=== PATIENT | male | born 1945 | race African-American/Black ===

== ENCOUNTER 2016-11-25 14:05 | Emergency (ER) | payer MEDICARE, MEDICAID ==
[~2016-11-25] VITALS: Ht 170.2 cm; Wt 56.0 kg
[~2016-11-25 14:05] MED LIST: AMLO10TA2 PO; CHEMO MEDICATION; GABA300C5 PO; METO25TA3 PO; SPIRCAP INH
[2016-11-25 14:07] VITALS: BP 137/63; PULSE 80; RESP 15; TEMP 97.8; O2SAT 98
--- NOTE | 2016-11-25 14:41 | PD ---
Physical Exam Time Seen by Provider: 14:40 Narrative 71 y/o male W R groin pain for six months, worse which prompted evaluation. Vital signs reviewed. Seen at triage desk. Awaiting bed placement. Data Data Last Documented VS Vital Signs Date Time Temp Pulse Resp B/P Pulse Ox O2 Delivery O2 Flow Rate FiO2 11/25/16 14:07 97.8 80 15 137/63 98 MDM Medical Record Reviewed: Yes Supervised Visit with NAHOMI: Jake Barraza Nov 25, 2016 14:41
[2016-12-25] MEDS ORDERED: VENTAER INH (08:54)
[2016-12-25] MEDS ORDERED: ADVA250A INH (08:54)
[2016-12-25] MEDS ORDERED: METO25TA3 PO (08:54)
[2016-12-25] MEDS ORDERED: AMLO10TA2 PO (08:54)
[2016-12-25] MEDS ORDERED: TIOT1AER2 INH (08:54)
== END 2016-11-25 15:05 | disposition left against medical advice (07) ==
LOC: NED 14:05
DX: R10.31 Right lower quadrant pain (principal)
CPT/HCPCS: 99281

== ENCOUNTER 2017-01-29 12:28 | Observation (INO) | payer MEDICARE, MEDICAID ==
[~2017-01-29] VITALS: Ht 167.6 cm; Wt 55.0 kg
[2017-01-29] VITALS (8 sets, daily range): BP systolic 162–183; BP diastolic 72–89; PULSE 45–78; RESP 17–24; TEMP 97.6–98.7; O2SAT 96–100
[~2017-01-29 12:28] MED LIST changes: +ADVA250A INH; +TIOT1AER2 INH; +VENTAER INH
--- NOTE | 2017-01-29 12:35 | PD ---
Physical Exam Date Seen by Provider: Jan 29, 2017 Time Seen by Provider: 12:31 Narrative 71 yo male here for RLQ pain. History of hernia repair in November. Pain is " outside of the pain scale". Been here multiple times for this per patient. Pain meds not helping. History of prostate cancer. Vitals are stable in triage. Awaiting bed placement. Data Data Last Documented VS Vital Signs Date Time Temp Pulse Resp B/P Pulse Ox O2 Delivery O2 Flow Rate FiO2 01/29/17 12:29 98.7 64 24 183/85 100 Room Air [facility] Medical Record Reviewed: Yes Supervised Visit with NAHOMI: No Elbert Harrell Jan 29, 2017 12:35
[2017-01-29] MEDS ORDERED: SODIUM CHLORID 0.9% 500 ML INJ 500 ML IV ONE (14:00)
[2017-01-29] MEDS ORDERED: SODIUM CHLORIDE 0.9% FLUSH 10 ML FLUSH IV FLUSH PRN ×2 (14:00→18:15)
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
[2017-01-29 14:29] LABS: AUTOMATED NEUTROPHIL # 3.5 TH/MM3 (1.8-7.7); BASOPHIL # 0.1 TH/MM3 (0-0.2); BASOPHIL % 0.9 % (0.0-2.0); EOSINOPHIL # 0.2 TH/MM3 (0-0.4); HEMATOCRIT 42.6 % (39.0-51.0); HEMO FLAGS DIFF FINAL; LYMPH % 33.4 % (9.0-44.0); LYMPHOCYTE # 2.2 TH/MM3 (1.0-4.8); MEAN CELL VOLUME 82.6 FL (80.0-100.0); MEAN CORPUSCULAR HEMOGLOBIN 28.5 PG (27.0-34.0); MEAN CORPUSCULAR HGB CONC 34.5 % (32.0-36.0); MONO % 9.7 % (0.0-8.0); PLATELET COUNT 193 TH/MM3 (150-450); RED BLOOD COUNT 5.16 MIL/MM3 (4.50-5.90); RED CELL DISTRIBUTION WIDTH 17.7 % (11.6-17.2); WHITE BLOOD COUNT 6.6 TH/MM3 (4.0-11.0)
[2017-01-29 14:38] LABS: APTT (PATIENT) 30.1 SEC (24.3-30.1)
[2017-01-29 14:41] LABS: ANION GAP 6 MEQ/L (5-15); AST (GOT) 17 U/L (15-37); BLOOD UREA NITROGEN 10 MG/DL (7-18); CHLORIDE 106 MEQ/L (98-107); GLOMERULAR FILTRATION RATE 110 ML/MIN (>89); POTASSIUM 3.4 MEQ/L (3.5-5.1); SODIUM (NA) 140 MEQ/L (136-145)
[2017-01-29 14:42] LABS: ALT (GPT) 18 U/L (12-78)
[2017-01-29 14:45] LABS: ALKALINE PHOSPHATASE 155 U/L (45-117); TOTAL BILIRUBIN ADULT 0.4 MG/DL (0.2-1.0)
[2017-01-29] MEDS ORDERED: IOHEXOL 350 MG/ML 10 ML VIAL (for RAD DIAG) IV ONE (16:34)
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
[2017-01-29] MEDS ORDERED: HYDROmorphone HCL PF 1 MG/ML VIAL IV PUSH ONE (17:30)
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
[2017-01-29 17:40] LABS: BACTERIA, URINE RARE /hpf; BLOOD, URINE NEG (NEG); COMMENT (UR) CULT NOT INDICATED; CULTURE IF INDICATED CULT NOT INDICATED; GLUCOSE,URINE NEG (NEG); KETONE, URINE NEG (NEG); NITRITE,URINE NEG (NEG); PH, URINE 7.5 (5.0-8.5); URINE COLOR LIGHT-YELLOW (YELLW/STRAW)
[2017-01-29] MEDS ORDERED: LACTULOSE SYRUP 20 GM/30 ML CUP PO PRN (18:15)
[2017-01-29] MEDS ORDERED: HYDROmorphone HCL 2 MG TAB PO PRN (18:15)
[2017-01-29] MEDS ORDERED: BISACODYL 10 MG SUPP RECTAL PRN (18:15)
[2017-01-29] MEDS ORDERED: NALOXONE HCL 0.4 MG/ML AMP IV PRN ×2 (18:15)
[2017-01-29] MEDS ORDERED: MAGNESIUM HYDROXIDE SUSP 30 ML CUP PO PRN (18:15)
[2017-01-29] MEDS ORDERED: ONDANSETRON HCL 4 MG/2 ML VIAL IVP PRN (18:15)
[2017-01-29] MEDS ORDERED: MORPHINE SULFATE 4 MG/ML INJ IV PRN (18:15)
[2017-01-29] MEDS ORDERED: ACETAMINOPHEN 325 MG TAB PO PRN ×2 (18:15)
[2017-01-29] MEDS ORDERED: SENNOSIDES 8.6 MG TAB PO PRN (18:15)
[2017-01-29] MEDS ORDERED: ENZA40CA PO (18:28)
[2017-01-29] MEDS ORDERED: hydrALAZINE HCL 20 MG/ML VIAL IV PRN (18:45)
[2017-01-29] MEDS ORDERED: ALBUTEROL SULFATE 90 MCG/ACT HFA 8 GM INHALER INH PRN (18:45)
[2017-01-29] MEDS ORDERED: PILL SPLITTER OTHER PRN (20:00)
[2017-01-29] MEDS: SODIUM CHLORIDE 0.9% FLUSH 10 ML FLUSH IV FLUSH SCH (21:00)
[2017-01-29] MEDS: SODIUM CHLOR 0.9% 1000 ML INJ 1,000 ML IV SCH (21:11)
[2017-01-29] MEDS: BUDESONIDE-FORMOTEROL 160/4.5 MCG INHALER INH SCH (21:11)
[2017-01-29] MEDS: GABAPENTIN 300 MG CAP PO SCH (21:12)
[2017-01-29] MEDS: DOCUSATE SODIUM 50 MG/SENNA 8.6 MG TAB PO SCH (21:12)
[2017-01-29] MEDS: METOPROLOL TARTRATE 25 MG TAB PO SCH (21:12)
[2017-01-29] MEDS: HYDROmorphone HCL 2 MG TAB PO PRN (22:52)
[2017-01-30] MEDS: HYDROmorphone HCL 2 MG TAB PO PRN ×3 (03:08→20:42)
[2017-01-30 04:18] VITALS: BP 148/78; PULSE 58; RESP 18; TEMP 97.8; O2SAT 99
[2017-01-30] MEDS: SODIUM CHLOR 0.9% 1000 ML INJ 1,000 ML IV SCH ×2 (06:00→08:54)
[2017-01-30 07:31] LABS: AUTOMATED NEUTROPHIL # 3.1 TH/MM3 (1.8-7.7); BASOPHIL # 0.1 TH/MM3 (0-0.2); BASOPHIL % 0.8 % (0.0-2.0); EOSINOPHIL # 0.3 TH/MM3 (0-0.4); EOSINOPHIL % 4.2 % (0.0-4.0); HEMATOCRIT 39.3 % (39.0-51.0); HEMO FLAGS DIFF FINAL; LYMPH % 36.9 % (9.0-44.0); LYMPHOCYTE # 2.3 TH/MM3 (1.0-4.8); MEAN CELL VOLUME 82.3 FL (80.0-100.0); MEAN CORPUSCULAR HEMOGLOBIN 29.3 PG (27.0-34.0); MEAN CORPUSCULAR HGB CONC 35.6 % (32.0-36.0); MONO % 8.8 % (0.0-8.0); NEUT % 49.3 % (16.0-70.0); PLATELET COUNT 161 TH/MM3 (150-450); RED BLOOD COUNT 4.77 MIL/MM3 (4.50-5.90); RED CELL DISTRIBUTION WIDTH 17.9 % (11.6-17.2); WHITE BLOOD COUNT 6.3 TH/MM3 (4.0-11.0)
[2017-01-30 07:34] VITALS: BP 174/74; PULSE 58; RESP 16; TEMP 98.8; O2SAT 100
[2017-01-30 07:37] LABS: ALKALINE PHOSPHATASE 135 U/L (45-117); ALT (GPT) 16 U/L (12-78); ANION GAP 7 MEQ/L (5-15); AST (GOT) 17 U/L (15-37); BLOOD UREA NITROGEN 8 MG/DL (7-18); CHLORIDE 105 MEQ/L (98-107); GLOMERULAR FILTRATION RATE 141 ML/MIN (>89); POTASSIUM 3.3 MEQ/L (3.5-5.1); SODIUM (NA) 139 MEQ/L (136-145); TOTAL BILIRUBIN ADULT 0.3 MG/DL (0.2-1.0)
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
[2017-01-30 08:11] VITALS: O2SAT 97
[2017-01-30] MEDS: METOPROLOL TARTRATE 25 MG TAB PO SCH ×2 (08:52→20:33)
[2017-01-30] MEDS: DOCUSATE SODIUM 50 MG/SENNA 8.6 MG TAB PO SCH ×2 (08:53→20:33)
[2017-01-30] MEDS: GABAPENTIN 300 MG CAP PO SCH ×2 (08:53→20:32)
[2017-01-30] MEDS: BUDESONIDE-FORMOTEROL 160/4.5 MCG INHALER INH SCH ×2 (08:54→20:32)
[2017-01-30] MEDS: SODIUM CHLORIDE 0.9% FLUSH 10 ML FLUSH IV FLUSH SCH ×2 (08:55→20:35)
[2017-01-30] MEDS ORDERED: ENZALUTAMIDE PO SCH (09:00)
[2017-01-30] MEDS ORDERED: [UNRECOGNIZED DRUG - OTHER] PO SCH (09:00)
--- NOTE | 2017-01-30 10:09 | HHI.FPPN ---
Subjective Remarks Pt seen and examined this morning. Pt endorses some nausea and vomiting prior to admission. Currently denies chest pain, shortness of breath. He has been having pain in right lower quadrant which he attributes to prior hernia repair, currently pain is controlled with pain medications. Denies any other abdominal pain. He anticipates having an ERCP later this afternoon. (Carol Ann Morillo MD R3) Objective Vitals Vital Signs Date Time Temp Pulse Resp B/P Pulse Ox O2 Delivery O2 Flow Rate FiO2 01/30/17 07:34 98.8 58 16 174/74 100 01/30/17 04:18 97.8 58 18 148/78 99 01/29/17 23:48 97.7 56 19 163/79 99 01/29/17 22:35 98 01/29/17 21:45 97.6 45 17 176/82 98 01/29/17 21:25 78 18 162/89 96 Room Air 01/29/17 18:23 69 18 174/82 97 Room Air 01/29/17 15:30 70 18 168/72 98 Room Air 01/29/17 14:20 65 18 171/81 98 Room Air 01/29/17 14:20 20 01/29/17 12:29 98.7 64 24 183/85 100 Room Air (Carol Ann Morillo MD R3) Result Diagram: 01/30/17 0640 01/30/17 0640 Objective Remarks GENERAL: This is a well-nourished, well-developed patient, in no apparent distress. SKIN: No rashes, ecchymoses or lesions. Multiple healed scars on abdomen from prior surgeries. HEAD: Atraumatic. Normocephalic. Pupils equal round and reactive. Extraocular motions intact. + Arcus senilis. Missing several teeth. Uvula midline. Airway patent. NECK: Trachea midline. CARDIOVASCULAR: Regular rate and rhythm RESPIRATORY: Clear to auscultation. Breath sounds equal bilaterally. No wheezes , rales, or rhonchi. GASTROINTESTINAL: Abdomen soft. BS+ in all quadrants. Tender to palpation in RLQ. Negative Kim's sign. No rebound tenderness. No RUQ tenderness. MUSCULOSKELETAL: Extremities without clubbing, cyanosis, or edema. No calf tenderness. NEUROLOGICAL: Awake and alert. Motor and sensory grossly within normal limits. Normal speech. (Carol Ann Morillo MD R3) A/P Assessment and Plan 71 y/o male with history of prostate cancer, HTN, inguinal hernia presents with RLQ pain. CT abdomen/pelvis shows choledocholithiasis. Will admit for GI consult and management, and pain control. Discharge Planning Anticipate discharge once abdominal pain is well-controlled and patient has been cleared by GI. (Carol Ann Morillo MD R3) Attending Attestation Patient seen and examined. Case reviewed and discussed with the resident team. Agree with plan of care as discussed with me and documented in the resident note. (Erickson Lo MD) Problem List: (1) Choledocholithiasis Status: Acute Plan: Patient presents with worsening abdominal pain, CT performed in ED showed prominent tubular structure containing filling defects characteristic of common bile distention with choledocholithiasis. Elevated alkaline phosphatase of 155. No elevated transaminases. Normal PT/PTT. No leukocytosis. No history of gallbladder or pancreatic disease. -GI consulted, appreciate recommendations and intervention -Anticipate ERCP with possible cingulotomy and stent placement later this afternoon -AFP, CA-19-9, CEA ordered -Lipase within normal limits at 90 Pain control: Morphine 4 mg IV prn breakthrough Dilaudid 1 mg Q4hrs prn Pain 3-5 Dilaudid 2 mg Q4hrs prn pain 6-10 (2) Prostate cancer Status: Chronic Plan: Hx of prostate cancer and prostatectomy. Hx of chemotherapy, currently on Xtandi at home. -Pt states he takes 160mg Xtandi daily. -Rx is not on formulary, so pt will need to bring from home, or discuss with oncologist about taking it. (3) HTN (hypertension) Status: Chronic Plan: -Continue home amlodipine and metoprolol -Hydralazine PRN (4) COPD (chronic obstructive pulmonary disease) Status: Chronic Plan: Hx of chronic COPD -Continue home Spiriva, albuterol inhaler (5) Diarrhea Status: Acute Plan: Pt with history of diarrhea prior to admission -C. Diff, stool studies ordered to evaluate for possible infectious cause (6) FEN/PPX Status: Acute Plan: Fluids: NS @ 100mls/hr Electrolytes: wnl, continue to monitor Nutrition: NPO DVT PPX: will hold chemo ppx until after GI procedure; SCDs placed (Carol Ann Morillo MD R3) Problem Qualifiers (1) HTN (hypertension): Qualified Code: I10 - Essential hypertension (2) COPD (chronic obstructive pulmonary disease): Qualified Code: J44.9 - Chronic obstructive pulmonary disease, unspecified COPD type Carol Ann Morillo MD R3 Jan 30, 2017 10:09 Erickson Lo MD Jan 30, 2017 11:32
[2017-01-30] MEDS: TIOTROPIUM BROMIDE 18 MCG INH INH SCH (10:29)
[2017-01-30 11:30] VITALS: BP 166/74; PULSE 52; RESP 16; TEMP 98.4; O2SAT 97
[2017-01-30] MEDS ORDERED: NEOSTIGMINE 3 MG/3 ML SYR IV ONE (12:00)
[2017-01-30] MEDS ORDERED: IOHEXOL 350 MG/ML 50 ML BTL (for RAD DIAG) ONE (16:51)
[2017-01-30] MEDS ORDERED: INDOMETHACIN 50 MG SUPP RECTAL ONE (16:56)
[2017-01-30] MEDS ORDERED: PROPOFOL 200 MG/20 ML AMP IV PUSH ONE (17:27)
[2017-01-30] MEDS ORDERED: SUGAMMADEX SODIUM 200 MG/2 ML VIAL IV PUSH ONE ×2 (17:35)
--- NOTE | 2017-01-30 17:40 | RADRPT ---
EXAM DATE/TIME: 01/30/2017 17:04 [facility] COMPARISON: CT ABDOMEN & PELVIS W CONTRAST, January 29, 2017, 16:37. INDICATIONS : Obstruction. Stent placment. FLUORO TIME: 4.0 minutes IMAGE COUNT: 2 CONTRAST: Instilled by Ordering Physician MEDICAL HISTORY : Unobtainable SURGICAL HISTORY : Unobtainable. ENCOUNTER: Initial ACUITY: 2 days PAIN SCORE: Non-responsive. LOCATION: Abdomen. FINDINGS: An ERCP was performed by the ordering physician. The images demonstrate dilated intra-and extrahepatic biliary tree with multiple filling defects in t he common duct consistent with stones. A second film reveals good drainage of the biliary tree with a stent in good position. CONCLUSION: ERCP as above. Dino Mendoza MD on January 30, 2017 at 17:37 Board Certified Radiologist. This report was verified electronically.
--- NOTE | 2017-01-30 17:45 | PD.PROCEDR ---
GI Procedure REFERRING PHYSICIAN Dr. Lo PROCEDURE PERFORMED ERCP with sphincterotomy balloon extraction and stent placement INDICATION FOR PROCEDURE Choledocholithiasis PROCEDURE: The procedure, risks and benefits were discussed with Mr. Yoder and informed consent was obtained. Anesthesia intubated the patient and sedated him with Diprivan. He was placed in the left lateral decubitus position. ERCP: Patient was placed in a prone position. The Pentax videoscope was introduced through the oropharynx and advanced to the second portion of the duodenum where the ampula was identified. FINDINGS: The ampulla appeared to be unremarkable and within normal limits were able to obtain easy cannulation of the common bile duct which appeared to be significantly dilated with multiple large filling defects using the 15 mm balloon we were able to extract 2 of the largest stones but there are still multiple stones in there and as such I made a decision to place a 10 Egyptian 9 cm stent and at this point the procedure was terminated The intrahepatics appeared to be unremarkable ESTIMATED BLOOD LOSS: None SPECIMENS REMOVED: None COMPLICATIONS: None IMPRESSION: Choledocholithiasis PLAN: Supportive care Advance diet Patient may be discharged from a GI standpoint to follow up with GI in 2-4 weeks CBC and a CMP prior office visit ERCP in 2-3 months Eran Bell MD Jan 30, 2017 17:45
[2017-01-30] MEDS ORDERED: fentaNYL CITRATE 250 MCG/5 ML AMP ONE (18:16)
[2017-01-30] MEDS ORDERED: hydrALAZINE HCL 20 MG/ML VIAL IV PRN (18:30)
[2017-01-30] MEDS ORDERED: DO NOT ADM ANY ANTICOAGULANT DRUGS PRN (18:30)
[2017-01-30] MEDS ORDERED: *ONDANSETRON 4 MG VIAL PERIprocedural Use ONLY ONE (18:38)
[2017-01-30 20:14] VITALS: BP 126/59; PULSE 78; RESP 18; TEMP 98.1; O2SAT 100
[2017-01-30 23:44] VITALS: BP 117/59; PULSE 79; RESP 18; TEMP 98.3; O2SAT 96
[2017-01-31] MEDS: HYDROmorphone HCL 2 MG TAB PO PRN ×2 (03:39→12:36)
[2017-01-31] MEDS: SODIUM CHLOR 0.9% 1000 ML INJ 1,000 ML IV SCH ×2 (03:42→12:35)
[2017-01-31 04:34] VITALS: BP 168/74; PULSE 62; RESP 18; TEMP 97.4; O2SAT 99
[2017-01-31] MEDS ORDERED: POTASSIUM CHLORIDE 20 MEQ CONTROLLED RELEASE TAB PO ONE (07:45)
[2017-01-31 08:11] VITALS: BP 136/65; PULSE 67; RESP 18; TEMP 96.9; O2SAT 96
[2017-01-31] MEDS ORDERED: DILA4TAB2 PO ×2 (08:17→09:40)
[2017-01-31] MEDS: GABAPENTIN 300 MG CAP PO SCH (08:18)
[2017-01-31] MEDS: METOPROLOL TARTRATE 25 MG TAB PO SCH (08:18)
[2017-01-31] MEDS: SODIUM CHLORIDE 0.9% FLUSH 10 ML FLUSH IV FLUSH SCH (08:20)
[2017-01-31] MEDS: BUDESONIDE-FORMOTEROL 160/4.5 MCG INHALER INH SCH (08:20)
[2017-01-31] MEDS: TIOTROPIUM BROMIDE 18 MCG INH INH SCH (08:20)
[2017-01-31] MEDS: DOCUSATE SODIUM 50 MG/SENNA 8.6 MG TAB PO SCH (08:24)
--- NOTE | 2017-01-31 10:05 | HHI.FPPN ---
Subjective Remarks Patient seen and examined this morning. No acute events over night. Patient states that his abdominal pain is better today, however there is some new dull pain on the right side which he attributes to his recent ERCP. He still has some pain around his hernia repair, which he describes as "still there, not too bad." No other complaints of nausea, vomiting, fever, chills, chest pain, shortness of breath, change in bowel habits, change in urinary habits. (Fidel Soto MD R1) Objective Vitals Vital Signs Date Time Temp Pulse Resp B/P Pulse Ox O2 Delivery O2 Flow Rate FiO2 01/31/17 08:11 96.9 67 18 136/65 96 01/31/17 04:34 97.4 62 18 168/74 99 01/30/17 23:44 98.3 79 18 117/59 96 01/30/17 20:14 98.1 78 18 126/59 100 01/30/17 18:45 97.6 69 15 155/74 98 Nasal Cannula 2 01/30/17 18:30 68 14 169/78 96 Nasal Cannula 2 01/30/17 18:15 96.8 66 14 180/89 100 Nasal Cannula 3 01/30/17 18:10 61 14 196/95 99 Nasal Cannula 3 01/30/17 18:02 96.1 01/30/17 18:00 96.1 63 13 189/88 100 Simple Mask 7 01/30/17 15:43 01/30/17 11:30 98.4 52 16 166/74 97 01/30/17 09:58 18 I/O 01/30/17 01/30/17 01/30/17 01/31/17 01/31/17 01/31/17 07:00 15:00 23:00 07:00 15:00 23:00 Intake Total 1350 ml Output Total 1590 ml 1100 ml Balance -240 ml -1100 ml Intake IV Total 750 ml Other 600 ml Output Urine Total 1580 ml 1100 ml Stool Total 0 ml Estimated Blood Loss 10 ml (Fidel Soto MD R1) Result Diagram: 01/30/17 0640 01/30/17 0640 Imaging Last Impressions GI Procedure 01/30/17 0000 Signed Impressions: Service Date/Time: January 17:04 - CONCLUSION: ERCP as above. Dino Mendoza MD Abdomen/Pelvis CT 01/29/17 1343 Signed Impressions: Service Date/Time: Sunday, January 29, 2017 16:37 - CONCLUSION: 1. Prominent tubular structure containing filling defects extending from the malathi hepatis to the pancreatic head characteristic of common bile duct distention with choledocholithiasis. 2. Mild intrahepatic biliary duct dilatation. 3. Calcific atherosclerotic vascular disease with significant calcified plaque in the superior mesenteric artery. 4. Mild small vessel ileus Jorge Sawyer MD Objective Remarks GENERAL: This is a well-nourished, well-developed patient, in no apparent distress. SKIN: No rashes, ecchymoses or lesions. Multiple healed scars on abdomen from prior surgeries. HEAD: Atraumatic. Normocephalic. Pupils equal round and reactive. Extraocular motions intact. + Arcus senilis. Missing several teeth. Uvula midline. Airway patent. NECK: Trachea midline. CARDIOVASCULAR: Regular rate and rhythm RESPIRATORY: Clear to auscultation. Breath sounds equal bilaterally. No wheezes , rales, or rhonchi. GASTROINTESTINAL: Abdomen soft. BS+ in all quadrants. Tender to palpation in RLQ , RUQ. Negative Kim's sign. No rebound tenderness. No RUQ tenderness. MUSCULOSKELETAL: Extremities without clubbing, cyanosis, or edema. No calf tenderness. NEUROLOGICAL: Awake and alert. Motor and sensory grossly within normal limits. Normal speech. Procedures ERCP with stenting 01/30/11 Medications and IVs Current Medications Medications (Trade) Dose Ordered Sig/Tammie Route Start Time Stop Time Status Last Admin (NS 1000 ml Inj) 1,000 ml @ 100 mls/hr Q10H IV 01/29/17 20:00 01/31/17 03:42 (NS Flush) 2 ml UNSCH PRN IV FLUSH 01/29/17 18:15 01/29/17 23:01 (NS Flush) 2 ml BID IV FLUSH 01/29/17 21:00 01/30/17 20:35 (Tylenol) 650 mg Q4H PRN PO 01/29/17 18:15 (Zofran Inj) 4 mg Q6H PRN IVP 01/29/17 18:15 01/31/17 08:24 (Narcan Inj) 0.4 mg UNSCH PRN IV 01/29/17 18:15 (Rolanda-Colace) 1 tab BID PO 01/29/17 21:00 01/31/17 08:24 (Milk Of Magnesia Liq) 30 ml Q12H PRN PO 01/29/17 18:15 (Senokot) 17.2 mg Q12H PRN PO 01/29/17 18:15 (Dulcolax Supp) 10 mg DAILY PRN RECTAL 01/29/17 18:15 (Lactulose Liq) 30 ml DAILY PRN PO 01/29/17 18:15 (Tylenol) 650 mg Q6H PRN PO 01/29/17 18:15 (Morphine Inj) 4 mg Q3H PRN IV 01/29/17 18:15 (Dilaudid) 1 mg Q4H PRN PO 01/29/17 18:15 (Dilaudid) 2 mg Q4H PRN PO 01/29/17 18:15 01/31/17 03:39 (Proair Hfa Inh) 2 puff Q4H PRN INH 01/29/17 18:45 (Norvasc) 10 mg DAILY PO 01/30/17 09:00 01/31/17 08:18 (Neurontin) 300 mg BID PO 01/29/17 21:00 01/31/17 08:18 (Lopressor) 25 mg BID PO 01/29/17 21:00 01/31/17 08:18 (Spiriva Inh) 18 mcg DAILY INH 01/30/17 09:00 01/31/17 08:20 Patient Own Medication PT OWN MED: XTANDI (ENZALUTAMI... DAILY PO 01/30/17 09:00 Hold (Symbicort 160-4.5 Inh) 2 puff BID INH 01/29/17 21:00 01/31/17 08:20 (Apresoline Inj) 10 mg Q6H PRN IV 01/29/17 18:45 (Pill Splitter) 1 ea UNSCH PRN OTHER 01/29/17 20:00 Miscellaneous Information ALL NURSING DEPARTME... UNSCH PRN .XX 01/30/17 18:30 01/31/17 18:29 (Apresoline Inj) 5 mg UNSCH PRN IV 01/30/17 18:30 (Fidel Soto MD R1) A/P Assessment and Plan 71 y/o male with history of prostate cancer, HTN, inguinal hernia presents with RLQ pain. CT abdomen/pelvis shows choledocholithiasis. Will admit for GI consult and management, and pain control. Discharge Planning Anticipate discharge once abdominal pain is well-controlled and patient has been cleared by GI. (Fidel Soto MD R1) Attending Attestation Patient seen and examined. Case reviewed and discussed with the resident team. Agree with plan of care as discussed with me and documented in the resident note. (Erickson Lo MD) Problem List: (1) Choledocholithiasis Status: Acute Plan: Patient presented with worsening abdominal pain, CT performed in ED showed prominent tubular structure containing filling defects characteristic of common bile distention with choledocholithiasis. Elevated alkaline phosphatase of 155. No elevated transaminases. Normal PT/PTT. No leukocytosis. No history of gallbladder or pancreatic disease. Pain currently resolving. -GI consulted, appreciate recommendations and intervention -ERCP with stent placement 01/30/17 -AFP, CA-19-9, CEA ordered -Lipase within normal limits at 90 Pain control: Morphine 4 mg IV prn breakthrough Dilaudid 1 mg Q4hrs prn Pain 3-5 Dilaudid 2 mg Q4hrs prn pain 6-10 (2) Prostate cancer Status: Chronic Plan: Hx of prostate cancer and prostatectomy. Hx of chemotherapy, currently on Xtandi at home. -Pt states he takes 160mg Xtandi daily. -Rx is not on formulary, so pt will need to bring from home, or discuss with oncologist about taking it. (3) HTN (hypertension) Status: Chronic Plan: -Continue home amlodipine and metoprolol -Hydralazine PRN (4) COPD (chronic obstructive pulmonary disease) Status: Chronic Plan: Hx of chronic COPD -Continue home Spiriva, albuterol inhaler (5) Diarrhea Status: Acute Plan: Pt with history of diarrhea prior to admission -C. Diff, stool studies ordered to evaluate for possible infectious cause (6) FEN/PPX Status: Acute Plan: Fluids: NS @ 100mls/hr Electrolytes: wnl, continue to monitor Nutrition: NPO DVT PPX: will hold chemo ppx until after GI procedure; SCDs placed (Fidel Soto MD R1) Problem Qualifiers (1) HTN (hypertension): Qualified Code: I10 - Essential hypertension (2) COPD (chronic obstructive pulmonary disease): Qualified Code: J44.9 - Chronic obstructive pulmonary disease, unspecified COPD type Fidel Soot MD R1 Jan 31, 2017 10:05 Erickson Lo MD Jan 31, 2017 14:06
[2017-01-31] MEDS ORDERED: HYDROmorphone HCL 2 MG TAB PO ONE (12:15)
[2017-01-31 12:22] VITALS: BP 130/60; PULSE 67; RESP 18; TEMP 96.8; O2SAT 96
--- NOTE | 2017-01-31 14:54 | HHI.GIFU ---
Subjective Remarks Feels fine. No complaints. Eating well. No abdominal pain. I advised him he needs to followup in office in 4 weeks or so to schedule a repeat ERCP with removal of the rest of the stones. Objective Vitals I&O Vital Signs Date Time Temp Pulse Resp B/P Pulse Ox O2 Delivery O2 Flow Rate FiO2 01/31/17 12:22 96.8 67 18 130/60 96 01/31/17 08:11 96.9 67 18 136/65 96 01/31/17 04:34 97.4 62 18 168/74 99 01/30/17 23:44 98.3 79 18 117/59 96 01/30/17 20:14 98.1 78 18 126/59 100 01/30/17 18:45 97.6 69 15 155/74 98 Nasal Cannula 2 01/30/17 18:30 68 14 169/78 96 Nasal Cannula 2 01/30/17 18:15 96.8 66 14 180/89 100 Nasal Cannula 3 01/30/17 18:10 61 14 196/95 99 Nasal Cannula 3 01/30/17 18:02 96.1 01/30/17 18:00 96.1 63 13 189/88 100 Simple Mask 7 01/30/17 15:43 I/O 01/30/17 01/30/17 01/30/17 01/31/17 01/31/17 01/31/17 07:00 15:00 23:00 07:00 15:00 23:00 Intake Total 1350 ml Output Total 1590 ml 1100 ml Balance -240 ml -1100 ml Intake IV Total 750 ml Other 600 ml Output Urine Total 1580 ml 1100 ml Stool Total 0 ml Estimated Blood Loss 10 ml Laboratory Laboratory Tests Test 01/29/17 01/29/17 01/30/17 14:15 17:20 06:40 Red Cell Distribution Width 17.7 % 17.9 % (11.6-17.2) (11.6-17.2) Monocytes (%) (Auto) 9.7 % (0.0-8.0) 8.8 % (0.0-8.0) Potassium Level 3.4 MEQ/L 3.3 MEQ/L (3.5-5.1) (3.5-5.1) Alkaline Phosphatase 155 U/L 135 U/L (45-117) (45-117) Urine Bacteria RARE /hpf (NONE) Eosinophils (%) (Auto) 4.2 % (0.0-4.0) Albumin 3.1 GM/DL (3.4-5.0) Physical Exam HEENT: Pupils round and reactive to light; normocephalic; atraumatic; no jaundice. Throat is clear. NECK: Neck is supple, no JVD, no lymphadenopathy. CHEST: Chest is clear to auscultation and percussion. CARDIAC: Regular rate and rhythm with no murmur gallop or rubs. ABDOMEN: Soft, nondistended, nontender; no hepatosplenomegaly; bowel sounds are present in all four quadrants. EXTREMITIES: No clubbing, cyanosis, or edema. SKIN: Normal; no rash; no jaundice. 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 Assessment and Plan Plan ASSESSMENT: - Dilated CBD at 2cm. Pt came to ER for evaluation of chronic right inguinal pain and had Abdomen/Pelvis CT (01/29/17)----> 1. Prominent tubular structure containing filling effects extending from the malathi hepatis to the pancreatic head characteristic of common bile duct distention with choledocholithiasis. 2. Mild intrahepatic biliary duct dilatation. 3. Calcific atherosclerotic vascular disease with significant calcified plaque in the superior mesenteric artery. 4. Mild small vessel ileus. LFTs unremarkable other than elevated alk phosph. Does report that he has had some N/V/D for the past week. - Chronic right inguinal pain. States he has had constant pain since his repair one year ago. - Abn. Wt. Loss. He has lost 81 lbs since being diagnosed with prostate cancer in 2007. He reports that his appetite is good and he eats the same. - COPD, HTN, PVD, Neuropathy, per attending. - Recurrent prostate cancer. Dx 2007, s/p prostatectomy. S/P Chemo q3 weeks, currently on Xtandi. PLAN: - OK for discharge to home with followup in [facility] in 4 weeks. - PPI - Ca19-9, AFP, CEA Junior Kahn MD Jan 31, 2017 14:54
--- NOTE | 2017-01-31 14:55 | HHI.DCPOC ---
Discharge Care Plan Diagnosis: (1) Choledocholithiasis with obstruction (2) HTN (hypertension) (3) Prostate cancer (4) COPD (chronic obstructive pulmonary disease) Goals to Promote Your Health * To prevent worsening of your condition and complications * To maintain your health at the optimal level Directions to Meet Your Goals Take your medications as prescribed Follow your dietary instruction Follow activity as directed Keep your appointments as scheduled Take your immunizations and boosters as scheduled If your symptoms worsen call your PCP, if no PCP go to Urgent Care Center or Emergency Room Smoking is Dangerous to Your Health. Avoid second hand smoke Call the 24-hour hour crisis hotline for domestic abuse at Fidel Soto MD R1 Jan 31, 2017 14:55
--- NOTE | 2017-01-31 15:24 | EKG ---
Date Performed: 01/30/2017 Time Performed: 16:17:53 PTAGE: 71 years EKG: Sinus rhythm WITH OCCASIONAL VENTRICULAR PREMATURE COMPLEXES WITH OCCASIONAL SUPRAVENTRICULAR PREMATURE COMPLEXES MARKED LEFT AXIS DEVIATION MODERATE VOLTAGE CRITERIA FOR LVH, CONSIDER NORMAL VARIANT POSSIBLE ANTER OSEPTAL MYOCARDIAL INFARCTION , OF INDETERMINATE AGE Compared to previous tracing, [place] is now marked ly leftward. There is poor R wave in V3 that was not present in the previous tracing and the atrial a nd ventricular ectopy are new. QRS voltage is also somewhat more prominent ABNORMAL ECG PREVIOUS TRACING : 01/11/2016 12.27 DOCTOR: Laurent Mendoza Interpretating Date/Time 01/31/2017 15:23:30
== END 2017-01-31 16:31 | disposition home or self-care (01) ==
LOC: NEPD 12:28 → NEDA 17:30 → NEPHCDU 21:38
PROVIDERS: ADMIT Family Medicine; ATTEND Family Medicine
PROC: 0F798DZ Dilation of Common Bile Duct with Intraluminal Device, Via Natural or Artificial Opening Endoscopic (ICD-10-PCS; principal; 2017-01-29)
DX: K80.51 Calculus of bile duct without cholangitis or cholecystitis with obstruction (principal); I10 Essential (primary) hypertension; J44.9 Chronic obstructive pulmonary disease, unspecified; C61 Malignant neoplasm of prostate; F17.210 Nicotine dependence, cigarettes, uncomplicated; Z92.21 Personal history of antineoplastic chemotherapy; Z79.899 Other long term (current) drug therapy; R19.7 Diarrhea, unspecified; I73.9 Peripheral vascular disease, unspecified; G62.9 Polyneuropathy, unspecified
CPT/HCPCS: 01922; 43274; 74177; 74330; 80053; 81001; 83690; 85025; 85610; 85730; 93005; 96361; 96374; 96375; 96376; 97162; 99285; C1769; C2625; G0378; G8987; G8988; J1170; J2405; J2710; J3010; J7030; J7040; Q9967

== ENCOUNTER → 2017-02-07 | Outpatient (CLI) | payer MEDICARE, MEDICAID ==
[~2017-02-07] MED LIST changes: +BACT800T5 PO; +DILA4TAB2 PO; +ENZA40CA PO; +HYDR4TAB PO
[2017-02-07 10:22] LABS: ALKALINE PHOSPHATASE 140 U/L (45-117); ALT (GPT) 17 U/L (12-78); TOTAL BILIRUBIN ADULT 0.2 MG/DL (0.2-1.0)
[2017-02-07 10:29] LABS: ANION GAP 8 MEQ/L (5-15); AST (GOT) 16 U/L (15-37); BICARBONATE 29.1 MEQ/L (21.0-32.0); BLOOD UREA NITROGEN 10 MG/DL (7-18); CHLORIDE 104 MEQ/L (98-107); GLOMERULAR FILTRATION RATE 97 ML/MIN (>89); GLUCOSE,FASTING 87 MG/DL (74-99); SODIUM (NA) 141 MEQ/L (136-145)
[2017-02-07 10:45] LABS: AUTOMATED NEUTROPHIL # 3.8 TH/MM3 (1.8-7.7); BASOPHIL # 0.1 TH/MM3 (0-0.2); BASOPHIL % 0.9 % (0.0-2.0); EOSINOPHIL # 0.2 TH/MM3 (0-0.4); EOSINOPHIL % 3.5 % (0.0-4.0); HEMATOCRIT 41.6 % (39.0-51.0); HEMO FLAGS DIFF FINAL; LYMPH % 35.8 % (9.0-44.0); LYMPHOCYTE # 2.5 TH/MM3 (1.0-4.8); MEAN CELL VOLUME 82.8 FL (80.0-100.0); MEAN CORPUSCULAR HEMOGLOBIN 29.2 PG (27.0-34.0); MEAN CORPUSCULAR HGB CONC 35.2 % (32.0-36.0); MONO % 6.3 % (0.0-8.0); NEUT % 53.5 % (16.0-70.0); PLATELET COUNT 247 TH/MM3 (150-450); RED BLOOD COUNT 5.02 MIL/MM3 (4.50-5.90)
== END ==
LOC: CLAB 09:03
DX: K80.50 Calculus of bile duct without cholangitis or cholecystitis without obstruction (principal); C61 Malignant neoplasm of prostate
CPT/HCPCS: 36415; 80053; 84153; 85025

== ENCOUNTER 2017-02-14 14:28 | Emergency (ER) | payer MEDICARE, MEDICAID ==
[~2017-02-14] VITALS: Ht 167.6 cm; Wt 65.0 kg
[~2017-02-14 14:28] MED LIST changes: -BACT800T5 PO; -HYDR4TAB PO
[2017-02-14] MEDS ORDERED: IOHEXOL 350 MG/ML 10 ML VIAL (for RAD DIAG) IVCONTRAST ONE (14:29)
[2017-02-14 14:31] VITALS: BP 161/70; PULSE 58; RESP 18; TEMP 98.4; O2SAT 98
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
[2017-02-14] MEDS ORDERED: SODIUM CHLOR 0.9% 1000 ML INJ 1,000 ML IV SCH (18:25)
[2017-02-14] MEDS ORDERED: SODIUM CHLORIDE 0.9% FLUSH 10 ML FLUSH IV FLUSH PRN (18:30)
[2017-02-14] MEDS ORDERED: ONDANSETRON HCL 4 MG/2 ML VIAL IVP ONE (18:30)
[2017-02-14] MEDS ORDERED: MORPHINE SULFATE 4 MG/ML INJ IV PUSH ONE (18:30)
[2017-02-14 18:32] VITALS: BP_SYST 150; BP_SYST 180; BP_DIAS 86; PULSE 71; PULSE 74; RESP 18; TEMP 98.2; O2SAT 100
[2017-02-14 19:10] LABS: ANION GAP 6 MEQ/L (5-15); AST (GOT) 11 U/L (15-37); BICARBONATE 29.8 MEQ/L (21.0-32.0); BLOOD UREA NITROGEN 11 MG/DL (7-18); CHLORIDE 102 MEQ/L (98-107); GLOMERULAR FILTRATION RATE 79 ML/MIN (>89); POTASSIUM 4.3 MEQ/L (3.5-5.1); SODIUM (NA) 138 MEQ/L (136-145)
[2017-02-14 19:11] LABS: ALT (GPT) 16 U/L (12-78)
[2017-02-14 19:13] LABS: ALKALINE PHOSPHATASE 165 U/L (45-117); TOTAL BILIRUBIN ADULT 0.4 MG/DL (0.2-1.0)
[2017-02-14 19:41] LABS: AUTOMATED NEUTROPHIL # 6.4 TH/MM3 (1.8-7.7); BASOPHIL # 0.1 TH/MM3 (0-0.2); BASOPHIL % 0.9 % (0.0-2.0); EOSINOPHIL # 0.2 TH/MM3 (0-0.4); EOSINOPHIL % 1.7 % (0.0-4.0); HEMATOCRIT 43.8 % (39.0-51.0); LYMPH % 25.1 % (9.0-44.0); LYMPHOCYTE # 2.4 TH/MM3 (1.0-4.8); MEAN CELL VOLUME 82.4 FL (80.0-100.0); MEAN CORPUSCULAR HEMOGLOBIN 29.9 PG (27.0-34.0); MONO % 6.6 % (0.0-8.0); NEUT % 65.7 % (16.0-70.0); PLATELET COUNT 287 TH/MM3 (150-450); RED BLOOD COUNT 5.31 MIL/MM3 (4.50-5.90); RED CELL DISTRIBUTION WIDTH 17.8 % (11.6-17.2); WHITE BLOOD COUNT 9.8 TH/MM3 (4.0-11.0)
[2017-02-14 19:46] LABS: HEMO FLAGS AUTO DIFF; MEAN CORPUSCULAR HGB CONC 36.3 % (32.0-36.0)
[2017-02-14 19:47] VITALS: BP 176/84; PULSE 79; RESP 20; O2SAT 98
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
[2017-02-14] MEDS ORDERED: HYDR4TAB PO (20:15)
[2017-02-14 20:19] LABS: BACTERIA, URINE OCC /hpf; BLOOD, URINE NEG (NEG); COMMENT (UR) CULTURE INDICATED; CULTURE IF INDICATED CULTURE INDICATED; GLUCOSE,URINE NEG (NEG); KETONE, URINE NEG (NEG); MUCUS URINE FEW /lpf (OCC); NITRITE,URINE POS (NEG); PH, URINE 6.5 (5.0-8.5); URINE COLOR LIGHT-YELLOW (YELLW/STRAW)
[2017-02-14] MEDS ORDERED: BACT800T5 PO ×3 (20:29→20:44)
[2017-02-14 20:34] LABS: BASOPHILS 1 % (0-2); EOSINOPHILS 1 % (0-4); POLYS (SEG NEUTROPHILS) 61 % (16-70); WBC DIFF SAMPLE 100
[2017-02-14 20:35] LABS: TARGET CELLS 1+ (NORMAL)
[2017-02-14 20:36] LABS: PLATELET ESTIMATE SMEAR NORMAL (NORMAL); PLATELET MORPHOLOGY NORMAL (NORMAL); SCAN/DIFF FINAL DIFF MANUAL; TOXIC VACUOLATION PRESENT (NONE SEEN)
== END 2017-02-14 20:49 | disposition home or self-care (01) ==
LOC: NEPD 14:28
DX: R10.11 Right upper quadrant pain (principal); N39.0 Urinary tract infection, site not specified; B96.1 Klebsiella pneumoniae [K. pneumoniae] as the cause of diseases classified elsewhere; R11.2 Nausea with vomiting, unspecified; C61 Malignant neoplasm of prostate; K59.00 Constipation, unspecified; I10 Essential (primary) hypertension; F17.210 Nicotine dependence, cigarettes, uncomplicated; Z79.52 Long term (current) use of systemic steroids; Z79.899 Other long term (current) drug therapy
CPT/HCPCS: 74177; 80053; 81001; 83605; 83690; 85007; 85027; 87077; 87086; 87186; 96361; 96374; 96375; 99285; J2270; J2405; J7030; Q9967

== ENCOUNTER 2017-03-07 15:54 | Emergency (ER) | payer MEDICARE, MEDICAID ==
[~2017-03-07] VITALS: Ht 170.2 cm; Wt 53.0 kg
[~2017-03-07 15:54] MED LIST changes: +BACT800T5 PO; -CHEMO MEDICATION; +HYDR4TAB PO
[2017-03-07 15:55] VITALS: BP 140/93; PULSE 72; RESP 20; TEMP 97.5; O2SAT 96
[2017-03-07] MEDS ORDERED: SODIUM CHLORIDE 0.9% FLUSH 10 ML FLUSH IV FLUSH PRN (17:30)
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
[2017-03-07 17:41] VITALS: BP 144/91; PULSE 69; PULSE 85; RESP 22; O2SAT 100
[2017-03-07 18:54] LABS: AUTOMATED NEUTROPHIL # 3.6 TH/MM3 (1.8-7.7); BASOPHIL # 0.1 TH/MM3 (0-0.2); BASOPHIL % 0.7 % (0.0-2.0); EOSINOPHIL # 0.3 TH/MM3 (0-0.4); EOSINOPHIL % 4.2 % (0.0-4.0); HEMATOCRIT 45.6 % (39.0-51.0); LYMPH % 36.4 % (9.0-44.0); LYMPHOCYTE # 2.7 TH/MM3 (1.0-4.8); MEAN CELL VOLUME 85.1 FL (80.0-100.0); MEAN CORPUSCULAR HGB CONC 34.1 % (32.0-36.0); MONO % 9.4 % (0.0-8.0); NEUT % 49.3 % (16.0-70.0); PLATELET COUNT 179 TH/MM3 (150-450); RED BLOOD COUNT 5.36 MIL/MM3 (4.50-5.90); RED CELL DISTRIBUTION WIDTH 17.7 % (11.6-17.2); WHITE BLOOD COUNT 7.4 TH/MM3 (4.0-11.0)
[2017-03-07 18:59] LABS: HEMO FLAGS AUTO DIFF
[2017-03-07 19:20] LABS: ALT (GPT) 15 U/L (12-78); ANION GAP 7 MEQ/L (5-15); AST (GOT) 16 U/L (15-37); BICARBONATE 28.5 MEQ/L (21.0-32.0); BLOOD UREA NITROGEN 8 MG/DL (7-18); CHLORIDE 104 MEQ/L (98-107); GLOMERULAR FILTRATION RATE 99 ML/MIN (>89); POTASSIUM 4.1 MEQ/L (3.5-5.1); SODIUM (NA) 139 MEQ/L (136-145)
[2017-03-07 19:23] LABS: ALKALINE PHOSPHATASE 138 U/L (45-117); TOTAL BILIRUBIN ADULT 0.5 MG/DL (0.2-1.0)
[2017-03-07 19:24] VITALS: BP 155/79; PULSE 79; RESP 18; O2SAT 97
[2017-03-07] MEDS ORDERED: IOHEXOL 350 MG/ML 10 ML VIAL (for RAD DIAG) IVCONTRAST ONE (19:46)
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
[2017-03-07 20:38] LABS: PLATELET ESTIMATE SMEAR NORMAL (NORMAL); PLATELET MORPHOLOGY NORMAL (NORMAL); SCAN/DIFF AUTO DIFF CONFIRMED; TARGET CELLS 1+ (NORMAL)
[2017-03-07] MEDS ORDERED: DILA4TAB2 PO (20:38)
--- NOTE | 2017-03-07 20:38 | PD ---
Data Data Last Documented VS Vital Signs Date Time Temp Pulse Resp B/P (MAP) Pulse Ox O2 Delivery O2 Flow Rate FiO2 03/07/17 20:50 03/07/17 19:24 79 18 97 Room Air 03/07/17 15:55 97.5 Orders Orders Complete Blood Count With Diff (03/07/17 17:25) Comprehensive Metabolic Panel (03/07/17 17:25) Lipase (03/07/17 17:25) Ct Abd/Pel W Iv Contrast(Rout) (03/07/17 17:25) Iv Access Insert/Monitor (03/07/17 17:25) Ecg Monitoring (03/07/17 17:25) Oximetry (03/07/17 17:25) Sodium Chloride 0.9% Flush (Ns Flush) (03/07/17 17:30) Iohexol 350 Inj (Omnipaque 350 Inj) (03/07/17 19:46) Labs Laboratory Tests Test 03/07/17 18:05 White Blood Count 7.4 TH/MM3 Red Blood Count 5.36 MIL/MM3 Hemoglobin 15.6 GM/DL Hematocrit 45.6 % Mean Corpuscular Volume 85.1 FL Mean Corpuscular Hemoglobin 29.0 PG Mean Corpuscular Hemoglobin Concent 34.1 % Red Cell Distribution Width 17.7 % Platelet Count 179 TH/MM3 Mean Platelet Volume 8.6 FL Neutrophils (%) (Auto) 49.3 % Lymphocytes (%) (Auto) 36.4 % Monocytes (%) (Auto) 9.4 % Eosinophils (%) (Auto) 4.2 % Basophils (%) (Auto) 0.7 % Neutrophils # (Auto) 3.6 TH/MM3 Lymphocytes # (Auto) 2.7 TH/MM3 Monocytes # (Auto) 0.7 TH/MM3 Eosinophils # (Auto) 0.3 TH/MM3 Basophils # (Auto) 0.1 TH/MM3 CBC Comment AUTO DIFF Differential Comment AUTO DIFF CONFIRMED Platelet Estimate NORMAL Platelet Morphology Comment NORMAL Target Cells 1+ Blood Urea Nitrogen 8 MG/DL Creatinine 0.91 MG/DL Random Glucose 84 MG/DL Total Protein 7.5 GM/DL Albumin 3.7 GM/DL Calcium Level 9.9 MG/DL Alkaline Phosphatase 138 U/L Aspartate Amino Transf (AST/SGOT) 16 U/L Alanine Aminotransferase (ALT/SGPT) 15 U/L Total Bilirubin 0.5 MG/DL Sodium Level 139 MEQ/L Potassium Level 4.1 MEQ/L Chloride Level 104 MEQ/L Carbon Dioxide Level 28.5 MEQ/L Anion Gap 7 MEQ/L Estimat Glomerular Filtration Rate 99 ML/MIN Lipase 99 U/L [facility] Supervised Visit with NAHOMI: No Narrative Course Patient care assumed from Dr. Valiente at 1900, this is a patient with metastatic prostate cancer presents emergency Department with abdominal pain. He did not request any pain medicine while in the emergency department is planning to drive home. Initial labs negative, CAT scan negative. He has a history of a biliary stent and is scheduled to have his gallbladder removed and I think this is his chief concern is he was wondering if the stent was clotted off. His abdomen is benign. Initial workup negative, the patient informs me he is run out of his Dilaudid at home, I am happy to oblige, at this time he is stable for discharge discussed need follow-up with primary care physician and return to ED criteria. Diagnosis Primary Impression: Abdominal pain Med/Other Pt SpecificInfo: Prescription(s) given Scripts Hydromorphone (Dilaudid) 4 Mg Tab 4 MG PO QID for Pain Management, #15 TAB 0 Refills Prov: Ramirez Tamez MD 03/07/17 Disposition: 01 DISCHARGE HOME Condition: Stable Ramirez Tamez MD Mar 07, 2017 20:38
== END 2017-03-07 20:51 | disposition home or self-care (01) ==
LOC: NEPE 15:54
DX: R10.9 Unspecified abdominal pain (principal); C61 Malignant neoplasm of prostate; I10 Essential (primary) hypertension; F17.210 Nicotine dependence, cigarettes, uncomplicated
CPT/HCPCS: 74177; 80053; 83690; 85025; 99285; Q9967

== ENCOUNTER 2017-04-15 15:28 | Inpatient (IN) | payer MEDICARE, MEDICAID ==
[~2017-04-15] VITALS: Ht 167.6 cm; Wt 52.6 kg
[~2017-04-15 15:28] MED LIST changes: -TIOT1AER2 INH
[2017-04-15 15:32] VITALS: BP 231/105; PULSE 78; RESP 14; TEMP 98.2; O2SAT 100
--- NOTE | 2017-04-15 15:43 | PD ---
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 Patient states his pain is now 10 out of 10, and is unable to eat. Patient has had some chills. Patient was previously scheduled for surgery but had car problems and couldn't make his surgery last month. He states his symptoms and been worse for the past 3 days. He denies urinary symptoms, but has had nausea and one episode vomiting yesterday. Patient did eat one packet of grits today. He is allergic to penicillin. Data Data Last Documented VS Vital Signs Date Time Temp Pulse Resp B/P (MAP) Pulse Ox O2 Delivery O2 Flow Rate FiO2 04/15/17 15:32 98.2 78 14 231/105 (147) 100 MDM Medical Record Reviewed: Yes Supervised Visit with NAHOMI: Yes Narrative Course Vital signs are stable. Patient taken directly back to the [facility] bed for further treatment. Condition: Stable Philip Hines Apr 15, 2017 15:43
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
[2017-04-15 16:11] VITALS: BP 176/95; PULSE 75; RESP 16; O2SAT 96
[2017-04-15] MEDS ORDERED: MORPHINE SULFATE 8 MG/ML INJ IV PUSH ONE (16:15)
[2017-04-15] MEDS ORDERED: ONDANSETRON HCL 4 MG/2 ML VIAL IV PUSH ONE (16:15)
[2017-04-15 16:38] LABS: AUTOMATED NEUTROPHIL # 4.8 TH/MM3 (1.8-7.7); BASOPHIL # 0.1 TH/MM3 (0-0.2); BASOPHIL % 0.8 % (0.0-2.0); EOSINOPHIL # 0.2 TH/MM3 (0-0.4); EOSINOPHIL % 2.1 % (0.0-4.0); HEMATOCRIT 41.5 % (39.0-51.0); LYMPH % 32.5 % (9.0-44.0); LYMPHOCYTE # 2.8 TH/MM3 (1.0-4.8); MEAN CELL VOLUME 86.2 FL (80.0-100.0); MEAN CORPUSCULAR HEMOGLOBIN 30.8 PG (27.0-34.0); MEAN CORPUSCULAR HGB CONC 35.7 % (32.0-36.0); MONO % 7.9 % (0.0-8.0); NEUT % 56.7 % (16.0-70.0); PLATELET COUNT 224 TH/MM3 (150-450); RED BLOOD COUNT 4.82 MIL/MM3 (4.50-5.90); RED CELL DISTRIBUTION WIDTH 19.1 % (11.6-17.2); WHITE BLOOD COUNT 8.5 TH/MM3 (4.0-11.0)
[2017-04-15 16:45] LABS: APTT (PATIENT) 30.5 SEC (24.3-30.1); HEMO FLAGS AUTO DIFF; PROTHROMBIN TIME - PATIENT 10.7 SEC (9.8-11.6)
[2017-04-15 17:04] LABS: ALKALINE PHOSPHATASE 134 U/L (45-117); TOTAL BILIRUBIN ADULT 0.4 MG/DL (0.2-1.0)
[2017-04-15] MEDS ORDERED: metroNIDAZOLE 500 MG INJ 100 ML IV ONE (17:15)
[2017-04-15] MEDS ORDERED: CIPROFLOXACIN 400 MG PREMIX 200 ML IV ONE (17:15)
[2017-04-15 17:36] LABS: ALT (GPT) 20 U/L (12-78); ANION GAP 4 MEQ/L (5-15); AST (GOT) 43 U/L (15-37); BLOOD UREA NITROGEN 8 MG/DL (7-18); CHLORIDE 106 MEQ/L (98-107); GLOMERULAR FILTRATION RATE 105 ML/MIN (>89); POTASSIUM 4.4 MEQ/L (3.5-5.1); SODIUM (NA) 139 MEQ/L (136-145)
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
[2017-04-15] MEDS ORDERED: LACTULOSE SYRUP 20 GM/30 ML CUP PO PRN (18:15)
[2017-04-15] MEDS ORDERED: SENNOSIDES 8.6 MG TAB PO PRN (18:15)
[2017-04-15] MEDS ORDERED: NALOXONE HCL 0.4 MG/ML AMP IV PUSH PRN (18:15)
[2017-04-15] MEDS ORDERED: MAGNESIUM HYDROXIDE SUSP 30 ML CUP PO PRN (18:15)
[2017-04-15] MEDS ORDERED: SODIUM CHLORIDE 0.9% FLUSH 10 ML FLUSH IV FLUSH PRN (18:15)
[2017-04-15] MEDS ORDERED: BISACODYL 10 MG SUPP RECTAL PRN (18:15)
[2017-04-15 18:37] LABS: SCAN/DIFF AUTO DIFF CONFIRMED
[2017-04-15 18:38] LABS: PLATELET ESTIMATE SMEAR NORMAL (NORMAL); PLATELET MORPHOLOGY ENLARGED (NORMAL)
[2017-04-15 18:39] LABS: KERATOCYTES OCC (NORMAL)
[2017-04-15] MEDS ORDERED: ENALAPRILAT 1.25 MG/ML VIAL IV PUSH PRN (18:45)
[2017-04-15] MEDS ORDERED: RESP: ALBUTEROL 2.5 MG/IPRATROPIUM 0.5 MG NEB (PRN) NEB (18:45)
[2017-04-15] MEDS: SODIUM CHLOR 0.9% 1000 ML INJ 1,000 ML IV SCH ×2 (18:50→22:33)
[2017-04-15] MEDS ORDERED: MORPHINE SULFATE 2 MG/ML INJ IV PUSH PRN (19:00)
[2017-04-15] MEDS ORDERED: ENALAPRILAT 1.25 MG/ML VIAL IV PUSH ONE (19:00)
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
[2017-04-15 19:56] VITALS: BP 196/92; PULSE 62; RESP 18; O2SAT 99
[2017-04-15] MEDS: MORPHINE SULFATE 4 MG/ML INJ IV PUSH PRN ×2 (19:56→22:47)
[2017-04-15] MEDS ORDERED: ZOFR8TAB PO (20:06)
[2017-04-15] MEDS ORDERED: ANTI2TAB PO (20:06)
[2017-04-15 20:10] VITALS: BP 175/90; PULSE 67
[2017-04-15] MEDS: SODIUM CHLORIDE 0.9% FLUSH 10 ML FLUSH IV FLUSH SCH (21:00)
[2017-04-15 21:10] VITALS: BP 185/114; PULSE 60; RESP 16; TEMP 96.2; O2SAT 95
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
[2017-04-15] MEDS: metroNIDAZOLE 500 MG INJ 100 ML IV SCH (22:31)
[2017-04-15] MEDS: DOCUSATE SODIUM 50 MG/SENNA 8.6 MG TAB PO SCH (22:31)
[2017-04-15 23:47] VITALS: BP 184/78; PULSE 62; RESP 17; TEMP 97; O2SAT 98
[2017-04-16] MEDS: MORPHINE SULFATE 4 MG/ML INJ IV PUSH PRN ×4 (02:29→23:38)
[2017-04-16 03:50] VITALS: BP 170/77; PULSE 60; RESP 16; TEMP 96.3; O2SAT 98
[2017-04-16] MEDS ORDERED: ENALAPRILAT 2.5 MG/2 ML VIAL IV PUSH PRN (04:00)
[2017-04-16] MEDS: metroNIDAZOLE 500 MG INJ 100 ML IV SCH ×4 (04:11→23:38)
[2017-04-16] MEDS: CIPROFLOXACIN 400 MG PREMIX 200 ML IV SCH ×2 (05:20→17:11)
[2017-04-16] MEDS: SODIUM CHLORIDE 0.9% FLUSH 10 ML FLUSH IV FLUSH SCH ×2 (07:41→20:03)
[2017-04-16] MEDS: SODIUM CHLOR 0.9% 1000 ML INJ 1,000 ML IV SCH ×2 (07:42→23:38)
[2017-04-16] MEDS: DOCUSATE SODIUM 50 MG/SENNA 8.6 MG TAB PO SCH ×2 (07:42→20:02)
[2017-04-16 07:53] LABS: BASOPHIL % 0.7 % (0.0-2.0); EOSINOPHIL # 0.3 TH/MM3 (0-0.4); EOSINOPHIL % 4.3 % (0.0-4.0); HEMATOCRIT 36.8 % (39.0-51.0); HEMO FLAGS DIFF FINAL; LYMPHOCYTE # 2.5 TH/MM3 (1.0-4.8); MEAN CELL VOLUME 86.2 FL (80.0-100.0); MEAN CORPUSCULAR HEMOGLOBIN 30.6 PG (27.0-34.0); MEAN CORPUSCULAR HGB CONC 35.5 % (32.0-36.0); MONO % 10.9 % (0.0-8.0); NEUT % 46.1 % (16.0-70.0); PLATELET COUNT 183 TH/MM3 (150-450); RED BLOOD COUNT 4.27 MIL/MM3 (4.50-5.90); RED CELL DISTRIBUTION WIDTH 18.4 % (11.6-17.2); WHITE BLOOD COUNT 6.6 TH/MM3 (4.0-11.0)
[2017-04-16 08:00] VITALS: BP 178/77; PULSE 56; RESP 17; TEMP 96.7; O2SAT 98
[2017-04-16 08:25] LABS: ANION GAP 5 MEQ/L (5-15); AST (GOT) 16 U/L (15-37); BICARBONATE 29.7 MEQ/L (21.0-32.0); BLOOD UREA NITROGEN 7 MG/DL (7-18); CHLORIDE 105 MEQ/L (98-107); GLOMERULAR FILTRATION RATE 119 ML/MIN (>89); POTASSIUM 3.7 MEQ/L (3.5-5.1); SODIUM (NA) 140 MEQ/L (136-145)
[2017-04-16 08:27] LABS: ALT (GPT) 14 U/L (12-78)
[2017-04-16 08:28] LABS: ALKALINE PHOSPHATASE 118 U/L (45-117); TOTAL BILIRUBIN ADULT 0.5 MG/DL (0.2-1.0)
[2017-04-16] MEDS ORDERED: METOPROLOL TARTRATE 25 MG TAB PO PRN (08:30)
[2017-04-16] MEDS ORDERED: POVIDONE IODINE 5% (ANTISEPSIS KIT) 4 APPLICATIONS EACH NARE PRN (08:30)
[2017-04-16] MEDS ORDERED: LACTATED RINGER'S 1000 ML IV PRN (08:30)
[2017-04-16] MEDS ORDERED: CHLORHEXIDINE GLUCONATE 2 % 1 PACK (2 CLOTHS) TOPICAL PRN (08:30)
[2017-04-16] MEDS ORDERED: INSULIN HUMAN REGULAR 1,000 UNITS/10 ML VIAL SQ PRN (08:30)
[2017-04-16] MEDS ORDERED: SODIUM CHLORID 0.9% 500 ML IV PRN (08:30)
--- NOTE | 2017-04-16 09:24 | HHI.PR ---
Subjective Subjective Notes stable overnight, ruq pain better, npo Objective Vitals/I&O Vital Signs Date Time Temp Pulse Resp B/P (MAP) Pulse Ox O2 Delivery O2 Flow Rate FiO2 04/16/17 08:00 96.7 56 17 178/77 (110) 98 04/15/17 19:56 Room Air Labs Laboratory Tests Test 04/15/17 16:19 04/16/17 00:34 04/16/17 05:59 White Blood Count 8.5 6.6 Red Blood Count 4.82 4.27 Hemoglobin 14.8 13.1 Hematocrit 41.5 36.8 Mean Corpuscular Volume 86.2 86.2 Mean Corpuscular Hemoglobin 30.8 30.6 Mean Corpuscular Hemoglobin Concent 35.7 35.5 Red Cell Distribution Width 19.1 18.4 Platelet Count 224 183 Mean Platelet Volume 8.9 9.2 Neutrophils (%) (Auto) 56.7 46.1 Lymphocytes (%) (Auto) 32.5 38.0 Monocytes (%) (Auto) 7.9 10.9 Eosinophils (%) (Auto) 2.1 4.3 Basophils (%) (Auto) 0.8 0.7 Neutrophils # (Auto) 4.8 3.0 Lymphocytes # (Auto) 2.8 2.5 Monocytes # (Auto) 0.7 0.7 Eosinophils # (Auto) 0.2 0.3 Basophils # (Auto) 0.1 0.0 CBC Comment AUTO DIFF DIFF FINAL Differential Comment AUTO DIFF CONFIRMED Platelet Estimate NORMAL Platelet Morphology Comment ENLARGED Keratocytes OCC Prothrombin Time 10.7 Prothromb Time International Ratio 1.0 Activated Partial Thromboplast Time 30.5 Blood Urea Nitrogen 8 7 Creatinine 0.87 0.78 Random Glucose 84 85 Total Protein 7.7 6.4 Albumin 3.5 3.1 Calcium Level 9.2 8.8 Alkaline Phosphatase 134 118 Aspartate Amino Transf (AST/SGOT) 43 16 Alanine Aminotransferase (ALT/SGPT) 20 14 Total Bilirubin 0.4 0.5 Sodium Level 139 140 Potassium Level 4.4 3.7 Chloride Level 106 105 Carbon Dioxide Level 29.0 29.7 Anion Gap 4 5 Estimat Glomerular Filtration Rate 105 119 Troponin I LESS THAN 0.02 Lipase 84 Lactic Acid Level 1.4 Abdomen: Other (soft +ttp ruq) A/P Assessment and Plan hx of gallstone pancreatitis now with ruq pain PLAN OR for lap mindy possible ioc discussed with patient plan npo Pierce Gilliam MD Apr 16, 2017 09:24
[2017-04-16] MEDS ORDERED: ACETAMINOPHEN 1000 MG/100 ML 100 ML IV ONE (09:39)
[2017-04-16] MEDS ORDERED: BUPIVACAINE/EPINEPHRINE 0.25% 50 ML VIAL ONE (09:50)
[2017-04-16] MEDS ORDERED: INFLUENZA VIRUS VACCINE (QUADRIVALENT) 0.5 ML SYR IM ONE (10:00)
[2017-04-16] MEDS ORDERED: FAMOTIDINE 20 MG/2 ML VIAL ONE (10:04)
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
[2017-04-16] MEDS ORDERED: IOHEXOL 350 MG/ML 50 ML BTL (for RAD DIAG) OTHER ONE (11:16)
[2017-04-16] MEDS ORDERED: SUGAMMADEX SODIUM 200 MG/2 ML VIAL IV PUSH ONE ×2 (11:35)
--- NOTE | 2017-04-16 11:50 | HHI.PR ---
Immediate Post Op Note Procedure Date: Apr 16, 2017 Pre Op Diagnosis: hx of choledocholithiasis, ruq pain symptomatic cholelithiasis Post Op Diagnosis: same Surgeon: Pierce Gilliam MD Pompom Maker(s): rebel Procedure: lap mindy, attempted IOC Findings: distended gallbadder, unable to cannulate cystitic duct Complications: none Specimen(s) removed: gallbladder Estimated blood loss: 5cc Anesthesia: General Drains: None Patient to: PACU Patient Condition: Good Pierce Gilliam MD Apr 16, 2017 11:50
[2017-04-16] MEDS ORDERED: DO NOT ADM ANY ANTICOAGULANT DRUGS PRN (12:12)
[2017-04-16] MEDS ORDERED: *RESP: ALBUTEROL 2.5 MG/3 ML NEB (PRN) PERIprocedural Use ONLY NEB ONE (12:17)
[2017-04-16] MEDS ORDERED: *LABETALOL HCL 100 MG/20 ML VIAL PERIprocedural Use ONLY ONE (12:19)
[2017-04-16] MEDS ORDERED: LACTATED RINGER'S 1000 ML INJ 1,000 ML IV ONE (13:31)
[2017-04-16] MEDS ORDERED: DEXAMETHASONE SOD PHOS 4 MG/ML VIAL IV ONE (13:31)
[2017-04-16] MEDS ORDERED: ONDANSETRON HCL 4 MG/2 ML VIAL IV PUSH ONE (13:31)
[2017-04-16] MEDS ORDERED: LIDOCAINE HCL 1% PF 5 ML AMPULE OTHER ONE (13:31)
[2017-04-16] MEDS ORDERED: PROPOFOL 200 MG/20 ML AMP IV ONE (13:31)
[2017-04-16] MEDS ORDERED: KETOROLAC TROMETHAMINE 30 MG/ML (IVP) VIAL IV PUSH ONE (13:31)
[2017-04-16] MEDS ORDERED: PHENYLEPH/NS 1000 MCG/10 ML SYR IV ONE (13:31)
[2017-04-16] MEDS ORDERED: ROCURONIUM INJ 50 MG/5 ML SYRINGE IV PUSH ONE (13:31)
[2017-04-16] MEDS ORDERED: MIDAZOLAM HCL 2 MG/2 ML VIAL IV ONE (13:31)
[2017-04-16] MEDS ORDERED: ALBUTEROL SULFATE 90 MCG/ACT HFA 8 GM INHALER INH PRN (14:45)
[2017-04-16] MEDS ORDERED: XTANDI 160 MG PO SCH (14:45)
[2017-04-16] MEDS: BUDESONIDE-FORMOTEROL 160/4.5 MCG INHALER INH SCH ×2 (15:54→20:01)
[2017-04-16] MEDS: TIOTROPIUM BROMIDE 18 MCG INH INH SCH (15:54)
[2017-04-16] MEDS: GABAPENTIN 300 MG CAP PO SCH ×2 (15:56→20:02)
[2017-04-16] MEDS: METOPROLOL TARTRATE 25 MG TAB PO SCH ×2 (15:56→20:02)
[2017-04-16 16:00] VITALS: BP 196/100; PULSE 84; RESP 18; TEMP 96.2; O2SAT 99
[2017-04-16 16:35] VITALS: BP 169/93
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
[2017-04-16 20:42] VITALS: BP 175/81; PULSE 63; RESP 20; TEMP 96; O2SAT 95
--- NOTE | 2017-04-16 21:27 | EKG ---
Date Performed: 04/15/2017 Time Performed: 22:05:21 PTAGE: 71 years EKG: Sinus rhythm WITH OCCASIONAL SUPRAVENTRICULAR PREMATURE COMPLEXES LEFT ANTERIOR FASCICULAR BLOCK PROLONGED QT INT ERVAL ABNORMAL ECG PREVIOUS TRACING : 01/30/2017 16.17 Compared to the previous tracing QTc increased DOCTOR: Sadie George Interpretating Date/Time 04/16/2017 21:25:41
--- NOTE | 2017-04-16 21:52 | MB ---
cc: JENNIFER TUCKER M.D. DATE OF CONSULTATION 04/16/2017 REASON FOR CONSULTATION Consult requested by family practice resident for followup of metastatic prostate cancer. HISTORY OF PRESENT ILLNESS Dino is a pleasant 71-year-old male. He has a history of metastatic prostate cancer. He was diagnosed with prostate cancer in September 2007 for which he underwent radical prostatectomy and Lupron for 2 months. He was doing fine up until September 2009 he was found to have extensive bone metastasis. At that time his PSA was 858. The patient was treated with hormone therapy with Lupron, flutamide, then Casodex, Zytiga. He was found to have progressive disease and was started on Taxotere chemotherapy in October of 2013. The patient had a severe allergic reaction with the second dose of the Taxotere. Subsequently the patient was placed on cabazitaxel. The patient has been on cabazitaxel since November of 2013. His last chemotherapy was May of last year. At that time the patient went to [place] to stay with his family. Over there he saw an oncologist who have given him Lupron therapy only and did not recommended chemotherapy. The patient then came back to [place] in November and I saw him at the end of November. I did a PSA and his PSA was in the 20s. Therefore I have advised him to try Xtandi. The patient started taking the Xtandi initially. However, he was unable to tolerate the full dose. I had cut back the Xtandi to 50% dose reduction. The patient lately was having financial issues with obtaining the Xtandi. He was having chronic abdominal pain. He had multiple abdominal surgeries in the past. He was found to have bowel obstruction. He had previously surgery by Dr. Levin. The patient noticed nausea, unable to eat due to the severe abdominal pain. Finally he came to the emergency room. In the emergency room the patient was found to have cholelithiasis with cholecystitis. The patient was operated today by Dr. Gilliam. I have been asked to see the patient for further evaluation. The patient just came back from the recovery room. He is complaining of some abdominal discomfort. The patient denies any nausea. He has lot a lot of weight. His appetite has been poor due to the constant nausea. The rest of the review of systems is negative. PAST MEDICAL HISTORY 1. Diabetes mellitus diet control. 2. Hypertension. 3. Metastatic prostate cancer. PAST SURGICAL HISTORY 1. Appendectomy. 2. Radical prostatectomy. 3. Colonoscopy. 4. Multiple abdominal surgeries for bowel obstruction. ALLERGIES TAXOTERE AND PENICILLIN. MEDICATIONS 1. Amlodipine. 2. Calcium. 3. Enalapril. 4. Ibuprofen. 5. Megace. 6. Metoprolol. 7. Omeprazole. FAMILY HISTORY Noncontributory. SOCIAL HISTORY The patient does not smoke cigarettes, does not drink alcohol. PHYSICAL EXAMINATION GENERAL: This is a well-developed Afro-[place]i male who appears to be cachectic since I saw him last time in January. VITAL SIGNS: Temperature 96.2, heart rate is 84, blood pressure 196/100. HEENT: PERRLA, EOMI. Bitemporal wasting noted. The oral mucosa is dry. NECK: No lymphadenopathy noted. LUNGS: Are clear. No wheezing, rhonchi or rales. CARDIOVASCULAR: Heart is regular rate and rhythm. ABDOMEN: Soft, somewhat tender from the surgery which was done today. EXTREMITIES: No pedal edema. NEUROLOGIC: Awake, alert, oriented x3. SKIN: No significant lesions noted. ASSESSMENT 1. Metastatic prostate cancer currently on Xtandi but he has been off of Xtandi for at least 4-6 weeks due to financial reasons. 2. Abdominal pain status post cholecystectomy today. 3. Hypertension. PLAN I have reviewed his available records and I have discussed with the patient regarding the prostate cancer. I have recommended to repeat the PSA. His last PSA was in January when it was 23. We will ask our oncology resource nurse about the status of the Xtandi. Once the patient is discharged to home then he will come to my office for further followup and we will resume his treatment. Thank you for asking my opinion. MD SURENDRA Newberry/ADELITA /5:42 PM /9:24 PM MARCELLO
[2017-04-17 00:36] VITALS: BP 175/72; PULSE 62; RESP 20; TEMP 97.7; O2SAT 97
[2017-04-17] MEDS: metroNIDAZOLE 500 MG INJ 100 ML IV SCH ×2 (05:00→12:27)
[2017-04-17] MEDS: MORPHINE SULFATE 4 MG/ML INJ IV PUSH PRN ×3 (05:59→13:28)
[2017-04-17] MEDS: CIPROFLOXACIN 400 MG PREMIX 200 ML IV SCH (06:00)
[2017-04-17 08:00] VITALS: BP 181/78; PULSE 88; RESP 18; TEMP 98.5; O2SAT 98
[2017-04-17 08:24] VITALS: O2SAT 98
--- NOTE | 2017-04-17 08:42 | HHI.PR ---
Subjective Subjective Notes no acute issues, htn, incisional pain, no nausea Objective Vitals/I&O Vital Signs Date Time Temp Pulse Resp B/P (MAP) Pulse Ox O2 Delivery O2 Flow Rate FiO2 04/17/17 08:00 98.5 88 18 181/78 (112) 98 04/16/17 13:38 Nasal Cannula 2 Labs Laboratory Tests Test 04/16/17 21:40 Prostate Specific Antigen 26.25 Abdomen: Other (soft incisional tenderness. incisions c/d/i) A/P Assessment and Plan hx of choledocholithiasis now with ruq pain, s/p lap mindy attempted ioc PLAN advance soft diet recheck labs bp control medicine recs d/c planning if tolerating reg diet, script on chart Pierce Gilliam MD Apr 17, 2017 08:42
[2017-04-17] MEDS: SODIUM CHLORIDE 0.9% FLUSH 10 ML FLUSH IV FLUSH SCH (09:01)
[2017-04-17] MEDS: DOCUSATE SODIUM 50 MG/SENNA 8.6 MG TAB PO SCH (09:01)
[2017-04-17] MEDS: GABAPENTIN 300 MG CAP PO SCH (09:01)
[2017-04-17] MEDS: METOPROLOL TARTRATE 25 MG TAB PO SCH (09:01)
[2017-04-17] MEDS: BUDESONIDE-FORMOTEROL 160/4.5 MCG INHALER INH SCH (09:01)
[2017-04-17] MEDS: TIOTROPIUM BROMIDE 18 MCG INH INH SCH (09:01)
[2017-04-17 09:02] LABS: HEMATOCRIT 40.6 % (39.0-51.0); MEAN CELL VOLUME 86.7 FL (80.0-100.0); MEAN CORPUSCULAR HGB CONC 34.6 % (32.0-36.0); PLATELET COUNT 197 TH/MM3 (150-450); RED BLOOD COUNT 4.69 MIL/MM3 (4.50-5.90); RED CELL DISTRIBUTION WIDTH 17.9 % (11.6-17.2); WHITE BLOOD COUNT 12.6 TH/MM3 (4.0-11.0)
[2017-04-17 09:29] LABS: ANION GAP 9 MEQ/L (5-15); BICARBONATE 28.4 MEQ/L (21.0-32.0); BLOOD UREA NITROGEN 7 MG/DL (7-18); CHLORIDE 103 MEQ/L (98-107); GLOMERULAR FILTRATION RATE 134 ML/MIN (>89); POTASSIUM 3.9 MEQ/L (3.5-5.1); SODIUM (NA) 140 MEQ/L (136-145)
--- NOTE | 2017-04-17 09:56 | MP ---
cc: HEATHER GILLIAM MD DATE OF SURGERY 04/16/2017 PREOPERATIVE DIAGNOSIS History of choledocholithiasis, symptomatic cholelithiasis. POSTOPERATIVE DIAGNOSIS History of choledocholithiasis, symptomatic cholelithiasis. PROCEDURE PERFORMED Laparoscopic cholecystectomy with attempted intraoperative cholangiogram. SURGEON Dr. Heather Gilliam GUM MACHINE OPERATOR Melonie ANESTHESIA GETA IV FLUIDS See anesthesia sheet. ESTIMATED BLOOD LOSS 10 cc DRAINS None COMPLICATIONS None WOUND CLASSIFICATION Clean contaminated. FINDINGS Distended gallbladder with stones unable to cannulate cystic duct completely SPECIMEN gallbladder INDICATION The patient is a 71-year-old male who presented initially with several medical issues and a history of gallstone pancreatitis. He was discharged with followup for a laparoscopic cholecystectomy, but was unable to do it at this time, and therefore representing to the emergency department with severe acute onset of right upper quadrant abdominal pain. The patient had further workup and was planned for cholecystectomy. Therefore decision was made for laparoscopic cholecystectomy. DETAILS OF THE PROCEDURE The patient was taken to the operating suite, placed in the supine position. He was prepped and draped in the usual sterile fashion after induction of general endotracheal anesthesia. A brief time-out was done stating correct patient, procedure and surgical site. We were all in agreement with this. Attention was first directed to the left upper quadrant as there were multiple surgical scars, midline and para midline abdomen. A stab ally incision was made. Veress needle placed intraabdominal and placement confirmed with saline drop test. Abdomen insufflated to 50 mm pneumoperitoneum. The Visiport and a 5 mm trocar was obtained and introduced in the abdomen.. On inspection, there were several adhesions, but most of the abdomen was relatively free of adhesions. Several other ports placed including an epigastric 12 mm port, followed by two 5 mm right subcostal ports and a 5 mm umbilical port. The patient placed in reverse Trendelenburg and airplaned to the left. The gallbladder fundus was identified and retracted cephalad. The cystic artery was dissected out in the usual manner using a [place] grasper and hook electro Bovie cautery. Two clips were placed proximal and one distal on the cystic artery. This was incised. The cystic duct was then mobilized as well and one clipped 10 mm placed proximally and then a small stab ally incision was made distally to this. A cholangiograph was obtained and entered through a stab separate stab incision. Attempts at cannulating the ducts were attempted, but were very difficult and attempts at flushing were not amenable to flushing through the common bile duct. From this point, the procedure was terminated and then completion with cholecystectomy was done. Two 10 mm clips were placed proximal and then Endoshears used to transect the cystic duct. The gallbladder was removed from the gallbladder fossa in typical fashion from the gallbladder bed using hook electro Bovie cautery. The gallbladder was then placed in the EndoCatch bag and removed from the abdomen. Suction irrigation used. Hemostasis obtained. The patient then flattened. Pneumoperitoneum was removed, ports were removed and the epigastric port was closed with a 0 Vicryl [id number], 4-0 Monocryl was used at all subcuticular incisions. The patient tolerated the procedure well. There were no intraoperative complications. All lap and instrument counts were correct at the end of the procedure. The patient was extubated and taken to the PACU. MD KELSEY Chatterjee/DEISI /4:58 PM /9:39 AM MARCELLO
--- NOTE | 2017-04-17 10:22 | HHI.DCPOC ---
Discharge Care Plan Diagnosis: (1) Cholelithiasis (2) Status post laparoscopic cholecystectomy (3) Prostate Cancer Goals to Promote Your Health * To prevent worsening of your condition and complications * To maintain your health at the optimal level Directions to Meet Your Goals Take your medications as prescribed Follow your dietary instruction Follow activity as directed Keep your appointments as scheduled Take your immunizations and boosters as scheduled If your symptoms worsen call your PCP, if no PCP go to Urgent Care Center or Emergency Room Smoking is Dangerous to Your Health. Avoid second hand smoke Call the 24-hour hour crisis hotline for domestic abuse at Fidel Sheikh MD R3 Apr 17, 2017 10:22
[2017-04-17 10:33] LABS: ALT (GPT) 25 U/L (12-78); AST (GOT) 31 U/L (15-37)
[2017-04-17 10:34] LABS: ALKALINE PHOSPHATASE 117 U/L (45-117); TOTAL BILIRUBIN ADULT 0.6 MG/DL (0.2-1.0)
[2017-04-17 11:16] LABS: BANDS 2 % (0-6); POLYS (SEG NEUTROPHILS) 77 % (16-70); WBC DIFF SAMPLE 100
[2017-04-17 11:17] LABS: PLATELET ESTIMATE SMEAR NORMAL (NORMAL); PLATELET MORPHOLOGY NORMAL (NORMAL); SCAN/DIFF FINAL DIFF MANUAL
[2017-04-17 12:00] VITALS: BP 141/70; PULSE 72; RESP 18; TEMP 96.9; O2SAT 97
--- NOTE | 2017-04-17 12:13 | HHI.FPPN ---
Subjective Remarks Patient with minimal abdominal pain today, feels much better than at admission. No nausea or vomiting overnight. No bowel movement but is passing gas. Advancing his diet to soft diet. No chest pain, shortness of breath, or calf tenderness. Breathing improved with breathing treatments. (Fidel Sheikh MD R3) Objective Vitals Vital Signs Date Time Temp Pulse Resp B/P (MAP) Pulse Ox O2 Delivery O2 Flow Rate FiO2 04/17/17 08:24 98 21 04/17/17 08:00 98.5 88 18 181/78 (112) 98 04/17/17 00:36 97.7 62 20 175/72 (106) 97 04/16/17 20:42 96.0 63 20 175/81 (112) 95 04/16/17 16:35 169/93 (118) 04/16/17 16:00 96.2 84 18 196/100 (132) 99 04/16/17 13:38 97.8 65 16 172/71 (104) 98 Nasal Cannula 2 04/16/17 13:30 67 26 194/91 (125) 91 Nasal Cannula 2 04/16/17 13:15 67 19 184/88 (120) 93 Room Air 04/16/17 13:00 67 18 160/79 (106) 95 Room Air 04/16/17 12:57 Room Air 04/16/17 12:45 66 24 184/84 (117) 99 Nasal Cannula 2 04/16/17 12:34 67 24 187/86 (119) 100 04/16/17 12:30 65 24 185/85 (118) 100 Nasal Cannula 2 04/16/17 12:28 68 24 185/87 (119) 100 04/16/17 12:21 69 24 188/86 (120) 98 04/16/17 12:16 75 22 193/88 (123) 100 04/16/17 12:15 97.3 75 19 191/89 (123) 100 Nasal Cannula 2 I/O 04/16/17 04/16/17 04/16/17 04/17/17 04/17/17 04/17/17 07:00 15:00 23:00 07:00 15:00 23:00 Intake Total 1900 ml 828 ml 400 ml Output Total 225 ml 750 ml 400 ml Balance 1675 ml 78 ml -400 ml 400 ml Intake Oral 0 ml 300 ml IV Total 400 ml 528 ml 400 ml Other 1500 ml Output Urine Total 200 ml 750 ml 400 ml Estimated Blood Loss 25 ml # Voids 3 1 # Bowel Movements 0 (Fidel Sheikh MD R3) Result Diagram: 04/17/1762704/17/17627 Objective Remarks GENERAL: Thin male, no distress, in good spirits SKIN: Cholecystectomy incision sites clean dry and intact HEAD: Atraumatic. Normocephalic. EYES: No scleral icterus. NECK: No thyromegaly CARDIOVASCULAR: Regular rate and rhythm to auscultation without murmurs. RESPIRATORY: CTAB GASTROINTESTINAL: Minimal pain with palpation, bowel sounds present, no distension MUSCULOSKELETAL: Extremities without edema. No calf tenderness. NEUROLOGICAL: Awake and alert. (Fidel Sheikh MD R3) A/P Assessment and Plan Mr. Yoder is a 71 yo M with a history of choledocholithiasis status post sphincterotomy and stent placement who presented to the ED with RUQ pain and diarrhea. He was not able to make it for an elective cholecystectomy and ultrasound reveals cholelithiasis. He is admitted for cholecystectomy and further workup. He follows with Dr. Norris for prostate cancer, but unfortunately has difficulties with finances and transportation that make follow up difficult. He recently had his chemotherapy regimen changed to oral medication but has been unable to obtain the medication. He also has a history of COPD with some increasing shortness of breath recently. Discharge Planning Pending cholecystectomy and stable clinical status, will need to follow up with surgery and with oncology for his prostate cancer. (Fidel Sheikh MD R3) Attending Attestation A detailed discussion regarding patients diagnosis was held with Dr Sheikh,Seen and examined EMR reviewed, Agree with contents of note and dianosis, See Orders.Patient stable for discharge (Alexsander Iyer MD) Problem List: (1) RUQ abdominal pain ICD Codes: R10.11 - Right upper quadrant pain Status: Acute Plan: History of choledocholithiasis status post ERCP with stent placement 2016, presenting with RUQ pain and evidence of cholelithiasis without cholangitis, pancreatitis, or cholecystitis. No fevers or leukocytosis. Lactic acid normal. AST slightly elevated, alk phos slightly elevated. Lipase normal. Pain controlled with morphine. Now status post lap cholecystectomy on 04/16/17. - Monitor for post-operative complications, doing well. - Soft diet, advance as tolerated. - Likely discharge home today if tolerating diet without nausea/vomiting. - Has pain medication in chart to go home with. (2) Hypertensive urgency ICD Codes: I16.0 - Hypertensive urgency Status: Acute Plan: BP of 231/105 on admission -> 176/95 after morphine for pain control. Patient has not been taking home antihypertensives (Metoprolol 25mg daily, Amlodipine 10mg daily). -Restart home metoprolol and amlodipine after the surgery as BP allows. -Continue pain control with IV morphine - Labetalol PRN (3) COPD (chronic obstructive pulmonary disease) ICD Codes: J44.9 - Chronic obstructive pulmonary disease Status: Chronic Plan: PMH of COPD on Advair, Albuterol, Spiriva (patient not actually taking due to financial difficulty) -Will give PRN Duonebs during hospitalization -Restart home medications -Case management consult due to financial difficulties, poor medical follow up (4) Prostate cancer metastatic to bone ICD Codes: C61 - Prostate cancer metastatic to bone; C79.51 - Secondary malignant neoplasm of bone Status: Chronic Plan: Patient of Dr. Norris; metastatic prostate cancer (s/p prostatectomy in 2007; subsequently with sclerotic lesions on spine and pelvis) on Xtandi therapy (patient unable to obtain) -Consulted case management for assistance in obtaining Xtandi and other medications -Consulted Dr. Norris since patient unable to follow-up as outpatient due to transportation issues, has appt with Dr. Norris set up. (5) DVT PPX Status: Acute Plan: -SCD's preoperatively -Plan for post-operative anticoagulation (6) Fluids, Electrolytes, and Nutrition Status: Acute Plan: Fluids: NS at 100ml/hr Electrolytes: Normal Nutrition: Soft diet, advance as tolerated (Fidel Sheikh MD R3) Fidel Sheikh MD R3 Apr 17, 2017 12:13 Alexsander Iyer MD Apr 18, 2017 15:23
[2017-04-17] MEDS: SODIUM CHLOR 0.9% 1000 ML INJ 1,000 ML IV SCH (12:27)
[2017-04-17 13:33] VITALS: RESP 16
--- NOTE | 2017-04-17 14:43 | HHI.DS ---
Discharge Summary Admission Date Apr 15, 2017 at 18:07 Discharge Date: Apr 17, 2017 Admitting Diagnosis right upper quadrant abdominal pain (1) RUQ abdominal pain Diagnosis: Principal Plan: History of choledocholithiasis status post ERCP with stent placement 2016, presenting with RUQ pain and evidence of cholelithiasis without cholangitis, pancreatitis, or cholecystitis. No fevers or leukocytosis. Lactic acid normal. AST slightly elevated, alk phos slightly elevated. Lipase normal. Pain controlled with morphine. Now status post lap cholecystectomy on 04/16/17. - Monitor for post-operative complications, doing well. - Soft diet, advance as tolerated. - Likely discharge home today if tolerating diet without nausea/vomiting. - Has pain medication in chart to go home with. ICD Codes: R10.11 - Right upper quadrant pain Status: Acute (2) Hypertensive urgency Diagnosis: Principal Plan: BP of 231/105 on admission -> 176/95 after morphine for pain control. Patient has not been taking home antihypertensives (Metoprolol 25mg daily, Amlodipine 10mg daily). -Restart home metoprolol and amlodipine after the surgery as BP allows. -Continue pain control with IV morphine - Labetalol PRN ICD Codes: I16.0 - Hypertensive urgency Status: Acute (3) COPD (chronic obstructive pulmonary disease) Diagnosis: Secondary Plan: PMH of COPD on Advair, Albuterol, Spiriva (patient not actually taking due to financial difficulty) -Will give PRN Duonebs during hospitalization -Restart home medications -Case management consult due to financial difficulties, poor medical follow up ICD Codes: J44.9 - Chronic obstructive pulmonary disease Status: Chronic (4) Prostate cancer metastatic to bone Diagnosis: Secondary Plan: Patient of Dr. Norris; metastatic prostate cancer (s/p prostatectomy in 2007; subsequently with sclerotic lesions on spine and pelvis) on Xtandi therapy (patient unable to obtain) -Consulted case management for assistance in obtaining Xtandi and other medications -Consulted Dr. Norris since patient unable to follow-up as outpatient due to transportation issues, has appt with Dr. Norris set up. ICD Codes: C61 - Prostate cancer metastatic to bone; C79.51 - Secondary malignant neoplasm of bone Status: Chronic (5) DVT PPX Diagnosis: Secondary Plan: -SCD's preoperatively -Plan for post-operative anticoagulation Status: Acute (6) Fluids, Electrolytes, and Nutrition Diagnosis: Secondary Plan: Fluids: NS at 100ml/hr Electrolytes: Normal Nutrition: Soft diet, advance as tolerated Status: Acute Consultants Orthopedic surgery Procedures Laparoscopic cholecystectomy on 04/16/17. Brief History Mr. Yoder is a 71 yo M with PMH of choledocholithiasis s/p sphincterectomy/stent placement, prostate cancer, SBO, HTN, peripheral vascular disease, who presents to [facility] ED with abdominal pain. Patient's abdominal pain began ~2 days prior in association with diarrhea shortly after eating grits and milk. Abdominal pain was/is in RUQ radiating to R portion of back. Patient's diarrhea did not seem black or red in color; it has since largely resolved since taking unspecified diarrheal cessation OTC medication. Patient's abdominal pain has been persistent until obtaining Morphine in [facility] ED; it is now reduced to 8/10 in severity. Patient initially sought care at Dr. Levin's office today [he had planned cholecystectomy 03/20 but was unable to obtain due to inability to make it to OR due to lack of transportation]; he was instructed to seek emergency care. Patient has also been having chills for the past 6 days; no fevers. Patient vomited yesterday morning without evidence of blood; he has not vomited since. No dysuria or other urinary symptoms. Patient reports that he has not been able to follow-up with Dr. Norris; he recently had his chemotherapy regimen changed to oral medication but he has not been able to obtain due to financial difficulties. Patient has not taken any medications such as antihypertensives for the past 3 weeks. Patient has some shortness of breath; he states that it is at baseline. No numbness/tingling. Patient reports that he has been getting weaker recently and has been feeling more depressed regarding financial difficulties and worsening health. Patient has decreased his tobacco consumption to 1-2 cigarettes daily. CBC/BMP: 04/17/17 0628 04/17/17627 Significant Findings Laboratory Tests Test 04/15/17 16:19 04/16/17 00:34 04/16/17 05:59 04/16/17 21:40 Red Cell Distribution Width 19.1 % (11.6-17.2) 18.4 % (11.6-17.2) Platelet Morphology Comment ENLARGED (NORMAL) Activated Partial Thromboplast Time 30.5 SEC (24.3-30.1) Alkaline Phosphatase 134 U/L (45-117) 118 U/L (45-117) Aspartate Amino Transf (AST/SGOT) 43 U/L (15-37) Anion Gap 4 MEQ/L (5-15) Troponin I LESS THAN 0.02 NG/ML Red Blood Count 4.27 MIL/MM3 (4.50-5.90) Hematocrit 36.8 % (39.0-51.0) Monocytes (%) (Auto) 10.9 % (0.0-8.0) Eosinophils (%) (Auto) 4.3 % (0.0-4.0) Albumin 3.1 GM/DL (3.4-5.0) Prostate Specific Antigen 26.25 NG/ML (0.00-4.00) Test 04/17/17 06:28 White Blood Count 12.6 TH/MM3 (4.0-11.0) Red Cell Distribution Width 17.9 % (11.6-17.2) Neutrophils % (Manual) 77 % (16-70) Monocytes % 9 % (0-8) Neutrophils # (Manual) 10.0 TH/MM3 (1.8-7.7) Lipase 53 U/L (73-393) Imaging Last 72 hours Impressions Gall Bladder Ultrasound 04/15/17 0000 Signed Impressions: Service Date/Time: Saturday, April 15, 2017 16:27 - CONCLUSION: Cholelithiasis. Elier Loja MD Chest X-Ray 04/15/17 0000 Signed Impressions: Service Date/Time: Saturday, April 15, 2017 19:18 - CONCLUSION: No acute cardiopulmonary disease. Elier Loja MD PE at Discharge GENERAL: Thin male, no distress, in good spirits SKIN: Cholecystectomy incision sites clean dry and intact HEAD: Atraumatic. Normocephalic. EYES: No scleral icterus. NECK: No thyromegaly CARDIOVASCULAR: Regular rate and rhythm to auscultation without murmurs. RESPIRATORY: CTAB GASTROINTESTINAL: Minimal pain with palpation, bowel sounds present, no distension MUSCULOSKELETAL: Extremities without edema. No calf tenderness. NEUROLOGICAL: Awake and alert. Hospital Course 71 year old male with a recent history of choledocholithiasis status post sphincterotomy and bile duct stent placement presented to the ED on 04/15/17 with RUQ pain and diarrhea. He was not able to obtain an elective cholecystectomy due to transportation issues. Ultrasound revealed cholelithiasis and he was admitted for cholecystectomy. Laparoscopic cholecystectomy was performed on 04/16/17. He tolerated the procedure very well. On post-operative day #1 he was nearly pain free, tolerating a regular diet without nausea and vomiting, having flatus but no bowel movement, and ambulating without difficulty. He will be discharged with pain medication and will follow up with surgery in a week. He has a history of prostate cancer with metastasis, but unfortunately has financial and transportation difficulties that have made it difficult for him to comply with medical treatment. He recently had his chemotherapy regimen changed to oral medication but has recently been unable to obtain this medication. Oncology and case management were consulted. His oncologist is Dr. Norris. He now has an appointment scheduled with oncology and arrangements are being made regarding his continued treatment for prostate cancer. He is aware of the scheduled appointment and plans to follow up accordingly. Also emphasized that he should follow up with his primary care doctor within a week. Pt Condition on Discharge: Good Discharge Disposition: Discharge Home Discharge Instructions DIET: Follow Instructions for: As Tolerated, No Restrictions Activities you can perform: Regular-No Restrictions Follow up Referrals: PCP Follow-up - 1 Week Surgical - 1 Week with Pierce Gilliam MD Continued Medications: Albuterol 18 GM Inh (Ventolin Hfa 18 GM Inh) 90 Mcg/Act Aer 2 PUFF INH Q4H PRN for SHORTNESS OF BREATH, #1 INHALER 5 Refills Amlodipine (Amlodipine) 10 Mg Tab 10 MG PO DAILY for Blood Pressure Management, #30 TAB 5 Refills Enzalutamide (Xtandi) 40 Mg Cap 160 MG PO DAILY for Chemotherapy Management, #90 CAP 0 Refills Fluticasone-Salmeterol Inh (Advair Diskus Inh) 250-50 Mcg/Blist Aer 1 PUFF INH BID, #1 INHALER 5 Refills Rinse mouth after use. Gabapentin (Gabapentin) 300 Mg Cap 300 MG PO BID, #60 CAP 5 Refills Hydromorphone (Hydromorphone) 4 Mg Tab 4 MG PO Q6H PRN for PAIN, #15 TAB 0 Refills Loperamide (Anti-Diarrheal) 2 Mg Tab 2 MG PO DIRECTED PRN for DIARRHEA, TAB 0 Refills Take 4 mg after 1st loose stool, then take 2 mg after each subsequent stool. Max 8 mg/day. Metoprolol Tartrate (Metoprolol Tartrate) 25 Mg Tab 25 MG PO BID, #60 TAB 5 Refills Ondansetron (Zofran) 8 Mg Tab 8 MG PO TID for Nausea/Vomiting, TAB 0 Refills Tiotropium Inh (Spiriva Handihaler) 18 Mcg Cap 18 MCG INH DAILY for COPD, #30 CAP 5 Refills 1 capsule = 18 mcg Fidel Sheikh MD R3 Apr 17, 2017 14:43
== END 2017-04-17 15:55 | disposition home or self-care (01) | DRG 418 ==
LOC: NEPC 15:28 → NEDA 17:49 → OBSVTOIN 18:07 → N07B 20:46
PROVIDERS: ADMIT Family Medicine; ATTEND Family Medicine
PROC: 0FT44ZZ Resection of Gallbladder, Percutaneous Endoscopic Approach (ICD-10-PCS; principal; 2017-04-16 10:17)
DX: K80.12 Calculus of gallbladder with acute and chronic cholecystitis without obstruction (principal); C79.51 Secondary malignant neoplasm of bone; E11.42 Type 2 diabetes mellitus with diabetic polyneuropathy; Z68.1 Body mass index [BMI] 19.9 or less, adult; E11.51 Type 2 diabetes mellitus with diabetic peripheral angiopathy without gangrene; C61 Malignant neoplasm of prostate; I10 Essential (primary) hypertension; F17.210 Nicotine dependence, cigarettes, uncomplicated; J44.9 Chronic obstructive pulmonary disease, unspecified; I16.0 Hypertensive urgency; R63.4 Abnormal weight loss; Z91.120 Patient's intentional underdosing of medication regimen due to financial hardship; Z23 Encounter for immunization; Z88.0 Allergy status to penicillin
CPT/HCPCS: 71010; 76705; 80053; 83605; 83690; 84153; 84484; 85007; 85025; 85027; 85610; 85730; 88304; 90686; 93005; 94640; 96374; 96375; J0131; J0744; J1100; J1885; J2250; J2270; J2370; J2405; J3010; J7030; J7120; J7613; Q2038; Q9967

== ENCOUNTER 2017-07-05 18:26 | Inpatient (IN) | payer MEDICARE, MEDICAID ==
[~2017-07-05] VITALS: Ht 167.6 cm; Wt 52.2 kg
[~2017-07-05 18:26] MED LIST changes: +ANTI2TAB10 PO; -BACT800T5 PO; -DILA4TAB2 PO; +ZOFR8TAB PO
[2017-07-05] MEDS ORDERED: IOHEXOL 350 MG/ML 10 ML VIAL (for RAD DIAG) IVCONTRAST ONE (18:27)
[2017-07-05 18:29] VITALS: BP 212/99; PULSE 55; RESP 14; TEMP 97.9; O2SAT 99
[2017-07-05] MEDS ORDERED: ONDANSETRON HCL 4 MG/2 ML VIAL IVP ONE (19:00)
[2017-07-05] MEDS ORDERED: MORPHINE SULFATE 4 MG/ML INJ IV PUSH ONE (19:00)
[2017-07-05] MEDS ORDERED: SODIUM CHLORIDE 0.9% FLUSH 10 ML FLUSH IV FLUSH PRN (19:00)
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
[2017-07-05] MEDS: SODIUM CHLOR 0.9% 1000 ML INJ 1,000 ML IV SCH ×2 (19:40→19:44)
[2017-07-05 19:55] LABS: BILIRUBIN, URINE NEG (NEG); BLOOD, URINE NEG (NEG); GLUCOSE,URINE NEG (NEG); KETONE, URINE NEG (NEG); MUCUS URINE FEW /lpf (OCC); NITRITE,URINE NEG (NEG); SQUAMOUS EPITHELIAL CELL URINE <1 /hpf (0-5); URINE COLOR YELLOW (YELLW/STRAW); URINE LEUKOCYTE ESTERASE NEG (NEG)
[2017-07-05 20:03] LABS: PROTHROMBIN TIME - PATIENT 10.6 SEC (9.8-11.6)
[2017-07-05 20:16] LABS: ALBUMIN 3.7 GM/DL (3.4-5.0); AST (GOT) 24 U/L (15-37); BICARBONATE 25.7 MEQ/L (21.0-32.0); BLOOD UREA NITROGEN 11 MG/DL (7-18); CALCIUM 9.3 MG/DL (8.5-10.1); CHLORIDE 105 MEQ/L (98-107); CREATININE 0.81 MG/DL (0.60-1.30); GLOMERULAR FILTRATION RATE 113 ML/MIN (>89); GLUCOSE,RANDOM 89 MG/DL (74-106); LIPASE 94 U/L (73-393); SODIUM (NA) 138 MEQ/L (136-145)
[2017-07-05 20:17] LABS: ALT (GPT) 16 U/L (12-78)
[2017-07-05 20:19] LABS: ALKALINE PHOSPHATASE 125 U/L (45-117); TOTAL BILIRUBIN ADULT 0.5 MG/DL (0.2-1.0); TOTAL PROTEIN 7.7 GM/DL (6.4-8.2)
[2017-07-05 20:56] VITALS: O2SAT 96
[2017-07-05 21:01] LABS: AUTOMATED NEUTROPHIL # 4.7 TH/MM3 (1.8-7.7); BASOPHIL # 0.1 TH/MM3 (0-0.2); BASOPHIL % 0.8 % (0.0-2.0); EOSINOPHIL # 0.3 TH/MM3 (0-0.4); EOSINOPHIL % 3.9 % (0.0-4.0); HEMATOCRIT 43.3 % (39.0-51.0); HEMOGLOBIN 15.2 GM/DL (13.0-17.0); LYMPH % 32.3 % (9.0-44.0); LYMPHOCYTE # 2.8 TH/MM3 (1.0-4.8); MEAN CELL VOLUME 88.3 FL (80.0-100.0); MEAN CORPUSCULAR HEMOGLOBIN 30.9 PG (27.0-34.0); MEAN PLATELET VOLUME 8.4 FL (7.0-11.0); MONO % 8.2 % (0.0-8.0); MONOCYTE # 0.7 TH/MM3 (0-0.9); NEUT % 54.8 % (16.0-70.0); PLATELET COUNT 188 TH/MM3 (150-450); RED BLOOD COUNT 4.91 MIL/MM3 (4.50-5.90); RED CELL DISTRIBUTION WIDTH 17.5 % (11.6-17.2); WHITE BLOOD COUNT 8.6 TH/MM3 (4.0-11.0)
[2017-07-05 21:02] VITALS: BP 202/91; PULSE 62; RESP 16; O2SAT 97
[2017-07-05 21:03] LABS: WHITE BLOOD COUNT ND TH/MM3 (4.0-11.0)
[2017-07-05 21:04] LABS: HEMATOCRIT ND % (39.0-51.0); HEMOGLOBIN ND GM/DL (13.0-17.0); RED BLOOD COUNT ND MIL/MM3 (4.50-5.90)
[2017-07-05 21:06] LABS: MEAN CELL VOLUME ND FL (80.0-100.0); MEAN CORPUSCULAR HEMOGLOBIN ND PG (27.0-34.0); MEAN CORPUSCULAR HGB CONC ND % (32.0-36.0); PLATELET COUNT ND TH/MM3 (150-450); RED CELL DISTRIBUTION WIDTH ND % (11.6-17.2)
[2017-07-05 21:07] LABS: MEAN PLATELET VOLUME ND FL (7.0-11.0)
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
[2017-07-05] MEDS ORDERED: MORPHINE SULFATE 2 MG/ML INJ IV PUSH ONE (23:00)
[2017-07-05] MEDS ORDERED: LEVOFLOXACIN 750 MG PREMIX INJ 150 ML IV ONE (23:00)
[2017-07-05] MEDS: metroNIDAZOLE 500 MG INJ 100 ML IV ONE ×2 (23:36→23:46)
[2017-07-06] VITALS (9 sets, daily range): BP systolic 144–198; BP diastolic 75–84; PULSE 52–71; RESP 16–20; TEMP 96.3–97.5; O2SAT 97–99
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
[2017-07-06] MEDS ORDERED: ALBUTEROL SULFATE 90 MCG/ACT HFA 8 GM INHALER INH PRN (01:00)
[2017-07-06] MEDS ORDERED: ENALAPRILAT 1.25 MG/ML VIAL IV PUSH ONE (01:15)
[2017-07-06] MEDS ORDERED: ZOLPIDEM TARTRATE 5 MG TAB PO PRN (01:45)
[2017-07-06] MEDS ORDERED: NALOXONE HCL 0.4 MG/ML AMP IV PUSH PRN (01:45)
[2017-07-06] MEDS ORDERED: HYDROmorphone HCL PF 2 MG/ML VIAL IV PRN (01:45)
[2017-07-06] MEDS: SODIUM CHLOR 0.9% 1000 ML INJ 1,000 ML IV SCH ×3 (02:23→17:31)
[2017-07-06] MEDS: MORPHINE SULFATE 2 MG/ML INJ IV PRN ×5 (03:42→23:32)
[2017-07-06] MEDS: metroNIDAZOLE 500 MG INJ 100 ML IV SCH ×4 (05:35→23:31)
--- NOTE | 2017-07-06 08:12 | HHI.FPPN ---
Subjective Subjective Patient seen and examined with the resident team. Case reviewed and discussed Please refer to resident H&P for further details regarding HPI, ROS, PMH, SurgHx , FH and SocHx In summary, patient is a 72yoM with a a PMH significant for metastatic prostate CA, HTN, COPD and a biliary stent placed back in Mar, presenting with one week of progressively worsening pain, with fevers and chills. He has been unable to take PO due to the pain. GI was called in the ED. Placed on antibiotic therapy. Patient is seen in his hospital bed. States his pain is slightly better today. He did have bilious vomit earlier this am. [facility] Objective Objective Last Impressions Abdomen/Pelvis CT 07/05/17 185 Signed Impressions: Service Date/Time: Wednesday, July 05, 2017 21:52 - CONCLUSION: 1. Choledocholithiasis again noted. A biliary stent is present but may be occluded as there is increased intrahepatic and extrahepatic biliary distention. Please correlate clinically and serologically. 2. Interim cholecystectomy without evidence of an associated acute complication. 3. Sclerotic metastatic bone disease again noted. 4. Very tortuous and atherosclerotic abdominal aorta. No aneurysm. Dino Luna MD Laboratory Tests - Abnormals Test 07/05/17 19:30 07/05/17 20:30 Activated Partial Thromboplast Time 30.6 SEC Urine Mucus FEW /lpf Alkaline Phosphatase 125 U/L Red Cell Distribution Width 17.5 % Monocytes (%) (Auto) 8.2 % Vital Signs 07/05/17 07/05/17 07/05/17 07/06/17 18:29 20:56 21:02 02:11 Temp 97.9 Pulse 55 62 65 Resp 14 16 20 B/P (MAP) 212/99 (136) 202/91 (128) 173/79 (110) Pulse Ox 99 96 97 99 O2 Delivery Room Air Room Air Room Air Room Air 07/06/17 07/06/17 07/06/17 02:20 03:21 03:28 Temp 96.3 Pulse 63 52 Resp 20 16 B/P (MAP) 161/77 (105) 144/81 (102) Pulse Ox 99 99 O2 Delivery Room Air Physical exam GENERAL: Thin AAM resting in bed. Mild painful distress SKIN: Warm and dry. No rashes. HEAD: Normocephalic. EYES: No scleral icterus. No injection or drainage. NECK: Supple, trachea midline. No JVD or lymphadenopathy. CARDIOVASCULAR: Regular rate and rhythm without murmurs, gallops, or rubs. RESPIRATORY: Breath sounds equal bilaterally. No accessory muscle use. GASTROINTESTINAL: Abdomen soft, diffusely tender to palpation, grace over epigastrium and RUQ, nondistended. MUSCULOSKELETAL: No cyanosis, or edema. No calf tenderness. BACK: Nontender without obvious deformity. No CVA tenderness. NEURO: Awake and alert. Normal speech. CN grossly intact Assessment Assessment 72yoM admitted with: Biliary obstruction s/p stent placement Abdominal pain, intractable Prostate CA, metastatic Bilious vomiting Choledocholithiasis COPD HTN Peripheral vascular disease PLAN PLAN Pain control IVF GI consultation Strict Is/Os CLD Empiric antibiotic therapy with Levaquin, Flagyl Monitor CMP Resume home meds as appropriate Patient seen and examined. Case reviewed and discussed Agree with plan of care as discussed with me and documented in the resident note. Tiera Negro MD Jul 06, 2017 08:12
[2017-07-06] MEDS: BUDESONIDE-FORMOTEROL 160/4.5 MCG INHALER INH SCH ×2 (09:00→20:48)
[2017-07-06] MEDS: TIOTROPIUM BROMIDE 18 MCG INH INH SCH (09:00)
[2017-07-06] MEDS: PANTOPRAZOLE SODIUM 40 MG VIAL IV PUSH SCH (09:33)
[2017-07-06] MEDS: METOPROLOL TARTRATE 25 MG TAB PO SCH ×2 (09:34→20:43)
[2017-07-06] MEDS: GABAPENTIN 300 MG CAP PO SCH ×2 (09:34→20:44)
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
[2017-07-06] MEDS: ONDANSETRON HCL 4 MG/2 ML VIAL IV PUSH PRN (13:19)
[2017-07-06] MEDS: hydrALAZINE HCL 10 MG TAB PO PRN (18:20)
[2017-07-07] VITALS (10 sets, daily range): BP systolic 153–207; BP diastolic 73–96; PULSE 64–76; RESP 16–18; TEMP 96.3–96.9; O2SAT 95–99
[2017-07-07] MEDS: LEVOFLOXACIN 750 MG PREMIX INJ 150 ML IV SCH (00:50)
[2017-07-07] MEDS: ONDANSETRON HCL 4 MG/2 ML VIAL IV PUSH PRN ×2 (00:50→06:16)
[2017-07-07] MEDS: SODIUM CHLOR 0.9% 1000 ML INJ 1,000 ML IV SCH ×3 (01:03→20:05)
[2017-07-07] MEDS: MORPHINE SULFATE 2 MG/ML INJ IV PRN ×3 (04:51→12:28)
[2017-07-07] MEDS ORDERED: LACTATED RINGER'S 1000 ML IV PRN (05:00)
[2017-07-07] MEDS ORDERED: SODIUM CHLORID 0.9% 500 ML IV PRN (05:00)
[2017-07-07] MEDS ORDERED: CHLORHEXIDINE GLUCONATE 2 % 1 PACK (2 CLOTHS) TOPICAL PRN (05:00)
[2017-07-07] MEDS ORDERED: POVIDONE IODINE 5% (ANTISEPSIS KIT) 4 APPLICATIONS EACH NARE PRN (05:00)
[2017-07-07] MEDS: metroNIDAZOLE 500 MG INJ 100 ML IV SCH ×3 (06:15→18:50)
[2017-07-07] MEDS: BUDESONIDE-FORMOTEROL 160/4.5 MCG INHALER INH SCH ×2 (08:07→20:49)
[2017-07-07] MEDS: PANTOPRAZOLE SODIUM 40 MG VIAL IV PUSH SCH (08:08)
[2017-07-07] MEDS: METOPROLOL TARTRATE 25 MG TAB PO SCH ×2 (08:08→20:48)
[2017-07-07] MEDS: TIOTROPIUM BROMIDE 18 MCG INH INH SCH (08:09)
[2017-07-07] MEDS: GABAPENTIN 300 MG CAP PO SCH ×2 (08:09→20:48)
--- NOTE | 2017-07-07 09:41 | HHI.FPPN ---
Subjective Remarks Mr. Yoder does not feel any better today. The abdominal pain is still the same today and he vomited two more times yesterday. No vomiting today. He is upset about having so many abdominal surgeries and procedures. (Tiffanie Lobato MD R2) Objective Vitals Vital Signs Date Time Temp Pulse Resp B/P (MAP) Pulse Ox O2 Delivery O2 Flow Rate FiO2 07/07/17 08:00 96.6 64 18 181/79 (113) 99 07/07/17 04:00 96.9 64 18 153/74 (100) 98 07/07/17 00:00 96.3 68 16 185/82 (116) 99 07/06/17 21:00 21 07/06/17 20:00 97.5 62 18 177/84 (115) 98 07/06/17 18:00 182/82 (115) 07/06/17 16:14 97.0 71 18 198/80 (119) 97 07/06/17 12:00 97.0 64 17 162/81 (108) 99 07/06/17 10:14 98 I/O 07/06/17 07/06/17 07/06/17 07/07/17 07/07/17 07/07/17 07:00 15:00 23:00 07:00 15:00 23:00 Intake Total 250 ml 840 ml 1022 ml Output Total 100 ml 1100 ml 300 ml Balance 150 ml -260 ml 722 ml Intake Oral 0 ml 840 ml 0 ml IV Total 250 ml 1022 ml Output Urine Total 100 ml 1100 ml 300 ml # Bowel Movements 0 0 0 (Tiffanie Lobato MD R2) Result Diagram: 07/05/17202907/05/171929 Imaging Last Impressions Abdomen/Pelvis CT 07/05/171850 Signed Impressions: Service Date/Time: Wednesday, July 05, 2017 21:52 - CONCLUSION: 1. Choledocholithiasis again noted. A biliary stent is present but may be occluded as there is increased intrahepatic and extrahepatic biliary distention. Please correlate clinically and serologically. 2. Interim cholecystectomy without evidence of an associated acute complication. 3. Sclerotic metastatic bone disease again noted. 4. Very tortuous and atherosclerotic abdominal aorta. No aneurysm. Dino Luna MD Objective Remarks GENERAL: This is a slim, well-developed patient, in no apparent distress. SKIN: Abdominal scars from previous procedure HEAD: Atraumatic. Normocephalic. No temporal or scalp tenderness. EYES: Pupils equal round and reactive. Extraocular motions intact. No scleral icterus. CARDIOVASCULAR: Regular rate and rhythm without murmurs, gallops, or rubs. RESPIRATORY: Clear to auscultation. Breath sounds equal bilaterally. No wheezes , rales, or rhonchi. GASTROINTESTINAL: Abdomen soft, exquisitely TTP, worse in the epigastric and RUQ abdomen, with guarding, nondistended. Good BS MUSCULOSKELETAL: Extremities without clubbing, cyanosis, or edema. NEUROLOGICAL: Awake and alert. Cranial nerves II through XII intact. Motor and sensory grossly within normal limits. (Tiffanie Lobato MD R2) A/P Assessment and Plan 72 y/o male presents with abdominal pain secondary to biliary duct stent occlusion. No bowel obstruction, diverticulitis or gross metastatic cancer identified on CT scan. He will be admitted for pain management and procedure ( most likely ERCP) to investigate the biliary occlusion. GI has been consulted and plans for ERCP today. Seen with Dr. Rodriguez. Will discuss with Dr. Negro Discharge Planning Following ERCP, will watch for clinical improvement and GI recommendations. (Tiffanie Lobato MD R2) Attending Attestation Patient seen and examined. Case reviewed and discussed Agree with plan of care as discussed with me and documented in the resident note. (Tiera Negro MD) Problem List: (1) Biliary stent obstruction ICD Codes: T85.590A - Other mechanical complication of bile duct prosthesis, initial encounter Plan: -Most likely cause for the intense abdominal pain he is experiencing -Hemodynamically stable -NPO for ERCP today -Continue maintenance IV fluids at 90 mls./hr -Continue Levaquin IV and Flagyl IV -Morphine IV for pain -Zofran IV prn N/V (2) Chronic Medical Problems Plan: Prostate CA - Continue Xtandi HTN - continue Amlodipine and Metoprolol Neuropathy - continue Gabapentin COPD - continue Advair, albuterol inhaler, and Spiriva (3) DVT prophylaxis Status: Acute Plan: -Hold chemical prophylaxis for GI procedure, start Lovenox subq 24 h after (4) Fluids, Electrolytes, Metabolism Status: Acute Plan: -NS at 90 mls/hr, encourage oral fluids after procedure -Monitor and replete electrolytes as needed -NPO currently, slowly advance diet after procedure -PT to assist with ambulation -Incentive spirometry -CM on board for assistance with discharge as needed (Tiffanie Lobato MD R2) Tiffanie Lobato MD R2 Jul 07, 2017 09:41 Tiera Negro MD Jul 08, 2017 12:06
[2017-07-07] MEDS ORDERED: SUCCINYLCHOLINE CHLORIDE 100 MG/5 ML SYRINGE IV PUSH ONE (12:00)
[2017-07-07] MEDS ORDERED: ONDANSETRON HCL 4 MG/2 ML VIAL IV PUSH ONE (12:00)
[2017-07-07] MEDS ORDERED: DEXAMETHASONE SOD PHOS 4 MG/ML VIAL IV ONE (12:00)
[2017-07-07] MEDS ORDERED: ePHEDrine/NS 25 MG/5 ML SYRINGE IV ONE (12:00)
[2017-07-07] MEDS ORDERED: LIDOCAINE HCL 1% PF 5 ML SYRINGE OTHER ONE (12:00)
[2017-07-07] MEDS ORDERED: ENALAPRILAT 1.25 MG/ML VIAL IV PUSH PRN (12:15)
[2017-07-07] MEDS ORDERED: MIDAZOLAM HCL 2 MG/2 ML VIAL ONE (17:00)
[2017-07-07] MEDS ORDERED: DO NOT ADM ANY ANTICOAGULANT DRUGS PRN (18:31)
[2017-07-07] MEDS ORDERED: *LABETALOL HCL 100 MG/20 ML VIAL PERIprocedural Use ONLY ONE (18:42)
--- NOTE | 2017-07-07 18:47 | PD.PROCEDR ---
GI Procedure PROCEDURE PERFORMED ERCP with balloon dilation of the ampulla with balloon extraction and basket extraction and stent removal and stent placement INDICATION FOR PROCEDURE Choledocholithiasis PROCEDURE: The procedure, risks and benefits were discussed with Mr. Yoder and informed consent was obtained. Anesthesia sedated him with Diprivan. He was placed in the left lateral decubitus position. ERCP: Patient was placed in a prone position. The Pentax videoscope was introduced through the oropharynx and advanced to the second portion of the duodenum where the ampula was identified. FINDINGS: The scope was positioned in the second portion of the duodenum the ampulla had a prior sphincterotomy there was a stent protruding this was removed using snare technique the scope was then repositioned we were able to obtain easy cannulation of the common bile duct which appeared to be filled with large hard stones initially we tried to extract the stones with a 12 mm balloon but no success therefore I dilated the ampulla with the CRE balloon to size 13 mm then after that I tried with the balloon to extract stones I was able to extract a couple but the balloon busted then retried with the first basket I was able to extract a stone but then the basket busted tried another basket again this busted and it is still notable that there are several large stones in the common bile duct therefore a 10 Vincentian 9 cm stent was again placed with noted good drainage ESTIMATED BLOOD LOSS: None SPECIMENS REMOVED: None COMPLICATIONS: None IMPRESSION: Choledocholithiasis PLAN: Would recommend ERCP with spyglass and laser lithotripsy to be done at [facility] with me we will schedule the ERCP and 3-6 months Continue with current supportive care Monitor labs Eran Bell MD Jul 07, 2017 18:47
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
[2017-07-08] VITALS (10 sets, daily range): BP systolic 142–203; BP diastolic 67–92; PULSE 52–80; RESP 17–19; TEMP 97–98.4; O2SAT 98–99
[2017-07-08] MEDS: metroNIDAZOLE 500 MG INJ 100 ML IV SCH ×4 (00:42→17:59)
[2017-07-08] MEDS: hydrALAZINE HCL 10 MG TAB PO PRN ×2 (00:42→15:57)
[2017-07-08] MEDS: MORPHINE SULFATE 2 MG/ML INJ IV PRN ×4 (00:46→20:45)
[2017-07-08] MEDS: LEVOFLOXACIN 750 MG PREMIX INJ 150 ML IV SCH (02:07)
[2017-07-08] MEDS: ONDANSETRON HCL 4 MG/2 ML VIAL IV PUSH PRN (02:07)
[2017-07-08] MEDS: SODIUM CHLOR 0.9% 1000 ML INJ 1,000 ML IV SCH (07:12)
[2017-07-08] MEDS: PANTOPRAZOLE SODIUM 40 MG VIAL IV PUSH SCH (08:07)
[2017-07-08] MEDS: GABAPENTIN 300 MG CAP PO SCH ×2 (08:07→20:38)
[2017-07-08] MEDS: METOPROLOL TARTRATE 25 MG TAB PO SCH ×2 (08:07→20:38)
[2017-07-08] MEDS: BUDESONIDE-FORMOTEROL 160/4.5 MCG INHALER INH SCH ×2 (08:08→20:38)
[2017-07-08] MEDS: TIOTROPIUM BROMIDE 18 MCG INH INH SCH (08:18)
--- NOTE | 2017-07-08 08:45 | HHI.FPPN ---
Subjective Remarks Mr Yoder had no acute events overnight. He feels better today but still has some pain but would like to eat. He allowed his labs to be taken this morning. He has an oncology appt with Dr Norris today and asks if we could cancel it for him. He also needs a refill on his prostate cancer meds Xtandi 40 mg BID as he is now out. Denies CP, SOB, N/V/D and DVT pain. (Gilmar Rodriguez MD R1) Objective Vitals Vital Signs Date Time Temp Pulse Resp B/P (MAP) Pulse Ox O2 Delivery O2 Flow Rate FiO2 07/08/17 07:46 98.3 69 19 160/74 (102) 99 07/08/17 04:45 97.7 65 18 142/67 (92) 98 07/08/17 00:44 97.0 70 17 182/89 (120) 99 07/07/17 22:57 76 172/94 (120) 07/07/17 20:00 96.8 68 17 190/96 (127) 95 07/07/17 18:54 97.5 66 17 182/81 (114) 100 Nasal Cannula 2 07/07/17 18:45 72 15 200/115 (143) 100 Nasal Cannula 2 07/07/17 18:30 71 18 190/87 (121) 100 Nasal Cannula 2 07/07/17 18:29 97.5 71 20 194/84 (120) 100 Nasal Cannula 2 07/07/17 17:06 98 07/07/17 16:00 96.8 75 18 207/92 (130) 98 07/07/17 13:37 96 07/07/17 09:10 161/73 (102) I/O 07/07/17 07/07/17 07/07/17 07/08/17 07/08/17 07/08/17 07:00 15:00 23:00 07:00 15:00 23:00 Intake Total 1022 ml 240 ml 240 ml Output Total 300 ml 950 ml 250 ml 450 ml Balance 722 ml -950 ml -10 ml -210 ml Intake Oral 0 ml 240 ml 240 ml IV Total 1022 ml 0 ml Output Urine Total 300 ml 950 ml 250 ml 450 ml # Voids 2 0 # Bowel Movements 0 0 0 (Gilmar Rodriguez MD R1) Result Diagram: 07/05/1707/05/18 1930 Imaging Last 48 hours Impressions GI Procedure 07/07/17 0000 Signed Impressions: Service Date/Time: Friday, July 07, 2017 17:39 - CONCLUSION: ERCP as above. Castro Vargas Jr., MD Objective Remarks GENERAL: This is a slim, well-developed patient, in no apparent distress, smiling and in good spirits in bed today. SKIN: Abdominal scars from previous procedure. No other rashes or lesions. HEAD: Atraumatic. Normocephalic. EYES: Pupils equal round and reactive. Extraocular motions intact. No scleral icterus. CARDIOVASCULAR: Regular rate and rhythm without murmur, gallop, or rub. RESPIRATORY: Clear to auscultation. Breath sounds equal bilaterally. No wheezes , rales, or rhonchi. GASTROINTESTINAL: Abdomen soft, mildly TTP, no guarding, nondistended. Good BS MUSCULOSKELETAL: Extremities without clubbing, cyanosis, or edema. NEUROLOGICAL: Awake and alert. Cranial nerves II through XII intact. Motor and sensory grossly within normal limits. Medications and IVs Current Medications Medications (Trade) Dose Ordered Sig/Tammie Route Start Time Stop Time Status Last Admin (NS Flush) 2 ml UNSCH PRN IV FLUSH 07/05/17 19:00 (Proair Hfa Inh) 2 puff Q4H PRN INH 07/06/17 01:00 (Norvasc) 10 mg DAILY PO 07/06/17 09:00 07/08/17 08:07 (Neurontin) 300 mg BID PO 07/06/17 09:00 07/08/17 08:07 (Lopressor) 25 mg BID PO 07/06/17 09:00 07/08/17 08:07 (Spiriva Inh) 18 mcg DAILY INH 07/06/17 09:00 (Symbicort 160-4.5 Mcg Inh) 2 puff BID INH 07/06/17 09:00 07/08/17 08:08 (Morphine Inj) 4 mg Q3H PRN IV 07/06/17 01:45 07/08/17 08:06 (Dilaudid Pf Inj) 0.5 mg Q4H PRN IV 07/06/17 01:45 (Zofran Inj) 4 mg Q6H PRN IV PUSH 07/06/17 01:45 07/08/17 02:07 (Ambien) 5 mg HS PRN PO 07/06/17 01:45 (Protonix Inj) 40 mg DAILY IV PUSH 07/06/17 09:00 07/08/17 08:07 (Narcan Inj) 0.4 mg UNSCH PRN IV PUSH 07/06/17 01:45 Levofloxacin/ Dextrose 150 ml @ 100 mls/hr Q24H IV 07/07/17 00:00 07/08/17 02:07 Metronidazole 100 ml @ 100 mls/hr Q6H IV 07/06/17 06:00 07/08/17 06:21 Patient Own Medication PT OWN MED: Capsules (Xtandi O... DAILY PO 07/06/17 09:00 07/07/17 08:07 (Apresoline) 10 mg Q6H PRN PO 07/06/17 16:45 07/08/17 00:42 Lactated Ringer's 1,000 ml @ 30 mls/hr Q24H PRN IV 07/07/17 05:00 07/10/17 04:59 07/07/17 16:07 Sodium Chloride 500 ml @ 30 mls/hr [id number] PRN IV 07/07/17 05:00 07/10/17 04:59 (Betadine 5% Antisepsis Kit) 1 applic MANAGER PROVIDER RELATIONS PRN EACH NARE 07/07/17 05:00 07/10/17 04:59 (Chlorhexidine 2% Cloth) 3 pack MANAGER PROVIDER RELATIONS PRN TOPICAL 07/07/17 05:00 07/10/17 04:59 (Vasotec Inj) 1.25 mg Q6H PRN IV PUSH 07/07/17 12:15 07/07/17 13:58 Miscellaneous Information ALL NURSING DEPARTME... UNSCH PRN .XX 07/07/17 18:31 07/08/17 18:30 (Gilmar Rodriguez MD R1) Urinary Catheter: No (Gilmar Rodriguez MD R1) A/P Assessment and Plan 72 y/o male presents with abdominal pain secondary to biliary duct stent occlusion. No bowel obstruction, diverticulitis or gross metastatic cancer identified on CT scan. Dr Bell performed ERCP on 07/07/17 and extracted several stones; however, was not able to remove all stones due to size and not having lithotripsy. He will follow up with Dr Bell in 3-6 months for that procedure. Seen with Dr. Lobato. Alvaro Negro. Discharge Planning DC today (Gilmar Rodriguez MD R1) Attending Attestation Patient seen and examined. Case reviewed and discussed Agree with plan of care as discussed with me and documented in the resident note. (Tiera Negro MD) Problem List: (1) Biliary stent obstruction ICD Codes: T85.590A - Other mechanical complication of bile duct prosthesis, initial encounter Plan: Stent removed and new stent placed during ERCP 07/07 to remove obstruction -Hemodynamically stable -Several biliary stones removed via ERCP on 07/07; however, Dr Bell could not remove all stones due to size -Discontinue maintenance IV fluids due to taking PO today -Discontinue Levaquin IV and Flagyl IV -Start Levaquin 750mg PO and Flagyl 500mg TID PO on discharge each for 5 days -Hydromorphone 4mg q8h PO PRN -Zofran 4mg PO PRN (2) Chronic Medical Problems Plan: Prostate CA - Continue Xtandi HTN - continue Amlodipine and Metoprolol; changed Metoporlol dose to 50 mg PO BID for discharge Neuropathy - continue Gabapentin COPD - continue Advair, albuterol inhaler, and Spiriva (3) DVT prophylaxis Status: Acute Plan: -Hold chemical prophylaxis for GI procedure; will discharge before Lovenox will be required (4) Fluids, Electrolytes, Metabolism Status: Acute Plan: Fluids: PO fluids; IVF discontinued Electrolytes: Monitor and replete electrolytes as needed Nutrition: regular as tolerated -PT to assist with ambulation -Incentive spirometry - on board for assistance with discharge as needed: [id number] ordered to assist with needs at home -Pain control with hydromorphone 4mg q8h PO PRN (Gilmar Rodriguez MD R1) Problem Qualifiers (1) Biliary stent obstruction: Qualified Codes: T85.590S - Other mechanical complication of bile duct prosthesis, sequela Gilmar Rodriguez MD R1 Jul 08, 2017 08:45 Tiera Negro MD Jul 15, 2017 16:48
[2017-07-08 08:57] LABS: HEMATOCRIT 40.5 % (39.0-51.0); HEMOGLOBIN 14.7 GM/DL (13.0-17.0); MEAN CELL VOLUME 88.1 FL (80.0-100.0); MEAN PLATELET VOLUME 9.1 FL (7.0-11.0); PLATELET COUNT 173 TH/MM3 (150-450); RED BLOOD COUNT 4.59 MIL/MM3 (4.50-5.90); RED CELL DISTRIBUTION WIDTH 16.9 % (11.6-17.2); WHITE BLOOD COUNT 10.1 TH/MM3 (4.0-11.0)
[2017-07-08 09:13] LABS: MEAN CORPUSCULAR HGB CONC 36.3 % (32.0-36.0)
[2017-07-08 09:28] LABS: ALKALINE PHOSPHATASE 117 U/L (45-117); ALT (GPT) 21 U/L (12-78); AST (GOT) 35 U/L (15-37); BICARBONATE 29.6 MEQ/L (21.0-32.0); BLOOD UREA NITROGEN 9 MG/DL (7-18); CALCIUM 8.8 MG/DL (8.5-10.1); CHLORIDE 98 MEQ/L (98-107); CREATININE 0.77 MG/DL (0.60-1.30); GLOMERULAR FILTRATION RATE 120 ML/MIN (>89); GLUCOSE,RANDOM 84 MG/DL (74-106); SODIUM (NA) 136 MEQ/L (136-145); TOTAL BILIRUBIN ADULT 0.6 MG/DL (0.2-1.0); TOTAL PROTEIN 6.6 GM/DL (6.4-8.2)
--- NOTE | 2017-07-08 12:51 | HHI.GIFU ---
Subjective Remarks Resting in the bed Mild soreness in abdomen right upper quadrant, resolving No nausea no vomiting able to eat solid food Afebrile (Tiffanie Lipscomb) Objective Vitals I&O Vital Signs Date Time Temp Pulse Resp B/P (MAP) Pulse Ox O2 Delivery O2 Flow Rate FiO2 07/08/17 11:47 98.3 80 19 179/70 (106) 99 07/08/17 07:46 98.3 69 19 160/74 (102) 99 07/08/17 04:45 97.7 65 18 142/67 (92) 98 07/08/17 00:44 97.0 70 17 182/89 (120) 99 07/07/17 22:57 76 172/94 (120) 07/07/17 20:00 96.8 68 17 190/96 (127) 95 07/07/17 18:54 97.5 66 17 182/81 (114) 100 Nasal Cannula 2 07/07/17 18:45 72 15 200/115 (143) 100 Nasal Cannula 2 07/07/17 18:30 71 18 190/87 (121) 100 Nasal Cannula 2 07/07/17 18:29 97.5 71 20 194/84 (120) 100 Nasal Cannula 2 07/07/17 17:06 98 07/07/17 16:00 96.8 75 18 207/92 (130) 98 07/07/17 13:37 96 I/O 07/07/17 07/07/17 07/07/17 07/08/17 07/08/17 07/08/17 07:00 15:00 23:00 07:00 15:00 23:00 Intake Total 1022 ml 240 ml 240 ml Output Total 300 ml 950 ml 250 ml 450 ml Balance 722 ml -950 ml -10 ml -210 ml Intake Oral 0 ml 240 ml 240 ml IV Total 1022 ml 0 ml Output Urine Total 300 ml 950 ml 250 ml 450 ml # Voids 2 0 # Bowel Movements 0 0 0 Laboratory Laboratory Tests Test 07/08/17 07:45 White Blood Count 10.1 Red Blood Count 4.59 Hemoglobin 14.7 Hematocrit 40.5 Mean Corpuscular Volume 88.1 Mean Corpuscular Hemoglobin 32.0 Mean Corpuscular Hemoglobin Concent 36.3 Red Cell Distribution Width 16.9 Platelet Count 173 Mean Platelet Volume 9.1 Blood Urea Nitrogen 9 Creatinine 0.77 Random Glucose 84 Total Protein 6.6 Albumin 3.0 Calcium Level 8.8 Alkaline Phosphatase 117 Aspartate Amino Transf (AST/SGOT) 35 Alanine Aminotransferase (ALT/SGPT) 21 Total Bilirubin 0.6 Sodium Level 136 Potassium Level 3.5 Chloride Level 98 Carbon Dioxide Level 29.6 Anion Gap 8 Estimat Glomerular Filtration Rate 120 Imaging Last Impressions GI Procedure 07/07/17 0000 Signed Impressions: Service Date/Time: Friday, July 07, 2017 17:39 - CONCLUSION: ERCP as above. Castro Vargas Jr., MD Abdomen/Pelvis CT 07/05/17 1851 Signed Impressions: Service Date/Time: Wednesday, July 05, 2017 21:52 - CONCLUSION: 1. Choledocholithiasis again noted. A biliary stent is present but may be occluded as there is increased intrahepatic and extrahepatic biliary distention. Please correlate clinically and serologically. 2. Interim cholecystectomy without evidence of an associated acute complication. 3. Sclerotic metastatic bone disease again noted. 4. Very tortuous and atherosclerotic abdominal aorta. No aneurysm. Dino Luna MD Physical Exam HEENT: Pupils round and reactive to light; normocephalic; atraumatic; no jaundice. Throat is clear. NECK: Neck is supple, no JVD, no lymphadenopathy. CHEST: Chest is clear to auscultation and percussion. CARDIAC: Regular rate and rhythm with no murmur gallop or rubs. ABDOMEN: Soft, nondistended, no hepatosplenomegaly; bowel sounds soft EXTREMITIES: No clubbing, cyanosis, or edema. SKIN: Normal; no rash; no jaundice. CLINICAL ANALYST: No focal deficits; alert and oriented times three. (Tiffanie Lipscomb) Assessment and Plan Plan Assessment: - Choledocholithiasis- S/P EGD with ERCP (01/30) --> Dilated intra-and extrahepatic biliary tree with multiple filling defects in the common duct consistent with stones. A second film reveals drainage of the biliary tree with a stent in good position. Alk phos mildly elevate at this time, LFTs otherwise WNL. CT abdomen and pelvis with IV contras t(07/05) --> Choledocholithiasis again noted. A biliary stent is present but may be occluded as there is increased intrahepatic and extrahepatic biliary distention. Please correlated clinically and serologically. Interim cholecystectomy without evidence of an associated acute complication. Sclerotic metastatic bone disease again noted. Very tortuous and atherosclerotic abdominal aorta. No aneurysm 07/08/17 patient continues with mild soreness in his abdomen but resolving. ERCP 07/07/2017 , balloon dilation of the ampulla with balloon extraction and basket extraction and stent removal and stent placement Plan for with spyglass and laser lithotripsy to be done at [facility] with me we will schedule the ERCP and 3-6 months Plan: - heart healthy diet. - Increase activity up in chair dangle on side of the bed but call for ambulation to nurse secondary to his safety - Monitor labs - Nausea medication PRN - Supportive care - Further recommendations ERCP to be done at [facility] with Dr. Bell with spyglass and laser lithotripsy in 3-6 months GI will sign off and follow as needed on an outpatient basis. Pt has been seen and examined by myself and Dr. Bell, note is written on her behalf (Tiffanie Lipscomb) Physician Comments Patient seen and examined Agree with above Continue with current supportive care Monitor labs We will sign off (Eran Bell MD) Tiffanie Lipscomb Jul 08, 2017 12:51 Eran Bell MD Jul 09, 2017 00:12
[2017-07-08] MEDS ORDERED: METOPROLOL TARTRATE 25 MG TAB PO ONE (15:00)
[2017-07-08] MEDS ORDERED: METR-1 PO (15:09)
[2017-07-08] MEDS ORDERED: LEVO750T3 PO (15:09)
[2017-07-08] MEDS ORDERED: METO50TA PO (15:09)
[2017-07-08] MEDS ORDERED: HYDR4TAB PO (15:21)
--- NOTE | 2017-07-08 15:23 | HHI.DCPOC ---
Discharge Care Plan Goals to Promote Your Health * To prevent worsening of your condition and complications, take medications as prescribed and follow up with your primary care provider in one week. Please measure your blood pressure at home daily and if your Blood pressure is greater than 200 systolic or 100 diatolic, please go to the emergency room or see your doctor right away. * To maintain your health at the optimal level, please plan to follow up with Dr Bell in 1 week. Directions to Meet Your Goals Take your medications as prescribed Follow your dietary instruction Follow activity as directed Keep your appointments as scheduled Take your immunizations and boosters as scheduled If your symptoms worsen call your PCP, if no PCP go to Urgent Care Center or Emergency Room Smoking is Dangerous to Your Health. Avoid second hand smoke Call the 24-hour hour crisis hotline for domestic abuse at Gilmar Rodriguez MD R1 Jul 08, 2017 15:23
--- NOTE | 2017-07-08 15:32 | HHI.FF ---
Face to Face Verification Diagnosis: (1) Choledocholithiasis with obstruction (2) HTN (hypertension) (3) Peripheral vascular disease (4) Biliary stent obstruction (5) Prostate cancer (6) Hypertensive urgency Physical Therapy Order: Evaluate and Treat, Strength and gait training Home Health Nursing Order: Medical education Signs/symptoms of disease process Medication education-adverse effect Nursing assessment with vital signs Instructions: Evaluate pt's ability to manage choledocholithiasis at home and ability to manage medications, pain control, PO intake etc. I have seen patient Manish Yoder on 07/08/17. My clinical findings support the need for the requested home health care services because: Ltd mobility - disease progression Deconditioned w/ increased weakness Limited ability to care for self Need for psychosocial assistance I certify that my clinical findings support that this patient is homebound because: Post-op weakness Hx COPD- exertion dyspnea/weakness Unsafe to leave home unassisted Need for psychosocial assistance Gilmar Rodriguez MD R1 Jul 08, 2017 15:32
[2017-07-08] MEDS ORDERED: ENALAPRILAT 1.25 MG/ML VIAL IV PUSH PRN (18:30)
--- NOTE | 2017-07-08 21:29 | HHI.DS ---
Discharge Summary Admission Date Jul 05, 2017 at 23:05 Admitting Diagnosis choledocholithiasis, occluded biliary stent (1) Choledocholithiasis Diagnosis: Principal ICD Codes: K80.50 - Calculus of bile duct without cholangitis or cholecystitis without obstruction Status: Acute (2) Biliary stent obstruction Diagnosis: Principal ICD Codes: T85.590A - Other mechanical complication of bile duct prosthesis, initial encounter (3) HTN (hypertension) Diagnosis: Secondary ICD Codes: I10 - Hypertension Status: Chronic (4) COPD (chronic obstructive pulmonary disease) Diagnosis: Secondary ICD Codes: J44.9 - Chronic obstructive pulmonary disease Status: Chronic (5) Peripheral vascular disease Diagnosis: Secondary Status: Chronic Procedures ERCP 07/07/2017 Brief History Patient is 72 y/o AA male with PMH of cholecystectomy, hernia surgery, bowel obstruction, and prostate cancer that presents to the [place] ED with a chief complaint of abdominal pain that has been going on for at least 1 week. He also had nonbloody diarrhea x2 for which he took OTC Imodium. The pain is mostly located in his upper middle abdomen and also affects the upper right side. He has not been able to eat or drink water or coffee due to the excruciating pain that he describes as throbbing and 10/10 in intensity. He has vomited once during this episode. CBC/BMP: 07/08/17 0745 07/08/17 0745 Significant Findings Laboratory Tests Test 07/08/17 07:45 Mean Corpuscular Hemoglobin Concent 36.3 % (32.0-36.0) Albumin 3.0 GM/DL (3.4-5.0) Imaging Last Impressions GI Procedure 07/07/17 0000 Signed Impressions: Service Date/Time: Friday, July 07, 2017 17:39 - CONCLUSION: ERCP as above. Castro Vargas Jr., MD Abdomen/Pelvis CT 07/05/17 1851 Signed Impressions: Service Date/Time: Wednesday, July 05, 2017 21:52 - CONCLUSION: 1. Choledocholithiasis again noted. A biliary stent is present but may be occluded as there is increased intrahepatic and extrahepatic biliary distention. Please correlate clinically and serologically. 2. Interim cholecystectomy without evidence of an associated acute complication. 3. Sclerotic metastatic bone disease again noted. 4. Very tortuous and atherosclerotic abdominal aorta. No aneurysm. Dino Luna MD PE at Discharge GENERAL: This is a slim, well-developed patient, in no apparent distress, smiling and in good spirits in bed today. SKIN: Abdominal scars from previous procedure. No other rashes or lesions. HEAD: Atraumatic. Normocephalic. EYES: Pupils equal round and reactive. Extraocular motions intact. No scleral icterus. CARDIOVASCULAR: Regular rate and rhythm without murmur, gallop, or rub. RESPIRATORY: Clear to auscultation. Breath sounds equal bilaterally. No wheezes , rales, or rhonchi. GASTROINTESTINAL: Abdomen soft, mildly TTP, no guarding, nondistended. Good BS MUSCULOSKELETAL: Extremities without clubbing, cyanosis, or edema. NEUROLOGICAL: Awake and alert. Cranial nerves II through XII intact. Motor and sensory grossly within normal limits. Hospital Course Mr Yoder was admitted to the inpatient service with normal CBC and CMP wnl except for elevated alkaline phosphatase to 125. His blood pressures were also elevated and were thought to be due to his pain. A CT of abdomen/pelvis showed choledocholithiasis with biliary stent present, but may be occluded as there is increased intrahepatic and extrahepatic biliary distention. Additionally, the imaging noted interim cholecystectomy without evidence of an associated acute complication; sclerotic metastatic bone disease; and a very tortuous and atherosclerotic abdominal aorta without aneurysm. GI was consulted and Dr Bell made plans to take the pt to the OR on 07/07. He was started on flagyl and levaquin antibiotics.The ERCP on 07/07 found the biliary stent protruding from the pancreatic sphincter with multiple stones obstructing the pancreatic duct. Multiple attempts were made to extract stones with several attempts being successful but other stones were left to be extracted later. The pt recovered well and was noted to have markedly reduced pain on 07/08 and was able to tolerate a PO diet. Dr Bell agreed that the pt could discharge on 07/08; however, his BP remained elevated on Metoprolol, hydralazine, and vasotec. On the morning of 07/09 we worked aggressively to control his BP. A renal US was negative for pathology suggestive of secondary HTN. We reduced his BP with Metoprolol 50mg BID, Chlorthalidone 25mg daily, and amlodipine 10mg daily. He will check his BP daily with the cuff he has at home. He discharged in stable condition with physical exam benign. He will follow up with Dr Bell in 1 week and check a BMP in 3-4 days. Pt Condition on Discharge: Stable Discharge Disposition: Disch w/ Home Health Serv Discharge Instructions DIET: Follow Instructions for: As Tolerated, No Restrictions Activities you can perform: Weight Bearing as Morris Activities to avoid: Lifting/Bending, Strenuous Activity Follow up Referrals: Gastroenterology - 1 Week with Eran Bell MD PCP Follow-up - 1 Week New Medications: Hydromorphone (Hydromorphone) 4 Mg Tab 4 MG PO Q8H PRN for PAIN for 7 Days, #21 TAB 0 Refills Levofloxacin (Levofloxacin) 750 Mg Tablet 750 MG PO DAILY for Infection for 5 Days, #5 TAB 0 Refills Metoprolol Tartrate (Metoprolol Tartrate) 50 Mg Tab 50 MG PO BID for Blood Pressure Management for 30 Days, #60 TAB 0 Refills Metronidazole (Flagyl) 500 Mg Tab 500 MG PO TID for Infection for 5 Days, #15 TAB 0 Refills Continued Medications: Albuterol 18 GM Inh (Ventolin Hfa 18 GM Inh) 90 Mcg/Act Aer 2 PUFF INH Q4H PRN for SHORTNESS OF BREATH, #1 INHALER 5 Refills Amlodipine (Amlodipine) 10 Mg Tab 10 MG PO DAILY for Blood Pressure Management, #30 TAB 5 Refills Enzalutamide (Xtandi) 40 Mg Cap 160 MG PO DAILY for Chemotherapy Management, #90 CAP 0 Refills Fluticasone-Salmeterol Inh (Advair Diskus Inh) 250-50 Mcg/Blist Aer 1 PUFF INH BID, #1 INHALER 5 Refills Rinse mouth after use. Gabapentin (Gabapentin) 300 Mg Cap 300 MG PO BID, #60 CAP 5 Refills Hydromorphone (Hydromorphone) 4 Mg Tab 4 MG PO Q6H PRN for PAIN, #15 TAB 0 Refills Loperamide (Anti-Diarrheal) 2 Mg Tab 2 MG PO DIRECTED PRN for DIARRHEA, TAB 0 Refills Take 4 mg after 1st loose stool, then take 2 mg after each subsequent stool. Max 8 mg/day. Ondansetron (Zofran) 8 Mg Tab 8 MG PO TID for Nausea/Vomiting, TAB 0 Refills Tiotropium Inh (Spiriva Handihaler) 18 Mcg Cap 18 MCG INH DAILY for COPD, #30 CAP 5 Refills 1 capsule = 18 mcg Discontinued Medications: Metoprolol Tartrate (Metoprolol Tartrate) 25 Mg Tab 25 MG PO BID, #60 TAB 5 Refills Gilmar Rodriguez MD R1 Jul 08, 2017 21:29
[2017-07-09] VITALS (8 sets, daily range): BP systolic 160–196; BP diastolic 70–103; PULSE 17–70; RESP 17–18; TEMP 95.1–97.9; O2SAT 95–98
[2017-07-09] MEDS: metroNIDAZOLE 500 MG INJ 100 ML IV SCH ×3 (00:57→11:38)
[2017-07-09] MEDS: LEVOFLOXACIN 750 MG PREMIX INJ 150 ML IV SCH (00:57)
[2017-07-09] MEDS: MORPHINE SULFATE 2 MG/ML INJ IV PRN ×4 (00:58→13:29)
[2017-07-09] MEDS: ONDANSETRON HCL 4 MG/2 ML VIAL IV PUSH PRN (04:07)
[2017-07-09] MEDS: GABAPENTIN 300 MG CAP PO SCH (08:58)
[2017-07-09] MEDS: PANTOPRAZOLE SODIUM 40 MG VIAL IV PUSH SCH (08:58)
[2017-07-09] MEDS: hydrALAZINE HCL 10 MG TAB PO PRN (08:58)
[2017-07-09] MEDS ORDERED: METOPROLOL TARTRATE 50 MG TAB PO SCH (09:00)
[2017-07-09] MEDS: TIOTROPIUM BROMIDE 18 MCG INH INH SCH (09:00)
[2017-07-09] MEDS: BUDESONIDE-FORMOTEROL 160/4.5 MCG INHALER INH SCH (09:06)
--- NOTE | 2017-07-09 09:28 | HHI.FPPN ---
Subjective Remarks Although Mr Yoder was cleared for discharge yesterday afternoon his BP remained elevated in spite of scheduled and PRN medications and was held overnight. This morning his BPs are still elevated to 196/103 prior to getting his morning medications. We are optimizing his HTN regimen this morning in anticipation of his discharge by this afternoon. He is eating breakfast and still has 5/10 pain but he feels much better with only occasional nausea. Denies CP, SOB, V/D, DVT pain, JONES, dizziness, and visual changes. (Gilmar Rodriguez MD R1) Objective Vitals Vital Signs Date Time Temp Pulse Resp B/P (MAP) Pulse Ox O2 Delivery O2 Flow Rate FiO2 07/09/17 08:00 95.1 17 17 196/103 (134) 95 07/09/17 04:15 97.1 70 18 168/70 (102) 97 07/08/17 23:50 97.8 68 18 180/79 (112) 99 07/08/17 20:00 98.4 52 18 190/92 (124) 98 Manual Cuff/Palpation Automatic Cuff 07/08/17 18:09 185/84 (117) 07/08/17 18:08 98 21 07/08/17 18:00 203/89 (127) 07/08/17 15:56 98.2 71 19 192/90 (124) 98 07/08/17 11:47 98.3 80 19 179/70 (106) 99 I/O 07/08/17 07/08/17 07/08/17 07/09/17 07/09/17 07/09/17 07:00 15:00 23:00 07:00 15:00 23:00 Intake Total 240 ml 1000 ml 240 ml 240 ml Output Total 450 ml 1000 ml 950 ml 500 ml Balance -210 ml 0 ml -710 ml -260 ml Intake Oral 240 ml 1000 ml 240 ml 240 ml Output Urine Total 450 ml 1000 ml 950 ml 500 ml # Bowel Movements 0 0 0 (Gilmar Rodriguez MD R1) Result Diagram: 07/08/17 0745 07/08/17 0745 Imaging Last 24 hours Impressions Renal Ultrasound 07/09/17 0000 Signed Impressions: Service Date/Time: Sunday, July 09, 2017 09:16 - CONCLUSION: 1. Negative examination. Dharmesh Goldsmith MD Objective Remarks GENERAL: This is a slim, well-developed patient, in no apparent distress, but is anxious about his blood pressure. SKIN: Abdominal scars from previous procedure. No other rashes or lesions. HEAD: Atraumatic. Normocephalic. EYES: Pupils equal round and reactive. Extraocular motions intact. No scleral icterus. CARDIOVASCULAR: Regular rate and rhythm without murmur, gallop, or rub. RESPIRATORY: Clear to auscultation. Breath sounds equal bilaterally. No wheezes , rales, or rhonchi. GASTROINTESTINAL: Abdomen soft, mildly TTP, no guarding, nondistended. Good BS MUSCULOSKELETAL: Extremities without clubbing, cyanosis, or edema. NEUROLOGICAL: Awake and alert. Cranial nerves II through XII intact. Motor and sensory grossly within normal limits. (Gilmar Rodriguez MD R1) Urinary Catheter: No (Gilmar Rodriguez MD R1) A/P Assessment and Plan 72 y/o male presents with abdominal pain secondary to biliary duct stent occlusion. No bowel obstruction, diverticulitis or gross metastatic cancer identified on CT scan. Dr Bell performed ERCP on 07/07/17 and extracted several stones; however, was not able to remove all stones due to size and not having lithotripsy. He will follow up with Dr Bell in 3-6 months for that procedure. BP was elevated overnight and this morning. We were able to reduce BP and discharge him with: - Amlodipine 10mg dialy - Metoprolol tartrate 50mg BID - Chlorthalidone 25mg daily We will also ask him to check a BMP in 3 days to ensure no hypokalemia Seen with Dr. Lobato. Dw Dr Negro. Discharge Planning DC today (Gilmar Rodriguez MD R1) Attending Attestation Patient seen and examined. Case reviewed and discussed Agree with plan of care as discussed with me and documented in the resident note. (Tiera Negro MD) Problem List: (1) Biliary stent obstruction ICD Codes: T85.590A - Other mechanical complication of bile duct prosthesis, initial encounter Plan: Stent removed and new stent placed during ERCP 07/07 to remove obstruction -Hemodynamically stable -Several biliary stones removed via ERCP on 07/07; however, Dr Bell could not remove all stones due to size -Discontinue maintenance IV fluids due to taking PO today -Discontinue Levaquin IV and Flagyl IV -Start Levaquin 750mg PO and Flagyl 500mg TID PO on discharge each for 5 days -Hydromorphone 4mg q8h PO PRN -Zofran 4mg PO PRN (2) Chronic Medical Problems Plan: Prostate CA - Continue Xtandi HTN - continue Amlodipine and Metoprolol; changed Metoporlol dose to 50 mg PO BID for discharge Neuropathy - continue Gabapentin COPD - continue Advair, albuterol inhaler, and Spiriva (3) DVT prophylaxis Status: Acute Plan: -Hold chemical prophylaxis for GI procedure; will discharge before Lovenox will be required (4) Fluids, Electrolytes, Metabolism Status: Acute Plan: Fluids: PO fluids; IVF discontinued Electrolytes: Monitor and replete electrolytes as needed Nutrition: regular as tolerated -PT to assist with ambulation -Incentive spirometry -CM on board for assistance with discharge as needed: [id number] ordered to assist with needs at home -Pain control with hydromorphone 4mg q8h PO PRN (Gilmar Rodriguez MD R1) Problem Qualifiers (1) Biliary stent obstruction: Qualified Codes: T85.590S - Other mechanical complication of bile duct prosthesis, sequela Gilmar Rodriguez MD R1 Jul 09, 2017 09:28 Tiera Negro MD Jul 15, 2017 16:48
[2017-07-09] MEDS ORDERED: CHLORTHALIDONE 50 MG TAB PO SCH (10:11)
[2017-07-09] MEDS ORDERED: PILL SPLITTER OTHER PRN (10:15)
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
[2017-07-09] MEDS ORDERED: CHLO25TA2 PO (11:15)
--- NOTE | 2017-07-09 11:18 | EKG ---
Date Performed: 07/09/2017 Time Performed: 10:55:45 PTAGE: 72 years EKG: SINUS BRADYCARDIA POSSIBLE LEFT ATRIAL ENLARGEMENT MARKED LEFT AXIS DEVIATION POSSIBLE LEFT VENTRICULAR HYPERTROPHY POSSIBLE SEPTAL MYOCARDIAL INFARCTION , OF INDETERMINATE AGE ABNORMAL ECG PREVIOUS TRACING : 04/15/2017 22.05 DOCTOR: Clayton Nolan Interpretating Date/Time 07/09/2017 11:16:58
[2017-07-09] MEDS ORDERED: CHLORTHALIDONE 50 MG TAB PO ONE (13:30)
== END 2017-07-09 17:52 | disposition home health service (06) | DRG 445 ==
LOC: NEPC 18:26 → NEDA 23:05 → NEDH 07-06 00:52 → N06B 07-06 03:29
PROVIDERS: ADMIT Family Medicine; ATTEND Family Medicine
PROC: 0FPB8DZ Removal of Intraluminal Device from Hepatobiliary Duct, Via Natural or Artificial Opening Endoscopic (ICD-10-PCS; 2017-07-07)
PROC: 0F798DZ Dilation of Common Bile Duct with Intraluminal Device, Via Natural or Artificial Opening Endoscopic (ICD-10-PCS; 2017-07-07)
PROC: 0FC98ZZ Extirpation of Matter from Common Bile Duct, Via Natural or Artificial Opening Endoscopic (ICD-10-PCS; principal; 2017-07-07 17:07)
DX: K80.51 Calculus of bile duct without cholangitis or cholecystitis with obstruction (principal); T85.590A Other mechanical complication of bile duct prosthesis, initial encounter; C79.51 Secondary malignant neoplasm of bone; C61 Malignant neoplasm of prostate; G62.9 Polyneuropathy, unspecified; J44.9 Chronic obstructive pulmonary disease, unspecified; I73.9 Peripheral vascular disease, unspecified; I10 Essential (primary) hypertension; R11.14 Bilious vomiting; I70.0 Atherosclerosis of aorta; F17.210 Nicotine dependence, cigarettes, uncomplicated; Y73.2 Prosthetic and other implants, materials and accessory gastroenterology and urology devices associated with adverse incidents; Z88.0 Allergy status to penicillin; Z90.49 Acquired absence of other specified parts of digestive tract
CPT/HCPCS: 74177; 74330; 76775; 80053; 81001; 83690; 85027; 85610; 85730; 86850; 86900; 86901; 93005; 96361; 96374; 96375; C1769; C2625; C9113; J0330; J1100; J1956; J2250; J2270; J2405; J3010; J7030; J7120; Q9967

== ENCOUNTER → 2017-07-22 | Outpatient (CLI) | payer MEDICAID, MEDICARE ==
[~2017-07-22] MED LIST changes: +CHLO25TA2 PO; +LEVO750T3 PO; -METO25TA3 PO; +METO50TA PO; +METR-1 PO
[2017-07-22 08:41] LABS: AUTOMATED NEUTROPHIL # 4.1 TH/MM3 (1.8-7.7); BASOPHIL # 0.1 TH/MM3 (0-0.2); BASOPHIL % 0.8 % (0.0-2.0); EOSINOPHIL # 0.4 TH/MM3 (0-0.4); EOSINOPHIL % 4.7 % (0.0-4.0); HEMOGLOBIN 15.8 GM/DL (13.0-17.0); LYMPH % 33.2 % (9.0-44.0); LYMPHOCYTE # 2.7 TH/MM3 (1.0-4.8); MEAN CELL VOLUME 89.6 FL (80.0-100.0); MEAN CORPUSCULAR HEMOGLOBIN 31.5 PG (27.0-34.0); MEAN CORPUSCULAR HGB CONC 35.2 % (32.0-36.0); MEAN PLATELET VOLUME 8.5 FL (7.0-11.0); MONOCYTE # 0.8 TH/MM3 (0-0.9); NEUT % 51.3 % (16.0-70.0); PLATELET COUNT 277 TH/MM3 (150-450); RED BLOOD COUNT 5.02 MIL/MM3 (4.50-5.90); RED CELL DISTRIBUTION WIDTH 17.9 % (11.6-17.2); WHITE BLOOD COUNT 8.1 TH/MM3 (4.0-11.0)
[2017-07-22 08:57] LABS: ALT (GPT) 21 U/L (12-78)
[2017-07-22 08:58] LABS: ALBUMIN 3.6 GM/DL (3.4-5.0); AMYLASE 76 U/L (25-115); AST (GOT) 36 U/L (15-37); BICARBONATE 31.1 MEQ/L (21.0-32.0); BLOOD UREA NITROGEN 9 MG/DL (7-18); CALCIUM 9.1 MG/DL (8.5-10.1); CHLORIDE 106 MEQ/L (98-107); CREATININE 0.87 MG/DL (0.60-1.30); GLOMERULAR FILTRATION RATE 104 ML/MIN (>89); GLUCOSE,FASTING 75 MG/DL (74-99); LIPASE 130 U/L (73-393); SODIUM (NA) 141 MEQ/L (136-145)
[2017-07-22 08:59] LABS: ALKALINE PHOSPHATASE 123 U/L (45-117); TOTAL BILIRUBIN ADULT 0.5 MG/DL (0.2-1.0); TOTAL PROTEIN 7.8 GM/DL (6.4-8.2)
== END ==
LOC: CLAB 08:12
PROVIDERS: ATTEND Internal Medicine Gastroenterology
DX: R10.9 Unspecified abdominal pain (principal); K80.50 Calculus of bile duct without cholangitis or cholecystitis without obstruction; Z98.890 Other specified postprocedural states
CPT/HCPCS: 36415; 80053; 82150; 83690; 85025

== ENCOUNTER 2017-08-05 12:07 | Inpatient (IN) | payer MEDICARE, MEDICAID ==
[~2017-08-05] VITALS: Ht 167.6 cm; Wt 52.0 kg
[2017-08-05 12:08] VITALS: BP 140/83; PULSE 68; RESP 16; TEMP 98.2; O2SAT 99
[2017-08-05] MEDS ORDERED: IOHEXOL 350 MG/ML 10 ML VIAL (for RAD DIAG) IVCONTRAST ONE (12:08)
[2017-08-05] MEDS ORDERED: CIPR500T2 PO (12:34)
[2017-08-05 12:40] LABS: AUTOMATED NEUTROPHIL # 4.1 TH/MM3 (1.8-7.7); BASOPHIL # 0.1 TH/MM3 (0-0.2); BASOPHIL % 0.7 % (0.0-2.0); EOSINOPHIL # 0.3 TH/MM3 (0-0.4); EOSINOPHIL % 3.1 % (0.0-4.0); HEMATOCRIT 47.8 % (39.0-51.0); HEMOGLOBIN 16.9 GM/DL (13.0-17.0); LYMPH % 36.9 % (9.0-44.0); MEAN CELL VOLUME 89.7 FL (80.0-100.0); MEAN CORPUSCULAR HEMOGLOBIN 31.7 PG (27.0-34.0); MEAN CORPUSCULAR HGB CONC 35.4 % (32.0-36.0); MEAN PLATELET VOLUME 8.4 FL (7.0-11.0); MONO % 9.3 % (0.0-8.0); MONOCYTE # 0.8 TH/MM3 (0-0.9); PLATELET COUNT 237 TH/MM3 (150-450); RED BLOOD COUNT 5.33 MIL/MM3 (4.50-5.90); RED CELL DISTRIBUTION WIDTH 17.4 % (11.6-17.2); WHITE BLOOD COUNT 8.2 TH/MM3 (4.0-11.0)
[2017-08-05] MEDS ORDERED: SODIUM CHLOR 0.9% 1000 ML INJ 1,000 ML IV SCH ×2 (13:05→20:00)
--- NOTE | 2017-08-05 13:11 | PD ---
Physical Exam Date Seen by Provider: Aug 05, 2017 Narrative Patient presents with right upper quadrant abdominal pain. He is status post a cholecystectomy. There is a retained stone in the common bile duct. He has had 1 ERCP and is scheduled for a second ERCP on 08/19. Patient states that his pain is unbearable and he cannot wait that long. He is taking home pain medications. He is not able to eat and drink. He has an underlying history of prostate cancer. Data Data Last Documented VS Vital Signs Date Time Temp Pulse Resp B/P (MAP) Pulse Ox O2 Delivery O2 Flow Rate FiO2 08/05/17 12:08 98.2 68 16 140/83 (102) 99 Room Air Orders Orders Complete Blood Count With Diff (08/05/17 12:12) Comprehensive Metabolic Panel (08/05/17 12:12) Lipase (08/05/17 12:12) Lactic Acid (08/05/17 13:05) Prothrombin Time / Inr (Pt) (08/05/17 13:05) Act Partial Throm Time (Ptt) (08/05/17 13:05) Iv Access Insert/Monitor (08/05/17 13:05) Ecg Monitoring (08/05/17 13:05) Oximetry (08/05/17 13:05) NPO (08/05/17 13:05) Morphine Inj (Morphine Inj) (08/05/17 13:15) Ondansetron Inj (Zofran Inj) (08/05/17 13:15) Sodium Chlor 0.9% 1000 Ml Inj (Ns 1000 M (08/05/17 13:05) Sodium Chloride 0.9% Flush (Ns Flush) (08/05/17 13:15) Electrocardiogram (08/05/17 13:05) Ct Abd/Pel W Iv Contrast(Rout) (08/05/17 13:05) Labs Laboratory Tests Test 08/05/17 12:20 White Blood Count 8.2 TH/MM3 Red Blood Count 5.33 MIL/MM3 Hemoglobin 16.9 GM/DL Hematocrit 47.8 % Mean Corpuscular Volume 89.7 FL Mean Corpuscular Hemoglobin 31.7 PG Mean Corpuscular Hemoglobin Concent 35.4 % Red Cell Distribution Width 17.4 % Platelet Count 237 TH/MM3 Mean Platelet Volume 8.4 FL Neutrophils (%) (Auto) 50.0 % Lymphocytes (%) (Auto) 36.9 % Monocytes (%) (Auto) 9.3 % Eosinophils (%) (Auto) 3.1 % Basophils (%) (Auto) 0.7 % Neutrophils # (Auto) 4.1 TH/MM3 Lymphocytes # (Auto) 3.0 TH/MM3 Monocytes # (Auto) 0.8 TH/MM3 Eosinophils # (Auto) 0.3 TH/MM3 Basophils # (Auto) 0.1 TH/MM3 CBC Comment DIFF FINAL Differential Comment MDM Supervised Visit with NAHOMI: Yes Narrative Course I, Dr. Cleveland, have reviewed the advance practice practitioner's documentation and am in agreement, met with the patient face to face, made the diagnosis, and the medical decision making was done by me. *My assessment and Findings: This patient is cachectic and chronically ill appearing. The plan is to work him up and probably admit him to the hospital. Please see Catarino Hines PA-C's note for results of laboratory and radiographic evaluation, ED course, final diagnosis and disposition Tiera Cleveland MD Aug 05, 2017 13:11
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
[2017-08-05] MEDS ORDERED: MORPHINE SULFATE 4 MG/ML INJ IV PUSH ONE (13:15)
[2017-08-05] MEDS ORDERED: SODIUM CHLORIDE 0.9% FLUSH 10 ML FLUSH IV FLUSH PRN ×3 (13:15→18:00)
[2017-08-05] MEDS ORDERED: ONDANSETRON HCL 4 MG/2 ML VIAL IVP ONE (13:15)
[2017-08-05 13:24] LABS: ALBUMIN 4.1 GM/DL (3.4-5.0); AST (GOT) 16 U/L (15-37); BLOOD UREA NITROGEN 12 MG/DL (7-18); CALCIUM 9.6 MG/DL (8.5-10.1); CHLORIDE 106 MEQ/L (98-107); CREATININE 0.99 MG/DL (0.60-1.30); GLOMERULAR FILTRATION RATE 90 ML/MIN (>89); GLUCOSE,RANDOM 100 MG/DL (74-106); SODIUM (NA) 140 MEQ/L (136-145)
[2017-08-05 13:25] LABS: ALT (GPT) 15 U/L (12-78)
[2017-08-05 13:27] LABS: ALKALINE PHOSPHATASE 139 U/L (45-117); TOTAL BILIRUBIN ADULT 0.5 MG/DL (0.2-1.0); TOTAL PROTEIN 8.3 GM/DL (6.4-8.2)
[2017-08-05 13:33] VITALS: O2SAT 97
[2017-08-05 15:08] VITALS: BP 184/87; PULSE 80; RESP 14; O2SAT 99
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
[2017-08-05] MEDS ORDERED: ONDANSETRON HCL 4 MG/2 ML VIAL IVP PRN ×2 (17:00→18:00)
[2017-08-05] MEDS ORDERED: MAGNESIUM HYDROXIDE SUSP 30 ML CUP PO PRN ×2 (17:00→18:00)
[2017-08-05] MEDS ORDERED: NALOXONE HCL 0.4 MG/ML AMP IV PUSH PRN ×2 (17:00→18:00)
[2017-08-05 17:51] VITALS: BP 170/70; PULSE 62; RESP 16; O2SAT 98
[2017-08-05] MEDS ORDERED: SENNOSIDES 8.6 MG TAB PO PRN (18:00)
[2017-08-05] MEDS ORDERED: LACTULOSE SYRUP 20 GM/30 ML CUP PO PRN (18:00)
[2017-08-05] MEDS ORDERED: BISACODYL 10 MG SUPP RECTAL PRN (18:00)
--- NOTE | 2017-08-05 18:28 | HHI.HP ---
[facility] [place] [facility] Carol Ann Morillo MD Admission Diagnosis Intractible Pain/Nausea/Vomitting Diagnoses: (1) Choledocholithiasis Travel History International Travel<30 Days: No Contact w/Intl Traveler <30 Da: No Traveled to Known Affected Are: No History of Present Illness 72M with h/o choledocholithiasis s/p cholecystectomy [place] [address] Gilliam. Residual stones were present in CBD following gallbladder removal. Later in 2017 the residual stones caused him to have episodes of epigastric pain, nausea , vomiting. A common bile duct stent was placed by Dr. Bell, but the stones remained. He has presented with symptoms of nausea, vomiting, abdominal pain a couple times since then, and a procedure to crush and remove the stones was planned for this Aug 20, but today he presents again to the ER with recurrence of symptoms. He was given Zofran on arrival and Morphine for pain and his symptoms are improved currently. Other history includes prostate cancer with metastasis to local serge areas, but no history of spread into the abdomen, so this is not likely related to his current symptoms. Review of Systems Constitutional: COMPLAINS OF: Fatigue, Weight loss, Change in appetite, DENIES : Diaphoretic episodes, Fever, Night Sweats Endocrine: DENIES: Polydipsia, Polyuria Eyes: DENIES: Blurred vision, Diplopia, Eye pain, Vision loss Ears, nose, mouth, throat: DENIES: Hearing loss, Vertigo, Throat pain, Hoarseness Respiratory: DENIES: Cough, Wheezing, Hemoptysis Cardiovascular: DENIES: Chest pain, Palpitations, Syncope Gastrointestinal: COMPLAINS OF: Abdominal pain, Nausea, Vomiting, DENIES: Black stools, Bloody stools, Constipation, Diarrhea Neurologic: DENIES: Abnormal gait, Localized weakness, Paresthesias, Seizures Psychiatric: DENIES: Anxiety, Confusion, Mood changes, Depression Except as stated in HPI: all other systems reviewed are Neg Past Family Social History Past Medical History Prostate CA Choledocholithiasis Hypertension Neuropathy (chemo related) Past Surgical History Prostatectomy 2008 Small bowel 2015 Right abdominal hernia 2016 Cholecystectomy 2017 Stent placement 2017 Allergies: Coded Allergies: penicillin G (Unverified Allergy, Severe, HIVES ITCHING SWELLING, 08/05/17) Family History Unknown, mother at 3 years old Social History Smokes 3 cigarettes daily until 2007, prior to that smoked 1ppd for 50 years Denies alcohol use Physical Exam Vital Signs Vital Signs Date Time Temp Pulse Resp B/P (MAP) Pulse Ox O2 Delivery O2 Flow Rate FiO2 08/05/17 17:51 62 16 170/70 (103) 98 Room Air 08/05/17 15:08 80 14 184/87 (119) 99 Room Air 08/05/17 13:33 97 Room Air 08/05/17 12:08 98.2 68 16 140/83 (102) 99 Room Air Physical Exam GENERAL: Thin man, currently comfortable, but apprehensive regarding his abdomen SKIN: No rashes, ecchymoses or lesions. Cool and dry. HEAD: Atraumatic. Normocephalic. No temporal or scalp tenderness. EYES: Pupils equal round and reactive. Extraocular motions intact. No scleral icterus. No injection or drainage. ENT: Nose without bleeding, purulent drainage or septal hematoma. Throat without erythema, tonsillar hypertrophy or exudate. Uvula midline. Airway patent. NECK: Trachea midline. No JVD or lymphadenopathy. Supple, nontender, no meningeal signs. CARDIOVASCULAR: Regular rate and rhythm without murmurs, gallops, or rubs. RESPIRATORY: Clear to auscultation. Breath sounds equal bilaterally. No wheezes , rales, or rhonchi. GASTROINTESTINAL: Abdomen soft, epigastric tenderness, nondistended. No hepato- splenomegaly, or palpable masses. No guarding. MUSCULOSKELETAL: Extremities without clubbing, cyanosis, or edema. No joint tenderness, effusion, or edema noted. No calf tenderness. Negative Homans sign bilaterally. NEUROLOGICAL: Awake and alert. Cranial nerves II through XII intact. Motor and sensory grossly within normal limits. Five out of 5 muscle strength in all muscle groups. Normal speech. Laboratory Laboratory Tests Test 08/05/17 12:20 White Blood Count 8.2 Red Blood Count 5.33 Hemoglobin 16.9 Hematocrit 47.8 Mean Corpuscular Volume 89.7 Mean Corpuscular Hemoglobin 31.7 Mean Corpuscular Hemoglobin Concent 35.4 Red Cell Distribution Width 17.4 Platelet Count 237 Mean Platelet Volume 8.4 Neutrophils (%) (Auto) 50.0 Lymphocytes (%) (Auto) 36.9 Monocytes (%) (Auto) 9.3 Eosinophils (%) (Auto) 3.1 Basophils (%) (Auto) 0.7 Neutrophils # (Auto) 4.1 Lymphocytes # (Auto) 3.0 Monocytes # (Auto) 0.8 Eosinophils # (Auto) 0.3 Basophils # (Auto) 0.1 CBC Comment DIFF FINAL Differential Comment Blood Urea Nitrogen 12 Creatinine 0.99 Random Glucose 100 Total Protein 8.3 Albumin 4.1 Calcium Level 9.6 Alkaline Phosphatase 139 Aspartate Amino Transf (AST/SGOT) 16 Alanine Aminotransferase (ALT/SGPT) 15 Total Bilirubin 0.5 Sodium Level 140 Potassium Level 4.4 Chloride Level 106 Carbon Dioxide Level 27.0 Anion Gap 7 Estimat Glomerular Filtration Rate 90 Lipase 69 Result Diagram: 08/05/17 1220 08/05/17 1220 Caprini VTE Risk Assessment Caprini VTE Risk Assessment: Mod/High Risk (score >= 2) Caprini Risk Assessment Model Point Value = 1 Point Value = 2 Point Value = 3 Point Value = 5 Age 41-60 Minor surgery BMI > 25 kg/m2 Swollen legs Varicose veins or History of unexplained or recurrent spontaneous Oral contraceptives or hormone replacement Sepsis (< 1 month) Serious lung disease, including pneumonia (< 1 month) Abnormal pulmonary function Acute myocardial infarction Congestive heart failure (< 1 month) History of inflammatory bowel disease Medical patient at bed rest Age 61-74 Arthroscopic surgery Major open surgery (> 45 min) Laparoscopic surgery (> 45 min) Malignancy Confined to bed (> 72 hours) Immobilizing plaster cast Central venous access Age >= 75 History of VTE Family history of VTE Factor V Leiden Prothrombin [id number] Lupus anticoagulant Anticardiolipin antibodies Elevated serum homocysteine Heparin-induced thrombocytopenia Other congenital or acquired thrombophilia Stroke (< 1 month) Elective arthroplasty Hip, pelvis, or leg fracture Acute spinal cord injury (< 1 month) Prophylaxis Regimen Total Risk Factor Score Risk Level Prophylaxis Regimen 0-1 Low Early ambulation 2 Moderate Order ONE of the following: *Sequential Compression Device (SCD) *Heparin 5000 units SQ BID 3-4 Higher Order ONE of the following medications: *Heparin 5000 units SQ TID *Enoxaparin/Lovenox 40 mg SQ daily (WT < 150 kg, CrCl > 30 mL/min) *Enoxaparin/Lovenox 30 mg SQ daily (WT < 150 kg, CrCl > 10-29 mL/min) *Enoxaparin/Lovenox 30 mg SQ BID (WT < 150 kg, CrCl > 30 mL/min) AND/OR *Sequential Compression Device (SCD) 5 or more Highest Order ONE of the following medications: *Heparin 5000 units SQ TID (Preferred with Epidurals) *Enoxaparin/Lovenox 40 mg SQ daily (WT < 150 kg, CrCl > 30 mL/min) *Enoxaparin/Lovenox 30 mg SQ daily (WT < 150 kg, CrCl > 10-29 mL/min) *Enoxaparin/Lovenox 30 mg SQ BID (WT < 150 kg, CrCl > 30 mL/min) AND *Sequential Compression Device (SCD) Assessment and Plan Problem List: (1) Choledocholithiasis ICD Code: K80.50 - Calculus of bile duct without cholangitis or cholecystitis without obstruction Status: Acute Assessment and Plan Choledocholithiasis Presented with intractable abdominal pain, nausea, vomiting. Recurrent visits for the same. Procedure scheduled for Aug 20 to remove remaining CBD stones, Dr. Bell Pt was kept NPO all day, is thirsty, so I will offer clear liquids Liver panel does not indicate obstruction or infection, will follow LFT's Zofran & Morphine have controlled his symptoms Will Consult Dr. Bell to see if this procedure should be done here or as scheduled next week h/o Prostate CA with metastasis Mets to pelvis and local region PSA was as high as 800, but recently down to 26 Taking "Xandi" No evidence of spread into hepatic region, so not likely related to current symptoms. Hypertension Continue home meds when PO resumed Monitor with vitals DVT Prophylaxis SCD Hose Anticoagulants held for possibility of procedure Bill Roper MD Aug 05, 2017 18:28
[2017-08-05 19:51] LABS: INTERNATIONAL NORMALIZED RATIO 1.1 RATIO; PROTHROMBIN TIME - PATIENT 10.8 SEC (9.8-11.6)
[2017-08-05] MEDS: MORPHINE SULFATE 2 MG/ML INJ IV PUSH PRN (20:32)
[2017-08-05] MEDS ORDERED: SODIUM CHLORIDE 0.9% FLUSH 10 ML FLUSH IV FLUSH SCH (21:00)
[2017-08-05] MEDS: SODIUM CHLORIDE 0.9% FLUSH 10 ML FLUSH IV FLUSH SCH (21:00)
[2017-08-05 23:50] VITALS: BP 163/86; PULSE 61; RESP 16; TEMP 98; O2SAT 98
[2017-08-06] MEDS: SODIUM CHLORIDE 0.9% FLUSH 10 ML FLUSH IV FLUSH SCH (00:08)
[2017-08-06] MEDS: MORPHINE SULFATE 2 MG/ML INJ IV PUSH PRN ×3 (00:09→13:21)
[2017-08-06 03:25] VITALS: BP 167/76; PULSE 62; RESP 16; TEMP 97.8; O2SAT 98
[2017-08-06 08:30] VITALS: BP 179/80; PULSE 54; RESP 18; TEMP 97.8; O2SAT 98
[2017-08-06] MEDS ORDERED: METOPROLOL TARTRATE 50 MG TAB PO SCH (09:15)
[2017-08-06] MEDS ORDERED: XTANDI 160 MG PO SCH (09:15)
--- NOTE | 2017-08-06 09:17 | PD.CONS ---
HPI History of Present Illness This is a 72 year old with hx choledocholithiasis who presented with epigastric pain, n/v. THe n/v has since resolved. His epigastric pain is improved to 5/ 10 and is no longer unbearable. Onset 3 days ago. He had a cholecystectomy in 2017. Had ERCP 07/07/[address] Bell who was unable to retrieve all the stones and recommended ERCP with spyglass and lithotripsy at [facility]. Pt says he has appt 08/19/17 for a procedure but has no other details. CT showed stable choledocholithiasis and patent silastic stent. (Amparo Arce) [facility] Past Medical History Prostate CA Choledocholithiasis Hypertension Neuropathy (chemo related) Past Surgical History Prostatectomy 2008 Small bowel 2015 Right abdominal hernia 2016 Cholecystectomy 2017 Stent placement 2016 (Amparo Arce) Coded Allergies: penicillin G (Unverified Allergy, Severe, HIVES ITCHING SWELLING, 08/05/17) Family History Unknown, mother at 4 years old Social History Smokes 3 cigarettes daily until 2007, prior to that smoked 1ppd for 50 years Denies alcohol use (Apmaro Arce) Review of Systems Constitutional: DENIES: Fever Endocrine: DENIES: Polydipsia Eyes: DENIES: Blurred vision Ears, nose, mouth, throat: DENIES: Hearing loss Respiratory: DENIES: Cough Cardiovascular: DENIES: Chest pain Gastrointestinal: COMPLAINS OF: Abdominal pain, DENIES: Black stools, Bloody stools, Diarrhea, Nausea, Vomiting, Hematemesis Genitourinary: DENIES: Urgency Musculoskeletal: DENIES: Muscle aches Integumentary: DENIES: Abnormal pigmentation Hematologic/lymphatic: DENIES: Bruising Immunologic/allergic: DENIES: Eczema Neurologic: DENIES: Abnormal gait Psychiatric: DENIES: Confusion (Amparo Arce) GI Exam Vitals I&O Vital Signs Date Time Temp Pulse Resp B/P (MAP) Pulse Ox O2 Delivery O2 Flow Rate FiO2 08/06/17 08:30 97.8 54 18 179/80 (113) 98 08/06/17 03:25 97.8 62 16 167/76 (106) 98 08/06/17 02:03 18 08/05/17 23:50 98.0 61 16 163/86 (111) 98 08/05/17 20:39 08/05/17 17:51 62 16 170/70 (103) 98 Room Air 08/05/17 15:08 80 14 184/87 (119) 99 Room Air 08/05/17 13:33 97 Room Air 08/05/17 12:08 98.2 68 16 140/83 (102) 99 Room Air I/O 08/05/17 08/05/17 08/05/17 08/06/17 08/06/17 08/06/17 07:00 15:00 23:00 07:00 15:00 23:00 Intake Total 1000 ml 200 ml 1000 ml Balance 1000 ml 200 ml 1000 ml Intake Oral 200 ml IV Total 1000 ml 1000 ml Imaging Last Impressions Abdomen/Pelvis CT 08/05/17 1305 Signed Impressions: Service Date/Time: Saturday, August 05, 2017 14:28 - CONCLUSION: 1. Stable choledocholithiasis with patent Silastic stent and pneumobilia. 2. Diffuse bony metastases which are sclerotic in nature and likely related to the patient's prostate cancer. These are stable. Diffuse retroperitoneal adenopathy which is stable. 3. Trace amount of free fluid within the pelvis. Castro Vargas Jr., MD Laboratory Test 08/05/17 12:20 08/05/17 19:20 White Blood Count 8.2 TH/MM3 Red Blood Count 5.33 MIL/MM3 Hemoglobin 16.9 GM/DL Hematocrit 47.8 % Mean Corpuscular Volume 89.7 FL Mean Corpuscular Hemoglobin 31.7 PG Mean Corpuscular Hemoglobin Concent 35.4 % Red Cell Distribution Width 17.4 % Platelet Count 237 TH/MM3 Mean Platelet Volume 8.4 FL Neutrophils (%) (Auto) 50.0 % Lymphocytes (%) (Auto) 36.9 % Monocytes (%) (Auto) 9.3 % Eosinophils (%) (Auto) 3.1 % Basophils (%) (Auto) 0.7 % Neutrophils # (Auto) 4.1 TH/MM3 Lymphocytes # (Auto) 3.0 TH/MM3 Monocytes # (Auto) 0.8 TH/MM3 Eosinophils # (Auto) 0.3 TH/MM3 Basophils # (Auto) 0.1 TH/MM3 CBC Comment DIFF FINAL Differential Comment Blood Urea Nitrogen 12 MG/DL Creatinine 0.99 MG/DL Random Glucose 100 MG/DL Total Protein 8.3 GM/DL Albumin 4.1 GM/DL Calcium Level 9.6 MG/DL Alkaline Phosphatase 139 U/L Aspartate Amino Transf (AST/SGOT) 16 U/L Alanine Aminotransferase (ALT/SGPT) 15 U/L Total Bilirubin 0.5 MG/DL Sodium Level 140 MEQ/L Potassium Level 4.4 MEQ/L Chloride Level 106 MEQ/L Carbon Dioxide Level 27.0 MEQ/L Anion Gap 7 MEQ/L Estimat Glomerular Filtration Rate 90 ML/MIN Lipase 69 U/L Prothrombin Time 10.8 SEC Prothromb Time International Ratio 1.1 RATIO Activated Partial Thromboplast Time 31.9 SEC Lactic Acid Level 1.1 mmol/L Physical Examination HEENT: PERRL; normocephalic; atraumatic; no jaundice. CHEST: CTA CARDIAC: RRR ABDOMEN: Soft, nondistended, mild diffuse TTP; no hepatosplenomegaly; bowel sounds are present in all four quadrants. EXTREMITIES: No clubbing, cyanosis, or edema. SKIN: Normal; no rash; no jaundice. 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 (Amparo Arce) Assessment and Plan Plan ASSESSMENT - n/v, epigastric pain - choledocholithiasis, stable per CT and stent is patent. s/p ERCP 06/2017 could not extract all stones, had stent placed. mildly elevated ALP, otherwise labs unremarkable. does not appear to be obstructed. tolerating clears, pain improved some and n/v much improved. needs ERCP with spyglass and laser lithotripsy at [facility]. PLAN - low fat diet - f/u with GI after d/c - pain mgmt per attending - will get appt for ERCP with spyglass and laser lithotripsy at [facility] - ok to d/c from GI standpoint when tolerating diet pt seen by myself and Dr Bell and this note is written on his behalf (Amparo Arce) Physician Comments Patient seen and examined Agree with above Continue current supportive care Monitor labs Plan for ERCP with spyglass to be done as an outpatient Okay for discharge (Eran Bell MD) Amparo Arce Aug 06, 2017 09:17 Eran Bell MD Aug 06, 2017 21:37
[2017-08-06] MEDS ORDERED: CHLORTHALIDONE 50 MG TAB PO SCH (09:30)
[2017-08-06] MEDS ORDERED: TIOTROPIUM BROMIDE 18 MCG INH INH SCH (10:00)
[2017-08-06] MEDS ORDERED: BUDESONIDE-FORMOTEROL 160/4.5 MCG INHALER INH SCH (10:00)
--- NOTE | 2017-08-06 10:30 | HHI.PR ---
Subjective Remarks Follow-up on patient with choledocholithiasis. Patient seen and examined. Patient denies any recurrence of nausea or vomiting. He is asking to eat. He reports some mild right-sided abdominal pain. Discussed with JOSE Baker of GI. Patient may be discharged if able to tolerate diet and follow up for previously planned procedure as outpatient. Patient denies any fever or chills. Denies any chest pain or shortness of breath. Objective Vitals Vital Signs Date Time Temp Pulse Resp B/P (MAP) Pulse Ox O2 Delivery O2 Flow Rate FiO2 08/06/17 08:30 97.8 54 18 179/80 (113) 98 08/06/17 03:25 97.8 62 16 167/76 (106) 98 08/06/17 02:03 18 08/05/17 23:50 98.0 61 16 163/86 (111) 98 08/05/17 20:39 08/05/17 17:51 62 16 170/70 (103) 98 Room Air 08/05/17 15:08 80 14 184/87 (119) 99 Room Air 08/05/17 13:33 97 Room Air 08/05/17 12:08 98.2 68 16 140/83 (102) 99 Room Air I/O 08/05/17 08/05/17 08/05/17 08/06/17 08/06/17 08/06/17 07:00 15:00 23:00 07:00 15:00 23:00 Intake Total 1000 ml 200 ml 1000 ml Balance 1000 ml 200 ml 1000 ml Intake Oral 200 ml IV Total 1000 ml 1000 ml Result Diagram: 08/05/17 1220 08/05/17 1220 Imaging Last Impressions Abdomen/Pelvis CT 08/05/17 1305 Signed Impressions: Service Date/Time: Saturday, August 05, 2017 14:28 - CONCLUSION: 1. Stable choledocholithiasis with patent Silastic stent and pneumobilia. 2. Diffuse bony metastases which are sclerotic in nature and likely related to the patient's prostate cancer. These are stable. Diffuse retroperitoneal adenopathy which is stable. 3. Trace amount of free fluid within the pelvis. Castro Vargas Jr., MD Objective Remarks GENERAL: Well-nourished, well-developed thin male patient in NAD. Awake and alert. Sitting up in bed. Requesting to eat "real food". SKIN: Warm and dry. HEAD: Normocephalic. Atraumatic. EYES: EOMI. No scleral icterus. No injection or drainage. ENT: No nasal bleeding or discharge. Mucous membranes pink and moist. NECK: Supple. CARDIOVASCULAR: Regular rate and rhythm. S1, S2 noted. No murmur appreciated. RESPIRATORY: Nonlabored. Clear to auscultation. Breath sounds equal bilaterally. GASTROINTESTINAL: Abdomen soft, nondistended. +mild RUQ tenderness to palpation. Normoactive bowel sounds x4. MUSCULOSKELETAL: No obvious deformities. Extremities without clubbing, cyanosis , or edema. NEUROLOGICAL: Awake and alert. No obvious cranial nerve deficits. Able to move all extremities spontaneously. No focal neurologic finding.. Normal speech. PSYCHIATRIC: Appropriate mood and affect; insight and judgment normal. Medications and IVs Current Medications Medications (Trade) Dose Ordered Sig/Tammie Route Start Time Stop Time Status Last Admin Sodium Chloride 1,000 ml @ 100 mls/hr Q10H IV 08/05/17 20:00 08/06/17 00:08 (NS Flush) 2 ml UNSCH PRN IV FLUSH 08/05/17 18:00 (NS Flush) 2 ml BID IV FLUSH 08/05/17 21:00 08/06/17 00:08 (Zofran Inj) 4 mg Q6H PRN IVP 08/05/17 18:00 (Narcan Inj) 0.4 mg UNSCH PRN IV PUSH 08/05/17 18:00 (Milk Of Magnesia Liq) 30 ml Q12H PRN PO 08/05/17 18:00 (Senokot) 17.2 mg Q12H PRN PO 08/05/17 18:00 (Dulcolax Supp) 10 mg DAILY PRN RECTAL 08/05/17 18:00 (Lactulose Liq) 30 ml DAILY PRN PO 08/05/17 18:00 (Morphine Inj) 2 mg Q3H PRN IV PUSH 08/05/17 18:00 08/06/17 06:06 (Norvasc) 10 mg DAILY PO 08/06/17 09:15 08/06/17 09:53 (Lopressor) 50 mg BID PO 08/06/17 09:15 08/06/17 09:53 (Spiriva Inh) 18 mcg DAILY INH 08/06/17 10:00 (Hygroton) 25 mg DAILY PO 08/06/17 09:30 Patient Own Medication PT OWN MED: XTANDI (ENZALUTAMI... DAILY PO 08/06/17 09:15 (Symbicort 160-4.5 Mcg Inh) 2 puff BID INH 08/06/17 10:00 A/P Problem List: (1) Choledocholithiasis ICD Code: K80.50 - Calculus of bile duct without cholangitis or cholecystitis without obstruction Status: Acute Assessment and Plan Choledocholithiasis Presented with intractable abdominal pain, nausea, vomiting. Recurrent visits for the same. Much improved. Procedure scheduled for Aug 20 to remove remaining CBD stones, Dr. Bell. GI following, appreciate assistance. Plan for ERCP with spyglass and laser lithotripsy at [facility]. Cleared for discharge from GI standpoint if tolerating diet. Heart healthy low-fat diet. Monitor for toleration. Zofran & Morphine have controlled his symptoms h/o Prostate CA with metastasis Mets to pelvis and local region PSA was as high as 800, but recently down to 26 Taking Xtandi and hydromorphone [address] Norris No evidence of spread into hepatic region, so not likely related to current symptoms. Hypertension Resumed on home medications of Norvasc, chlorthalidone, Lopressor Monitor with vitals DVT Prophylaxis SCD Hose Anticoagulants held for possibility of procedure Discharge patient to home Condition on discharge: Improved Heart healthy low-fat Diet as tolerated Ad Maame activity Rx written: Hydromorphone Follow-up with primary care physician and gastroenterology Discharge Planning Plan for discharge later this afternoon if able to tolerate diet Mirna Bailey Aug 06, 2017 10:30
[2017-08-06 12:32] VITALS: BP 173/79; PULSE 54; RESP 18; TEMP 97.8; O2SAT 95
[2017-08-06] MEDS ORDERED: HYDR4TAB PO (12:59)
[2017-08-06] MEDS ORDERED: ENALAPRILAT 1.25 MG/ML VIAL IV PUSH PRN (13:15)
[2017-08-06] MEDS ORDERED: hydrALAZINE HCL 10 MG TAB PO PRN (13:15)
[2017-08-06 15:21] VITALS: BP 155/75
--- NOTE | 2017-08-06 22:10 | EKG ---
Date Performed: 08/05/2017 Time Performed: 13:30:50 PTAGE: 72 years EKG: Sinus rhythm POSSIBLE LEFT ATRIAL ENLARGEMENT LEFT ANTERIOR FASCICULAR BLOCK SEPTAL MYOCARDIAL INFARCTION ABNORMA L ECG PREVIOUS TRACING : 07/09/2017 10.55 Since the prior tracing, there has been no significant rosario DOCTOR: Nathanael Singh Interpretating Date/Time 08/06/2017 22:09:25
== END 2017-08-06 17:27 | disposition home or self-care (01) | DRG 394 ==
LOC: NEPD 12:07 → OBSVTOIN 16:59 → INTOOBSV 16:59 → NEDA 16:59 → NEPHCDU 20:45
PROVIDERS: ADMIT Internal Medicine; ATTEND Internal Medicine
DX: K91.86 Retained cholelithiasis following cholecystectomy (principal); R10.11 Right upper quadrant pain; C79.51 Secondary malignant neoplasm of bone; R64 Cachexia; I44.4 Left anterior fascicular block; I10 Essential (primary) hypertension; R53.1 Weakness; R74.8 Abnormal levels of other serum enzymes; F17.210 Nicotine dependence, cigarettes, uncomplicated; Z85.46 Personal history of malignant neoplasm of prostate; Z90.49 Acquired absence of other specified parts of digestive tract; Z88.0 Allergy status to penicillin
CPT/HCPCS: 74177; 80053; 83605; 83690; 85025; 85610; 85730; 93005; 96361; 96374; 96375; J2270; J2405; J7030; Q9967

== ENCOUNTER 2017-10-15 16:48 | Observation (INO) | payer MEDICARE, MEDICAID ==
[~2017-10-15] VITALS: Ht 167.6 cm; Wt 52.3 kg
[~2017-10-15 16:48] MED LIST changes: +CIPR500T2 PO; -GABA300C5 PO; -LEVO750T3 PO; -METR-1 PO
[2017-10-15 17:16] VITALS: BP 141/76; PULSE 87; RESP 15; TEMP 97.7; O2SAT 99
[2017-10-15] MEDS ORDERED: SODIUM CHLOR 0.9% 1000 ML INJ 1,000 ML IV SCH (18:03)
[2017-10-15] MEDS ORDERED: MORPHINE SULFATE 4 MG/ML INJ IV PUSH ONE (18:15)
[2017-10-15] MEDS ORDERED: ONDANSETRON HCL 4 MG/2 ML VIAL IVP ONE (18:15)
[2017-10-15] MEDS ORDERED: SODIUM CHLORIDE 0.9% FLUSH 10 ML FLUSH IV FLUSH PRN ×2 (18:15→22:30)
[2017-10-15 18:43] LABS: BASOPHIL # 0.1 TH/MM3 (0-0.2); BASOPHIL % 0.6 % (0.0-2.0); EOSINOPHIL # 0.2 TH/MM3 (0-0.4); EOSINOPHIL % 1.5 % (0.0-4.0); HEMATOCRIT 56.6 % (39.0-51.0); HEMOGLOBIN 19.6 GM/DL (13.0-17.0); LYMPH % 30.2 % (9.0-44.0); LYMPHOCYTE # 3.5 TH/MM3 (1.0-4.8); MEAN CELL VOLUME 90.6 FL (80.0-100.0); MEAN CORPUSCULAR HEMOGLOBIN 31.4 PG (27.0-34.0); MEAN CORPUSCULAR HGB CONC 34.7 % (32.0-36.0); MEAN PLATELET VOLUME 9.4 FL (7.0-11.0); MONO % 8.1 % (0.0-8.0); MONOCYTE # 0.9 TH/MM3 (0-0.9); NEUT % 59.6 % (16.0-70.0); PLATELET COUNT 267 TH/MM3 (150-450); RED BLOOD COUNT 6.25 MIL/MM3 (4.50-5.90); RED CELL DISTRIBUTION WIDTH 15.5 % (11.6-17.2); WHITE BLOOD COUNT 11.7 TH/MM3 (4.0-11.0)
[2017-10-15 18:59] LABS: ALT (GPT) 20 U/L (12-78)
[2017-10-15 19:02] LABS: ALKALINE PHOSPHATASE 146 U/L (45-117); TOTAL BILIRUBIN ADULT 0.7 MG/DL (0.2-1.0); TOTAL PROTEIN 9.6 GM/DL (6.4-8.2)
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
[2017-10-15 19:20] VITALS: BP 179/81; PULSE 74; RESP 16; O2SAT 99
[2017-10-15 19:23] LABS: ALBUMIN 4.7 GM/DL (3.4-5.0); AST (GOT) 29 U/L (15-37); BICARBONATE 27.2 MEQ/L (21.0-32.0); BLOOD UREA NITROGEN 18 MG/DL (7-18); CALCIUM 10.5 MG/DL (8.5-10.1); CHLORIDE 96 MEQ/L (98-107); CREATININE 1.38 MG/DL (0.60-1.30); GLOMERULAR FILTRATION RATE 61 ML/MIN (>89); GLUCOSE,RANDOM 123 MG/DL (74-106); SODIUM (NA) 135 MEQ/L (136-145)
[2017-10-15] MEDS ORDERED: SODIUM CHLOR 0.9% 1000 ML INJ 1,000 ML IV ONE ×2 (19:30)
[2017-10-15 19:57] LABS: BACTERIA, URINE RARE /hpf; BILIRUBIN, URINE NEG (NEG); BLOOD, URINE NEG (NEG); GLUCOSE,URINE NEG (NEG); HYALINE CAST, URINE 2 /lpf (RARE); KETONE, URINE NEG (NEG); MUCUS URINE FEW /lpf (OCC); NITRITE,URINE NEG (NEG); PH, URINE 6.5 (5.0-8.5); SQUAMOUS EPITHELIAL CELL URINE 7 /hpf (0-5); URINE COLOR YELLOW (YELLW/STRAW); URINE LEUKOCYTE ESTERASE NEG (NEG)
[2017-10-15] MEDS ORDERED: IOHEXOL 350 MG/ML 10 ML VIAL (for RAD DIAG) IVCONTRAST ONE (20:10)
--- NOTE | 2017-10-15 20:42 | RADRPT ---
EXAM DATE/TIME: 10/15/2017 20:09 [place] COMPARISON: CT ABDOMEN & PELVIS W CONTRAST, August 05, 2017, 14:28. CT ABDOMEN & PELVIS W CONTRAST, February 14, 2017, 19:17. INDICATIONS : Abdomen pain and vomiting. IV CONTRAST: 100 cc Omnipaque 350 (iohexol) IV ORAL CONTRAST: No oral contrast ingested. RADIATION DOSE: 4.49 CTDIvol (mGy) MEDICAL HISTORY : Hernia, inguinal. Hypertension. Carcinoma, prostate. SURGICAL HISTORY : Prostatectomy. ENCOUNTER: Initial ACUITY: 3 days PAIN SCALE: 10/10 LOCATION: Bilateral abdomen TECHNIQUE: Volumetric scanning of the abdomen and pelvis was performed. Using automated exposure control and ad justment of the mA and/or kV according to patient size, radiation dose was kept as low as reasonably achievable to obtain optimal diagnostic quality images. DICOM format image data is available electro nically for review and comparison. FINDINGS: Silastic biliary stent again noted. There are filling defects in the duct. Mild intrahepatic biliary prominence is unchanged. There is biliary air are again seen, unchanged and not unexpected. No focal hepatic lesion. 1 cm cyst of the spleen stable. Mild pancreatic duct dilatation unchanged. Adrenal glands and kidneys are within normal limits. No obstruction or acute inflammatory changes are seen of the gastrointestinal tract. Retroperitoneal metastatic lymphadenopathy again noted, worse. There is an aortocaval lymph node that measures 2.8 cm, previously 2.1 cm. There is a right common iliac lymph node that measures 2.9 cm, p reviously 2.5 cm. Scattered sclerotic bony metastatic disease again noted measuring up to 12 mm in si ze and not significantly changed. I don't see a pathologic fracture. CONCLUSION: 1. No acute obstruction or acute inflammatory changes are demonstrated. 2. Chronic choledocholithiasis, stented. Mild intrahepatic and pancreatic duct dilatation is similar to before. 3. Worsening retroperitoneal metastatic lymphadenopathy. Please see above. 4. Blastic bony metastatic disease without significant change. Dino Luna MD on October 15, 2017 at 20:33 Board Certified Radiologist. This report was verified electronically.
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
[2017-10-15] MEDS: SODIUM CHLOR 0.9% 1000 ML INJ 1,000 ML IV SCH (22:24)
[2017-10-15] MEDS ORDERED: LACTULOSE SYRUP 20 GM/30 ML CUP PO PRN (22:30)
[2017-10-15] MEDS ORDERED: NALOXONE HCL 0.4 MG/ML AMP IV PUSH PRN (22:30)
[2017-10-15] MEDS ORDERED: ONDANSETRON HCL 4 MG/2 ML VIAL IVP PRN (22:30)
[2017-10-15] MEDS ORDERED: MAGNESIUM HYDROXIDE SUSP 30 ML CUP PO PRN (22:30)
[2017-10-15] MEDS ORDERED: ACETAMINOPHEN 325 MG TAB PO PRN (22:30)
[2017-10-15] MEDS ORDERED: SENNOSIDES 8.6 MG TAB PO PRN (22:30)
[2017-10-15] MEDS ORDERED: BISACODYL 10 MG SUPP RECTAL PRN (22:30)
[2017-10-15] MEDS ORDERED: HYDROmorphone HCL 4 MG TAB PO PRN (22:30)
[2017-10-15] MEDS ORDERED: cloNIDine HCL 0.1 MG TAB PO PRN (22:30)
[2017-10-15] MEDS: HEPARIN SODIUM - SQ 10,000 UNITS/ML VIAL SQ SCH (23:00)
[2017-10-15 23:03] VITALS: BP 165/72; PULSE 73; RESP 16; TEMP 98.7; O2SAT 99
[2017-10-16] VITALS (7 sets, daily range): BP systolic 152–174; BP diastolic 68–81; PULSE 53–66; RESP 16–20; TEMP 97.6–98.7; O2SAT 98–100
[2017-10-16] MEDS ORDERED: NALOXONE HCL 0.4 MG/ML AMP IV PUSH PRN (00:15)
[2017-10-16] MEDS: MORPHINE SULFATE 2 MG/ML SYRINGE IV PUSH PRN ×4 (00:53→21:07)
[2017-10-16] MEDS: METOPROLOL TARTRATE 50 MG TAB PO SCH ×2 (08:22→19:29)
[2017-10-16] MEDS: DOCUSATE SODIUM 50 MG/SENNA 8.6 MG TAB PO SCH ×2 (08:23→19:29)
[2017-10-16] MEDS: SODIUM CHLORIDE 0.9% FLUSH 10 ML FLUSH IV FLUSH SCH ×2 (08:23→19:29)
[2017-10-16] MEDS: HEPARIN SODIUM - SQ 10,000 UNITS/ML VIAL SQ SCH ×2 (08:23→15:56)
[2017-10-16] MEDS: BUDESONIDE-FORMOTEROL 160/4.5 MCG INHALER INH SCH ×2 (08:23→21:00)
[2017-10-16] MEDS: TIOTROPIUM BROMIDE 18 MCG INH INH SCH (08:23)
[2017-10-16] MEDS: SODIUM CHLOR 0.9% 1000 ML INJ 1,000 ML IV SCH ×2 (08:24→17:08)
[2017-10-16] MEDS ORDERED: CHLORTHALIDONE 25 MG PO SCH (09:00)
[2017-10-16] MEDS ORDERED: ENZALUTAMIDE 40 MG PO SCH (09:00)
[2017-10-16 09:30] LABS: AUTOMATED NEUTROPHIL # 4.3 TH/MM3 (1.8-7.7); BASOPHIL # 0.1 TH/MM3 (0-0.2); BASOPHIL % 0.7 % (0.0-2.0); EOSINOPHIL # 0.2 TH/MM3 (0-0.4); EOSINOPHIL % 2.3 % (0.0-4.0); HEMATOCRIT 41.2 % (39.0-51.0); HEMOGLOBIN 14.7 GM/DL (13.0-17.0); LYMPH % 34.3 % (9.0-44.0); LYMPHOCYTE # 2.7 TH/MM3 (1.0-4.8); MEAN CELL VOLUME 91.1 FL (80.0-100.0); MEAN CORPUSCULAR HEMOGLOBIN 32.6 PG (27.0-34.0); MEAN CORPUSCULAR HGB CONC 35.8 % (32.0-36.0); MEAN PLATELET VOLUME 9.4 FL (7.0-11.0); MONO % 9.1 % (0.0-8.0); MONOCYTE # 0.7 TH/MM3 (0-0.9); NEUT % 53.6 % (16.0-70.0); PLATELET COUNT 173 TH/MM3 (150-450); RED BLOOD COUNT 4.52 MIL/MM3 (4.50-5.90); RED CELL DISTRIBUTION WIDTH 15.2 % (11.6-17.2)
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
[2017-10-16 10:01] LABS: CALCIUM 8.6 MG/DL (8.5-10.1); CREATININE 0.89 MG/DL (0.60-1.30)
[2017-10-16] MEDS ORDERED: ONDANSETRON HCL 4 MG/2 ML VIAL IV PUSH PRN (11:00)
[2017-10-16] MEDS ORDERED: POTASSIUM CHLORIDE 10 MEQ CONTROLLED RELEASE TAB PO ONE (11:45)
--- NOTE | 2017-10-16 14:16 | PD.CONS ---
HPI History of Present Illness This is a 72 year old male with prostate cancer and recurrent choledocholithiasis who presented to ER for abd pain and n/v. Pain started 4 days ago. Per EMR the pain is in the right quadrants. He says he has fallen a few times. 09/05/17 had ERCP with stent removal, ampullary dilatation, spyglass with lithotripsy with EHL, balloon extraction, basket extraction, and stent placement by Dr Bell with recommendation to repeat ERCP with spyglass in 4 weeks. Hx obtained from EMR primarily as pt refused to participate in my evaluation, "this again??" (Amparo Arce) PFSH Past Medical History Prostate CA Choledocholithiasis Hypertension Neuropathy (chemo related) Past Surgical History Prostatectomy 2008 Small bowel 2015 Right abdominal hernia 2016 Cholecystectomy 2017 Stent placement 2017 ERCP 2018 (Amparo Arce) Coded Allergies: penicillin G (Unverified Adverse Reaction, Mild, HIVES ITCHING SWELLING, ) Family History unk Social History Smokes 3 cigarettes daily until 2007, prior to that smoked 1ppd for 50 years Denies alcohol use (Amparo Arce) Review of Systems Gastrointestinal: COMPLAINS OF: Abdominal pain, Nausea, Vomiting otherwise noncontributory (Amparo Arce) GI Exam Vitals I&O Vital Signs Date Time Temp Pulse Resp B/P (MAP) Pulse Ox O2 Delivery O2 Flow Rate FiO2 10/16/17 11:45 97.7 53 18 174/76 (108) 99 10/16/17 08:41 99 21 10/16/17 07:02 97.6 56 16 170/80 (110) 100 10/16/17 06:14 21 10/16/17 05:00 16 10/16/17 04:43 98.2 62 16 158/72 (100) 98 10/16/17 00:48 97.7 66 18 152/68 (96) 99 10/15/17 23:07 10/15/17 23:03 98.7 73 16 165/72 (103) 99 Room Air 10/15/17 19:20 70 16 99 Room Air 10/15/17 19:20 74 16 179/81 (113) 99 Room Air 10/15/17 17:16 97.7 87 15 141/76 (97) 99 I/O 10/15/17 10/15/17 10/15/17 10/16/17 10/16/17 10/16/17 07:00 15:00 23:00 07:00 15:00 23:00 Intake Total 3000 ml Balance 3000 ml Intake IV Total 3000 ml Imaging Last Impressions Abdomen/Pelvis CT 10/15/17 8360 Signed Impressions: Service Date/Time: Sunday, October 15, 2017 20:09 - CONCLUSION: 1. No acute obstruction or acute inflammatory changes are demonstrated. 2. Chronic choledocholithiasis, stented. Mild intrahepatic and pancreatic duct dilatation is similar to before. 3. Worsening retroperitoneal metastatic lymphadenopathy. Please see above. 4. Blastic bony metastatic disease without significant change. Dino Luna MD Laboratory Test 10/15/17 18:15 10/15/17 19:40 10/15/17 22:40 10/16/17 08:56 White Blood Count 11.7 TH/MM3 8.0 TH/MM3 Red Blood Count 6.25 MIL/MM3 4.52 MIL/MM3 Hemoglobin 19.6 GM/DL 14.7 GM/DL Hematocrit 56.6 % 41.2 % Mean Corpuscular Volume 90.6 FL 91.1 FL Mean Corpuscular Hemoglobin 31.4 PG 32.6 PG Mean Corpuscular Hemoglobin Concent 34.7 % 35.8 % Red Cell Distribution Width 15.5 % 15.2 % Platelet Count 267 TH/MM3 173 TH/MM3 Mean Platelet Volume 9.4 FL 9.4 FL Neutrophils (%) (Auto) 59.6 % 53.6 % Lymphocytes (%) (Auto) 30.2 % 34.3 % Monocytes (%) (Auto) 8.1 % 9.1 % Eosinophils (%) (Auto) 1.5 % 2.3 % Basophils (%) (Auto) 0.6 % 0.7 % Neutrophils # (Auto) 7.0 TH/MM3 4.3 TH/MM3 Lymphocytes # (Auto) 3.5 TH/MM3 2.7 TH/MM3 Monocytes # (Auto) 0.9 TH/MM3 0.7 TH/MM3 Eosinophils # (Auto) 0.2 TH/MM3 0.2 TH/MM3 Basophils # (Auto) 0.1 TH/MM3 0.1 TH/MM3 CBC Comment DIFF FINAL DIFF FINAL Differential Comment Blood Urea Nitrogen 18 MG/DL 10 MG/DL Creatinine 1.38 MG/DL 0.89 MG/DL Random Glucose 123 MG/DL 80 MG/DL Total Protein 9.6 GM/DL Albumin 4.7 GM/DL Calcium Level 10.5 MG/DL 8.6 MG/DL Alkaline Phosphatase 146 U/L Aspartate Amino Transf (AST/SGOT) 29 U/L Alanine Aminotransferase (ALT/SGPT) 20 U/L Total Bilirubin 0.7 MG/DL Sodium Level 135 MEQ/L 141 MEQ/L Potassium Level 4.0 MEQ/L 3.3 MEQ/L Chloride Level 96 MEQ/L 105 MEQ/L Carbon Dioxide Level 27.2 MEQ/L 26.0 MEQ/L Anion Gap 12 MEQ/L 10 MEQ/L Estimat Glomerular Filtration Rate 61 ML/MIN 102 ML/MIN Lactic Acid Level 3.2 mmol/L 1.6 mmol/L Lipase 104 U/L Urine Color YELLOW Urine Turbidity HAZY Urine pH 6.5 Urine Specific [place] 1.021 Urine Protein 30 mg/dL Urine Glucose (UA) NEG mg/dL Urine Ketones NEG mg/dL Urine Occult Blood NEG Urine Nitrite NEG Urine Bilirubin NEG Urine Urobilinogen LESS THAN 2.0 MG/DL Urine Leukocyte Esterase NEG Urine RBC 1 /hpf Urine WBC 1 /hpf Urine Squamous Epithelial Cells 7 /hpf Urine Bacteria RARE /hpf Urine Hyaline Casts 2 /lpf Urine Mucus FEW /lpf Microscopic Urinalysis Comment CULT NOT INDICATED Test 10/16/17 11:55 Date/Time Source Procedure Growth Status 10/16/17 08:56 Blood Peripheral Aerobic Blood Culture Pending Received 10/16/17 08:56 Blood Peripheral Anaerobic Blood Culture Pending Received 10/16/17 11:55 Stool Stool Stool Pus (CANDELARIA) Pending Received Physical Examination HEENT: PERRL; normocephalic; atraumatic; no jaundice. CHEST: CTA CARDIAC: RRR ABDOMEN: Soft, nondistended,RUQ TTP; no hepatosplenomegaly; bowel sounds are present in all four quadrants. EXTREMITIES: No clubbing, cyanosis, or edema. SKIN: Normal; no rash; no jaundice. COOLER MAN: No focal deficits; alert and oriented times three. (Amparo Arce) Assessment and Plan Plan ASSESSMENT - RUQ pain, n/v - could be r/t chronic bile duct stones. CT showed chronic choledocholithiasis with stent, stable hepatic ductal dilatation, worsening retroperitoneal metastatic lymphadenopathy. had ERCP 09/05/17 with stent removal, ampullary dilatation, spyglass with lithotripsy with EHL, balloon extraction , basket extraction, and stent placement. isolated mild elevation ALP, do not see obstructive pattern. recommendation was made after last ERCP to repeat in 4 wks so he is overdue. unfortunately spyglass not offered here PLAN - clears if tolerated - monitor labs - supportive care - further recs after Dr Bell sees pt pt seen by myself and Dr Bell and this note is on his behalf (Amparo Arce) Physician Comments Patient seen and examined Agree with above Continue with current supportive care Monitor lab Currently no active or acute biliary obstruction Patient will need lithotripsy in order to remove his stones from the bile duct and for this we will need special equipment that is not available in this hospital We will try and reschedule the patient for an ERCP with spyglass and lithotripsy in the near future In the meanwhile continue with pain management as deemed appropriate by attending physician (Eran Bell MD) Amparo Arce Oct 16, 2017 14:16 Eran Bell MD Oct 16, 2017 17:52
[2017-10-16] MEDS: VANCOMYCIN 500 MG VIAL (FOR ORAL USE ONLY) PO SCH ×2 (17:07→19:29)
--- NOTE | 2017-10-16 17:52 | EKG ---
Date Performed: 10/15/2017 Time Performed: 19:19:42 PTAGE: 72 years EKG: Sinus rhythm WITH FREQUENT VENTRICULAR PREMATURE COMPLEXES RIGHT ATRIAL ENLARGEMENT POSSIBLE LEFT ATRIAL ENLARGEM ENT LEFT ANTERIOR FASCICULAR BLOCK ANTEROSEPTAL MYOCARDIAL INFARCTION, age indeterminate ABNORMAL ECG NO PREVIOUS TRACING DOCTOR: Aba Burnett Interpretating Date/Time 10/16/2017 17:52:40
[2017-10-17] MEDS: HEPARIN SODIUM - SQ 10,000 UNITS/ML VIAL SQ SCH ×2 (00:05→05:47)
[2017-10-17] MEDS: MORPHINE SULFATE 2 MG/ML SYRINGE IV PUSH PRN ×2 (00:08→09:25)
[2017-10-17 00:22] VITALS: BP 139/73; PULSE 53; RESP 16; TEMP 96.9; O2SAT 95
[2017-10-17 03:36] VITALS: BP 179/79; PULSE 53; RESP 16; TEMP 97.6; O2SAT 99
[2017-10-17] MEDS: SODIUM CHLOR 0.9% 1000 ML INJ 1,000 ML IV SCH (03:51)
[2017-10-17 05:49] VITALS: BP 157/69
[2017-10-17 07:16] VITALS: BP 163/69; PULSE 54; RESP 18; TEMP 97.8; O2SAT 100
[2017-10-17 07:51] VITALS: O2SAT 100
[2017-10-17 08:05] LABS: ALBUMIN 3.2 GM/DL (3.4-5.0); ALKALINE PHOSPHATASE 99 U/L (45-117); ALT (GPT) 14 U/L (12-78); AST (GOT) 22 U/L (15-37); BICARBONATE 28.6 MEQ/L (21.0-32.0); BLOOD UREA NITROGEN 7 MG/DL (7-18); CHLORIDE 105 MEQ/L (98-107); CREATININE 0.78 MG/DL (0.60-1.30); GLOMERULAR FILTRATION RATE 118 ML/MIN (>89); GLUCOSE,RANDOM 84 MG/DL (74-106); SODIUM (NA) 141 MEQ/L (136-145); TOTAL BILIRUBIN ADULT 0.7 MG/DL (0.2-1.0); TOTAL PROTEIN 6.5 GM/DL (6.4-8.2)
[2017-10-17] MEDS: DOCUSATE SODIUM 50 MG/SENNA 8.6 MG TAB PO SCH (09:00)
[2017-10-17] MEDS: METOPROLOL TARTRATE 50 MG TAB PO SCH (09:24)
[2017-10-17] MEDS: VANCOMYCIN 500 MG VIAL (FOR ORAL USE ONLY) PO SCH (09:24)
[2017-10-17] MEDS: TIOTROPIUM BROMIDE 18 MCG INH INH SCH (09:25)
[2017-10-17] MEDS: BUDESONIDE-FORMOTEROL 160/4.5 MCG INHALER INH SCH (09:25)
[2017-10-17] MEDS: SODIUM CHLORIDE 0.9% FLUSH 10 ML FLUSH IV FLUSH SCH (09:25)
--- NOTE | 2017-10-17 11:20 | HHI.GIFU ---
Subjective Remarks Patient is alert, smiling and resting in the bed Pain is controlled and patient is feeling so much better Right upper quadrant pain and nausea and vomiting are controlled C. difficile currently on vancomycin p.o. No uncontrolled diarrhea today (Tiffanie Lipscomb) Objective Vitals I&O Vital Signs Date Time Temp Pulse Resp B/P (MAP) Pulse Ox O2 Delivery O2 Flow Rate FiO2 10/17/17 09:38 18 10/17/17 07:51 100 21 10/17/17 07:16 97.8 54 18 163/69 (100) 100 10/17/17 05:49 157/69 (98) 10/17/17 03:36 97.6 53 16 179/79 (112) 99 10/17/17 00:22 96.9 53 16 139/73 (95) 95 10/16/17 21:09 98.7 58 20 171/76 (107) 10/16/17 19:57 21 10/16/17 15:49 98.1 56 20 173/81 (111) 100 10/16/17 11:45 97.7 53 18 174/76 (108) 99 I/O 10/16/17 10/16/17 10/16/17 10/17/17 10/17/17 10/17/17 07:00 15:00 23:00 07:00 15:00 23:00 Intake Total 1000 ml 180 ml Output Total 700 ml Balance 300 ml 180 ml Intake IV Total 1000 ml TPN/PPN 180 ml Output Urine Total 700 ml Laboratory Laboratory Tests Test 10/16/17 11:55 10/17/17 06:03 Stool C. difficile Toxin (PCR) POSITIVE Stl C. difficile Toxin Epiderm 027 PRESUMPTIVE NEGATIVE Blood Urea Nitrogen 7 Creatinine 0.78 Random Glucose 84 Total Protein 6.5 Albumin 3.2 Calcium Level 9.0 Alkaline Phosphatase 99 Aspartate Amino Transf (AST/SGOT) 22 Alanine Aminotransferase (ALT/SGPT) 14 Total Bilirubin 0.7 Sodium Level 141 Potassium Level 3.7 Chloride Level 105 Carbon Dioxide Level 28.6 Anion Gap 7 Estimat Glomerular Filtration Rate 118 Date/Time Source Procedure Growth Status 10/16/17 08:56 Blood Peripheral Aerobic Blood Culture - Preliminary NO GROWTH IN 1 DAY Resulted 10/16/17 08:56 Blood Peripheral Anaerobic Blood Culture - Preliminary NO GROWTH IN 1 DAY Resulted 10/16/17 11:55 Stool Stool Stool Pus (CANDELARIA) - Final NO WBC'S SEEN Complete Imaging Last Impressions Abdomen/Pelvis CT 10/15/17 1803 Signed Impressions: Service Date/Time: Sunday, October 15, 2017 20:09 - CONCLUSION: 1. No acute obstruction or acute inflammatory changes are demonstrated. 2. Chronic choledocholithiasis, stented. Mild intrahepatic and pancreatic duct dilatation is similar to before. 3. Worsening retroperitoneal metastatic lymphadenopathy. Please see above. 4. Blastic bony metastatic disease without significant change. iDno Luna MD Physical Exam HEENT:normocephalic; atraumatic; no jaundice. Speech is clear, slim build NECK: Neck is supple, CHEST: No shortness of breath at rest CARDIAC: Regular rate and rhythm ABDOMEN: Flat, soft, nondistended, right upper quadrant minimal tenderness; no hepatosplenomegaly; bowel sounds are present in all four quadrants. EXTREMITIES: No clubbing, cyanosis, or edema. SKIN: Dry, and turgor no rash; no obvious jaundice. MISCELLANEOUS MACHINE OPERATOR: No focal deficits; alert and oriented times three. (Tiffanie Lipscomb) Assessment and Plan Plan ASSESSMENT - RUQ pain, n/v - could be r/t chronic bile duct stones. CT showed chronic choledocholithiasis with stent, stable hepatic ductal dilatation, worsening retroperitoneal metastatic lymphadenopathy. had ERCP 09/05/17 with stent removal, ampullary dilatation, spyglass with lithotripsy with EHL, balloon extraction , basket extraction, and stent placement. isolated mild elevation ALP, do not see obstructive pattern. recommendation was made after last ERCP to repeat in 4 wks so he is overdue. unfortunately spyglass not offered here 10/17/2017 patient is resting in the bed diarrhea is putting consistency no further diarrhea today currently patient is C. difficile positive and being treated with p.o. vancomycin. WBC count normal at 8 Right upper quadrant pain and nausea vomiting are now controlled. Discharge planning is being set up with his attending. Patient wants to go home finish his treatment regimen for C. difficile and follow-up in the GI office in 2 weeks. Hospitalist and I discussed getting a stool specimen after patient finishes his vancomycin, and we will see him in the GI office. He will also need set up for procedures at [facility] which will include spyglass, lithotripsy and repeat ERCP. PLAN -Monitor symptoms of vomiting, diarrhea -Continue vancomycin p.o. and if patient goes home continue full regimen - monitor stool study for C. difficile after patient finishes complete round of vancomycin - supportive care -Follow-up in the GI office in approximately 2 weeks, further recommendations for outpatient procedure as listed after C. difficile is controlled pt seen by myself and Dr Bell and this note is on his behalf (Tiffanie Lipscomb) Physician Comments Patient seen and examined Agree with above Patient follow-up post discharge He will need a spyglass procedure with lithotripsy (Eran Bell MD) Tiffanie Lipscomb Oct 17, 2017 11:20 Eran Bell MD Oct 17, 2017 15:55
[2017-10-17 12:59] VITALS: BP 178/79; PULSE 50; RESP 18; TEMP 97.8; O2SAT 100
[2017-10-17] MEDS ORDERED: POTA10CA PO (13:10)
[2017-10-17] MEDS ORDERED: VANC125C3 PO (13:10)
[2017-10-17] MEDS ORDERED: METO50TA PO (13:10)
[2017-10-17] MEDS ORDERED: ZOFR8TAB PO (13:10)
[2017-10-17] MEDS ORDERED: CHLO25TA2 PO (13:10)
[2017-10-17] MEDS ORDERED: AMLO10TA2 PO (13:10)
--- NOTE | 2017-10-17 13:18 | HHI.DCPOC ---
Discharge Care Plan Diagnosis: (1) Prostate cancer (2) Nausea & vomiting (3) C. difficile diarrhea (4) Abdominal pain (5) Diarrhea Goals to Promote Your Health * To prevent worsening of your condition and complications * To maintain your health at the optimal level Directions to Meet Your Goals Take your medications as prescribed Follow your dietary instruction Follow activity as directed Keep your appointments as scheduled Take your immunizations and boosters as scheduled If your symptoms worsen call your PCP, if no PCP go to Urgent Care Center or Emergency Room Smoking is Dangerous to Your Health. Avoid second hand smoke Call the 24-hour hour crisis hotline for domestic abuse at Carol Ann Morillo MD R3 Oct 17, 2017 13:18
--- NOTE | 2017-10-17 13:29 | HHI.FPPN ---
Subjective Remarks Pt seen and examined. No acute events overnight. He reports that diarrhea has resolved completely. Vomiting has also improved. He has been able to tolerate a regular diet. He denies acute abdominal pain. He denies chest pain, shortness of breath. He has no additional acute concerns. He would like to go home today. (Carol Ann Morillo MD R3) Objective Vitals Vital Signs Date Time Temp Pulse Resp B/P (MAP) Pulse Ox O2 Delivery O2 Flow Rate FiO2 10/17/17 12:59 97.8 50 18 178/79 (112) 100 10/17/17 09:38 18 10/17/17 07:51 100 21 10/17/17 07:16 97.8 54 18 163/69 (100) 100 10/17/17 05:49 157/69 (98) 10/17/17 03:36 97.6 53 16 179/79 (112) 99 10/17/17 00:22 96.9 53 16 139/73 (95) 95 10/16/17 21:09 98.7 58 20 171/76 (107) 10/16/17 19:57 21 10/16/17 15:49 98.1 56 20 173/81 (111) 100 I/O 10/16/17 10/16/17 10/16/17 10/17/17 10/17/17 10/17/17 07:00 15:00 23:00 07:00 15:00 23:00 Intake Total 1000 ml 180 ml Output Total 700 ml Balance 300 ml 180 ml Intake IV Total 1000 ml TPN/PPN 180 ml Output Urine Total 700 ml (Carol Ann Morillo MD R3) Result Diagram: 10/16/17 0856 10/17/17 0603 Objective Remarks GENERAL: This is a thin, well-developed patient, in no apparent distress. SKIN: No rashes, ecchymoses or lesions. Cool and dry. HEAD: Atraumatic. Normocephalic. EYES: Pupils equal round and reactive. Extraocular motions intact. No scleral icterus. No injection or drainage. ENT: Uvula midline. Airway patent. NECK: Trachea midline. No JVD or lymphadenopathy. Supple, nontender. CARDIOVASCULAR: Regular rate and rhythm without murmurs, gallops, or rubs. RESPIRATORY: Clear to auscultation. Breath sounds equal bilaterally. No wheezes , rales, or rhonchi. GASTROINTESTINAL: Abdomen soft, several scars over abdomen. Bowel sounds present. Bony tenderness in pelvic area. MUSCULOSKELETAL: Extremities without clubbing, cyanosis, or edema. No joint tenderness, effusion, or edema noted. No calf tenderness. NEUROLOGICAL: Awake and alert. Motor and sensory grossly within normal limits. Normal speech. (Carol Ann Morillo MD R3) A/P Assessment and Plan 72-year-old -[place] male with history of prostate cancer, HTN, COPD, gallstones presents with abdominal pain. Will admit for observation for fluids and management. (Carol Ann Morillo MD R3) Attending Attestation Patient seen and examined. Case reviewed and discussed with the resident team. Agree with plan of care as discussed with me and documented in the resident note. he feels great. suspect his C diff caused some or all of his pain as his diarrhea is now gone on the oral vanc and he is eating well and has no complaints of more diarrhea (Carrie Reyes MD) Problem List: (1) Abdominal pain ICD Codes: R10.9 - Unspecified abdominal pain Status: Acute Plan: Resolved Abdominal pain for 5 days prior to admission associated with nausea and vomiting. Pain feels similar to recent gallbladder episodes. CT abdomen shows no acute obstruction or acute inflammatory changes. Chronic choledocholithiasis, stented. Worsening retroperitoneal metastatic lymphadenopathy. Blastic bony metastatic disease without significant change. Vitals stable, afebrile No leucocytosis Vitals have been stable Stool studies positive for C. Diff (2) Prostate cancer metastatic to bone ICD Codes: C61 - Prostate cancer metastatic to bone; C79.51 - Secondary malignant neoplasm of bone Status: Chronic Plan: Continue home chemotherapy Dr. Trevino was called by ED physician who recommended obs overnight F/u outpatient with Dr. Norris on Friday 10/20 at 0930, pt informed of follow up appointment that was rescheduled (3) FAUSTINO (acute kidney injury) ICD Codes: N17.9 - Acute kidney failure, unspecified Plan: Resolved Cr 1.38 on admission. Baseline from 09/26/17 was 0.77. BUN 18. Suspect possible dehydration (4) Elevated hemoglobin ICD Codes: D58.2 - Other hemoglobinopathies Status: Acute Plan: Resolved Possible hemoconcentration Heme/onc aware, recommend obs for now IVF as above Continue to monitor, daily CBC (5) HTN (hypertension) ICD Codes: I10 - Hypertension Status: Chronic Plan: Continue home meds: metoprolol, norvasc (6) COPD (chronic obstructive pulmonary disease) ICD Codes: J44.9 - Chronic obstructive pulmonary disease Status: Chronic Plan: Continue home Symbicort and Spiriva (7) Fluids, Electrolytes, and Nutrition Status: Acute Plan: Fluids: Oral hydration encourgaed Electrolytes: wnl, continue to monitor Nutrition: heart healthy diet as tolerated DVT ppx: Heparin q8H (Carol Ann Morillo MD R3) Problem Qualifiers (1) Abdominal pain: Qualified Codes: R10.31 - Right lower quadrant pain (2) HTN (hypertension): Qualified Codes: I10 - Essential (primary) hypertension (3) COPD (chronic obstructive pulmonary disease): Qualified Codes: J44.9 - Chronic obstructive pulmonary disease, unspecified Carol Ann Morillo MD R3 Oct 17, 2017 13:28 Carrie Reyes MD Oct 19, 2017 12:53
--- NOTE | 2017-10-17 13:44 | HHI.DS ---
Discharge Summary Admission Date Oct 15, 2017 at 21:51 Discharge Date: Oct 17, 2017 Admitting Diagnosis ABDOMINAL PAIN (1) Abdominal pain Diagnosis: Principal Plan: Resolved Abdominal pain for 5 days prior to admission associated with nausea and vomiting. Pain feels similar to recent gallbladder episodes. CT abdomen shows no acute obstruction or acute inflammatory changes. Chronic choledocholithiasis, stented. Worsening retroperitoneal metastatic lymphadenopathy. Blastic bony metastatic disease without significant change. Vitals stable, afebrile No leucocytosis Vitals have been stable Stool studies positive for C. Diff ICD Codes: R10.9 - Unspecified abdominal pain Status: Acute (2) Prostate cancer metastatic to bone Plan: Continue home chemotherapy Dr. Trevino was called by ED physician who recommended obs overnight F/u outpatient with Dr. Norris on Friday 10/20 at 0930, pt informed of follow up appointment that was rescheduled ICD Codes: C61 - Prostate cancer metastatic to bone; C79.51 - Secondary malignant neoplasm of bone Status: Chronic (3) FAUSTINO (acute kidney injury) Plan: Resolved Cr 1.38 on admission. Baseline from 09/26/17 was 0.77. BUN 18. Suspect possible dehydration ICD Codes: N17.9 - Acute kidney failure, unspecified (4) Elevated hemoglobin Plan: Resolved Possible hemoconcentration Heme/onc aware, recommend obs for now IVF as above Continue to monitor, daily CBC ICD Codes: D58.2 - Other hemoglobinopathies Status: Acute (5) HTN (hypertension) Plan: Continue home meds: metoprolol, norvasc ICD Codes: I10 - Hypertension Status: Chronic (6) COPD (chronic obstructive pulmonary disease) Plan: Continue home Symbicort and Spiriva ICD Codes: J44.9 - Chronic obstructive pulmonary disease Status: Chronic (7) Fluids, Electrolytes, and Nutrition Plan: Fluids: Oral hydration encourgaed Electrolytes: wnl, continue to monitor Nutrition: heart healthy diet as tolerated DVT ppx: Heparin q8H Status: Acute Brief History Mr Yoder is a 72-year-old -[place]ian male with history of prostate cancer, hypertension, COPD presented with abdominal pain. Patient states the pain started about 5 days ago. States it is usually in his RUQ and RLQ. States the pain is worsened a little since starting. Is 10/10 at its worse. Describes the pain as "numb", sharp pain. Pain comes and goes sometimes. Feels that the pain is the same as when he had his gallstones. Of note, he just had surgery to remove his gallstones 3 weeks ago at [facility] and had a stent placement last year after ERCP. He takes hydromorphone at home, which has helped a little bit. He started having nausea and vomiting the last 2 days. Has vomited 3 times total, not bloody or bilious. Last bowel movement was 4 days prior to admission but now he has had diarrhea for the past day or so. States he has not eaten very much in the last 3 days. Has appointment with oncologist Dr. Norris Friday. Drinks Ensure at home, no abnormal foods recently. Denies any fevers, some chills. Denies any chest pain, new shortness of breath, leg pain. Denies any dysuria or hematuria. Also knows he has been feeling a little weak as well recently. Has fallen a couple times at home, did not lose consciousness or hit his head. He complains that this pain in his abdomen is very similar to his prior pain when he had gallstones. He has had abx within the past month and took a cipro he had around the house randomly in the past few weeks but only one pill. He is not an excellent historian but is clear that he feels much improved after getting iv fluids. The patient does not believe he will get better without GI seeing him as he feel she may need a procedure again (he had ERCP in the past). CBC/BMP: 10/16/17 0856 10/17/17 0603 Significant Findings Laboratory Tests Test 10/15/17 18:15 10/15/17 19:40 10/15/17 22:40 10/16/17 08:56 White Blood Count 11.7 TH/MM3 (4.0-11.0) Red Blood Count 6.25 MIL/MM3 (4.50-5.90) Hemoglobin 19.6 GM/DL (13.0-17.0) Hematocrit 56.6 % (39.0-51.0) Monocytes (%) (Auto) 8.1 % (0.0-8.0) 9.1 % (0.0-8.0) Creatinine 1.38 MG/DL (0.60-1.30) Random Glucose 123 MG/DL (74-106) Total Protein 9.6 GM/DL (6.4-8.2) Calcium Level 10.5 MG/DL (8.5-10.1) Alkaline Phosphatase 146 U/L (45-117) Sodium Level 135 MEQ/L (136-145) Chloride Level 96 MEQ/L (98-107) Estimat Glomerular Filtration Rate 61 ML/MIN (>89) Lactic Acid Level 3.2 mmol/L (0.4-2.0) Urine Turbidity HAZY (CLEAR) Urine Protein 30 mg/dL (NEG-TRACE) Urine Bacteria RARE /hpf (NONE) Urine Mucus FEW /lpf (OCC) Potassium Level 3.3 MEQ/L (3.5-5.1) Test 10/16/17 11:55 10/17/17 06:03 Stool C. difficile Toxin (PCR) POSITIVE (NEGATIVE) Albumin 3.2 GM/DL (3.4-5.0) PE at Discharge GENERAL: This is a thin, well-developed patient, in no apparent distress. SKIN: No rashes, ecchymoses or lesions. Cool and dry. HEAD: Atraumatic. Normocephalic. EYES: Pupils equal round and reactive. Extraocular motions intact. No scleral icterus. No injection or drainage. ENT: Uvula midline. Airway patent. NECK: Trachea midline. No JVD or lymphadenopathy. Supple, nontender. CARDIOVASCULAR: Regular rate and rhythm without murmurs, gallops, or rubs. RESPIRATORY: Clear to auscultation. Breath sounds equal bilaterally. No wheezes , rales, or rhonchi. GASTROINTESTINAL: Abdomen soft, several scars over abdomen. Bowel sounds present. Bony tenderness in pelvic area. MUSCULOSKELETAL: Extremities without clubbing, cyanosis, or edema. No joint tenderness, effusion, or edema noted. No calf tenderness. NEUROLOGICAL: Awake and alert. Motor and sensory grossly within normal limits. Normal speech. Hospital Course Pt was admitted due to severe abdominal pain, vomiting and diarrhea. Stool studies were positive for C. Diff, he was treated with vancomycin as this was the initial episode. Diarrhea and abdominal pain resolved and vomiting significantly improved. GI was consulted as pt will need follow up for ERCP and lithotripsy which will be done as an outpatient once C. diff has resolved. Pt was concerned about missing his oncology appointment on 10/17, this visit was rescheduled for 10/20 at 930am. He will be discharged with course of oral vancomycin. Pt Condition on Discharge: Stable Discharge Disposition: Discharge Home Discharge Instructions DIET: Follow Instructions for: Heart Healthy Diet Additional Diet Instructions: As tolerated Activities you can perform: Regular-No Restrictions Follow up Referrals: Gastroenterology - 3 Weeks with Eran Bell MD Oncology/Hematology - 2-3 Days with Venita Norris MD PCP Follow-up - 1 Week New Orders: C.DIFF TOXIN - 10 Days New Medications: Potassium Chloride ER (Potassium Chloride ER) 10 Meq Cap 10 MEQ PO DAILY for Electrolyte Replacement, #30 CAP 0 Refills Vancomycin (Vancomycin) 125 Mg Cap 125 MG PO QID for Infection, #40 CAP 0 Refills Continued Medications: Albuterol 18 GM Inh (Ventolin Hfa 18 GM Inh) 90 Mcg/Act Aer 2 PUFF INH Q4H PRN for SHORTNESS OF BREATH, #1 INHALER 5 Refills Amlodipine (Amlodipine) 10 Mg Tab 10 MG PO DAILY for Blood Pressure Management, #30 TAB 5 Refills (This prescription has been renewed) Chlorthalidone (Chlorthalidone) 25 Mg Tab 25 MG PO DAILY for Blood Pressure Management for 30 Days, #30 TAB 3 Refills ( This prescription has been renewed) Enzalutamide (Xtandi) 40 Mg Cap 160 MG PO DAILY for Chemotherapy Management, #90 CAP 0 Refills Fluticasone-Salmeterol Inh (Advair Diskus Inh) 250-50 Mcg/Blist Aer 1 PUFF INH BID, #1 INHALER 5 Refills Rinse mouth after use. Hydromorphone (Hydromorphone) 4 Mg Tab 4 MG PO Q6H PRN for PAIN, #15 TAB 0 Refills Hydromorphone (Hydromorphone) 4 Mg Tab 4 MG PO Q8H PRN for PAIN, #20 TAB 0 Refills Metoprolol Tartrate (Metoprolol Tartrate) 50 Mg Tab 50 MG PO BID for Blood Pressure Management for 30 Days, #60 TAB 1 Refill (This prescription has been renewed) Ondansetron (Zofran) 8 Mg Tab 8 MG PO TID for Nausea/Vomiting, #90 TAB 1 Refill (This prescription has been renewed) Tiotropium Inh (Spiriva Handihaler) 18 Mcg Cap 18 MCG INH DAILY for COPD, #30 CAP 5 Refills 1 capsule = 18 mcg Discontinued Medications: Ciprofloxacin (Ciprofloxacin) 500 Mg Tab 500 MG PO BID for Infection, TAB 0 Refills Loperamide (Anti-Diarrheal) 2 Mg Tab 2 MG PO DIRECTED PRN for DIARRHEA, TAB 0 Refills Take 4 mg after 1st loose stool, then take 2 mg after each subsequent stool. Max 8 mg/day. Carol Ann Morillo MD R3 Oct 17, 2017 13:44
== END 2017-10-17 14:23 | disposition home or self-care (01) ==
LOC: NEPC 16:48 → NEDA 21:51 → NEPHCDU 23:38
PROVIDERS: ADMIT Family Medicine; ATTEND Family Medicine
DX: A04.72 Enterocolitis due to Clostridium difficile, not specified as recurrent (principal); C61 Malignant neoplasm of prostate; C79.51 Secondary malignant neoplasm of bone; E86.0 Dehydration; N17.9 Acute kidney failure, unspecified; I10 Essential (primary) hypertension; J44.9 Chronic obstructive pulmonary disease, unspecified; I73.9 Peripheral vascular disease, unspecified; K80.50 Calculus of bile duct without cholangitis or cholecystitis without obstruction; K86.89 Other specified diseases of pancreas; I44.4 Left anterior fascicular block; R94.31 Abnormal electrocardiogram [ECG] [EKG]; G62.9 Polyneuropathy, unspecified; F17.210 Nicotine dependence, cigarettes, uncomplicated
CPT/HCPCS: 74177; 80048; 80053; 81001; 83605; 83690; 85025; 87040; 87205; 87493; 87506; 93005; 96361; 96372; 96374; 96375; 96376; 99285; G0378; J1644; J2270; J2405; J7030; Q9967

== ENCOUNTER 2018-03-02 15:55 | Inpatient (IN) ==
[~2018-03-02 15:55] MED LIST changes: -ADVA250A INH; -AMLO10TA2 PO; -ANTI2TAB10 PO; -CHLO25TA2 PO; -CIPR500T2 PO; -ENZA40CA PO; -HYDR4TAB PO; +Iohexol 350 MG/ML 100 ML Vial (for Cath Lab) IVCONTRAST ONE; +Iohexol 350 MG/ML 50 ML Vial (for Cath Lab) IVCONTRAST ONE; -METO50TA PO; -SPIRCAP INH; -VENTAER INH; -ZOFR8TAB PO
[2018-03-02] MEDS ORDERED: Morphine Inj 4 MG/ML Vial IV.PUSH ONE (17:02)
--- NOTE | 2018-03-02 17:10 | ED ---
HPI General Chief complaint: Nausea/Vomiting/Diarrhea Stated complaint: ABD pain Time Seen by Provider: 03/02/18 16:08 Source: patient Mode of arrival: ambulatory Limitations: no limitations History of Present Illness HPI Narrative: 72-year-old male the presents to the ED for evaluation of nausea vomiting diarrhea. Per patient has had this for a few weeks. Per patient he was diagnosed with C. difficile when he was released from the hospital here. Per patient is was recently. Per medical records he was released here on September and October. Patient states that he has been taking Flagyl and he was recently put again on Flagyl by another doctor. Per patient he continues to have diarrhea. He has a history of prostate cancer and receives chemo every 3 weeks. Per patient he did not get his chemo today. He last had a 2 weeks ago[address] Kim. Denies chest pain or shortness of breath. No urinary issues. Per patient the stool is foul smelling. He continues to take the Flagyl with no relief. He states having some nausea and vomiting as well. Patient has no port. pain per patient to the lower abdomen and is 6/10. Related Data Home Medications Medication Instructions Recorded Confirmed amlodipine 10 mg PO DAILY 03/02/18 03/02/18 calcium carbonate-vitamin D3 1 tab PO DAILY 03/02/18 03/02/18 [Calcium 600 + D(3)] enalapril maleate 20 mg PO DAILY 03/02/18 03/02/18 megestrol 40 mg PO DAILY 03/02/18 03/02/18 metoprolol tartrate 03/02/18 omeprazole 40 mg PO DAILY 03/02/18 03/02/18 potassium chloride 20 meq PO DAILY 03/02/18 03/02/18 prednisone 10 mg PO DAILY 03/02/18 03/02/18 hydromorphone PRN 03/03/18 03/03/18 Allergies Allergy/AdvReac Type Severity Reaction Status Date / Time penicillin G AdvReac Mild HIVES Unverified 03/02/18 19:06 ITCHING SWELLING Review of Systems ROS: all other systems reviewed are negative [facility] Medical History Medical History C. difficile diarrhea (Acute) Prostate cancer (Acute) Surgical History Surgical History H/O abdominal surgery (Acute) Social History Social History Substance History: Active Abuse Second Hand Smoke Exposure: No Smoking Status: Light tobacco smoker Tobacco Type: Cigarettes How Often Do You Have a Drink Containing Alcohol: Never Recent Travel in [facility] within the Last 8 Weeks: No Recent Out of Country Travel within the Last 8 Weeks: No Substance Abuse Detail Marijuana: Substance Frequency: SOMETIMES Last Used: unknown Immunization History Tetanus Immunization: Unsure Hx Influenza Vaccine This Season: No Exam Narrative Exam Narrative: GENERAL: Well-groomed but very anorexic SKIN: Focused skin assessment warm/dry. HEAD: Atraumatic. Normocephalic. EYES: Pupils equal and round. No scleral icterus. No injection or drainage. ENT: No nasal bleeding or discharge. Mucous membranes pink and moist. Tongue is midline. No uvula deviation. NECK: Trachea midline. No JVD. CARDIOVASCULAR: Regular rate and rhythm. No murmur appreciated. RESPIRATORY: No accessory muscle use. Clear to auscultation. Breath sounds equal bilaterally. GASTROINTESTINAL: Abdomen soft, tender to touch in the lower abdomen, nondistended. Hepatic and splenic margins not palpable. MUSCULOSKELETAL: No obvious deformities. No clubbing. No cyanosis. No edema. Full range of motion of the upper and lower extremity bilaterally. 2+ pulses bilaterally. NEUROLOGICAL: Awake and alert. No obvious cranial nerve deficits. Motor grossly within normal limits. Normal speech. PSYCHIATRIC: Appropriate mood and affect; insight and judgment normal. Course Initial Documented Vital Signs Temperature 98.0 F 03/02/18 16:18 Pulse Rate 87 03/02/18 16:18 Respiratory Rate 18 03/02/18 16:18 Blood Pressure 158/91 H 03/02/18 16:18 Pulse Oximetry 96 03/02/18 16:18 Last Documented Vital Signs Temperature 98.5 F 03/03/18 09:05 Pulse Rate 93 H 03/03/18 09:05 Respiratory Rate 18 03/03/18 09:05 Blood Pressure 113/66 03/03/18 09:05 Pulse Oximetry 100 03/03/18 09:05 Medical Decision Making NAHOMI Attestation NAHOMI supervised visit: Yes Attestation: I, Dr. Lizama, have reviewed the advance practice practitioner's documentation and am in agreement, met with the patient face to face, made the diagnosis, and the medical decision making was done by me. *My assessment and Findings: Patient seen and evaluated with PA, please see PA notes for further details. Here with nausea, vomiting, diarrhea, not doing well , apparently suspected of having C. difficile because of previous history, currently on Flagyl, but still having ongoing abdominal cramping pains and diarrhea. He appears fairly dry, mucous membranes are dry, his CAT scan is showing some underlying ileus. He is tachycardic on evaluation as well and IV fluids were initiated in the ER. A review of patient's lab work shows that his CK-MB is elevated, and rhythm strip is showing questionable ST elevations, irregular heart rate, and EKG was done. At this point, his EKG appears to show a inferior wall ST elevations as well as lateral ST depressions concerning for a acute inferior STEMI. On further questioning, patient has been having chest pain since yesterday in the left shoulder area. And at this point, case is discussed with Dr. Martínez who saw the patient in the ER, and states that he will take the patient for catheterization. STEMI protocol was ordered for the patient including heparin. Patient admitted for further treatment of his STEMI. [facility] Narrative Medical decision making narrative: 72-year-old male the presents to the ED for evaluation of nausea vomiting diarrhea. Patient was properly examined and was found to have signs and symptoms consistent appears to be possible C. difficile. Labs and imaging ordered. Labs and imaging showed no sign of acute disease but CK elevated. My attending herself evaluated the patient and recommends the patient be given fluids at this time. Patient overall looks well except very cachectic. While I was talking to the patient nurse as well as myself noted that the patient's telemetry was showing what appears to be ST elevations on the telemetry. EKG was immediately ordered as well as troponin. Patient while EKG is being done mentions that he has been having left-sided chest discomfort since yesterday. He also adds that apparently he had a syncopal episode today where he blacked out while siting. He states that the pain on the chest is not concerning for him and he was not worried about it and his main concern was the diarrhea. When asked why he did not mention this to me or Dr Whatley while he has been here for the past 3 hours he stated that he didn't mention it as he was not worry about it so he didn't mention it. EKG did show what appears to be ST elevation seen 2 3 and aVF. My attending was made aware of this finding immediately and she called STEMI alert. My attending herself spoke with Dr. Martínez. Dr. Martínez came here and evaluate the patient and once the patient to get full STEMI workup. STEMI orders were placed by me. Patient was given immediately aspirin and start heparin bolus. Medical Screen Exam Complete: Yes Emergency Medical Condition: Yes Differential Diagnosis Differential Diagnosis: C. difficile versus diarrhea versus nausea and vomiting versus acute abdomen versus gastroenteritis versus gastritis Medical Records Medical records reviewed: Yes I reviewed the patient's medical records. Lab Data Lab results reviewed: Yes I reviewed the patient's lab results. Lab results narrative: Ck elevated in the 300s Result diagrams: 03/03/18 05:22 03/03/18 05:22 Lab Results 03/02/18 03/02/18 03/02/18 Range/Units 16:50 16:50 16:50 WBC 4.6 (4.0-11.0) th/mm3 RBC 4.59 (4.50-5.90) mil/mm3 Hgb 15.2 (13.0-17.0) gm/dL Hct 43.4 (39.0-51.0) % MCV 94.5 (80.0-100.0) fL MCH 33.1 (27.0-34.0) pg MCHC 35.0 (32.0-36.0) % RDW 15.7 (11.6-17.2) % Plt Count 299 (150-450) th/mm3 MPV 9.5 (7.0-11.0) fL Prelim Diff (Auto) Slide review pending Neut % (Auto) 49.3 (16.0-70.0) % Lymph % (Auto) 30.1 (9.0-44.0) % Colbert % (Auto) 20.3 H (0.0-8.0) % Eos % (Auto) 0.0 (0.0-4.0) % Baso % (Auto) 0.3 (0.0-2.0) % Neut # (Auto) 2.3 (1.8-7.7) th/mm3 Lymph # (Auto) 1.4 (1.0-4.8) th/mm3 Colbert # (Auto) 0.9 (0.0-0.9) th/mm3 Eos # (Auto) 0.0 (0.0-0.4) th/mm3 Baso # (Auto) 0.0 (0.0-0.2) th/mm3 WBC Differential . Diff Scan Auto diff confirmed Differential Comment . PT (9.8-11.6) sec INR Ratio APTT (24.3-30.1) sec Sodium 140 (136-145) meq/L Potassium 4.0 (3.5-5.1) meq/L Chloride 105 (98-107) meq/L Carbon Dioxide 22.2 (21.0-32.0) meq/L Anion Gap 13 (5-15) meq/L BUN 9 (7-18) mg/dL Creatinine 1.12 (0.60-1.30) mg/dL Estimated GFR 78 L (>89) mL/min Random Glucose 109 H (74-106) mg/dL Lactic Acid 1.9 (0.4-2.0) mmol/L Calcium 9.1 (8.5-10.1) mg/dL Magnesium (1.5-2.5) mg/dL Total Bilirubin 0.5 (0.2-1.0) mg/dL AST 56 H (15-37) U/L ALT 15 (12-78) U/L Alkaline Phosphatase 93 (45-117) U/L Total Creatine Kinase (39-308) U/L CK-MB (CK-2) (0.5-3.6) ng/mL CK-MB (CK-2) % (0.0-4.0) % Troponin I (0.02-0.05) ng/mL B-Natriuretic Peptide (0-100) pg/mL Total Protein 8.2 (6.4-8.2) g/dL Albumin 3.5 (3.4-5.0) g/dL Lipase 52 L (73-393) U/L Urine Color (Yellw/Straw) Urine Clarity (Clear) Urine pH (5.0-8.5) Ur Specific [place] (1.002-1.035) Urine Protein (Neg-Trace) mg/dL Urine Glucose (UA) (Negative) mg/dL Urine Ketones (Negative) mg/dL Urine Occult Blood (Negative) Urine Nitrate (Negative) Urine Bilirubin (Negative) Urine Urobilinogen (Less than 2) mg/dL Ur Leukocyte Esterase (Negative) Urine WBC (0-5) /hpf Ur Squamous Epith Cells (0-5) /hpf Hyaline Casts (0-3) /lpf Urine Mucus (Occasional) /lpf Micro UA Comment Ur Microscopic Review Urine Culture Comments 03/02/18 03/02/18 03/02/18 Range/Units 16:50 16:50 16:50 WBC (4.0-11.0) th/mm3 RBC (4.50-5.90) mil/mm3 Hgb (13.0-17.0) gm/dL Hct (39.0-51.0) % MCV (80.0-100.0) fL MCH (27.0-34.0) pg MCHC (32.0-36.0) % RDW (11.6-17.2) % Plt Count (150-450) th/mm3 MPV (7.0-11.0) fL Prelim Diff (Auto) Neut % (Auto) (16.0-70.0) % Lymph % (Auto) (9.0-44.0) % Colbert % (Auto) (0.0-8.0) % Eos % (Auto) (0.0-4.0) % Baso % (Auto) (0.0-2.0) % Neut # (Auto) (1.8-7.7) th/mm3 Lymph # (Auto) (1.0-4.8) th/mm3 Colbert # (Auto) (0.0-0.9) th/mm3 Eos # (Auto) (0.0-0.4) th/mm3 Baso # (Auto) (0.0-0.2) th/mm3 WBC Differential Diff Scan Differential Comment PT (9.8-11.6) sec INR Ratio APTT (24.3-30.1) sec Sodium (136-145) meq/L Potassium (3.5-5.1) meq/L Chloride (98-107) meq/L Carbon Dioxide (21.0-32.0) meq/L Anion Gap (5-15) meq/L BUN (7-18) mg/dL Creatinine (0.60-1.30) mg/dL Estimated GFR (>89) mL/min Random Glucose (74-106) mg/dL Lactic Acid (0.4-2.0) mmol/L Calcium (8.5-10.1) mg/dL Magnesium (1.5-2.5) mg/dL Total Bilirubin (0.2-1.0) mg/dL AST (15-37) U/L ALT (12-78) U/L Alkaline Phosphatase (45-117) U/L Total Creatine Kinase 374 H (39-308) U/L CK-MB (CK-2) 39.9 H (0.5-3.6) ng/mL CK-MB (CK-2) % 10.7 H* (0.0-4.0) % Troponin I 2.20 H* (0.02-0.05) ng/mL B-Natriuretic Peptide 18 (0-100) pg/mL Total Protein (6.4-8.2) g/dL Albumin (3.4-5.0) g/dL Lipase (73-393) U/L Urine Color (Yellw/Straw) Urine Clarity (Clear) Urine pH (5.0-8.5) Ur Specific [place] (1.002-1.035) Urine Protein (Neg-Trace) mg/dL Urine Glucose (UA) (Negative) mg/dL Urine Ketones (Negative) mg/dL Urine Occult Blood (Negative) Urine Nitrate (Negative) Urine Bilirubin (Negative) Urine Urobilinogen (Less than 2) mg/dL Ur Leukocyte Esterase (Negative) Urine WBC (0-5) /hpf Ur Squamous Epith Cells (0-5) /hpf Hyaline Casts (0-3) /lpf Urine Mucus (Occasional) /lpf Micro UA Comment Ur Microscopic Review Urine Culture Comments 03/02/18 03/02/18 03/02/18 Range/Units 18:00 22:50 22:50 WBC (4.0-11.0) th/mm3 RBC (4.50-5.90) mil/mm3 Hgb (13.0-17.0) gm/dL Hct (39.0-51.0) % MCV (80.0-100.0) fL MCH (27.0-34.0) pg MCHC (32.0-36.0) % RDW (11.6-17.2) % Plt Count (150-450) th/mm3 MPV (7.0-11.0) fL Prelim Diff (Auto) Neut % (Auto) (16.0-70.0) % Lymph % (Auto) (9.0-44.0) % Colbert % (Auto) (0.0-8.0) % Eos % (Auto) (0.0-4.0) % Baso % (Auto) (0.0-2.0) % Neut # (Auto) (1.8-7.7) th/mm3 Lymph # (Auto) (1.0-4.8) th/mm3 Colbert # (Auto) (0.0-0.9) th/mm3 Eos # (Auto) (0.0-0.4) th/mm3 Baso # (Auto) (0.0-0.2) th/mm3 WBC Differential Diff Scan Differential Comment PT 11.5 (9.8-11.6) sec INR 1.1 Ratio APTT 48.3 H (24.3-30.1) sec Sodium (136-145) meq/L Potassium (3.5-5.1) meq/L Chloride (98-107) meq/L Carbon Dioxide (21.0-32.0) meq/L Anion Gap (5-15) meq/L BUN (7-18) mg/dL Creatinine (0.60-1.30) mg/dL Estimated GFR (>89) mL/min Random Glucose (74-106) mg/dL Lactic Acid (0.4-2.0) mmol/L Calcium 8.3 L D (8.5-10.1) mg/dL Magnesium 2.0 (1.5-2.5) mg/dL Total Bilirubin (0.2-1.0) mg/dL AST (15-37) U/L ALT (12-78) U/L Alkaline Phosphatase (45-117) U/L Total Creatine Kinase (39-308) U/L CK-MB (CK-2) (0.5-3.6) ng/mL CK-MB (CK-2) % (0.0-4.0) % Troponin I (0.02-0.05) ng/mL B-Natriuretic Peptide (0-100) pg/mL Total Protein (6.4-8.2) g/dL Albumin (3.4-5.0) g/dL Lipase (73-393) U/L Urine Color Yellow (Yellw/Straw) Urine Clarity Cloudy H (Clear) Urine pH 5.0 (5.0-8.5) Ur Specific [place] 1.013 (1.002-1.035) Urine Protein 30 H (Neg-Trace) mg/dL Urine Glucose (UA) Negative (Negative) mg/dL Urine Ketones Trace H (Negative) mg/dL Urine Occult Blood Negative (Negative) Urine Nitrate Negative (Negative) Urine Bilirubin Negative (Negative) Urine Urobilinogen Less than 2 (Less than 2) mg/dL Ur Leukocyte Esterase Negative (Negative) Urine WBC 1 (0-5) /hpf Ur Squamous Epith Cells 7 (0-5) /hpf Hyaline Casts 4 (0-3) /lpf Urine Mucus Few H (Occasional) /lpf Micro UA Comment Culture not ind Ur Microscopic Review Not Reportable Urine Culture Comments Culture not ind 03/03/18 03/03/18 Range/Units 05:22 05:22 WBC 5.2 (4.0-11.0) th/mm3 RBC 3.91 L (4.50-5.90) mil/mm3 Hgb 13.1 D (13.0-17.0) gm/dL Hct 37.2 L (39.0-51.0) % MCV 95.1 (80.0-100.0) fL MCH 33.5 (27.0-34.0) pg MCHC 35.2 (32.0-36.0) % RDW 15.3 (11.6-17.2) % Plt Count 252 (150-450) th/mm3 MPV 9.3 (7.0-11.0) fL Prelim Diff (Auto) Neut % (Auto) 40.3 (16.0-70.0) % Lymph % (Auto) 31.0 (9.0-44.0) % Colbert % (Auto) 28.4 H (0.0-8.0) % Eos % (Auto) 0.1 (0.0-4.0) % Baso % (Auto) 0.2 (0.0-2.0) % Neut # (Auto) 2.1 (1.8-7.7) th/mm3 Lymph # (Auto) 1.6 (1.0-4.8) th/mm3 Colbert # (Auto) 1.5 H (0.0-0.9) th/mm3 Eos # (Auto) 0.0 (0.0-0.4) th/mm3 Baso # (Auto) 0.0 (0.0-0.2) th/mm3 WBC Differential . Diff Scan Differential Comment Auto diff final PT (9.8-11.6) sec INR Ratio APTT (24.3-30.1) sec Sodium 142 (136-145) meq/L Potassium 4.3 (3.5-5.1) meq/L Chloride 109 H (98-107) meq/L Carbon Dioxide 23.8 (21.0-32.0) meq/L Anion Gap 9 (5-15) meq/L BUN 10 (7-18) mg/dL Creatinine 0.87 (0.60-1.30) mg/dL Estimated GFR Greater than 89 (>89) mL/min Random Glucose 110 H (74-106) mg/dL Lactic Acid (0.4-2.0) mmol/L Calcium 8.0 L (8.5-10.1) mg/dL Magnesium (1.5-2.5) mg/dL Total Bilirubin (0.2-1.0) mg/dL AST (15-37) U/L ALT (12-78) U/L Alkaline Phosphatase (45-117) U/L Total Creatine Kinase (39-308) U/L CK-MB (CK-2) (0.5-3.6) ng/mL CK-MB (CK-2) % (0.0-4.0) % Troponin I (0.02-0.05) ng/mL B-Natriuretic Peptide (0-100) pg/mL Total Protein (6.4-8.2) g/dL Albumin (3.4-5.0) g/dL Lipase (73-393) U/L Urine Color (Yellw/Straw) Urine Clarity (Clear) Urine pH (5.0-8.5) Ur Specific [place] (1.002-1.035) Urine Protein (Neg-Trace) mg/dL Urine Glucose (UA) (Negative) mg/dL Urine Ketones (Negative) mg/dL Urine Occult Blood (Negative) Urine Nitrate (Negative) Urine Bilirubin (Negative) Urine Urobilinogen (Less than 2) mg/dL Ur Leukocyte Esterase (Negative) Urine WBC (0-5) /hpf Ur Squamous Epith Cells (0-5) /hpf Hyaline Casts (0-3) /lpf Urine Mucus (Occasional) /lpf Micro UA Comment Ur Microscopic Review Urine Culture Comments Imaging Data Attestation: I personally reviewed and interpreted this imaging study as follows : Radiologist's impression: Abdomen/Pelvis CT 03/02/18 16:15 CONCLUSION: 1. Nonspecific bowel gas pattern without significant change. This may represent a mild ileus. 2. No significant change in the metastatic retroperitoneal adenopathy. 3. Stent catheter remains in place with stable appearance the biliary system with mild dilatation. 4. Sclerotic osseous metastasis is again noted. Chest X-Ray 03/02/18 16:15 CONCLUSION: Stable chest x-ray with findings characteristic of obstructive airways disease with stable large bulla at the apex of the left hemithorax measuring at least 12 cm. Chest X-Ray 03/02/18 19:04 CONCLUSION: No significant change. 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 ECG Data Attestation: I personally reviewed and interpreted this ECG as follows: Interpretation: EKG shows ST elevations leads 2 3 and aVF read by me and attending. atrial fibrillation, Discharge Plan Discharge Disposition Patient Disposition: 30 Still Patient Discharge Details Diagnosis: ST elevation (STEMI) myocardial infarction Physicians Team ED Provider: Solis Lizama ED Midlevel Provider: Elbert Harrell Attending Provider: Carrie Reyes Other Providers: Angel Martínez Status ED Status: Left Department Discharge Information Discharge Date/Time: 03/02/18 19:28
[2018-03-02 17:27] LABS: Baso % (Auto) 0.3 % (0.0-2.0); Hematocrit 43.4 % (39.0-51.0); Hemoglobin 15.2 gm/dL (13.0-17.0); Lymph # (Auto) 1.4 th/mm3 (1.0-4.8); Lymph % (Auto) 30.1 % (9.0-44.0); Mean Corpuscular Hemoglobin 33.1 pg (27.0-34.0); Mean Corpuscular Volume 94.5 fL (80.0-100.0); Mean Platelet Volume 9.5 fL (7.0-11.0); Mono # (Auto) 0.9 th/mm3 (0.0-0.9); Mono % (Auto) 20.3 % (0.0-8.0); Neut # (Auto) 2.3 th/mm3 (1.8-7.7); Neut % (Auto) 49.3 % (16.0-70.0); Platelet Count 299 th/mm3 (150-450); Red Blood Count 4.59 mil/mm3 (4.50-5.90); Red Cell Distribution Width 15.7 % (11.6-17.2); White Blood Count 4.6 th/mm3 (4.0-11.0)
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
[2018-03-02 17:43] LABS: Alanine Aminotransferase 15 U/L (12-78); Albumin 3.5 g/dL (3.4-5.0); Anion Gap 13 meq/L (5-15); Aspartate Aminotransferase 56 U/L (15-37); Blood Urea Nitrogen 9 mg/dL (7-18); Calcium 9.1 mg/dL (8.5-10.1); Carbon Dioxide 22.2 meq/L (21.0-32.0); Chloride 105 meq/L (98-107); Glomerular Filtration Rate 78 mL/min (>89); Glucose,Random 109 mg/dL (74-106); Lipase 52 U/L (73-393); Sodium 140 meq/L (136-145)
[2018-03-02 17:45] LABS: Alkaline Phosphatase 93 U/L (45-117); Total Protein 8.2 g/dL (6.4-8.2)
--- NOTE | 2018-03-02 18:12 | CT ---
EXAM DATE: 03/02/2018 5:53 PM EDT AGE/SEX: 72 years / Male INDICATIONS: Abdominal pain, diarrhea. CLINICAL DATA: This is the patient's initial encounter. Patient reports that signs and symptoms have been present for 3 days and indicates a pain score of 4/10. MEDICAL/SURGICAL HISTORY: Carcinoma, prostatic. Cdiff. . Abdominal surgery. ORAL CONTRAST: No oral contrast ingested. RADIATION DOSE: 4.51 CTDI (mGy) [place] [facility] [place]. . TECHNIQUE: Multiple contiguous axial images were obtained through the abdomen and pelvis following b olus infusion of 75 ml Omnipaque 350 (iohexol) nonionic water-soluble contrast as a single exam dos e. No oral contrast ingested. Using automated exposure control and adjustment of the mA and/or kV ac cording to patient size, radiation dose was kept as low as reasonably achievable to obtain optimal di agnostic quality images. DICOM format image data is available electronically for review and comparis on. FINDINGS: Lower Lungs: The visualized lower lungs are clear. There is a stable small nodular structure again no fan in the posterior right lung base. Liver: The liver has a homogeneous density without space-occupying lesion. There is no dilation of th e biliary tree. A central biliary stent catheter remains in place. Mild intrahepatic biliary ductal p rominence remains and is unchanged. Patient is status post cholecystectomy. Air is noted in portions of the biliary tree. Spleen: Homogeneous density without enlargement. There is a stable small cystic structure again note d in the posterior inferior spleen without change. Pancreas: Unremarkable without mass or calcification. Kidneys: Normal in size and shape. No evidence of mass or hydronephrosis. Adrenal Glands: Unremarkable. Aorta: Atherosclerotic changes are again noted with dense calcification and no focal aneurysm. Bowel/Mesentery: No oral contrast was given limiting the sensitivity of the exam. There is a nonobst ructive bowel gas pattern with multiple loops of nondilated air-containing small bowel with several a ir-fluid levels. Gas and stool is noted segmentally in the colon. There is no free air or drainable f luid. Abdominal Wall: Intact. Retroperitoneum: Multiple enlarged high density retroperitoneal lymph nodes are again noted. These a re not significantly changed in appearance. The largest node measures up to approximately 3.7 x 2.2 c m in diameter. Bladder: Contours are smooth. Reproductive Organs: No abnormal masses or calcifications seen. Inguinal: The inguinal region is unremarkable without evidence of adenopathy. Bony Structures: Scattered sclerotic foci are again noted throughout the bony structures consistent with metastatic disease. CONCLUSION: 1. Nonspecific bowel gas pattern without significant change. This may represent a mild ileus. 2. No significant change in the metastatic retroperitoneal adenopathy. 3. Stent catheter remains in place with stable appearance the biliary system with mild dilatation. 4. Sclerotic osseous metastasis is again noted. Electronically signed by: Fidel Rea MD 03/02/2018 6:10 PM EDT
[2018-03-02 18:14] LABS: Creatine Kinase MB 39.9 ng/mL (0.5-3.6)
[2018-03-02 18:16] LABS: CKMB Percent 10.7 % (0.0-4.0)
[2018-03-02] MEDS ORDERED: Sod Chloride 0.9% Inj 1,000 ML IV.SIG ONE (18:41)
[2018-03-02] MEDS ORDERED: Heparin 10,000 UNITS/10 ML Vial (for IV use) IV.PUSH STA (19:04)
[2018-03-02] MEDS ORDERED: Sod Chloride 0.9% Inj 1,000 ML IV.SIG SCH (19:15)
[2018-03-02 19:21] LABS: Bilirubin,Urine Negative (Negative); Clarity,Urine Cloudy (Clear); Color,Urine Yellow (Yellw/Straw); Glucose,Urine (UA) Negative (Negative); Hyaline Casts,Urine 4 /lpf (0-3); Leukocyte Esterase,Urine Negative (Negative); Mucus,Urine Few /lpf (Occasional); Nitrite,Urine Negative (Negative); Specific Gravity,Urine 1.013 (1.002-1.035); Squamous Epithelial Cell,Urine 7 /hpf (0-5)
[2018-03-02] MEDS ORDERED: Heparin/NS PF Inj 1,500 ML ONE (19:23)
[2018-03-02] MEDS ORDERED: fentaNYL Citrate Inj 100 MCG/2 ML Ampul ONE (19:27)
[2018-03-02] MEDS ORDERED: Heparin 10,000 UNITS/10 ML Vial (for IV use) ONE (19:29)
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
[2018-03-02] MEDS ORDERED: Aspirin 325 MG Tablet ONE (20:27)
[2018-03-02] MEDS ORDERED: Misc Info for Pharmacy OTHER STA (21:00)
[2018-03-02] MEDS ORDERED: Sod Chloride 0.9% Inj 1,000 ML IV.CONT SCH (21:00)
--- NOTE | 2018-03-02 21:06 | CATHPROC ---
Business Engine HIS Report Study Information Study Number Admission Scheduled Start Study Start [id number] Mar 02 2018 3:55PM 03/02/2018 Mar 02 2018 7:23PM [place] [facility] Cardiac Catheterization Admit Source Facility Department Emergency department [facility] - Irrigation Installation Specialist Physician and Clinical Staff Initial Angel Antoine Delicatessen Manager David Mendez RN Delicatessen Manager Rich HUYNH, Jerry RecordTamara Garcia RCIS TECH2 Scrub Gerson López RCIS(BS) Procedures Performed Procedure Location (Site) Vessel Name Coronary Angiograms LCA Left Coronary Coronary Angiograms RCA Right Coronary L Heart Cath PTCA RCA Mid Right Coronary PTCA RCA Ost Right Coronary PTCA RCA Prox Right Coronary Stent RCA Mid Right Coronary Stent RCA Ost Right Coronary Wire insertion Fem Art (right) Femoral Art Equipment Time Garment Turner Description Size Mfg Part Number Used/Scraped WIRE, BALANCE MIDDLEWEIGHT [id number] 20:01 [employer] 190CM Used 190CM *[id number] TRANSDUCER, TRUWAVE [id number] 19:24 JANG HONG * Used W/STOCKCOCK *[id number] INTRODUCER SET, 19:49 [employer] FR 5 [id number] *[id number] Used MICROPUNCTURE STIFF 534-520T *[id number] [phone] *[id number] [id number] *[id number] [id number] *[id number] 19:24 [employer] BLANKET,WARM AIR CCL * Used *[id number] 19:24 [employer] PACK, CCL CUSTOM * Used *[id number] 20:04 [employer] BALLOON, 2.0 X 12MM EUPHORA 12MM Used *[id number] BALLOON, 2.5 X 12MM NC [id number] 20:15 [employer] 12MM Used EUPHORA *[id number] BALLOON, 3.0 X 8MM NC [id number] 20:26 [employer] 8MM Used EUPHORA *[id number] BALLOON, 3.25 X 8MM NC [id number] 20:31 [employer] 8MM Used EUPHORA *[id number] 20:10 [employer] STENT, 2.25 18 INTEGRITY 2.25 18 Used *[id number] 20:21 [employer] STENT, 2.75 14 INTEGRITY 2.75 14 Used *[id number] [id number] 20:08 [employer] 30 NATASHA INDEFLATOR Used *[id number] 19:24 [employer] WIRE, 3MMJ .035 180CM 180CM Used *[id number] 19:24 NAMIC MANIFOLD, 4 PORT * Used *[id number] 19:24 [employer] OMNIPAQUE, 350 MG, 150ML 150ML [id number] Used [id number] 19:50 TERUM[employer] SHEATH, FR5 TERUMO (10CM) FR 5 Used *[id number] 20:00 [employer] MED[employer] SHEATH, FR6 TERUMO (10CM) FR 6 Used *[id number] Equipment Model, Serial, Lot Number and Expiration Data Description Model Number Serial Number Lot Number Expiration Date STENT, 2.25 18 INTEGRITY [id number] 03-07-2019 STENT, 2.75 14 INTEGRITY [id number] 10-21-2019 History: Current Medications Medication Dosage/Unit Route Frequency Last Date/Time Taken VASOTEC NORVASC History: Allergies Allergy Reaction Penicillin HIVES ITCHING SWELLING penicillin G HIVES ITCHING SWELLING History: Risk Factors Family History of Hypertension Dyslipidemia Previous MT Previous Heart Failure Premature CAD Yes No No No No Prior Valve Prior PCI Prior CABG Surgery No No No Cerebrovascular Peripheral Artery Chronic Lung On Dialysis Diabetes Disease Disease Disease No No No No No History: Symptoms/Diagnosis Selection Items Chest pain History: Stress Tests Stress or Imaging Studies Performed No History: Other Disease Selection Items Cancer History: Other Current Smoker Method Yes Cigarettes Labs Hgb (g/dl) Hct (%) WBC (l/cumm) Platelets (thousands) 11.60-17.00 35.00-51.00 4.00-11.00 150.00-450.00 15.2 43.4 4.6 299 Glucose (mg/dl) BUN (mg/dl) Creatinine (mg/dl) BUN:Creatinine (1:x) 74.00-106.00 7.00-18.00 0.50-1.30 10.00-20.00 109 9 1.1 8.2 Na (meq/l) K (meq/l) 136.00-145.00 3.50-5.10 140 4 Troponin I (ng/ml) CPK (u/l) CPK-MB (ng/ML) 0.02-0.05 26.00-308.00 0.50-3.60 2.2 374 39.9 Medication Medication Total Dose (Bolus/Oral) Medication Total Dosage/Unit 1% XYLOCAINE 20 mL ASPIRIN 325 mg FENTANYL 50 mcg HEPARIN 2000 units NTG (IC) 150 mcg OXYGEN 3 l/min PLAVIX 600 mg VERSED 0.5 mg Medications (Bolus/Oral) Medication Time Given Dosage/Unit Administered By Reason OXYGEN 03/02/2018 7:35:33 PM 3 l/min David Mendez Patient arrived on 3 l/min OXYGEN given by David Mendez RN via Nasal. 1% XYLOCAINE 03/02/2018 7:45:56 PM 20 mL Angel Martínez 20 mL 1% XYLOCAINE given in lab by Angel Martínez in Right Groin via Subcutaneous. Ordered by Angel Brown VERSED 03/02/2018 7:46:16 PM 0.5 mg Andrea, David 0.5 mg VERSED given in lab by David Mendez RN in Right Forearm via Peripheral IV. Ordered by Angel Grajeda FENTANYL 03/02/2018 7:46:34 PM 25 mcg David Mendez 25 mcg FENTANYL given in lab by David Mendez RN in Right Forearm via Peripheral IV. Ordered by Angel Noel HEPARIN 03/02/2018 8:01:48 PM 2000 units Andrea, David 2000 units HEPARIN given in lab by David Mendez RN in Right Forearm via Peripheral IV. Ordered by Angel Brown NTG (IC) 03/02/2018 8:06:10 PM 150 mcg Angel Martínez 150 mcg NTG (IC) given in lab by Angel Martínez via Intra-coronary. Ordered by Angel Martínez PLAVIX 03/02/2018 8:41:26 PM 600 mg David Mendez 600 mg PLAVIX given in lab by David Mendez RN via Oral. Ordered by Angel Martínez ASPIRIN 03/02/2018 8:41:38 PM 325 mg Andrea, David 325 mg ASPIRIN given in lab by David Mendez RN via Oral. Ordered by Angel Martínez FENTANYL 03/02/2018 8:44:59 PM 25 mcg Andrea, David 25 mcg FENTANYL given in lab by David Mendez RN in Right Forearm via Peripheral IV. Ordered by Angel Noel Medication (Drip) Medication Time Given Dosage/Unit Concentration/Unit Diluent (ml) Solution IV Bolus 03/02/2018 7:57:39 PM 500 mL (Bolus) 1000 NaCl .9 500 mL (Bolus) IV Bolus given in lab by David Mendez RN in Right Forearm via Peripheral IV. Using Na Cl .9. Ordered by Angel Martínez IV Solutions 03/02/2018 7:43:17 PM 0 mL (IV) 500 NaCl .9 Patient arrived on IV Solutions in Right Forearm via Peripheral IV. Pump/Drip Flow = 20 ml/hr using N aCl .9. Initial Case Assessment Cardiovascular HR Rhythm NIBP 84 afib 145/95 Circulatory - Right Pulses Dorsalis Pedis Femoral d 2 Scale (0,1,2,3,4,d) Circulatory - Left Pulses Dorsalis Pedis Femoral d 2 Scale (0,1,2,3,4,d) Neurological State Oriented to time-place- Alert Moves all extremities person Respiration - General Respiration Rate SpO2 (%) O2 (lpm) (B/min) 9 100 3 Final Case Assessment Cardiovascular HR Rhythm NIBP Chest Pain 98 sr 111/62 8 Circulatory - Right Pulses Dorsalis Pedis Femoral d 2 Scale (0,1,2,3,4,d) Circulatory - Left Pulses Dorsalis Pedis Femoral d 2 Scale (0,1,2,3,4,d) Neurological State Oriented to time-place- Alert Moves all extremities person Respiration - General Respiration Rate SpO2 (%) O2 (lpm) (B/min) 10 99 3 Chronological Log Time Study Chronological Log 19:25:42 MD arrived. 19:30:29 Emergency Room notified that Irrigation Installation Specialist is ready. 19:33:20 Patient arrived directly from ER. 19:33:26 Patient Name, D.O.B, / Armband Verified By R.N. 19:33:27 Consent signed by the physician,verbal consent obtained from the patient and verified by [facility] Irrigation Installation Specialist staff. 19:33:28 Pre-op and post- op instructions given; patient acknowledges understanding of instructions. 19:33:29 Verbal Stimulation=2 Physical Stimulation=2 Airway=2 Respiration=2 TOTAL=8. (0=absent, 1=li mited, 2=present) 19:33:42 Presedation assessment performed by Irrigation Installation Specialist RN. 19:35:33 Patient arrived on 3 l/min OXYGEN given by David Mendez RN via Nasal. Vitals capture started with the following parameters, Patient=Adult, Interval=3 min, Initial Pr knuhdo=888 mmHg, 19:41:13 Deflation Rate=5 mmHg, Cuff placed on Left Arm 19:41:53 HR=84 bpm, VHWY=893/95 mmhg, ZnY3=650.0 %, Resp=9 B/min 19:42:32 Bilateral groins prepped with 2% chlorhexidine, and draped after a 3 minute waiting time. 19:43:13 Skin Breakdown-none 19:43:15 Disposable Defibrillator Pads Placed On Patient. 19:43:15 Anselmo Prominences Protected 19:43:16 A # 22 IV was noted in the Forearm (right). Grade = 0 19:43:17 Patient arrived on IV Solutions in Right Forearm via Peripheral IV. Pump/Drip Flow = 20 ml/ hr using NaCl .9. 19:43:20 History and physical on the chart or being dictated. Assessment: Initial Case, HR=84 BPM, Rhythm=afib, EBQD=549/95 mmhg Right Pulses: Ventura Ped=d, Femoral=2 19:43:22 Left Pulses: Ventura Ped=d, Femoral=2 Neurological: State=Alert, Ox3, WEISS Respiration: Resp=9 B/min, LmY4=024 %, O2=3 lpm Time Out. Correct patient, correct procedure, correct physician, labs, allergies, and equipment verified with geophysical laboratory chief ::56 team present. Fire risk assesment completed (see hard stop sheet for coding). Time Out Conc urred by MD and individual staff in procedure. 19:45:48 Case Start 20 mL 1% XYLOCAINE given in lab by Angel Martínez in Right Groin via Subcutaneous. Ordered by Mauricio :56 Angel Crooks 19:46:16 0.5 mg VERSED given in lab by David Mendez RN in Right Forearm via Peripheral IV. Ordered by Angel Martínez 19:46:34 25 mcg FENTANYL given in lab by David Mendez RN in Right Forearm via Peripheral IV. Ordere d by Angel Martínez 19:46:45 Pressure channel 1 zeroed. 19:47:00 HR=93 bpm, USXG=636/47 mmhg, RaV4=253.0 %, Resp=18 B/min 19:48:43 Access site was Right Femoral Artery. A INTRODUCER SET, MICROPUNCTURE STIFF FR 5 was advanced into the Fem Art (right) using the Perc utaneous 19:48:49 technique. A SHEATH, FR5 TERUMO (10CM) FR 5 was exchanged in the Fem Art (right). This was necessary in or lima to 19:49:21 accomodate a larger catheter. 19:49:27 An injection in the Fem Art (right) was made through the SHEATH, FR5 TERUMO (10CM) FR 5. A JR 4.0 INFINITI CATHETER FR 5 was advanced over a wire. OMNIPAQUE, 350 MG, 150ML 150ML was us ed for 19:51:27 injections. 19:51:45 HR=99 bpm, QBJW=083/80 mmhg, LwV1=548.0 %, Resp=9 B/min Recorded Pressure: LV, EU=896, Condition=Condition 1 19:52:04 (Left Ventricle) LV 136/-1/2 Recorded Pressure: LV, Ao, SA=660, Condition=Condition 1 19:52:25 (Left Ventricle) LV 147/-1/2, (Aorta) Ao 139/73/100 19:52:53 The RCA was injected and visualized at various angles. OMNIPAQUE, 350 MG, 150ML 150ML used . After removing the current catheter a JL 4.0 INFINITI CATHETER FR 5 was advanced over a WIRE, 3 MMJ .035 180CM 19:54:06 180CM. 19:56:35 The LCA was injected and visualized at various angles. OMNIPAQUE, 350 MG, 150ML 150ML used . 19:56:48 VZ=317 bpm, NIBP=82/69 mmhg, GsG7=334.0 %, Resp=10 B/min 500 mL (Bolus) IV Bolus given in lab by David Mendez, RN in Right Forearm via Peripheral IV. Us ing NaCl .9. Ordered by 19:57:39 Angel Martínez 19:58:02 NIBP STAT measurement started. 19:58:28 QJ=923 bpm, NIBP=90/66 mmhg, PpA7=395.0 %, Resp=22 B/min 20:01:19 Catheter was removed A SHEATH, FR6 TERUMO (10CM) FR 6 was exchanged in the Fem Art (right). This was necessary in or lima to 20:01:27 accomodate a larger catheter. 20:01:39 XN=802 bpm, CWEV=964/83 mmhg, NvU2=149.0 %, Resp=8 B/min 2000 units HEPARIN given in lab by David Mendez, RN in Right Forearm via Peripheral IV. Ordered by Angel Martínez 20:01:48 G. A JR 4.0 GUIDE CATHETER FR 6 was advanced over a wire. OMNIPAQUE, 350 MG, 150ML 150ML was used for 20:02:08 injections. 20:04:24 A WIRE, BALANCE MIDDLEWEIGHT 190CM 190CM was inserted via Fem Art (right). 20:06:10 150 mcg NTG (IC) given in lab by Angel Martínez via Intra-coronary. Ordered by Angel Grajeda. 20:06:48 HR=93 bpm, TIEA=296/57 mmhg, SpO2=92.0 %, Resp=22 B/min 20:07:24 Activated Clotting Time Drawn A BALLOON, 2.0 X 12MM EUPHORA 12MM was inserted over WIRE, BALANCE MIDDLEWEIGHT 190CM 190CM via the 20:08:00 RCA Prox. A BALLOON, 2.0 X 12MM EUPHORA 12MM over a WIRE, BALANCE MIDDLEWEIGHT 190CM 190CM in the RCA Pro x was 20:08:11 inflated using a 30 NATASHA INDEFLATOR at 8 natasha for 15 sec. A BALLOON, 2.0 X 12MM EUPHORA 12MM over a WIRE, BALANCE MIDDLEWEIGHT 190CM 190CM in the RCA Pro x was 20:08:41 inflated using a 30 NATASHA INDEFLATOR at 12 natasha for 12 sec. 20:10:30 Balloon Removed. An STENT, 2.25 18 INTEGRITY 2.25 18 Bare Metal Stent was inserted through a JR 4.0 GUIDE CATHET ER FR 6 over a 20:11:49 WIRE, BALANCE MIDDLEWEIGHT 190CM 190CM. A STENT, 2.25 18 INTEGRITY 2.25 18 was deployed using a 30 NATASHA INDEFLATOR at 12 atmospheres for 30 seconds in 20:11:59 the RCA Mid. 20:12:26 SE=274 bpm, FTPS=607/80 mmhg, IgC3=034.0 %, Resp=12 B/min 20:13:13 Delivery device removed A BALLOON, 2.5 X 12MM NC EUPHORA 12MM was inserted over WIRE, BALANCE MIDDLEWEIGHT 190CM 190CM via 20:15:17 the RCA Mid. A BALLOON, 2.5 X 12MM NC EUPHORA 12MM over a WIRE, BALANCE MIDDLEWEIGHT 190CM 190CM in the RCA Mid 20:15:56 was inflated using a 30 NATASHA INDEFLATOR at 14 natasha for 10 sec. A BALLOON, 2.5 X 12MM NC EUPHORA 12MM over a WIRE, BALANCE MIDDLEWEIGHT 190CM 190CM in the RCA Mid 20:16:30 was inflated using a 30 NATASHA INDEFLATOR at 16 natasha for 10 sec. 20:16:48 HR=85 bpm, QQKY=241/82 mmhg, RdU5=841.0 %, Resp=14 B/min A BALLOON, 2.5 X 12MM NC EUPHORA 12MM over a WIRE, BALANCE MIDDLEWEIGHT 190CM 190CM in the RCA Mid 20:17:13 was inflated using a 30 NATASHA INDEFLATOR at 16 natasha for 16 sec. 20:18:08 ACT (Normal Range 90-180) = 292 20:18:50 Balloon Removed. A BALLOON, 2.5 X 12MM NC EUPHORA 12MM was inserted over WIRE, BALANCE MIDDLEWEIGHT 190CM 190CM via 20:19:52 the RCA Prox. A BALLOON, 2.5 X 12MM NC EUPHORA 12MM over a WIRE, BALANCE MIDDLEWEIGHT 190CM 190CM in the RCA Prox 20:20:07 was inflated using a 30 NATASHA INDEFLATOR at 14 natasha for 30 sec. 20:21:15 Balloon Removed. An STENT, 2.75 14 INTEGRITY 2.75 14 Bare Metal Stent was inserted through a JR 4.0 GUIDE CATHET ER FR 6 over a 20:21:26 WIRE, BALANCE MIDDLEWEIGHT 190CM 190CM. 20:21:47 HR=85 bpm, YJVF=117/75 mmhg, SpO2=99.0 %, Resp=17 B/min A STENT, 2.75 14 INTEGRITY 2.75 14 was deployed using a 30 NATASHA INDEFLATOR at 12 atmospheres for 30 seconds in 20:24:13 the RCA Ost. 20:25:41 Delivery device removed A BALLOON, 3.0 X 8MM NC EUPHORA 8MM was inserted over WIRE, BALANCE MIDDLEWEIGHT 190CM 190CM vi a the 20:27:00 RCA Ost. A BALLOON, 3.0 X 8MM NC EUPHORA 8MM over a WIRE, BALANCE MIDDLEWEIGHT 190CM 190CM in the RCA Os t was 20:27:12 inflated using a 30 NATASHA INDEFLATOR at 16 natasha for 16 sec. 20:27:25 HR=87 bpm, YAZM=736/78 mmhg, EqX6=633.0 %, Resp=14 B/min A BALLOON, 3.0 X 8MM NC EUPHORA 8MM over a WIRE, BALANCE MIDDLEWEIGHT 190CM 190CM in the RCA Pr ox 20:27:25 was inflated using a 30 NATASHA INDEFLATOR at 20 natasha for 10 sec. A BALLOON, 3.0 X 8MM NC EUPHORA 8MM over a WIRE, BALANCE MIDDLEWEIGHT 190CM 190CM in the RCA Os t was 20:28:16 inflated using a 30 NATASHA INDEFLATOR at 20 natasha for 10 sec. 20:29:26 Balloon Removed. A BALLOON, 3.25 X 8MM NC EUPHORA 8MM was inserted over WIRE, BALANCE MIDDLEWEIGHT 190CM 190CM v ia the 20:31:28 RCA Ost. A BALLOON, 3.25 X 8MM NC EUPHORA 8MM over a WIRE, BALANCE MIDDLEWEIGHT 190CM 190CM in the RCA O st 20:31:45 was inflated using a 30 NATASHA INDEFLATOR at 12 natasha for 12 sec. A BALLOON, 3.25 X 8MM NC EUPHORA 8MM over a WIRE, BALANCE MIDDLEWEIGHT 190CM 190CM in the RCA O st 20:32:24 was inflated using a 30 NATASHA INDEFLATOR at 20 natasha for 16 sec. 20:32:34 HR=90 bpm, PWKN=775/86 mmhg, QeU3=530.0 %, Resp=12 B/min A BALLOON, 3.25 X 8MM NC EUPHORA 8MM over a WIRE, BALANCE MIDDLEWEIGHT 190CM 190CM in the RCA O st 20:32:48 was inflated using a 30 NATASHA INDEFLATOR at 18 natasha for 10 sec. 20:33:12 Balloon Removed. 20:35:30 Wire removed 20:35:43 Catheter was removed 20:36:57 HR=93 bpm, AYOH=944/79 mmhg, JgW1=620.0 %, Resp=19 B/min 20:37:01 Case End (Physician broke scrub) 20:37:12 In the Fem Art (right) the SHEATH, FR6 TERUMO (10CM) FR [address] by Jacqueline López RCIS(). 20:41:26 600 mg PLAVIX given in lab by David Mendez RN via Oral. Ordered by Angel Martínez 20:41:38 325 mg ASPIRIN given in lab by David Mendez RN via Oral. Ordered by Angel Martínez 20:41:51 HR=98 bpm, QQUS=253/62 mmhg, FqN4=563.0 %, Resp=7 B/min 20:44:59 25 mcg FENTANYL given in lab by David Mendez RN in Right Forearm via Peripheral IV. Ordere d by Angel Martínez 20:48:47 ACT (Normal Range 90-180) = 251 20:49:45 NIBP STAT measurement started. Assessment: Final Case, HR=98 BPM, Rhythm=sr, FLHW=667/62 mmhg, Chest Pain=8 Right Pulses: Ventura Ped=d, Femoral=2 20:51:30 Left Pulses: Ventura Ped=d, Femoral=2 Neurological: State=Alert, Ox3, WEISS Respiration: Resp=10 B/min, SpO2=99 %, O2=3 lpm 20:52:07 Vitals capture stopped. 20:52:55 Sterile dressing applied to site 20:52:58 Cine recording checked. 20:53:00 Bedside Report will be given. 20:53:02 Implantable Device card placed in patient's chart. 20:53:06 Patient moved to bed 20:53:15 A Left Heart Cath was performed. 20:53:28 No case complications noted. 20:57:47 Patient transported to [facility] End Study - Contrast Media Used In Study Contrast Total Opened (mL) Total Used (mL) Total Wasted (mL) Omnipaque 150 150 0 End Study - Maximum Contrast Load Max Contrast Load (mL) 226.9 End Study - Radiation Exposure Fluoro Time Fluoro Dose (mGy) Cine Dose (uGym2) (minutes) 11.2 722 3907 End Study - Patient Disposition Complications Transferred To Interventional Outcome No Telemetry Bed successful
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
[2018-03-02 23:39] LABS: Calcium 8.3 mg/dL (8.5-10.1)
[2018-03-02 23:44] LABS: Activated Partial Thrombo Time 48.3 sec (24.3-30.1); INR 1.1 Ratio; Prothrombin Time 11.5 sec (9.8-11.6)
[2018-03-03 06:16] LABS: Anion Gap 9 meq/L (5-15); Blood Urea Nitrogen 10 mg/dL (7-18); Carbon Dioxide 23.8 meq/L (21.0-32.0); Chloride 109 meq/L (98-107); Glomerular Filtration Rate Greater Than 89 mL/min (>89); Glucose,Random 110 mg/dL (74-106); Potassium 4.3 meq/L (3.5-5.1); Sodium 142 meq/L (136-145)
[2018-03-03] MEDS: Metoprolol Tartrate 25 MG Tablet PO SCH ×2 (06:31→17:04)
[2018-03-03 06:48] LABS: Baso % (Auto) 0.2 % (0.0-2.0); Eos % (Auto) 0.1 % (0.0-4.0); Hematocrit 37.2 % (39.0-51.0); Hemoglobin 13.1 gm/dL (13.0-17.0); Lymph # (Auto) 1.6 th/mm3 (1.0-4.8); Mean Corpuscular HGB Conc 35.2 % (32.0-36.0); Mean Corpuscular Hemoglobin 33.5 pg (27.0-34.0); Mean Corpuscular Volume 95.1 fL (80.0-100.0); Mean Platelet Volume 9.3 fL (7.0-11.0); Mono # (Auto) 1.5 th/mm3 (0.0-0.9); Mono % (Auto) 28.4 % (0.0-8.0); Neut # (Auto) 2.1 th/mm3 (1.8-7.7); Neut % (Auto) 40.3 % (16.0-70.0); Platelet Count 252 th/mm3 (150-450); Red Blood Count 3.91 mil/mm3 (4.50-5.90); Red Cell Distribution Width 15.3 % (11.6-17.2); White Blood Count 5.2 th/mm3 (4.0-11.0)
--- NOTE | 2018-03-03 07:44 | MA ---
cc: Angel Martínez DO DATE: 03/02/2018 PROCEDURE: Left heart catheterization, coronary angiogram, moderate sedation 52 minutes, bare-metal stent x 2 to the right coronary artery (2.75 x 14 to the ostial right coronary artery, 2.25 x 18 to the mid right coronary artery). PREOPERATIVE DIAGNOSIS: Acute inferior ST elevation myocardial infarction, chest pain concerning for coronary insufficiency. POSTOPERATIVE DIAGNOSIS: Acute inferior ST-elevation myocardial infarction, status post bare-metal stent x 2 (2.75 x 14 to ostial right coronary artery, 2.25 x 18 to mid right coronary artery). CONTRAST USED: 150 mL. FLUOROSCOPY TIME: 11.2 minutes. ANESTHESIA: Moderate sedation 52 minutes. FRAILTY SCORE: 5. ESTIMATED BLOOD LOSS: 10 mL. PROCEDURAL SUMMARY: Manish Yoder is a pleasant 72-year-old male who originally presented for abdominal pain, nausea, vomiting, and diarrhea to [facility]. He was then noticed to have an abnormal QRS pattern on the rhythm strip as well as an elevated CK-MB. He was asked about chest pain and states that he had chest pain on and off for the past 24 hours and it was more significant this morning. EKG was done, which showed ST elevations in the inferior portion and a STEMI alert was called. Because of this, he was recommended cardiac catheterization. Risks, benefits, and alternatives were explained to him and he consented as such. He was brought to the lab and prepped in the usual sterile fashion. The right femoral artery was accessed using a modified Seldinger technique and placement of a 5-Turkish sheath. This was easily aspirated and flushed. A JR4 was advanced over a J-wire to the ascending aorta and across the aortic valve for measurement of left ventricular pressure. This was pulled back across the aortic valve showing a significant gradient of aortic stenosis. JR4 was used for selective angiography of the right coronary artery system. This was exchanged out for a JL3.5, which was used for selective angiography of the left coronary artery system. Please see notes below for intervention. FINDINGS: LEFT MAIN: He has a dual ostium left coronary system. LAD: Moderate size vessel with a 40% lesion in the proximal and mid portion. Distally no significant disease. It supplies 1 diagonal which has 40% ostial stenosis. LEFT CIRCUMFLEX: [id number] size vessel. It has a complex lesion of 80% before bifurcating into 1st and 2nd obtuse marginal. RCA: This is 99% occluded with thrombus at the ostial portion. Mid portion has an 80% lesion. LVEDP: 2. INTERVENTION: Because of the significance of disease in the RCA, the 5-Turkish sheath was exchanged for a 6-Turkish sheath. The patient was given heparin as an anticoagulant. A JR4 guide was engaged in the RCA. A BMW wire was advanced into the distal RCA. A compliant balloon (2 x 12) was used to pre-dilate the ostial lesion. A bare-metal stent (2.25 x 18) was then placed over the mid lesion and inflated. This was postdilated with a noncompliant balloon (2.5 x 12). As there was significant calcium also at the ostium, I felt that this needed to be further dilated. The noncompliant balloon (2.5 x 12) was used to pre-dilate this. A bare-metal stent (2.75 x 14) was placed over the ostial lesion and inflated. This was then postdilated with a noncompliant balloon (3 x 8) and again with a noncompliant balloon (3.25 x 8). The wire was removed and final angiogram shows 2 well opposed stents with no perforations or dissections. The guide was removed. Sheath was sutured in place with a plan to remove once ACT values were appropriate. The patient was loaded with 325 mg of aspirin and 600 mg of Plavix. He left the cathode maker cardiovascularly stable. INTERVENTIONAL DATA: Lesion 1 mid RCA, lesion length 16, pre-ABRAHAM 1, post-ABRAHAM 3, post-stenosis 20%. Lesion 2 ostial RCA culprit, lesion length 12, pre-ABRAHAM 1, post-ABRAHAM 3, post-stenosis 0. IMPRESSION: 1. Acute inferior ST elevation myocardial infarction, status post bare-metal stent x 2. 2. Hypertension. 3. History of prostate cancer with metastasis. RECOMMENDATIONS: 1. Mr. Yoder underwent PCI as above and will be recommended aspirin and Plavix therapy. 2. He was concerned about taking aspirin with his chemotherapy as he was told before that this should be avoided, but I explained that due to his necessity of stenting he should be on aspirin and Plavix. This will be discussed with Dr. Norris from Hematology/Oncology. 3. A 2-D echo to look at his overall left ventricular function, cardiac structure, and possible valvulopathies. 4. Hospitalist will be consulted to further take care of his abdominal pain and diarrhea with his known C. difficile. 5. We will continue him on his HEVER inhibitor therapy and add beta saurav and statin therapy. 6. We will plan on him being in the hospital for 48-72 hours from a cardiology perspective, but he does have other comorbidities which may make this longer depending on his hospital course. 7. Further recommendations will be made based on the hospital course. Thank you for allowing me to see Manish Yoder. If there are any questions, please do not hesitate to call. DO VALERIE TranP/faiza , 12:54 AM , 01:09 AM
[2018-03-03] MEDS: predniSONE 10 MG Tablet PO SCH (09:19)
[2018-03-03] MEDS: amLODIPine 10 MG Tablet PO SCH (09:19)
[2018-03-03] MEDS: Calcium/Vitamin D 250/125 MG Tablet PO SCH (09:20)
--- NOTE | 2018-03-03 12:11 | P.HPFP ---
History of Present Illness Primary Care Physician: Carol Ann Morillo <EricCarrie - 03/04/18 15:46> Carol Ann Morillo <AdamarishiraVu - 03/03/18 12:11> Chief Complaint: chest pain <AdamarishiraVu - 03/03/18 12:11> History of Present Illness: 72-year-old -Stateless male with history of prostate cancer, COPD presented to the ER yesterday with chest pain. Patient was initially admitted to cardiology with hospitalist service, then transferred over this morning due to being a [facility] patient. Patient presented with nausea and vomiting, states he had also been recently diagnosed with C. difficile about 3 weeks ago at his oncologist office, Dr. Norris and was taking Flagyl. Initial EKG done in the ER showed ST elevation with elevation of troponin and CK. Patient was diagnosed with STEMI and cardiology was consulted. Heparin was started and patient went back for cardiac clinical laboratory manager. 2 stents were placed due to significant coronary artery disease. Patient reports feeling better today, but still with significant fatigue. States he was scheduled for chemotherapy today, but unable to do because came to the ER. States he has not had a bowel movement for the last 2 days. Otherwise, denies any chest pain or shortness of breath. Some abdominal soreness from the diarrhea and the procedure. Denies any leg pain. <AdamarishiraVu - 03/03/18 12:11> - Diagnosis (1) ST elevation (STEMI) myocardial infarction (2) Prostate cancer (3) History of Clostridium difficile infection (4) Hypertension <Carrie Reyes - 03/04/18 15:46> (1) ST elevation (STEMI) myocardial infarction (2) Prostate cancer (3) History of Clostridium difficile infection (4) Hypertension <AdamarishiraVu - 03/03/18 11:44> Inpatient Certification: I certify that the inpatient services were ordered in accordance with Medicare regulations governing the order. This includes certification that hospital inpatient services are reasonable and necessary and in the case of services not specified as inpatient-only under 42 CFR 419.22(n), that they are appropriately provided as inpatient services in accordance to with the 2-midnight benchmark under 43 CFR 412.3(e) <[place] ConcordQuinnCarrie Vance - 03/04/18 15:46> I certify that the inpatient services were ordered in accordance with Medicare regulations governing the order. This includes certification that hospital inpatient services are reasonable and necessary and in the case of services not specified as inpatient-only under 42 CFR 419.22(n), that they are appropriately provided as inpatient services in accordance to with the 2-midnight benchmark under 43 CFR 412.3(e) <Vu Mann 03/03/18 12:11> Estimated Total Length of Stay (Days): 3 <Vu Mann 03/03/18 12:11> Plans for Post Hospital Care: Not yet determined <Vu Mann 03/03/18 12:11> Review of Systems Constitutional: Reports fatigue, Reports weight loss, Denies chills, Denies fever(s) <AdamarishiraVu 03/03/18 12:11> Eyes: Denies blind spots, Denies blurry vision <annhiraVu Perdomo 03/03/18 12 :11> Ears, Nose, Mouth, and Throat: Denies abnormal hearing <AdamarishiraVu 05/10 12:11> Cardiovascular: Denies chest pain, Denies irregular heart rhythm, Denies lightheadedness, Denies rapid, pounding, or irregular heartbeat, Denies shortness of breath when lying down <AdamarisihraVu 03/03/18 12:11> Respiratory: Denies shortness of breath, Denies wheezing <annhiraVu 03/03/18 12:11> Gastrointestinal: Denies abdominal pain, Denies black, tarry stools, Denies bright, red blood in stools, Denies loose stools, Denies vomiting <annhira Vu Perdomo 03/03/18 12:11> Genitourinary: Denies blood in urine <annhiraVu 03/03/18 12:11> Musculoskeletal: Reports body aches, Reports decreased muscle mass, Denies back pain, Denies joint pain <AdamarishiraVu 03/03/18 12:11> Skin/Breast: Denies changing lesions, Denies lesions, Denies redness <Fredylul Vu Perdomo 03/03/18 12:11> Neurologic: Denies abnormal hearing, Denies abnormal movements, Denies abnormal speech, Denies dizziness, Denies fainting, Denies frequent falls, Denies headache(s), Denies seizure-like activity <FredylulVu Perdomo 03/03/18 12:11> PMF - History History Provided By: Patient <AdamarishiraVu 03/03/18 12:11> - Medical History Medical History: Medical History (Last Updated 03/03/18 @ 11:53 by Vu Mann MD, R3) C. difficile diarrhea COPD (chronic obstructive pulmonary disease) Hypertension Prostate cancer <Carrie Reyes 03/04/18 15:46> Medical History (Last Updated 03/03/18 @ 11:53 by Vu Mann MD, R3) C. difficile diarrhea COPD (chronic obstructive pulmonary disease) Hypertension Prostate cancer <FredyVu mccarty 03/03/18 12:11> - Surgical History Surgical History: Surgical History (Last Updated 03/03/18 @ 11:54 by Vu Mann MD, R3) H/O abdominal surgery H/O prostatectomy History of ERCP History of appendectomy <Carrie Reyes 03/04/18 15:46> Surgical History (Last Updated 03/03/18 @ 11:54 by Vu Mann MD, R3) H/O abdominal surgery H/O prostatectomy History of ERCP History of appendectomy <Vu Mann 03/03/18 12:11> - Tobacco History Second Hand Smoke Exposure: No <Vu Mann 03/03/18 12:11> Tobacco Use In Past 30 Days: Yes <Vu Mann 03/03/18 12:11> Smoking Status: Former smoker <FredyVu mccarty 03/03/18 12:11> Tobacco Type: Cigarettes <Vu Mann 03/03/18 12:11> Packs Per Day: 1 <Vu Mann 03/03/18 12:11> Years Smoked: 20 <Vu Mann 03/03/18 12:11> - Alcohol History How Often Do You Have a Drink Containing Alcohol: Never <Vu Mann 12:11> - Substance Use History Substance History: Active Abuse <Vu Mann 03/03/18 12:11> - Substance Use Type Marijuana Status: Active <Vu Mann Leanne 03/03/18 12:11> Route Used: Inhalation <Vu Mann Leanne 03/03/18 12:11> Frequency: SOMETIMES <Vu Mann 03/03/18 12:11> Last Used: unknown <Vu Mann Leanne 03/03/18 12:11> Comment: uses it to increase appetite with chemo <Vu Mann Leanne 03/03/18 12:11> - Travel History Recent Travel in the [facility] Within the Last 8 Weeks: No <Vu Mann Leanne 03/03 12:11> Recent Travel Out of the Country Within the Last 8 Weeks: No <Vu Mann 03/03/18 12:11> - Immunization History Tetanus Immunization: Unsure <AdamarishiraVu Leanne 03/03/18 12:11> Hx Influenza Vaccine This Season: No <Vu Mann Leanne 03/03/18 12:11> Medications and Allergies Allergies Allergy/AdvReac Type Severity Reaction Status Date / Time penicillin G AdvReac Mild HIVES Verified 03/04/18 00:55 ITCHING SWELLING <Carrie Reyes - 03/04/18 15:46> Home Medications Medication Instructions Recorded Confirmed Type amlodipine 10 mg PO DAILY 03/02/18 03/02/18 History calcium carbonate-vitamin D3 1 tab PO DAILY 03/02/18 03/02/18 History [Calcium 600 + D(3)] enalapril maleate 20 mg PO DAILY 03/02/18 03/02/18 History megestrol 40 mg PO DAILY 03/02/18 03/02/18 History metoprolol tartrate 03/02/18 History omeprazole 40 mg PO DAILY 03/02/18 03/02/18 History potassium chloride 20 meq PO DAILY 03/02/18 03/02/18 History prednisone 10 mg PO DAILY 03/02/18 03/02/18 History hydromorphone PRN 03/03/18 03/03/18 History <Carrie Reyes - 03/04/18 15:46> Active Medications: Active Medications Amlodipine Besylate (Norvasc) 10 mg PO DAILY [facility] Last Admin: 03/04/18 08:52 Dose: 10 mg Aspirin (Aspirin Chew) 81 mg PO DAILY [facility] Last Admin: 03/04/18 08:52 Dose: 81 mg Atorvastatin Calcium (Lipitor) 40 mg PO HS [facility] Last Admin: 03/03/18 22:03 Dose: 40 mg Calcium/Vitamin D (Oscal With D 250/125 Mg) 2 tab PO DAILY [facility] Last Admin: 03/04/18 08:53 Dose: 2 tab Clopidogrel Bisulfate (Plavix) 75 mg PO DAILY [facility] Last Admin: 03/04/18 08:52 Dose: 75 mg Enalapril Maleate (Vasotec) 20 mg PO DAILY [facility] Last Admin: 03/04/18 08:52 Dose: 20 mg Hydromorphone HCl (Dilaudid) 4 mg PO Q6H PRN PRN Reason: PAIN SCALE 6 TO 10 Last Admin: 03/04/18 15:26 Dose: 4 mg Megestrol Acetate (Megace) 40 mg PO DAILY [facility] Last Admin: 03/04/18 08:52 Dose: 40 mg Metoprolol Tartrate (Lopressor) 12.5 mg PO BID@0600,1800 [facility] Last Admin: 03/04/18 06:06 Dose: 12.5 mg Miscellaneous (Pill Splitter) 1 each OTHER UNSCH PRN PRN Reason: SEE LABEL COMMENTS Pantoprazole Sodium (Protonix) 40 mg PO DAILY [facility] Last Admin: 03/04/18 08:51 Dose: 40 mg Prednisone (Deltasone) 10 mg PO DAILY [facility] Last Admin: 03/04/18 08:51 Dose: 10 mg Sodium Chloride (Ns Flush) 2 ml IV.FLUSH BID [facility] Last Admin: 03/04/18 08:53 Dose: 2 ml Sodium Chloride (Ns Flush) 2 ml IV.FLUSH PRN PRN PRN Reason: FLUSH AFTER USING IV ACCESS <Carrie Reyes - 03/04/18 15:46> Active Medications Amlodipine Besylate (Norvasc) 10 mg PO DAILY [facility] Last Admin: 03/03/18 09:19 Dose: 10 mg Aspirin (Aspirin Chew) 81 mg PO DAILY [facility] Last Admin: 03/03/18 09:19 Dose: 81 mg Atorvastatin Calcium (Lipitor) 40 mg PO HS [facility] Last Admin: 03/03/18 00:41 Dose: 40 mg Calcium/Vitamin D (Oscal With D 250/125 Mg) 2 tab PO DAILY [facility] Last Admin: 03/03/18 09:20 Dose: 2 tab Clopidogrel Bisulfate (Plavix) 75 mg PO DAILY [facility] Last Admin: 03/03/18 09:19 Dose: 75 mg Enalapril Maleate (Vasotec) 20 mg PO DAILY [facility] Last Admin: 03/03/18 09:19 Dose: 20 mg Sodium Chloride (Ns Inj) 1,000 mls @ 30 mls/hr IV.SIG .Q24H [facility] Stop: 03/03/18 19:14 Last Admin: 03/03/18 00:43 Dose: Not Given Megestrol Acetate (Megace) 40 mg PO DAILY [facility] Last Admin: 03/03/18 09:19 Dose: 40 mg Metoprolol Tartrate (Lopressor) 12.5 mg PO BID@0600,1800 [facility] Last Admin: 03/03/18 06:31 Dose: 12.5 mg Miscellaneous (Pill Splitter) 1 each OTHER UNSCH PRN PRN Reason: SEE LABEL COMMENTS Pantoprazole Sodium (Protonix) 40 mg PO DAILY [facility] Last Admin: 03/03/18 09:18 Dose: 40 mg Prednisone (Deltasone) 10 mg PO DAILY [facility] Last Admin: 03/03/18 09:19 Dose: 10 mg Sodium Chloride (Ns Flush) 2 ml IV.FLUSH BID [facility] Last Admin: 03/03/18 09:20 Dose: 2 ml Sodium Chloride (Ns Flush) 2 ml IV.FLUSH PRN PRN PRN Reason: FLUSH AFTER USING IV ACCESS <Vu Mann - 03/03/18 12:11> Exam Vital signs: Vital Signs 03/03/18 16:55 03/03/18 16:59 03/03/18 17:03 Temperature 98.2 F Pulse Rate 77 80 80 Respiratory Rate 17 Blood Pressure 124/73 Pulse Oximetry 100 03/03/18 17:25 03/03/18 18:33 03/03/18 19:00 Temperature Pulse Rate 82 84 Respiratory Rate Blood Pressure Pulse Oximetry 100 03/03/18 20:00 03/03/18 21:00 03/03/18 22:00 Temperature 98.9 F Pulse Rate 77 78 80 Respiratory Rate 16 Blood Pressure 115/74 Pulse Oximetry 100 03/03/18 23:00 03/04/18 00:00 03/04/18 00:05 Temperature 99 F Pulse Rate 82 81 Respiratory Rate 16 16 Blood Pressure 111/73 Pulse Oximetry 99 03/04/18 01:00 03/04/18 02:00 03/04/18 03:00 Temperature Pulse Rate 81 86 78 Respiratory Rate Blood Pressure Pulse Oximetry 03/04/18 04:00 03/04/18 05:00 03/04/18 06:00 Temperature 98.4 F Pulse Rate 80 83 86 Respiratory Rate 16 Blood Pressure 123/72 Pulse Oximetry 99 03/04/18 07:00 03/04/18 08:00 03/04/18 09:00 Temperature 97.2 F L Pulse Rate 78 78 80 Respiratory Rate 16 Blood Pressure 129/76 Pulse Oximetry 100 03/04/18 09:39 03/04/18 11:00 03/04/18 11:51 Temperature Pulse Rate 78 78 75 Respiratory Rate Blood Pressure Pulse Oximetry 03/04/18 11:57 03/04/18 11:58 03/04/18 13:00 Temperature 97.9 F Pulse Rate 81 82 Respiratory Rate 18 18 Blood Pressure 117/88 Pulse Oximetry 98 03/04/18 14:00 03/04/18 14:40 Temperature Pulse Rate 77 90 Respiratory Rate Blood Pressure Pulse Oximetry Intake & Output 03/03/18 03/04/18 03/04/18 18:59 06:59 18:59 Intake Total 1480 / 1480 480 / 480 Output Total 420 / 420 400 / 400 Balance 1060 / 1060 80 / 80 Intake: IV 1000 / 1000 NS Inj 1,000 ML @ 70 mls/hr IV. 1000 / 1000 CONT .[id number] [facility] Rx#:[id number] Oral 480 / 480 480 / 480 Output: Urine 420 / 420 400 / 400 Other: Date of Last Bowel Movement 03/02/18 # Bowel Movements 0 <Carrie Reyes M - 03/04/18 15:46> Vital Signs 03/02/18 16:18 03/02/18 18:50 03/02/18 19:00 Temperature 98.0 F Pulse Rate 87 112 H 140 H Respiratory Rate 18 19 16 Blood Pressure 158/91 H 135/69 127/62 Pulse Oximetry 96 99 99 03/02/18 19:05 03/02/18 19:10 03/02/18 19:15 Temperature Pulse Rate 142 H 122 H 121 H Respiratory Rate 20 17 16 Blood Pressure 127/62 139/60 111/60 Pulse Oximetry 99 99 03/02/18 19:23 03/02/18 20:00 03/02/18 21:15 Temperature 97.9 F Pulse Rate 91 H Respiratory Rate 16 Blood Pressure 136/84 Pulse Oximetry 97 95 100 03/02/18 22:00 03/02/18 23:00 03/03/18 00:00 Temperature 98.1 F Pulse Rate 104 H 106 H 106 H Respiratory Rate 16 Blood Pressure 122/73 Pulse Oximetry 100 03/03/18 01:00 03/03/18 02:00 03/03/18 03:00 Temperature Pulse Rate 110 H 99 H 103 H Respiratory Rate Blood Pressure Pulse Oximetry 03/03/18 04:00 03/03/18 05:00 03/03/18 06:00 Temperature 98.6 F Pulse Rate 103 H 106 H 105 H Respiratory Rate 16 Blood Pressure 120/72 Pulse Oximetry 100 03/03/18 09:05 Temperature 98.5 F Pulse Rate 93 H Respiratory Rate 18 Blood Pressure 113/66 Pulse Oximetry 100 Intake & Output 03/02/18 03/03/18 03/03/18 18:59 06:59 18:59 Intake Total 480 / 480 Output Total 325 / 325 Balance 155 / 155 Weight 49.895 kg Intake: Oral 480 / 480 Output: Urine 325 / 325 Other: # Bowel Movements 0 <Vu Mann - 03/03/18 12:11> Narrative: GENERAL: lying in bed, NAD SKIN: Warm and dry. HEAD: Atraumatic. Normocephalic. EYES: Pupils equal and round. No scleral icterus. No injection or drainage. ENT: No nasal bleeding or discharge. Mucous membranes pink and moist. NECK: Trachea midline. No JVD. CARDIOVASCULAR: Regular rate and rhythm. RESPIRATORY: No accessory muscle use. Clear to auscultation. Breath sounds equal bilaterally. GASTROINTESTINAL: Abdomen soft, nondistended. Diffusely, mild tender to palpation. MUSCULOSKELETAL: Extremities without clubbing, cyanosis, or edema. No obvious deformities. Right groin bandage clean/dry NEUROLOGICAL: Awake and alert. No obvious cranial nerve deficits. Motor grossly within normal limits. Normal speech. PSYCHIATRIC: Appropriate mood and affect; insight and judgment normal. <Vu Mann - 03/03/18 12:11> Results - Labs Result diagrams: 03/04/18 06:08 03/04/18 06:08 <EricCarrie M - 03/04/18 15:46> Abnormal lab results 03/04/18 Range/Units 06:08 RBC 3.67 L (4.50-5.90) mil/mm3 Hgb 12.2 L (13.0-17.0) gm/dL Hct 34.5 L (39.0-51.0) % Short CBC 03/04/18 Range/Units 06:08 WBC 6.1 (4.0-11.0) th/mm3 Hgb 12.2 L (13.0-17.0) gm/dL Hct 34.5 L (39.0-51.0) % Plt Count 253 (150-450) th/mm3 BMP 03/04/18 06:08 Sodium 142 Potassium 4.0 Chloride 106 Carbon Dioxide 29.0 BUN 10 Creatinine 0.73 Calcium 8.8 D <Carrie Reyes - 03/04/18 15:46> Abnormal lab results 03/02/18 03/02/18 03/02/18 Range/Units 16:50 16:50 16:50 RBC (4.50-5.90) mil/mm3 Hct (39.0-51.0) % Coffee % (Auto) 20.3 H (0.0-8.0) % Coffee # (Auto) (0.0-0.9) th/mm3 APTT (24.3-30.1) sec Chloride (98-107) meq/L Estimated GFR 78 L (>89) mL/min Random Glucose 109 H (74-106) mg/dL Calcium (8.5-10.1) mg/dL AST 56 H (15-37) U/L Total Creatine Kinase 374 H (39-308) U/L CK-MB (CK-2) 39.9 H (0.5-3.6) ng/mL CK-MB (CK-2) % 10.7 H* (0.0-4.0) % Troponin I (0.02-0.05) ng/mL Lipase 52 L (73-393) U/L Urine Clarity (Clear) Urine Protein (Neg-Trace) mg/dL Urine Ketones (Negative) mg/dL Urine Mucus (Occasional) /lpf 03/02/18 03/02/18 03/02/18 Range/Units 16:50 18:00 22:50 RBC (4.50-5.90) mil/mm3 Hct (39.0-51.0) % Coffee % (Auto) (0.0-8.0) % Coffee # (Auto) (0.0-0.9) th/mm3 APTT 48.3 H (24.3-30.1) sec Chloride (98-107) meq/L Estimated GFR (>89) mL/min Random Glucose (74-106) mg/dL Calcium (8.5-10.1) mg/dL AST (15-37) U/L Total Creatine Kinase (39-308) U/L CK-MB (CK-2) (0.5-3.6) ng/mL CK-MB (CK-2) % (0.0-4.0) % Troponin I 2.20 H* (0.02-0.05) ng/mL Lipase (73-393) U/L Urine Clarity Cloudy H (Clear) Urine Protein 30 H (Neg-Trace) mg/dL Urine Ketones Trace H (Negative) mg/dL Urine Mucus Few H (Occasional) /lpf 03/02/18 03/03/18 03/03/18 Range/Units 22:50 05:22 05:22 RBC 3.91 L (4.50-5.90) mil/mm3 Hct 37.2 L (39.0-51.0) % Coffee % (Auto) 28.4 H (0.0-8.0) % Coffee # (Auto) 1.5 H (0.0-0.9) th/mm3 APTT (24.3-30.1) sec Chloride 109 H (98-107) meq/L Estimated GFR (>89) mL/min Random Glucose 110 H (74-106) mg/dL Calcium 8.3 L D 8.0 L (8.5-10.1) mg/dL AST (15-37) U/L Total Creatine Kinase (39-308) U/L CK-MB (CK-2) (0.5-3.6) ng/mL CK-MB (CK-2) % (0.0-4.0) % Troponin I (0.02-0.05) ng/mL Lipase (73-393) U/L Urine Clarity (Clear) Urine Protein (Neg-Trace) mg/dL Urine Ketones (Negative) mg/dL Urine Mucus (Occasional) /lpf Short CBC 03/02/18 03/03/18 Range/Units 16:50 05:22 WBC 4.6 5.2 (4.0-11.0) th/mm3 Hgb 15.2 13.1 D (13.0-17.0) gm/dL Hct 43.4 37.2 L (39.0-51.0) % Plt Count 299 252 (150-450) th/mm3 BMP 03/02/18 03/02/18 03/03/18 16:50 22:50 05:22 Sodium 140 142 Potassium 4.0 4.3 Chloride 105 109 H Carbon Dioxide 22.2 23.8 BUN 9 10 Creatinine 1.12 0.87 Calcium 9.1 8.3 L D 8.0 L Cardiac Enzymes 03/02/18 03/02/18 Range/Units 16:50 16:50 Total Creatine Kinase 374 H (39-308) U/L CK-MB (CK-2) 39.9 H (0.5-3.6) ng/mL Troponin I 2.20 H* (0.02-0.05) ng/mL Liver Function 03/02/18 Range/Units 16:50 Total Bilirubin 0.5 (0.2-1.0) mg/dL AST 56 H (15-37) U/L ALT 15 (12-78) U/L Alkaline Phosphatase 93 (45-117) U/L Albumin 3.5 (3.4-5.0) g/dL Urine 03/02/18 Range/Units 18:00 Urine Color Yellow (Yellw/Straw) Urine Clarity Cloudy H (Clear) Urine pH 5.0 (5.0-8.5) Ur Specific Margie 1.013 (1.002-1.035) Urine Protein 30 H (Neg-Trace) mg/dL Urine Glucose (UA) Negative (Negative) mg/dL <Vu Mann - 03/03/18 12:11> - Imaging Impressions Lower Extremity Ultrasound 03/03/18 00:00 CONCLUSION: No evidence of pseudoaneurysm or significant hematoma <Carrie Reyes - 03/04/18 15:46> Impressions Abdomen/Pelvis CT 03/02/18 16:15 CONCLUSION: 1. Nonspecific bowel gas pattern without significant change. This may represent a mild ileus. 2. No significant change in the metastatic retroperitoneal adenopathy. 3. Stent catheter remains in place with stable appearance the biliary system with mild dilatation. 4. Sclerotic osseous metastasis is again noted. Chest X-Ray 03/02/18 16:15 CONCLUSION: Stable chest x-ray with findings characteristic of obstructive airways disease with stable large bulla at the apex of the left hemithorax measuring at least 12 cm. Chest X-Ray 03/02/18 19:04 CONCLUSION: No significant change. 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 <Vu Mann - 03/03/18 12:11> Caprini VTE Risk Assessment Caprini VTE Risk Assessment: Moderate/High Risk (score >= 2) <Vu Mann - 03/03/18 12:11> Caprini Risk Assessment Model: Point Value = 1 Point Value = 2 Point Value = 3 Point Value = 5 Age 41-60 Minor surgery BMI > 25 kg/m2 Swollen legs Varicose veins or History of unexplained or recurrent spontaneous Oral contraceptives or hormone replacement Sepsis (< 1 month) Serious lung disease, including pneumonia (< 1 month) Abnormal pulmonary function Acute myocardial infarction Congestive heart failure (< 1 month) History of inflammatory bowel disease Medical patient at bed rest Age 61-74 Arthroscopic surgery Major open surgery (> 45 min) Laparoscopic surgery (> 45 min) Malignancy Confined to bed (> 72 hours) Immobilizing plaster cast Central venous access Age >= 75 History of VTE Family history of VTE Factor V Leiden Prothrombin [id number] Lupus anticoagulant Anticardiolipin antibodies Elevated serum homocysteine Heparin-induced thrombocytopenia Other congenital or acquired thrombophilia Stroke (< 1 month) Elective arthroplasty Hip, pelvis, or leg fracture Acute spinal cord injury (< 1 month) <Carrie Reyes - 03/04/18 15:46> Point Value = 1 Point Value = 2 Point Value = 3 Point Value = 5 Age 41-60 Minor surgery BMI > 25 kg/m2 Swollen legs Varicose veins or History of unexplained or recurrent spontaneous Oral contraceptives or hormone replacement Sepsis (< 1 month) Serious lung disease, including pneumonia (< 1 month) Abnormal pulmonary function Acute myocardial infarction Congestive heart failure (< 1 month) History of inflammatory bowel disease Medical patient at bed rest Age 61-74 Arthroscopic surgery Major open surgery (> 45 min) Laparoscopic surgery (> 45 min) Malignancy Confined to bed (> 72 hours) Immobilizing plaster cast Central venous access Age >= 75 History of VTE Family history of VTE Factor V Leiden Prothrombin [id number] Lupus anticoagulant Anticardiolipin antibodies Elevated serum homocysteine Heparin-induced thrombocytopenia Other congenital or acquired thrombophilia Stroke (< 1 month) Elective arthroplasty Hip, pelvis, or leg fracture Acute spinal cord injury (< 1 month) <Vu Mann - 03/03/18 12:11> Prophylaxis Regimen: Total Risk Factor Score Risk Level Prophylaxis Regimen 0-1 Low Early ambulation 2 Moderate Order ONE of the following: *Sequential Compression Device (SCD) *Heparin 5000 units SQ BID 3-4 Higher Order ONE of the following medications: *Heparin 5000 units SQ TID *Enoxaparin/Lovenox 40 mg SQ daily (WT < 150 kg, CrCl > 30 mL/min) *Enoxaparin/Lovenox 30 mg SQ daily (WT < 150 kg, CrCl > 10-29 mL/min) *Enoxaparin/Lovenox 30 mg SQ BID (WT < 150 kg, CrCl > 30 mL/min) AND/OR *Sequential Compression Device (SCD) 5 or more Highest Order ONE of the following medications: *Heparin 5000 units SQ TID (Preferred with Epidurals) *Enoxaparin/Lovenox 40 mg SQ daily (WT < 150 kg, CrCl > 30 mL/min) *Enoxaparin/Lovenox 30 mg SQ daily (WT < 150 kg, CrCl > 10-29 mL/min) *Enoxaparin/Lovenox 30 mg SQ BID (WT < 150 kg, CrCl > 30 mL/min) AND *Sequential Compression Device (SCD) <Carrie Reyes - 03/04/18 15:46> Total Risk Factor Score Risk Level Prophylaxis Regimen 0-1 Low Early ambulation 2 Moderate Order ONE of the following: *Sequential Compression Device (SCD) *Heparin 5000 units SQ BID 3-4 Higher Order ONE of the following medications: *Heparin 5000 units SQ TID *Enoxaparin/Lovenox 40 mg SQ daily (WT < 150 kg, CrCl > 30 mL/min) *Enoxaparin/Lovenox 30 mg SQ daily (WT < 150 kg, CrCl > 10-29 mL/min) *Enoxaparin/Lovenox 30 mg SQ BID (WT < 150 kg, CrCl > 30 mL/min) AND/OR *Sequential Compression Device (SCD) 5 or more Highest Order ONE of the following medications: *Heparin 5000 units SQ TID (Preferred with Epidurals) *Enoxaparin/Lovenox 40 mg SQ daily (WT < 150 kg, CrCl > 30 mL/min) *Enoxaparin/Lovenox 30 mg SQ daily (WT < 150 kg, CrCl > 10-29 mL/min) *Enoxaparin/Lovenox 30 mg SQ BID (WT < 150 kg, CrCl > 30 mL/min) AND *Sequential Compression Device (SCD) <Vu Mann - 03/03/18 12:11> Assessment and Plan - Assessment (1) ST elevation (STEMI) myocardial infarction Code(s): I21.3 - ST elevation (STEMI) myocardial infarction of unspecified site Status: Acute (2) Prostate cancer Code(s): C61 - Malignant neoplasm of prostate Status: Acute (3) History of Clostridium difficile infection Code(s): Z86.19 - Personal history of other infectious and parasitic diseases Status: Acute (4) Hypertension Code(s): I10 - Essential (primary) hypertension Status: Acute <Carrie Reyes - 03/04/18 15:46> (1) ST elevation (STEMI) myocardial infarction Code(s): I21.3 - ST elevation (STEMI) myocardial infarction of unspecified site Status: Acute Plan: Patient presented to ER with chest pain, found to have ST elevation on EKG as well as elevated troponin up to 2.2. Patient was urgently taken to clinical laboratory manager on 03/02. 2 stents placed. Cardiology consulted-appreciate recs -Started on ASA and plavix -Echo pending -Continue HEVER -Add BB and statin Telemetry (2) Prostate cancer Code(s): C61 - Malignant neoplasm of prostate Status: Acute Plan: History of prostate cancer with metastasis. Currently undergoing IV chemotherapy q3 weeks. Was due this week. Dr. Norris is his oncologist-will notify office. Chemotherapy will need to be delayed Pain control with home Dilaudid PRN Continue home prednisone 10mg daily (3) History of Clostridium difficile infection Code(s): Z86.19 - Personal history of other infectious and parasitic diseases Status: Acute Plan: History of recurrent C. difficile. Was last tested positive on 02/13 at his oncologist office. Per patient, has been on Flagyl for the last couple weeks. Reports no bowel movement for the last 2 days. -C. difficile pending from ER We will hold treatment at this time, may be treated. -If positive again, will likely need p.o. vancomycin treatment (4) Hypertension Code(s): I10 - Essential (primary) hypertension Status: Acute Plan: Continue home meds amlodipine and enalapril <Vu Mann - 03/03/18 11:44> - Assessment and Plan 72-year-old male with history of prostate cancer with metastases presents with chest pain, found to have STEMI. Admitted and after PCI 2 stents were placed. No managing post cardiac care as well as other medical management. <Vu Mann - 03/03/18 12:11> Discussed Condition With: Dr. Reyes <Vu Mann - 03/03/18 12:11> - Attending Attestation The exam, history, and the medical decision-making described in the above note were completed with the assistance of the resident physician. I reviewed and agree with the findings presented. I attest that I had a [id number] encounter with the patient on the same day, and personally performed and documented my assessment and findings in the medical record. saw him on the day of admission/day we were consulted which was after his stent <Carrie Reyes - 03/04/18 15:46> H&P: Quality - VTE Deep Vein Thrombosis/Pulmonary Embolism Present on Admission: No <Vu Mann - 03/03/18 12:11> <Vu Mann - Last Filed: 03/03/18 11:44> (1) ST elevation (STEMI) myocardial infarction Qualifiers: Involved coronary artery: unspecified coronary artery Qualified Code(s): I21.3 - ST elevation (STEMI) myocardial infarction of unspecified site <Carrie Reyes M - Last Filed: 03/04/18 15:46> (1) ST elevation (STEMI) myocardial infarction Qualifiers: Involved coronary artery: unspecified coronary artery Qualified Code(s): I21.3 - ST elevation (STEMI) myocardial infarction of unspecified site <Vu Mann J - Last Filed: 03/03/18 11:44> (1) ST elevation (STEMI) myocardial infarction Qualifiers: Involved coronary artery: unspecified coronary artery Qualified Code(s): I21.3 - ST elevation (STEMI) myocardial infarction of unspecified site <Carrie Reyes M - Last Filed: 03/04/18 15:46> (1) ST elevation (STEMI) myocardial infarction Qualifiers: Involved coronary artery: unspecified coronary artery Qualified Code(s): I21.3 - ST elevation (STEMI) myocardial infarction of unspecified site
--- NOTE | 2018-03-03 13:01 | P.PNCA ---
Subjective Interval history: No events overnight Feels better, no chest pain Still with abdominal pain Physical Exam Vital signs: Vital Signs 03/02/18 16:18 03/02/18 18:50 03/02/18 19:00 Temperature 98.0 F Pulse Rate 87 112 H 140 H Respiratory Rate 18 19 16 Blood Pressure 158/91 H 135/69 127/62 Pulse Oximetry 96 99 99 03/02/18 19:05 03/02/18 19:10 03/02/18 19:15 Temperature Pulse Rate 142 H 122 H 121 H Respiratory Rate 20 17 16 Blood Pressure 127/62 139/60 111/60 Pulse Oximetry 99 99 03/02/18 19:23 03/02/18 20:00 03/02/18 21:15 Temperature 97.9 F Pulse Rate 91 H Respiratory Rate 16 Blood Pressure 136/84 Pulse Oximetry 97 95 100 03/02/18 22:00 03/02/18 23:00 03/03/18 00:00 Temperature 98.1 F Pulse Rate 104 H 106 H 106 H Respiratory Rate 16 Blood Pressure 122/73 Pulse Oximetry 100 03/03/18 01:00 03/03/18 02:00 03/03/18 03:00 Temperature Pulse Rate 110 H 99 H 103 H Respiratory Rate Blood Pressure Pulse Oximetry 03/03/18 04:00 03/03/18 05:00 03/03/18 06:00 Temperature 98.6 F Pulse Rate 103 H 106 H 105 H Respiratory Rate 16 Blood Pressure 120/72 Pulse Oximetry 100 03/03/18 09:05 Temperature 98.5 F Pulse Rate 93 H Respiratory Rate 18 Blood Pressure 113/66 Pulse Oximetry 100 Intake & Output 03/02/18 03/03/18 03/03/18 18:59 06:59 18:59 Intake Total 480 / 480 Output Total 325 / 325 Balance 155 / 155 Weight 49.895 kg Intake: Oral 480 / 480 Output: Urine 325 / 325 Other: # Bowel Movements 0 Narrative: GENERAL: NAD, AAOx3, thin/cachectic SKIN: Warm and dry. HEAD: Atraumatic. Normocephalic. EYES: Pupils equal and round. No scleral icterus. No injection or drainage. ENT: No nasal bleeding or discharge. Mucous membranes pink and moist. NECK: Trachea midline. No JVD. CARDIOVASCULAR: Regular rate and rhythm. RESPIRATORY: No accessory muscle use. Clear to auscultation. Breath sounds equal bilaterally. GASTROINTESTINAL: Abdomen soft, non-tender, nondistended. Hepatic and splenic margins not palpable. MUSCULOSKELETAL: Extremities without clubbing, cyanosis, or edema. Right femoral mildly sore NEUROLOGICAL: Awake and alert. No obvious cranial nerve deficits. Motor grossly within normal limits. Five out of 5 muscle strength in the arms and legs. Normal speech. PSYCHIATRIC: Appropriate mood and affect; insight and judgment normal. Assessment and Plan - Assessment (1) CAD (coronary artery disease) Code(s): I25.10 - Atherosclerotic heart disease of [place] coronary artery without angina pectoris Status: Acute (2) PAD (peripheral artery disease) Code(s): I73.9 - Peripheral vascular disease, unspecified Status: Acute (3) ST elevation (STEMI) myocardial infarction Code(s): I21.3 - ST elevation (STEMI) myocardial infarction of unspecified site Status: Acute (4) History of Clostridium difficile infection Code(s): Z86.19 - Personal history of other infectious and parasitic diseases Status: Acute (5) Prostate cancer Code(s): C61 - Malignant neoplasm of prostate Status: Acute (6) Hypertension Code(s): I10 - Essential (primary) hypertension Status: Acute - Plan 1) Acute STEMI s/p BMSx2 to RCA ASA/Plavix Con't HEVER-I Added BB/Statin 2) 2D echo pending 3) Residual CAD Complex lesion of the OM Due to comorbidities, would attempt to treat medically 4) PAD Con't medical management 5) Groin pain Will check US to rule out PSA (3) ST elevation (STEMI) myocardial infarction Qualifiers: Involved coronary artery: unspecified coronary artery Qualified Code(s): I21.3 - ST elevation (STEMI) myocardial infarction of unspecified site
--- NOTE | 2018-03-03 13:52 | ECG ---
Date Performed: 03/02/2018 Time Performed: 18:49:59 PTAGE: 72 years EKG: ATRIAL FIBRILLATION WITH RAPID VENTRICULAR RESPONSE LEFT ANTERIOR FASCICULAR BLOCK MARKED S T ELEVATION, CONSIDER INFERIOR INJURY ACUTE PR Inferior ST elevation is new since prior tracing , possible acute infarct, reciprocal ST depression anteriorly noted Clinical correlation is strongly recommended PREVIOUS TRACING : 10/15/2017 19.19 DOCTOR: Ricky Hernandez Interpretating Date/Time 03/03/2018 13:51:41
--- NOTE | 2018-03-03 13:52 | ECG ---
Date Performed: 03/03/2018 Time Performed: 05:32:50 PTAGE: 72 years EKG: Sinus tachycardia with PVC(s) Consider left atrial abnormality Left axis deviation Inferior infarct - age undetermined Anteroseptal ST changes suggest myocardial injury/ischemia Inferior infar ct in evolution Clinical correlation is recommended Abnormal ECG PREVIOUS TRACING : 03/02/2018 18.49 DOCTOR: Ricky Hernandez Interpretating Date/Time 03/03/2018 13:52:03
--- NOTE | 2018-03-03 15:47 | US ---
EXAM DATE: 03/03/2018 3:28 PM EDT AGE/SEX: 72 years / Male INDICATIONS: Right groin cardiac catheterization. Right groin pain. CLINICAL DATA: This is the patient's initial encounter. Patient reports that signs and symptoms have been present for 1 day and indicates a pain score of 7/10. MEDICAL/SURGICAL HISTORY: Hypertension. Chronic obstructive pulmonary disease. C. difficile di arrhea.Prostate Cancer. Prostatectomy. Appendectomy. Abdominal surgery.Ercp. COMPARISON: No prior exams available for comparison. TECHNIQUE: [place]-scale and color Doppler imaging of the inguinal region was performed. FINDINGS: Vascular: The arteries and veins in the inguinal region demonstrate no acute abnormality. There is no aneurysm, pseudoaneurysm, or thrombosis. Other: No hematoma is present. The visualized surrounding structures demonstrate no abnormality. CONCLUSION: No evidence of pseudoaneurysm or significant hematoma Electronically signed by: Jorge Sawyer MD 03/03/2018 3:46 PM EDT
--- NOTE | 2018-03-03 18:20 | ECHRPT ---
Indication: Coronary Atherosclerosis CONCLUSIONS The left ventricular systolic function is mildly reduced with an estimated ejection fraction in the range of 45- 50%. There is apical and mid to apical septal wall hypokinesis. Trace mitral valve regurgitation. Calcification of the anterior mitral valve leaflet. There is trace tricuspid valve regurgitation. The estimated pulmonary arterial pressure is 29 mmHg. BP: / HR: Rhythm: MEASUREMENTS (Male / Female) Normal Values Technical Quality:Fair 2D ECHO LV Diastolic Diameter PLAX 4.2 cm 4.2 - 5.9 / 3.9 - 5.3 cm LV Systolic Diameter PLAX 2.7 cm IVS Diastolic Thickness 1.0 cm 0.6 - 1.0 / 0.6 - 0.9 cm LVPW Diastolic Thickness 1.0 cm 0.6 - 1.0 / 0.6 - 0.9 cm LV Relative Wall Thickness 0.5 LVOT Diameter 2.1 cm Aortic Root Diameter 2.9 cm LA Systolic Diameter LX 2.3 cm 3.0 - 4.0 / 2.7 - 3.8 cm DOPPLER AV Peak Velocity 191.0 cm/s AV Peak Gradient 14.6 mmHg LVOT Peak Velocity 115.0 cm/s LVOT Peak Gradient 5.3 mmHg AV Area Cont Eq pk 2.1 cm Mitral E Point Velocity 52.1 cm/s Mitral A Point Velocity 45.9 cm/s Mitral E to A Ratio 1.1 LV E' Lateral Velocity 11.5 cm/s Mitral E to LV E' Lateral Ratio 4.5 LV E' Septal Velocity 7.1 cm/s Mitral E to LV E' Septal Ratio 7.3 TR Peak Velocity 218.0 cm/s TR Peak Gradient 19.0 mmHg Right Atrial Pressure 10.0 mmHg Pulmonary Artery Systolic Pressu 29.0 mmHg Right Ventricular Systolic Press 29.0 mmHg PV Peak Velocity 95.0 cm/s PV Peak Gradient 3.6 mmHg FINDINGS LEFT VENTRICLE Normal left ventricular size. Wall thickness is normal. The left ventricular systolic function is mildly reduced with an estimated ejection fraction in the range of 45- 50%. There is apical and mid to apical septal wall hypokinesis. RIGHT VENTRICLE Normal right ventricular size and systolic function. LEFT ATRIUM The left atrial size is normal. RIGHT ATRIUM The right atrial size is normal. ATRIAL SEPTUM Normal atrial septal thickness without atrial level shunting by limited color doppler interrogation. AORTA The aortic root and proximal ascending aorta are normal in size on limited imaging. MITRAL VALVE Trace mitral valve regurgitation. Calcification of the anterior mitral valve leaflet. AORTIC VALVE Trileaflet aortic valve. TRICUSPID VALVE There is trace tricuspid valve regurgitation. The estimated pulmonary arterial pressure is 29 mmHg. PULMONARY VALVE No pulmonary valve regurgitation or stenosis. VESSELS The inferior vena cava is normal in size. PERICARDIUM No pericardial effusion. Roberto Dozier (Electronically Signed) Final Date:03 March 2018 18:20
[2018-03-04] MEDS: Metoprolol Tartrate 25 MG Tablet PO SCH ×2 (06:06→17:03)
[2018-03-04 06:18] LABS: Hematocrit 34.5 % (39.0-51.0); Hemoglobin 12.2 gm/dL (13.0-17.0); Mean Corpuscular HGB Conc 35.3 % (32.0-36.0); Mean Corpuscular Hemoglobin 33.2 pg (27.0-34.0); Mean Platelet Volume 8.8 fL (7.0-11.0); Platelet Count 253 th/mm3 (150-450); Red Blood Count 3.67 mil/mm3 (4.50-5.90); Red Cell Distribution Width 15.2 % (11.6-17.2); White Blood Count 6.1 th/mm3 (4.0-11.0)
[2018-03-04 06:37] LABS: Anion Gap 7 meq/L (5-15); Blood Urea Nitrogen 10 mg/dL (7-18); Calcium 8.8 mg/dL (8.5-10.1); Chloride 106 meq/L (98-107); Glomerular Filtration Rate Greater Than 89 mL/min (>89); Glucose,Random 95 mg/dL (74-106); Magnesium 2.3 mg/dL (1.5-2.5); Sodium 142 meq/L (136-145)
[2018-03-04] MEDS: predniSONE 10 MG Tablet PO SCH (08:51)
[2018-03-04] MEDS: amLODIPine 10 MG Tablet PO SCH (08:52)
[2018-03-04] MEDS: Calcium/Vitamin D 250/125 MG Tablet PO SCH (08:53)
--- NOTE | 2018-03-04 09:16 | P.PNFP ---
Subjective Interval history: Patient seen and examined this morning. No acute events overnight. Patient states he feels improved from yesterday. Has more energy. Still decreased appetite. No bowel movement overnight, none for the last 3 days. Denies any chest pain or shortness of breath. No abdominal pain or leg pain. <Vu Mann - 03/04/18 09:16> Results - Labs Result diagrams: 03/05/18 04:56 03/05/18 04:56 <Carrie Reyes - 03/05/18 11:22> Abnormal lab results 03/05/18 Range/Units 04:56 RBC 3.64 L (4.50-5.90) mil/mm3 Hgb 12.0 L (13.0-17.0) gm/dL Hct 33.8 L (39.0-51.0) % Short CBC 03/05/18 Range/Units 04:56 WBC 6.2 (4.0-11.0) th/mm3 Hgb 12.0 L (13.0-17.0) gm/dL Hct 33.8 L (39.0-51.0) % Plt Count 248 (150-450) th/mm3 [facility] 03/05/18 04:56 Sodium 139 Potassium 4.0 Chloride 105 Carbon Dioxide 26.6 BUN 13 Creatinine 0.68 Calcium 8.6 <Carrie Reyes - 03/05/18 11:22> Abnormal lab results 03/04/18 Range/Units 06:08 RBC 3.67 L (4.50-5.90) mil/mm3 Hgb 12.2 L (13.0-17.0) gm/dL Hct 34.5 L (39.0-51.0) % Short CBC 03/04/18 Range/Units 06:08 WBC 6.1 (4.0-11.0) th/mm3 Hgb 12.2 L (13.0-17.0) gm/dL Hct 34.5 L (39.0-51.0) % Plt Count 253 (150-450) th/mm3 [facility] 03/04/18 06:08 Sodium 142 Potassium 4.0 Chloride 106 Carbon Dioxide 29.0 BUN 10 Creatinine 0.73 Calcium 8.8 D <Vu Mann - 03/04/18 09:16> - Imaging Impressions Lower Extremity Ultrasound 03/03/18 00:00 CONCLUSION: No evidence of pseudoaneurysm or significant hematoma <Vu Mann J - 03/04/18 09:16> Physical Exam Vital signs: Vital Signs 03/04/18 11:51 03/04/18 11:57 03/04/18 11:58 Temperature 97.9 F Pulse Rate 75 81 Respiratory Rate 18 18 Blood Pressure 117/88 Pulse Oximetry 98 03/04/18 13:00 03/04/18 14:00 03/04/18 14:40 Temperature Pulse Rate 82 77 90 Respiratory Rate Blood Pressure Pulse Oximetry 03/04/18 15:46 03/04/18 16:00 03/04/18 17:00 Temperature 97.8 F Pulse Rate 83 78 Respiratory Rate 20 18 Blood Pressure 105/60 Pulse Oximetry 100 03/04/18 17:10 03/04/18 17:17 03/04/18 20:00 Temperature Pulse Rate 80 72 Respiratory Rate Blood Pressure Pulse Oximetry 100 03/04/18 20:08 03/04/18 21:00 03/04/18 22:00 Temperature 98.0 F Pulse Rate 66 71 74 Respiratory Rate 17 18 Blood Pressure 128/68 Pulse Oximetry 98 03/04/18 23:00 03/04/18 23:28 03/05/18 00:00 Temperature 97.8 F Pulse Rate 72 66 70 Respiratory Rate 16 Blood Pressure 104/60 Pulse Oximetry 99 03/05/18 01:00 03/05/18 02:00 03/05/18 03:00 Temperature Pulse Rate 74 72 76 Respiratory Rate Blood Pressure Pulse Oximetry 03/05/18 04:00 03/05/18 05:00 03/05/18 06:00 Temperature 97.7 F Pulse Rate 66 74 88 Respiratory Rate 18 Blood Pressure 137/76 Pulse Oximetry 98 03/05/18 07:00 03/05/18 08:00 Temperature 98.0 F Pulse Rate 64 84 Respiratory Rate 16 Blood Pressure 111/64 Pulse Oximetry 100 Intake & Output 03/04/18 03/05/18 03/05/18 18:59 06:59 18:59 Intake Total 720 / 720 380 / 380 Output Total 800 / 800 475 / 475 Balance -80 / -80 -95 / -95 Weight 47.4 kg Intake: Oral 720 / 720 380 / 380 Output: Urine 800 / 800 475 / 475 Other: Date of Last Bowel Movement 02/28/18 <Carrie Reyes M - 03/05/18 11:22> Vital Signs 03/03/18 10:00 03/03/18 11:00 03/03/18 12:00 Temperature Pulse Rate 94 H 98 H 92 H Respiratory Rate Blood Pressure Pulse Oximetry 03/03/18 13:00 03/03/18 14:00 03/03/18 14:15 Temperature 98 F Pulse Rate 82 80 81 Respiratory Rate 18 Blood Pressure 127/76 Pulse Oximetry 100 03/03/18 15:00 03/03/18 16:55 03/03/18 16:59 Temperature 98.2 F Pulse Rate 98 H 77 80 Respiratory Rate 17 Blood Pressure 124/73 Pulse Oximetry 100 03/03/18 17:03 03/03/18 17:25 03/03/18 18:33 Temperature Pulse Rate 80 82 Respiratory Rate Blood Pressure Pulse Oximetry 100 03/03/18 19:00 03/03/18 20:00 03/03/18 21:00 Temperature 98.9 F Pulse Rate 84 77 78 Respiratory Rate 16 Blood Pressure 115/74 Pulse Oximetry 100 03/03/18 22:00 03/03/18 23:00 03/04/18 00:00 Temperature 99 F Pulse Rate 80 82 81 Respiratory Rate 16 Blood Pressure 111/73 Pulse Oximetry 99 03/04/18 00:05 03/04/18 01:00 03/04/18 02:00 Temperature Pulse Rate 81 86 Respiratory Rate 16 Blood Pressure Pulse Oximetry 03/04/18 03:00 03/04/18 04:00 03/04/18 05:00 Temperature 98.4 F Pulse Rate 78 80 83 Respiratory Rate 16 Blood Pressure 123/72 Pulse Oximetry 99 03/04/18 06:00 03/04/18 07:00 Temperature Pulse Rate 86 78 Respiratory Rate Blood Pressure Pulse Oximetry Intake & Output 03/03/18 03/04/18 03/04/18 18:59 06:59 18:59 Intake Total 1480 / 1480 480 / 480 Output Total 420 / 420 400 / 400 Balance 1060 / 1060 80 / 80 Intake: IV 1000 / 1000 NS Inj 1,000 ML @ 70 mls/hr IV. 1000 / 1000 CONT .[id number] [facility] Rx#:[id number] Oral 480 / 480 480 / 480 Output: Urine 420 / 420 400 / 400 Other: Date of Last Bowel Movement 03/02/18 # Bowel Movements 0 <Vu Mann - 03/04/18 09:16> Narrative: GENERAL: NAD, thin/cachectic CARDIOVASCULAR: Regular rate and rhythm. RESPIRATORY: No accessory muscle use. Clear to auscultation. Breath sounds equal bilaterally. GASTROINTESTINAL: Abdomen soft, non-tender, nondistended. MUSCULOSKELETAL: Extremities without clubbing, cyanosis, or edema. NEUROLOGICAL: Awake and alert. No obvious cranial nerve deficits. Motor grossly within normal limits. PSYCHIATRIC: Appropriate mood and affect; insight and judgment normal. Alert, oriented <Vu Mann - 03/04/18 09:16> Assessment and Plan - Assessment (1) ST elevation (STEMI) myocardial infarction Code(s): I21.3 - ST elevation (STEMI) myocardial infarction of unspecified site Status: Acute (2) Prostate cancer Code(s): C61 - Malignant neoplasm of prostate Status: Acute (3) History of Clostridium difficile infection Code(s): Z86.19 - Personal history of other infectious and parasitic diseases Status: Acute (4) Hypertension Code(s): I10 - Essential (primary) hypertension Status: Acute <Carrie Reyes - 03/05/18 11:22> (1) ST elevation (STEMI) myocardial infarction Code(s): I21.3 - ST elevation (STEMI) myocardial infarction of unspecified site Status: Acute Plan: Patient presented to ER with chest pain, found to have ST elevation on EKG as well as elevated troponin up to 2.2. Patient was urgently taken to labels molder on 03/02. 2 stents placed. Cardiology consulted-appreciate recs -Started on ASA and plavix -Echo pending -Continue HEVER -Add BB and statin Telemetry (2) Prostate cancer Code(s): C61 - Malignant neoplasm of prostate Status: Acute Plan: History of prostate cancer with metastasis. Currently undergoing IV chemotherapy q3 weeks. Was due this week. Dr. Norris is his oncologist-will notify office. Chemotherapy will need to be delayed Pain control with home Dilaudid PRN Continue home prednisone 10mg daily (3) History of Clostridium difficile infection Code(s): Z86.19 - Personal history of other infectious and parasitic diseases Status: Acute Plan: History of recurrent C. difficile. Was last tested positive on 8/24 at his oncologist office. Per patient, has been on Flagyl for the last couple weeks. Reports no bowel movement since admission -C. difficile pending from ER We will hold treatment at this time, may be treated. -If positive again, will likely need p.o. vancomycin treatment (4) Hypertension Code(s): I10 - Essential (primary) hypertension Status: Acute Plan: Continue home meds amlodipine and enalapril <Vu Mann - 03/04/18 09:13> - Assessment and Plan 72-year-old male with history of prostate cancer with metastases presents with chest pain, found to have STEMI. Admitted and after PCI 2 stents were placed. Now managing post cardiac care as well as other medical management. <Vu Mann - 03/04/18 09:16> - Attending Attestation The exam, history, and the medical decision-making described in the above note were completed with the assistance of the resident physician. I reviewed and agree with the findings presented. I attest that I had a [id number] encounter with the patient on the same day, and personally performed and documented my assessment and findings in the medical record. he has agreed with going for rehab. He has lost weight he is weak he said he even had trouble getting around at home. He does not feel safe driving his car anymore. He does not have any at home anymore since she has unfortunately he does have a son who is not actively helping him on a daily basis. Rehab would be the best thing to help him get better before he goes home. <Carrie Reyes - 03/05/18 11:22> <Vu Mann - Last Filed: 03/04/18 09:13> (1) ST elevation (STEMI) myocardial infarction Qualifiers: Involved coronary artery: unspecified coronary artery Qualified Code(s): I21.3 - ST elevation (STEMI) myocardial infarction of unspecified site <Carrie Reyes M - Last Filed: 03/05/18 11:22> (1) ST elevation (STEMI) myocardial infarction Qualifiers: Involved coronary artery: unspecified coronary artery Qualified Code(s): I21.3 - ST elevation (STEMI) myocardial infarction of unspecified site <Vu Mann - Last Filed: 03/04/18 09:13> (1) ST elevation (STEMI) myocardial infarction Qualifiers: Involved coronary artery: unspecified coronary artery Qualified Code(s): I21.3 - ST elevation (STEMI) myocardial infarction of unspecified site <Carrie Reyes M - Last Filed: 03/05/18 11:22> (1) ST elevation (STEMI) myocardial infarction Qualifiers: Involved coronary artery: unspecified coronary artery Qualified Code(s): I21.3 - ST elevation (STEMI) myocardial infarction of unspecified site
--- NOTE | 2018-03-04 16:51 | P.PNCA ---
Subjective Interval history: No events overnight Overall feels weak No chest pain Physical Exam Vital signs: Vital Signs 03/03/18 16:55 03/03/18 16:59 03/03/18 17:03 Temperature 98.2 F Pulse Rate 77 80 80 Respiratory Rate 17 Blood Pressure 124/73 Pulse Oximetry 100 03/03/18 17:25 03/03/18 18:33 03/03/18 19:00 Temperature Pulse Rate 82 84 Respiratory Rate Blood Pressure Pulse Oximetry 100 03/03/18 20:00 03/03/18 21:00 03/03/18 22:00 Temperature 98.9 F Pulse Rate 77 78 80 Respiratory Rate 16 Blood Pressure 115/74 Pulse Oximetry 100 03/03/18 23:00 03/04/18 00:00 03/04/18 00:05 Temperature 99 F Pulse Rate 82 81 Respiratory Rate 16 16 Blood Pressure 111/73 Pulse Oximetry 99 03/04/18 01:00 03/04/18 02:00 03/04/18 03:00 Temperature Pulse Rate 81 86 78 Respiratory Rate Blood Pressure Pulse Oximetry 03/04/18 04:00 03/04/18 05:00 03/04/18 06:00 Temperature 98.4 F Pulse Rate 80 83 86 Respiratory Rate 16 Blood Pressure 123/72 Pulse Oximetry 99 03/04/18 07:00 03/04/18 08:00 03/04/18 09:00 Temperature 97.2 F L Pulse Rate 78 78 80 Respiratory Rate 16 Blood Pressure 129/76 Pulse Oximetry 100 03/04/18 09:39 03/04/18 11:00 03/04/18 11:51 Temperature Pulse Rate 78 78 75 Respiratory Rate Blood Pressure Pulse Oximetry 03/04/18 11:57 03/04/18 11:58 03/04/18 13:00 Temperature 97.9 F Pulse Rate 81 82 Respiratory Rate 18 18 Blood Pressure 117/88 Pulse Oximetry 98 03/04/18 14:00 03/04/18 14:40 03/04/18 15:46 Temperature Pulse Rate 77 90 Respiratory Rate 20 Blood Pressure Pulse Oximetry 03/04/18 16:00 Temperature 97.8 F Pulse Rate 83 Respiratory Rate 18 Blood Pressure 105/60 Pulse Oximetry 100 Intake & Output 03/03/18 03/04/18 03/04/18 18:59 06:59 18:59 Intake Total 1480 / 1480 480 / 480 Output Total 420 / 420 400 / 400 Balance 1060 / 1060 80 / 80 Intake: IV 1000 / 1000 NS Inj 1,000 ML @ 70 mls/hr IV. 1000 / 1000 CONT .[id number] Rx#:[id number] Oral 480 / 480 480 / 480 Output: Urine 420 / 420 400 / 400 Other: Date of Last Bowel Movement 03/02/18 # Bowel Movements 0 Narrative: GENERAL: NAD, thin/cachectic CARDIOVASCULAR: Regular rate and rhythm. RESPIRATORY: No accessory muscle use. Clear to auscultation. Breath sounds equal bilaterally. GASTROINTESTINAL: Abdomen soft, non-tender, nondistended. MUSCULOSKELETAL: Extremities without clubbing, cyanosis, or edema. No hematoma noted at right femoral NEUROLOGICAL: Awake and alert. No obvious cranial nerve deficits. Motor grossly within normal limits. PSYCHIATRIC: Appropriate mood and affect; insight and judgment normal. Alert, oriented Assessment and Plan - Assessment (1) CAD (coronary artery disease) Code(s): I25.10 - Atherosclerotic heart disease of [place] coronary artery without angina pectoris Status: Acute (2) PAD (peripheral artery disease) Code(s): I73.9 - Peripheral vascular disease, unspecified Status: Acute (3) ST elevation (STEMI) myocardial infarction Code(s): I21.3 - ST elevation (STEMI) myocardial infarction of unspecified site Status: Acute (4) History of Clostridium difficile infection Code(s): Z86.19 - Personal history of other infectious and parasitic diseases Status: Acute (5) Prostate cancer Code(s): C61 - Malignant neoplasm of prostate Status: Acute (6) Hypertension Code(s): I10 - Essential (primary) hypertension Status: Acute - Plan 1) Acute STEMI s/p BMSx2 to RCA ASA/Plavix Would attempt for 12 months of DAPT if possible, but if bleeding/ thrombocytopenia then can stop Plavix early Con't HEVER-I Added BB/Statin 2) EF 45-50% 3) Residual CAD Complex lesion of the OM Due to comorbidities, would attempt to treat medically 4) PAD Con't medical management 5) Groin pain US showing no PSA 6) Afib Would not consider him a candidate for anti-coagulation therapy Would con't on DAPT vs. NOAC + Plavix, too high bleeding risk As well as on chemotherapy 7) Weakness Due to no oral intake and excessive diarrhea Per primary team 8) Cardiovascularly stable for discharge but obviously has multiple comorbidities that may keep him her longer (3) ST elevation (STEMI) myocardial infarction Qualifiers: Involved coronary artery: unspecified coronary artery Qualified Code(s): I21.3 - ST elevation (STEMI) myocardial infarction of unspecified site
[2018-03-05] MEDS: Metoprolol Tartrate 25 MG Tablet PO SCH (05:50)
[2018-03-05 06:56] LABS: Anion Gap 7 meq/L (5-15); Blood Urea Nitrogen 13 mg/dL (7-18); Calcium 8.6 mg/dL (8.5-10.1); Carbon Dioxide 26.6 meq/L (21.0-32.0); Chloride 105 meq/L (98-107); Glomerular Filtration Rate Greater Than 89 mL/min (>89); Glucose,Random 82 mg/dL (74-106); Sodium 139 meq/L (136-145)
[2018-03-05 07:18] LABS: Hematocrit 33.8 % (39.0-51.0); Mean Corpuscular HGB Conc 35.6 % (32.0-36.0); Mean Corpuscular Hemoglobin 33.1 pg (27.0-34.0); Mean Corpuscular Volume 92.9 fL (80.0-100.0); Mean Platelet Volume 9.4 fL (7.0-11.0); Platelet Count 248 th/mm3 (150-450); Red Blood Count 3.64 mil/mm3 (4.50-5.90); Red Cell Distribution Width 15.5 % (11.6-17.2); White Blood Count 6.2 th/mm3 (4.0-11.0)
--- NOTE | 2018-03-05 09:46 | P.PNFP ---
Subjective Interval history: Patient seen and examined this morning. No acute events overnight. Patient reports feeling improved. Gaining strength back. Denies any bowel movement. Passing gas. Increased appetite. Denies any chest pain or shortness of breath. Results - Labs Result diagrams: 03/05/18 04:56 03/05/18 04:56 Abnormal lab results 03/05/18 Range/Units 04:56 RBC 3.64 L (4.50-5.90) mil/mm3 Hgb 12.0 L (13.0-17.0) gm/dL Hct 33.8 L (39.0-51.0) % Short CBC 03/05/18 Range/Units 04:56 WBC 6.2 (4.0-11.0) th/mm3 Hgb 12.0 L (13.0-17.0) gm/dL Hct 33.8 L (39.0-51.0) % Plt Count 248 (150-450) th/mm3 BMP 03/05/18 04:56 Sodium 139 Potassium 4.0 Chloride 105 Carbon Dioxide 26.6 BUN 13 Creatinine 0.68 Calcium 8.6 Physical Exam Vital signs: Vital Signs 03/04/18 11:00 03/04/18 11:51 03/04/18 11:57 Temperature 97.9 F Pulse Rate 78 75 81 Respiratory Rate 18 Blood Pressure 117/88 Pulse Oximetry 98 03/04/18 11:58 03/04/18 13:00 03/04/18 14:00 Temperature Pulse Rate 82 77 Respiratory Rate 18 Blood Pressure Pulse Oximetry 03/04/18 14:40 03/04/18 15:46 03/04/18 16:00 Temperature 97.8 F Pulse Rate 90 83 Respiratory Rate 20 18 Blood Pressure 105/60 Pulse Oximetry 100 03/04/18 17:00 03/04/18 17:10 03/04/18 17:17 Temperature Pulse Rate 78 80 Respiratory Rate Blood Pressure Pulse Oximetry 100 03/04/18 20:00 03/04/18 20:08 03/04/18 21:00 Temperature 98.0 F Pulse Rate 72 66 71 Respiratory Rate 17 Blood Pressure 128/68 Pulse Oximetry 98 03/04/18 22:00 03/04/18 23:00 03/04/18 23:28 Temperature 97.8 F Pulse Rate 74 72 66 Respiratory Rate 18 16 Blood Pressure 104/60 Pulse Oximetry 99 03/05/18 00:00 03/05/18 01:00 03/05/18 02:00 Temperature Pulse Rate 70 74 72 Respiratory Rate Blood Pressure Pulse Oximetry 03/05/18 03:00 03/05/18 04:00 03/05/18 05:00 Temperature 97.7 F Pulse Rate 76 66 74 Respiratory Rate 18 Blood Pressure 137/76 Pulse Oximetry 98 03/05/18 06:00 03/05/18 08:00 Temperature 98.0 F Pulse Rate 88 84 Respiratory Rate 16 Blood Pressure 111/64 Pulse Oximetry 100 Intake & Output 03/04/18 03/05/18 03/05/18 18:59 06:59 18:59 Intake Total 720 / 720 380 / 380 Output Total 800 / 800 475 / 475 Balance -80 / -80 -95 / -95 Weight 47.4 kg Intake: Oral 720 / 720 380 / 380 Output: Urine 800 / 800 475 / 475 Other: Date of Last Bowel Movement 02/28/18 Assessment and Plan - Assessment (1) ST elevation (STEMI) myocardial infarction Code(s): I21.3 - ST elevation (STEMI) myocardial infarction of unspecified site Status: Acute Plan: Patient presented to ER with chest pain, found to have ST elevation on EKG as well as elevated troponin up to 2.2. Patient was urgently taken to [facility] on 03/02. 2 stents placed. Echo shows EF of 45-50% Cardiology consulted-appreciate recs -Started on ASA and plavix, continue for 12 months per cardio -Continue HEVER -BB and statin -Cleared by CV for discharge Telemetry (2) Prostate cancer Code(s): C61 - Malignant neoplasm of prostate Status: Acute Plan: History of prostate cancer with metastasis. Currently undergoing IV chemotherapy q3 weeks. Was due this week. Dr. Norris is his oncologist-will notify office. Chemotherapy will need to be delayed Pain control with home Dilaudid PRN Continue home prednisone 10mg daily (3) History of Clostridium difficile infection Code(s): Z86.19 - Personal history of other infectious and parasitic diseases Status: Acute Plan: History of recurrent C. difficile. Was last tested positive on 02/13 at his oncologist office. Per patient, has been on Flagyl for the last couple weeks. Reports no bowel movement since admission -C. difficile pending from ER We will hold treatment at this time, may be treated. -If positive again, will likely need p.o. vancomycin treatment (4) Hypertension Code(s): I10 - Essential (primary) hypertension Status: Acute Plan: Continue home meds amlodipine and enalapril - Assessment and Plan 72-year-old male with history of prostate cancer with metastases presents with chest pain, found to have STEMI. Admitted and after PCI 2 stents were placed. Now managing post cardiac care as well as other medical management. Would benefit from SNF upon discharge. (1) ST elevation (STEMI) myocardial infarction Qualifiers: Involved coronary artery: unspecified coronary artery Qualified Code(s): I21.3 - ST elevation (STEMI) myocardial infarction of unspecified site
[2018-03-05] MEDS: predniSONE 10 MG Tablet PO SCH (09:49)
[2018-03-05] MEDS: Calcium/Vitamin D 250/125 MG Tablet PO SCH (09:49)
[2018-03-05] MEDS: amLODIPine 10 MG Tablet PO SCH (09:49)
--- NOTE | 2018-03-05 12:05 | P.PNCA ---
Subjective Interval history: No events overnight Feeling better Trying to eat more Physical Exam Vital signs: Vital Signs 03/04/18 13:00 03/04/18 14:00 03/04/18 14:40 Temperature Pulse Rate 82 77 90 Respiratory Rate Blood Pressure Pulse Oximetry 03/04/18 15:46 03/04/18 16:00 03/04/18 17:00 Temperature 97.8 F Pulse Rate 83 78 Respiratory Rate 20 18 Blood Pressure 105/60 Pulse Oximetry 100 03/04/18 17:10 03/04/18 17:17 03/04/18 20:00 Temperature Pulse Rate 80 72 Respiratory Rate Blood Pressure Pulse Oximetry 100 03/04/18 20:08 03/04/18 21:00 03/04/18 22:00 Temperature 98.0 F Pulse Rate 66 71 74 Respiratory Rate 17 18 Blood Pressure 128/68 Pulse Oximetry 98 03/04/18 23:00 03/04/18 23:28 03/05/18 00:00 Temperature 97.8 F Pulse Rate 72 66 70 Respiratory Rate 16 Blood Pressure 104/60 Pulse Oximetry 99 03/05/18 01:00 03/05/18 02:00 03/05/18 03:00 Temperature Pulse Rate 74 72 76 Respiratory Rate Blood Pressure Pulse Oximetry 03/05/18 04:00 03/05/18 05:00 03/05/18 06:00 Temperature 97.7 F Pulse Rate 66 74 88 Respiratory Rate 18 Blood Pressure 137/76 Pulse Oximetry 98 03/05/18 07:00 03/05/18 08:00 03/05/18 10:00 Temperature 98.0 F Pulse Rate 64 84 80 Respiratory Rate 16 Blood Pressure 111/64 Pulse Oximetry 99 03/05/18 11:00 Temperature Pulse Rate 78 Respiratory Rate Blood Pressure Pulse Oximetry Intake & Output 03/04/18 03/05/18 03/05/18 18:59 06:59 18:59 Intake Total 720 / 720 380 / 380 Output Total 800 / 800 475 / 475 Balance -80 / -80 -95 / -95 Weight 47.4 kg Intake: Oral 720 / 720 380 / 380 Output: Urine 800 / 800 475 / 475 Other: Date of Last Bowel Movement 02/28/18 Narrative: GENERAL: NAD, thin/cachectic CARDIOVASCULAR: Regular rate and rhythm. RESPIRATORY: No accessory muscle use. Clear to auscultation. Breath sounds equal bilaterally. GASTROINTESTINAL: Abdomen soft, non-tender, nondistended. MUSCULOSKELETAL: Extremities without clubbing, cyanosis, or edema. No hematoma noted at right femoral NEUROLOGICAL: Awake and alert. No obvious cranial nerve deficits. Motor grossly within normal limits. PSYCHIATRIC: Appropriate mood and affect; insight and judgment normal. Alert, oriented Assessment and Plan - Assessment (1) CAD (coronary artery disease) Code(s): I25.10 - Atherosclerotic heart disease of [place] coronary artery without angina pectoris Status: Acute (2) PAD (peripheral artery disease) Code(s): I73.9 - Peripheral vascular disease, unspecified Status: Acute (3) ST elevation (STEMI) myocardial infarction Code(s): I21.3 - ST elevation (STEMI) myocardial infarction of unspecified site Status: Acute (4) History of Clostridium difficile infection Code(s): Z86.19 - Personal history of other infectious and parasitic diseases Status: Acute (5) Prostate cancer Code(s): C61 - Malignant neoplasm of prostate Status: Acute (6) Hypertension Code(s): I10 - Essential (primary) hypertension Status: Acute - Plan 1) Acute STEMI s/p BMSx2 to RCA ASA/Plavix Would attempt for 12 months of DAPT if possible, but if bleeding/ thrombocytopenia then can stop Plavix early Con't HEVER-I Added BB/Statin 2) EF 45-50% 3) Residual CAD Complex lesion of the OM Due to comorbidities, would attempt to treat medically 4) PAD Con't medical management 5) Groin pain US showing no PSA 6) Afib Would not consider him a candidate for anti-coagulation therapy Would con't on DAPT vs. NOAC + Plavix, too high bleeding risk As well as on chemotherapy 7) Weakness Due to no oral intake and excessive diarrhea Per primary team 8) Cardiovascularly stable for discharge (3) ST elevation (STEMI) myocardial infarction Qualifiers: Involved coronary artery: unspecified coronary artery Qualified Code(s): I21.3 - ST elevation (STEMI) myocardial infarction of unspecified site
--- NOTE | 2018-03-05 15:59 | P.DCO ---
- Physical Therapy Order: Evaluate and treat, Improve ambulation, Strength and gait training - Home Health Nursing Order: Medical education, Signs/symptoms of disease process, Nursing assessment with vital signs - Certification I have seen patient Manish Yoder on 03/05/18. My clinical findings support the need for the requested home health care services because: Limited mobility due to disease progression, Deconditioned with increased weakness, Medication compliance is questionable, Limited ability to care for self, Impaired cognition/judgement, High risk of falls I certify that my clinical findings support that this patient is homebound because: Impaired cognitive ability/safety, Unsteady gait/balance, Unsafe to leave home unassisted
--- NOTE | 2018-03-19 13:48 | P.DS ---
Date of admission: 03/02/18 19:22 Primary care physician: Carol Ann Morillo Brief History from admission: 72-year-old -Mauritanian male with history of prostate cancer, COPD presented to the ER yesterday with chest pain. Patient was initially admitted to cardiology with hospitalist service, then transferred over this morning due to being a [email or web address] patient. Patient presented with nausea and vomiting, states he had also been recently diagnosed with C. difficile about 3 weeks ago at his oncologist office, Dr. Norris and was taking Flagyl. Initial EKG done in the ER showed ST elevation with elevation of troponin and CK. Patient was diagnosed with STEMI and cardiology was consulted. Heparin was started and patient went back for cardiac cath lab manager. 2 stents were placed due to significant coronary artery disease. Patient reports feeling better today, but still with significant fatigue. States he was scheduled for chemotherapy today, but unable to do because came to the ER. States he has not had a bowel movement for the last 2 days. Otherwise, denies any chest pain or shortness of breath. Some abdominal soreness from the diarrhea and the procedure. Denies any leg pain. Patient update on day of discharge: Patient seen and examined this morning. No acute events overnight. Patient reports feeling improved. Gaining strength back. Denies any bowel movement. Passing gas. Increased appetite. Denies any chest pain or shortness of breath. DS: Diagnosis - Discharge Diagnosis (1) ST elevation (STEMI) myocardial infarction Status: Acute (2) Prostate cancer Status: Acute (3) History of Clostridium difficile infection Status: Acute (4) Hypertension Status: Acute DS: Medications - Discharge Medications Prescriptions: amlodipine 10 mg PO DAILY #90 tab aspirin 81 mg PO DAILY #90 tab atorvastatin [Lipitor] 40 mg PO HS #90 tab clopidogrel [Plavix] 75 mg PO DAILY #90 tab enalapril maleate 20 mg PO DAILY #90 tab metoprolol tartrate 12.5 mg PO BID@0600,1800 #60 tab DS: Summary Hospital Course: 72-year-old male with history of prostate cancer, COPD presented to the ER with chest pain. He was initially admitted to cardiology service due to STEMI. Patient was started on heparin and then taken to cardiac Patient Registration Manager. 2 stents were placed for coronary artery disease. Patient was started on aspirin and Plavix as well as continue HEVER, beta-saurav and statin. Patient was monitored throughout the hospitalization and cleared from cardiology after echo. Patient also has a history of prostate cancer, was undergoing IV chemotherapy, will be followed up outpatient. Patient remained in stable condition throughout hospitalization and after cardiology cleared him, he was discharged in stable condition with follow-up with outpatient care and cardiology. - Time Spent with Patient Total time spent providing and/or coordinating discharge services: Greater than 30 minutes - Quality: VTE Deep Vein Thrombosis/Pulmonary Embolism Present on Admission: No Exam Narrative: GENERAL: NAD, thin/cachectic CARDIOVASCULAR: Regular rate and rhythm. RESPIRATORY: No accessory muscle use. Clear to auscultation. Breath sounds equal bilaterally. GASTROINTESTINAL: Abdomen soft, non-tender, nondistended. MUSCULOSKELETAL: Extremities without clubbing, cyanosis, or edema. NEUROLOGICAL: Awake and alert. No obvious cranial nerve deficits. Motor grossly within normal limits. PSYCHIATRIC: Appropriate mood and affect; insight and judgment normal. Alert, oriented Results Procedures completed during hospitalization: Cardiac cath with 2 stents - Impressions ITS Impressions Abdomen/Pelvis CT 03/02/18 16:15 CONCLUSION: 1. Nonspecific bowel gas pattern without significant change. This may represent a mild ileus. 2. No significant change in the metastatic retroperitoneal adenopathy. 3. Stent catheter remains in place with stable appearance the biliary system with mild dilatation. 4. Sclerotic osseous metastasis is again noted. Chest X-Ray 03/02/18 19:04 CONCLUSION: No significant change. 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 Lower Extremity Ultrasound 03/03/18 00:00 CONCLUSION: No evidence of pseudoaneurysm or significant hematoma Discharge Plan - Discharge Disposition Patient Disposition: /Home Health Service - Discharge Condition Condition: Stable - Discharge Order Discharge Orders: Discharge Order (Routine); Ordered 03/05/18 Ordered By: Vu Mann - Discharge Details Anticipated Discharge Date: 03/05/18 - Physicians Team Attending Provider: Carrie Reyes Other Providers: Angel Martínez DO ; Mobile Card,Agency
== END 2018-03-05 13:53 | disposition home health service (06) ==
LOC: NEPC 15:55 → NEDA 19:22 → HCIS 19:28
PROVIDERS: ADMIT Family Medicine; ATTEND Family Medicine

== ENCOUNTER 2018-03-09 14:20 | Observation (INO) ==
[2018-03-09 15:00] LABS: Baso # (Auto) 0.1 th/mm3 (0.0-0.2); Eos % (Auto) 0.3 % (0.0-4.0); Hematocrit 39.4 % (39.0-51.0); Hemoglobin 13.3 gm/dL (13.0-17.0); Lymph # (Auto) 2.7 th/mm3 (1.0-4.8); Lymph % (Auto) 20.4 % (9.0-44.0); Mean Corpuscular HGB Conc 33.8 % (32.0-36.0); Mean Corpuscular Volume 94.6 fL (80.0-100.0); Mean Platelet Volume 8.7 fL (7.0-11.0); Mono # (Auto) 1.5 th/mm3 (0.0-0.9); Mono % (Auto) 11.6 % (0.0-8.0); Neut # (Auto) 8.8 th/mm3 (1.8-7.7); Neut % (Auto) 66.7 % (16.0-70.0); Platelet Count 366 th/mm3 (150-450); Red Blood Count 4.16 mil/mm3 (4.50-5.90); Red Cell Distribution Width 15.7 % (11.6-17.2); White Blood Count 13.2 th/mm3 (4.0-11.0)
--- NOTE | 2018-03-09 15:33 | ED ---
HPI General Chief Complaint: Abdominal Pain Stated Complaint: GI/chest pain Time Seen by Provider: 03/09/18 14:30 Source: patient Mode of arrival: ambulatory Limitations: no limitations History of Present Illness HPI narrative: 72-year-old male with PMH of COPD, CAD status post stents 2, hypertension, prostate cancer, currently undergoing chemotherapy, on Plavix and ASA presents the ED for evaluation of aching substernal chest pain. Onset around 830 last night. Pain is constant, no alleviating or exacerbating factors reported. Patient also complains of 6/10 aching abdominal pain, decreased appetite. He denies nausea, vomiting. He endorses 2 episodes of loose stools today. He endorses fecal urge incontinence and weakness. He states that he had a fall at home last night. He denies headache, dizziness, numbness, tingling, weakness, limitations to range of motion of the extremities. He is followed by Dr. Norris, Dr. Martínez, the resident team Related Data Home Medications Medication Instructions Recorded Confirmed calcium carbonate-vitamin D3 1 tab PO DAILY 03/02/18 03/09/18 [Calcium 600 + D(3)] megestrol 40 mg PO DAILY 03/02/18 03/09/18 omeprazole 40 mg PO DAILY 03/02/18 03/09/18 potassium chloride 20 meq PO DAILY 03/02/18 03/09/18 prednisone 10 mg PO DAILY 03/02/18 03/09/18 hydromorphone PRN 03/03/18 03/03/18 Previous Rx's Medication Instructions Recorded amlodipine 10 mg PO DAILY #90 tab 03/05/18 aspirin 81 mg PO DAILY #90 tab 03/05/18 atorvastatin [Lipitor] 40 mg PO HS #90 tab 03/05/18 clopidogrel [Plavix] 75 mg PO DAILY #90 tab 03/05/18 enalapril maleate 20 mg PO DAILY #90 tab 03/05/18 metoprolol tartrate 12.5 mg PO BID@0600,1800 #60 tab 03/05/18 Allergies Allergy/AdvReac Type Severity Reaction Status Date / Time penicillin G AdvReac Mild HIVES Verified 03/09/18 14:44 ITCHING SWELLING PMFSH Medical History Medical History Hypertension (Acute) COPD (chronic obstructive pulmonary disease) (Acute) Prostate cancer (Acute) C. difficile diarrhea (Acute) Surgical History Surgical History History of ERCP (Acute) History of appendectomy (Acute) H/O prostatectomy (Acute) H/O abdominal surgery (Acute) Social History Social History Substance History: No History of Abuse Second Hand Smoke Exposure: No Smoking Status: Current every day smoker Tobacco Type: Cigarettes Packs Per Day: 1 Cigarettes Per Day: 20.0 Years Smoked: 20 Pack-Years: 20.00 How Often Do You Have a Drink Containing Alcohol: Never Recent Travel in [facility] within the Last 8 Weeks: No Recent Out of Country Travel within the Last 8 Weeks: No Immunization History Tetanus Immunization: <5 Years Hx Influenza Vaccine This Season: Yes Exam Narrative Exam Narrative: GENERAL: Thin, pleasant -[place] male no acute distress. SKIN: Focused skin assessment warm/dry. HEAD: Atraumatic. Normocephalic. EYES: Pupils equal and round. No scleral icterus. No injection or drainage. ENT: No nasal bleeding or discharge. Mucous membranes pink and moist. NECK: Trachea midline. No JVD. CARDIOVASCULAR: Regular rate and rhythm. No murmur appreciated. RESPIRATORY: No accessory muscle use. Clear to auscultation. Breath sounds equal bilaterally. GASTROINTESTINAL: Abdomen soft, nondistended. Mild tenderness in the right upper quadrant/epigastric area. Hepatic and splenic margins not palpable. MUSCULOSKELETAL: No obvious deformities. No clubbing. No cyanosis. No edema. Tender to palpation of the distal tip of the left thumb. No limitations range of motion. Neurovascular intact distally. NEUROLOGICAL: Awake and alert. No obvious cranial nerve deficits. Motor grossly within normal limits. Normal speech. PSYCHIATRIC: Appropriate mood and affect; insight and judgment normal. Course Initial Documented Vital Signs Temperature 98.7 F 03/09/18 14:40 Pulse Rate 89 03/09/18 14:40 Respiratory Rate 18 03/09/18 14:40 Blood Pressure 177/81 H 03/09/18 14:40 Last Documented Vital Signs Temperature 98.7 F 03/09/18 14:40 Pulse Rate 86 03/09/18 16:21 Respiratory Rate 20 03/09/18 16:21 Blood Pressure 177/81 H 03/09/18 14:40 Pulse Oximetry 98 03/09/18 16:21 Medical Decision Making MDM Narrative Medical decision making narrative: 72-year-old male with PMH of COPD, CAD status post stents 2, C. difficile, HTN, prostate CA, last chemo 2 months ago presents the ED for evaluation 36 hour history of dull chest pain and cramping abdominal pain. Patient endorses couple episodes of loose stools and fecal urge incontinence. Vitals reviewed. Physical exams reassuring. Patient takes Plavix and aspirin daily. EKG without acute findings. Troponin elevated, possibly secondary to previous NV at last admission. Abdomen with some tenderness but lab work is reassuring. Stool studies pending. Patient was treated with Flagyl for previous episodes of C. difficile. Will initiate p.o. vancomycin in the ED. Plan to admit to follow cardiac enzymes and stool studies. Patient's agreeable. Dr. Richards spoke with Dr. Garcia who agrees to accept the patient to the medicine service. Please see their notes for disposition. Medical Screen Exam Complete: Yes Emergency Medical Condition: Yes Differential Diagnosis Differential Diagnosis: chest pain versus angina versus ACS versus c. diff versus dehydration versus metabolic derangement versus other Lab Data Result diagrams: 03/09/18 14:50 03/09/18 14:50 Lab Results 03/09/18 03/09/18 Range/Units 14:50 14:50 WBC 13.2 H (4.0-11.0) th/mm3 RBC 4.16 L (4.50-5.90) mil/mm3 Hgb 13.3 (13.0-17.0) gm/dL Hct 39.4 (39.0-51.0) % MCV 94.6 (80.0-100.0) fL MCH 32.0 (27.0-34.0) pg MCHC 33.8 (32.0-36.0) % RDW 15.7 (11.6-17.2) % Plt Count 366 D (150-450) th/mm3 MPV 8.7 (7.0-11.0) fL Neut % (Auto) 66.7 (16.0-70.0) % Lymph % (Auto) 20.4 (9.0-44.0) % [place] % (Auto) 11.6 H (0.0-8.0) % Eos % (Auto) 0.3 (0.0-4.0) % Baso % (Auto) 1.0 (0.0-2.0) % Neut # (Auto) 8.8 H (1.8-7.7) th/mm3 Lymph # (Auto) 2.7 (1.0-4.8) th/mm3 [place] # (Auto) 1.5 H (0.0-0.9) th/mm3 Eos # (Auto) 0.0 (0.0-0.4) th/mm3 Baso # (Auto) 0.1 (0.0-0.2) th/mm3 WBC Differential . Differential Comment Auto diff final Sodium 141 (136-145) meq/L Potassium 3.5 (3.5-5.1) meq/L Chloride 107 (98-107) meq/L Carbon Dioxide 26.7 (21.0-32.0) meq/L Anion Gap 7 (5-15) meq/L BUN 7 (7-18) mg/dL Creatinine 0.76 (0.60-1.30) mg/dL Estimated GFR Greater than 89 (>89) mL/min Random Glucose 91 (74-106) mg/dL Calcium 8.7 (8.5-10.1) mg/dL Magnesium 2.2 (1.5-2.5) mg/dL Total Bilirubin 0.4 (0.2-1.0) mg/dL AST 26 (15-37) U/L ALT 26 (12-78) U/L Alkaline Phosphatase 82 (45-117) U/L Troponin I 0.93 H* (0.02-0.05) ng/mL Total Protein 7.7 (6.4-8.2) g/dL Albumin 3.3 L (3.4-5.0) g/dL Lipase 87 (73-393) U/L Serum Alcohol Less than 3 (0-5) mg/dL Imaging Data Radiologist's impression: Chest X-Ray 03/09/18 14:47 CONCLUSION: No infiltrates seen. Stable large left upper lung bleb. Discharge Plan Discharge Disposition Patient Disposition: 30 Still Patient Physicians Team ED Provider: Berta Richards ED Midlevel Provider: Nida Roberson Attending Provider: Alyce Garcia Status ED Status: Admitted Observation Patient
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
[2018-03-09 15:46] LABS: Alanine Aminotransferase 26 U/L (12-78); Albumin 3.3 g/dL (3.4-5.0); Alkaline Phosphatase 82 U/L (45-117); Anion Gap 7 meq/L (5-15); Aspartate Aminotransferase 26 U/L (15-37); Blood Urea Nitrogen 7 mg/dL (7-18); Calcium 8.7 mg/dL (8.5-10.1); Carbon Dioxide 26.7 meq/L (21.0-32.0); Chloride 107 meq/L (98-107); Glomerular Filtration Rate Greater Than 89 mL/min (>89); Glucose,Random 91 mg/dL (74-106); Lipase 87 U/L (73-393); Magnesium 2.2 mg/dL (1.5-2.5); Potassium 3.5 meq/L (3.5-5.1); Sodium 141 meq/L (136-145); Total Protein 7.7 g/dL (6.4-8.2)
[2018-03-09 15:48] LABS: Troponin I 0.93 ng/mL (0.02-0.05)
[2018-03-09] MEDS ORDERED: Bisacodyl 10 MG Supp RECTAL PRN (16:23)
[2018-03-09] MEDS: Heparin - SQ 10,000 UNITS/ML Vial SQ SCH (18:28)
--- NOTE | 2018-03-09 19:07 | P.HPIM ---
History of Present Illness Primary Care Physician: Carol Ann Morillo Chief Complaint: Loose stools History of Present Illness: 72 y/o male with history of copd, extensive tobacco smoking hx, prostate cancer , htn, cad, recent stemi approx one week ago treated at [facility] s/p stenting on asa and plavix. He presented to the ER today with complaints of fatigue and loose stools over the past few days. He was also having aching chest pain on and off over the past week. He denies any fevers or chills. Admits to mild abdominal pain, no sob. He has no other complaints. Review of Systems All other systems reviewed negative except as stated in HPI PMFSH - History History Provided By: Patient - Medical History Medical History: Medical History (Last Updated 03/09/18 @ 14:45 by Apolinar Bui) Hypertension (Acute) COPD (chronic obstructive pulmonary disease) (Acute) Prostate cancer (Acute) C. difficile diarrhea (Acute) - Surgical History Surgical History: Surgical History (Last Updated 03/09/18 @ 14:45 by Apolinar Bui) History of ERCP (Acute) History of appendectomy (Acute) H/O prostatectomy (Acute) H/O abdominal surgery (Acute) - Tobacco History Second Hand Smoke Exposure: No Tobacco Use In Past 30 Days: Yes Smoking Status: Current every day smoker Tobacco Type: Cigarettes Packs Per Day: 1 Years Smoked: 20 - Alcohol History How Often Do You Have a Drink Containing Alcohol: Never - Substance Use History Substance History: No History of Abuse - Travel History Recent Travel in the [place] Within the Last 8 Weeks: No Recent Travel Out of the Country Within the Last 8 Weeks: No - Immunization History Tetanus Immunization: <5 Years Hx Influenza Vaccine This Season: Yes Medications and Allergies Active Medications: Active Medications Al Hydroxide/Mg Hydroxide (Milk Of Magnesia Liq) 30 ml PO Q12H PRN PRN Reason: Mild Constipation Aspirin (Aspirin Chew) 81 mg PO DAILY MAKAYLA Atorvastatin Calcium (Lipitor) 40 mg PO HS MAKAYLA Bisacodyl (Dulcolax Supp) 10 mg RECTAL DAILY PRN PRN Reason: SEVERE CONSITIPATION Clopidogrel Bisulfate (Plavix) 75 mg PO DAILY MAKAYLA Heparin Sodium (Porcine) (Heparin Inj) 5,000 units SQ Q12H MAKAYLA Last Admin: 03/09/18 18:28 Dose: Not Given Lactulose (Lactulose Liq) 30 ml PO DAILY PRN PRN Reason: SEVERE CONSITIPATION Metoprolol Tartrate (Lopressor) 12.5 mg PO BID [facility] Senna/Docusate Sodium (Rolanda-Colace) 1 tab PO BID [facility] Sennosides (Senokot) 17.2 mg PO Q12H PRN PRN Reason: Moderate Constipation Sodium Chloride (Ns Flush) 2 ml IV.FLUSH UNSCH PRN PRN Reason: FLUSH AFTER USING IV ACCESS Vancomycin HCl (Vancomycin Po) 125 mg PO QID [facility] Last Admin: 03/09/18 18:28 Dose: 125 mg Allergies Allergy/AdvReac Type Severity Reaction Status Date / Time penicillin G AdvReac Mild HIVES Verified 03/09/18 14:44 ITCHING SWELLING Home Medications Medication Instructions Recorded Confirmed Type calcium carbonate-vitamin D3 1 tab PO DAILY 03/02/18 03/09/18 History [Calcium 600 + D(3)] megestrol 40 mg PO DAILY 03/02/18 03/09/18 History omeprazole 40 mg PO DAILY 03/02/18 03/09/18 History potassium chloride 20 meq PO DAILY 03/02/18 03/09/18 History prednisone 10 mg PO DAILY 03/02/18 03/09/18 History hydromorphone 4 mg PRN 03/09/18 History Exam Vital signs: Vital Signs 03/09/18 14:40 03/09/18 16:21 03/09/18 17:16 Temperature 98.7 F Pulse Rate 89 86 80 Respiratory Rate 18 20 18 Blood Pressure 177/81 H 145/75 H Pulse Oximetry 98 96 03/09/18 17:23 03/09/18 17:56 Temperature 97.6 F Pulse Rate 91 H Respiratory Rate 18 Blood Pressure 132/89 Pulse Oximetry 96 96 Intake & Output 03/09/18 03/09/18 03/10/18 06:59 18:59 06:59 Intake Total 240 / 240 Balance 240 / 240 Weight 51 kg Intake: Oral 240 / 240 Other: Weight On Admission 51 kg Narrative: General patient in no acute distress HEENT extraocular movements are intact, clear oropharyngeal mucosa, no JVD Cardiovascular S1-S2 audible, RRR, no murmurs rubs or gallops Respiratory clear to auscultation bilaterally Abdomen soft, mild tenderness to palpation in the midepigastric region. Extremities no edema 2+ distal pulses in bilateral upper and lower extremities Neuro cranial nerves II through XII intact Results - Labs CBC & Chem 7: 03/09/18 14:50 03/09/18 14:50 Labs: Short CBC 03/09/18 Range/Units 14:50 WBC 13.2 H (4.0-11.0) th/mm3 Hgb 13.3 (13.0-17.0) gm/dL Hct 39.4 (39.0-51.0) % Plt Count 366 D (150-450) th/mm3 BMP 03/09/18 14:50 Sodium 141 Potassium 3.5 Chloride 107 Carbon Dioxide 26.7 BUN 7 Creatinine 0.76 Calcium 8.7 Cardiac Enzymes 03/09/18 Range/Units 14:50 Troponin I 0.93 H* (0.02-0.05) ng/mL Liver Function 03/09/18 Range/Units 14:50 Total Bilirubin 0.4 (0.2-1.0) mg/dL AST 26 (15-37) U/L ALT 26 (12-78) U/L Alkaline Phosphatase 82 (45-117) U/L Albumin 3.3 L (3.4-5.0) g/dL - Imaging Impressions Chest X-Ray 03/09/18 14:47 CONCLUSION: No infiltrates seen. Stable large left upper lung bleb. Caprini VTE Risk Assessment Caprini VTE Risk Assessment: Moderate/High Risk (score >= 2) Caprini Risk Assessment Model: Point Value = 1 Point Value = 2 Point Value = 3 Point Value = 5 Age 41-60 Minor surgery BMI > 25 kg/m2 Swollen legs Varicose veins or History of unexplained or recurrent spontaneous Oral contraceptives or hormone replacement Sepsis (< 1 month) Serious lung disease, including pneumonia (< 1 month) Abnormal pulmonary function Acute myocardial infarction Congestive heart failure (< 1 month) History of inflammatory bowel disease Medical patient at bed rest Age 61-74 Arthroscopic surgery Major open surgery (> 45 min) Laparoscopic surgery (> 45 min) Malignancy Confined to bed (> 72 hours) Immobilizing plaster cast Central venous access Age >= 75 History of VTE Family history of VTE Factor V Leiden Prothrombin [id number] Lupus anticoagulant Anticardiolipin antibodies Elevated serum homocysteine Heparin-induced thrombocytopenia Other congenital or acquired thrombophilia Stroke (< 1 month) Elective arthroplasty Hip, pelvis, or leg fracture Acute spinal cord injury (< 1 month) Prophylaxis Regimen: Total Risk Factor Score Risk Level Prophylaxis Regimen 0-1 Low Early ambulation 2 Moderate Order ONE of the following: *Sequential Compression Device (SCD) *Heparin 5000 units SQ BID 3-4 Higher Order ONE of the following medications: *Heparin 5000 units SQ TID *Enoxaparin/Lovenox 40 mg SQ daily (WT < 150 kg, CrCl > 30 mL/min) *Enoxaparin/Lovenox 30 mg SQ daily (WT < 150 kg, CrCl > 10-29 mL/min) *Enoxaparin/Lovenox 30 mg SQ BID (WT < 150 kg, CrCl > 30 mL/min) AND/OR *Sequential Compression Device (SCD) 5 or more Highest Order ONE of the following medications: *Heparin 5000 units SQ TID (Preferred with Epidurals) *Enoxaparin/Lovenox 40 mg SQ daily (WT < 150 kg, CrCl > 30 mL/min) *Enoxaparin/Lovenox 30 mg SQ daily (WT < 150 kg, CrCl > 10-29 mL/min) *Enoxaparin/Lovenox 30 mg SQ BID (WT < 150 kg, CrCl > 30 mL/min) AND *Sequential Compression Device (SCD) Assessment and Plan - Plan This patient is a 72-year-old -Y[place]i male with a diagnosis of coronary artery disease COPD extensive tobacco smoking history. He was recently seen in our facility and treated for STEMI and had 2 stents placed. The patient was also treated for C. difficile with Flagyl as per documentation. After discharge he has been compliant with his medication and is currently on aspirin and Plavix. The patient presented to our emergency department with complaints of loose stools that been ongoing over the past few days he also has been having on and off chest pain for the past few days. 1. Sepsis secondary to C. difficile. 2. Chest pain concern for ACS. The patient has been admitted and is currently on telemetry. He complains of loose stools over the past few days. C. difficile PCR is positive. He has been started on vancomycin p.o. which will be continued throughout this hospitalization. He will be started on IV fluids. If the patient's symptoms do not improve infectious disease will be consulted. He will be kept in isolation for C. difficile. Patient has a history of STEMI which was treated for approximately 1 week ago at our facility. Initial troponins are elevated at 0.9 however this is a down trend from his previous admission. No significant new EKG findings were noted. Cardiology has been consulted to evaluate the patient. Continue aspirin Plavix statin and beta-saurav. We will follow-up with her conditions from cardiology. Another set of cardiac enzymes and troponins as well as an EKG have been ordered. Heparin for DVT prophylaxis. H&P: Quality - VTE Deep Vein Thrombosis/Pulmonary Embolism Present on Admission: No
[2018-03-09] MEDS: Senna/Docusate Sodium 8.6/50 MG Tablet PO SCH (20:53)
[2018-03-09] MEDS: Sodium Chloride 0.45 % Inj 1,000 ML IV.CONT SCH (20:55)
[2018-03-09] MEDS: Metoprolol Tartrate 25 MG Tablet PO SCH (20:55)
[2018-03-09 21:59] LABS: Troponin I 0.73 ng/mL (0.02-0.05)
[2018-03-10] MEDS: Heparin - SQ 10,000 UNITS/ML Vial SQ SCH (06:25)
[2018-03-10 08:00] LABS: Baso # (Auto) 0.1 th/mm3 (0.0-0.2); Baso % (Auto) 1.2 % (0.0-2.0); Eos # (Auto) 0.1 th/mm3 (0.0-0.4); Eos % (Auto) 0.8 % (0.0-4.0); Hematocrit 31.1 % (39.0-51.0); Hemoglobin 10.8 gm/dL (13.0-17.0); Lymph # (Auto) 2.6 th/mm3 (1.0-4.8); Lymph % (Auto) 26.3 % (9.0-44.0); Mean Corpuscular HGB Conc 34.8 % (32.0-36.0); Mean Corpuscular Hemoglobin 32.4 pg (27.0-34.0); Mean Corpuscular Volume 93.1 fL (80.0-100.0); Mean Platelet Volume 8.6 fL (7.0-11.0); Mono # (Auto) 1.5 th/mm3 (0.0-0.9); Mono % (Auto) 14.7 % (0.0-8.0); Neut # (Auto) 5.6 th/mm3 (1.8-7.7); Platelet Count 307 th/mm3 (150-450); Red Blood Count 3.34 mil/mm3 (4.50-5.90); Red Cell Distribution Width 15.7 % (11.6-17.2); White Blood Count 9.9 th/mm3 (4.0-11.0)
[2018-03-10] MEDS: Sodium Chloride 0.45 % Inj 1,000 ML IV.CONT SCH (08:05)
[2018-03-10] MEDS: Metoprolol Tartrate 25 MG Tablet PO SCH (08:06)
[2018-03-10] MEDS: Senna/Docusate Sodium 8.6/50 MG Tablet PO SCH (08:06)
--- NOTE | 2018-03-10 08:11 | ECG ---
Date Performed: 03/09/2018 Time Performed: 14:42:46 PTAGE: 72 years EKG: Sinus rhythm WITH SHORT TX INTERVAL WITH OCCASIONAL VENTRICULAR PREMATURE COMPLEXES LEFT ANTERIOR FASCICULAR BLOC K NONSPECIFIC T-WAVE ABNORMALITY ABNORMAL ECG Compared to PREVIOUS TRACING the patient is no longer tachycardic PREVIOUS TRACIN03/03/2018 05.32 DOCTOR: Sally Jeffers Interpretating Date/Time 03/10/2018 08:09:42
[2018-03-10 08:34] LABS: Anion Gap 10 meq/L (5-15); Blood Urea Nitrogen 8 mg/dL (7-18); Calcium 8.1 mg/dL (8.5-10.1); Carbon Dioxide 25.4 meq/L (21.0-32.0); Chloride 107 meq/L (98-107); Glomerular Filtration Rate Greater Than 89 mL/min (>89); Glucose,Random 84 mg/dL (74-106); Potassium 3.3 meq/L (3.5-5.1); Sodium 142 meq/L (136-145)
--- NOTE | 2018-03-10 09:42 | P.PN ---
Subjective Interval history: Follow-up for C. difficile infection. Patient reports feeling better today. He states he just feels very weak, fatigued, and unsteady on his feet. He states he has been getting progressively weaker since his recent hospitalization for MA with stents placed. He states he should have went to rehab after that hospitalization. He states he fell twice on the day he came back to the hospital. He reports his diarrhea is improving, 2 episodes yesterday, and none so far this morning. He states he just feels slightly sore throughout his entire abdomen, with some mild nausea, but no vomiting. He was able to tolerate dinner last night. He has not yet attempted breakfast. He denies any fevers or chills. His main concern is getting arrangements made for him to go to rehab upon discharge. He has no other medical complaints at this time including no chest pain, shortness of breath, or urinary complaints. Physical Exam Vital signs: Vital Signs 03/09/18 14:40 03/09/18 16:21 03/09/18 17:16 Temperature 98.7 F Pulse Rate 89 86 80 Respiratory Rate 18 20 18 Blood Pressure 177/81 H 145/75 H Pulse Oximetry 98 96 03/09/18 17:23 03/09/18 17:56 03/09/18 20:44 Temperature 97.6 F 98.3 F Pulse Rate 91 H 82 Respiratory Rate 18 17 Blood Pressure 132/89 136/64 Pulse Oximetry 96 96 97 03/09/18 23:47 03/10/18 03:20 03/10/18 07:18 Temperature 98.6 F 98.6 F 98.7 F Pulse Rate 67 77 72 Respiratory Rate 18 17 18 Blood Pressure 108/59 L 109/61 104/59 L Pulse Oximetry 98 97 99 03/10/18 08:00 03/10/18 09:00 Temperature Pulse Rate 88 Respiratory Rate Blood Pressure Pulse Oximetry 96 Intake & Output 03/09/18 03/10/18 03/10/18 18:59 06:59 18:59 Intake Total 240 / 240 1000 / 1000 Output Total 300 / 300 Balance 240 / 240 -300 / -300 1000 / 1000 Weight 51 kg Intake: IV 1000 / 1000 1/2 Normal Saline Inj 1,000 ML 1000 / 1000 @ 84 mls/hr IV.CONT .[id number] [facility] Rx#:[id number] Oral 240 / 240 Output: Urine 300 / 300 Other: Date of Last Bowel Movement 03/09/18 03/09/18 Weight On Admission 51 kg Narrative: GENERAL: Well-nourished, well-developed pleasant elderly male patient in [facility]. SKIN: Warm and dry. No rash. HEENT: Normocephalic. Atraumatic. Pupils equal and round. Mucous membranes pink and moist. CARDIOVASCULAR: Regular rate and rhythm. No murmur appreciated. RESPIRATORY: No accessory muscle use. Clear to auscultation. Breath sounds equal bilaterally. GASTROINTESTINAL: Abdomen soft, non-tender, nondistended. Normoactive bowel sounds x4. MUSCULOSKELETAL: No obvious deformities. Extremities without clubbing, cyanosis , or edema. NEUROLOGICAL: Awake and alert. No obvious cranial nerve deficits. Motor grossly within normal limits. Moving all extremities spontaneously. Normal speech. PSYCHIATRIC: Appropriate mood and affect; insight and judgment normal. Results - Labs CBC & Chem 7: 03/10/18 07:46 03/10/18 07:46 Laboratory Results - last 24 hr 03/09/18 03/09/18 03/09/18 14:50 14:50 16:36 WBC 13.2 H RBC 4.16 L Hgb 13.3 Hct 39.4 MCV 94.6 MCH 32.0 MCHC 33.8 RDW 15.7 Plt Count 366 D MPV 8.7 Neut % (Auto) 66.7 Lymph % (Auto) 20.4 [place] % (Auto) 11.6 H Eos % (Auto) 0.3 Baso % (Auto) 1.0 Neut # (Auto) 8.8 H Lymph # (Auto) 2.7 [place] # (Auto) 1.5 H Eos # (Auto) 0.0 Baso # (Auto) 0.1 WBC Differential . Differential Comment Auto diff final Sodium 141 Potassium 3.5 Chloride 107 Carbon Dioxide 26.7 Anion Gap 7 BUN 7 Creatinine 0.76 Estimated GFR Greater than 89 Random Glucose 91 Calcium 8.7 Magnesium 2.2 Total Bilirubin 0.4 AST 26 ALT 26 Alkaline Phosphatase 82 Total Creatine Kinase Troponin I 0.93 H* Total Protein 7.7 Albumin 3.3 L Lipase 87 Stl C.difficile Tox PCR Positive H St C. diff Tox Epid 027 Negative Serum Alcohol Less than 3 03/09/18 03/10/18 03/10/18 21:00 03:15 03:15 WBC RBC Hgb Hct MCV MCH MCHC RDW Plt Count MPV Neut % (Auto) Lymph % (Auto) [place] % (Auto) Eos % (Auto) Baso % (Auto) Neut # (Auto) Lymph # (Auto) [place] # (Auto) Eos # (Auto) Baso # (Auto) WBC Differential Differential Comment Sodium Potassium Chloride Carbon Dioxide Anion Gap BUN Creatinine Estimated GFR Random Glucose Calcium Magnesium Total Bilirubin AST ALT Alkaline Phosphatase Total Creatine Kinase 76 68 Troponin I 0.73 H* Cancelled 0.65 H* Total Protein Albumin Lipase Stl C.difficile Tox PCR St C. diff Tox Epid 027 Serum Alcohol 03/10/18 03/10/18 07:46 07:46 WBC 9.9 RBC 3.34 L Hgb 10.8 L D Hct 31.1 L MCV 93.1 MCH 32.4 MCHC 34.8 RDW 15.7 Plt Count 307 MPV 8.6 Neut % (Auto) 57.0 Lymph % (Auto) 26.3 [place] % (Auto) 14.7 H Eos % (Auto) 0.8 Baso % (Auto) 1.2 Neut # (Auto) 5.6 Lymph # (Auto) 2.6 [place] # (Auto) 1.5 H Eos # (Auto) 0.1 Baso # (Auto) 0.1 WBC Differential . Differential Comment Auto diff final Sodium 142 Potassium 3.3 L Chloride 107 Carbon Dioxide 25.4 Anion Gap 10 BUN 8 Creatinine 0.63 Estimated GFR Greater than 89 Random Glucose 84 Calcium 8.1 L Magnesium Total Bilirubin AST ALT Alkaline Phosphatase Total Creatine Kinase Troponin I Total Protein Albumin Lipase Stl C.difficile Tox PCR St C. diff Tox Epid 027 Serum Alcohol Microbiology 03/09/18 16:36 Stool Stool for WBCs - Final Rare WBC's - Imaging Impressions Chest X-Ray 03/09/18 14:47 CONCLUSION: No infiltrates seen. Stable large left upper lung bleb. Assessment and Plan - Plan 72-year-old -[place]ol[place] male with a diagnosis of CAD s/p recent hospitalization 1 week ago for MA with stent placement x2, COPD, extensive tobacco smoking history, prior C.difficile treated with Flagyl, presents with loose stools that been ongoing over the past few days he also has been having on and off chest pain for the past few days. Sepsis with Recurrent C.difficile Infection: Meets sepsis criteria with + leukocytosis WBC 13.2K, tachycardia HR 91, suspected source - C.diff. -The patient has hx of C.difficile, although previously only treated with flagyl, therefore UpToDate recommendations include Vanco 125mg po qid [id number] -Start on lactinex -Symptoms much improved, leukocytosis resolved, only 2 BMs in last 24hours, tolerating oral intake, stable. 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 Martínez All other medical conditions stable, continue home meds as appropriate. DVT Prophylaxis: Heparin sq Discharge Planning: Discharge patient to [facility] Condition on discharge: Stable Cardiac Diet as tolerated Ad Maame activity Rx written: Vanco 125mg po qid [id number] Follow-up with primary care physician and cardiology Dr. Martínez
[2018-03-10 11:26] VITALS: BP 132/59; PULSE 82; RESP 16; TEMP 99; O2SAT 98
--- NOTE | 2018-03-10 17:53 | ECG ---
Date Performed: 03/09/2018 Time Performed: 21:13:40 PTAGE: 72 years EKG: Sinus rhythm WITH SHORT FL INTERVAL POSSIBLE RIGHT VENTRICULAR CONDUCTION DELAY LEFT ANTERIOR FASCICULAR BLOCK NO NSPECIFIC T-WAVE ABNORMALITY Since the previous tracing, no significant change noted ABNORMAL ECG PREVIOUS TRACING : 03/09/2018 14.42 DOCTOR: Sally Jeffers Interpretating Date/Time 03/10/2018 17:50:07
--- NOTE | 2018-03-10 17:54 | ECG ---
Date Performed: 03/10/2018 Time Performed: 03:23:21 PTAGE: 72 years EKG: Sinus rhythm POSSIBLE RIGHT VENTRICULAR CONDUCTION DELAY LEFT ANTERIOR FASCICULAR BLOCK Since the previous tracin g, no significant change noted ABNORMAL ECG PREVIOUS TRACING : 03/09/2018 21.13 DOCTOR: Sally Jeffers Interpretating Date/Time 03/10/2018 17:50:17
== END 2018-03-10 17:40 ==
LOC: NEPE 14:20 → NEDA 14:20 → NEPHCDU 17:27
PROVIDERS: ADMIT Hospitalist; ATTEND Hospitalist

== ENCOUNTER 2018-03-28 20:33 | Inpatient (IN) ==
[2018-03-28] MEDS ORDERED: Morphine Inj 4 MG/ML Vial IV.PUSH ONE (20:43)
[2018-03-28] MEDS ORDERED: Amiodarone Inj 150 MG in Dextrose 5% in Water Inj 97 ML IV.SIG ONE ×2 (20:43)
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
[2018-03-28 21:29] LABS: Bilirubin,Urine Negative (Negative); Clarity,Urine Clear (Clear); Color,Urine Yellow (Yellw/Straw); Glucose,Urine (UA) Negative (Negative); Leukocyte Esterase,Urine Negative (Negative); Nitrite,Urine Negative (Negative)
[2018-03-28 21:29] LABS: Baso # (Auto) 0.1 th/mm3 (0.0-0.2); Baso % (Auto) 0.7 % (0.0-2.0); Eos # (Auto) 0.1 th/mm3 (0.0-0.4); Eos % (Auto) 0.9 % (0.0-4.0); Hematocrit 39.7 % (39.0-51.0); Hemoglobin 13.5 gm/dL (13.0-17.0); Lymph # (Auto) 1.7 th/mm3 (1.0-4.8); Lymph % (Auto) 18.8 % (9.0-44.0); Mean Corpuscular Hemoglobin 32.7 pg (27.0-34.0); Mean Corpuscular Volume 96.3 fL (80.0-100.0); Mean Platelet Volume 9.7 fL (7.0-11.0); Mono # (Auto) 0.7 th/mm3 (0.0-0.9); Mono % (Auto) 7.6 % (0.0-8.0); Neut # (Auto) 6.5 th/mm3 (1.8-7.7); Platelet Count 194 th/mm3 (150-450); Red Blood Count 4.12 mil/mm3 (4.50-5.90); Red Cell Distribution Width 17.5 % (11.6-17.2); White Blood Count 9.1 th/mm3 (4.0-11.0)
--- NOTE | 2018-03-28 21:34 | ED ---
HPI General Chief Complaint: Chest Pain Stated Complaint: Cardiac Time Seen by Provider: 03/28/18 20:42 Source: patient and EMS Mode of arrival: EMS Limitations: no limitations History of Present Illness MD complaint: Reports chest pain STEMI Alert: No Onset (ago): hour(s) (17:00) Duration: constant Onset: during rest Pain location: Reports left chest (left upper ) Severity: severe Quality: Reports sharp Pain radiation: Reports none Relieving factors: nothing Exacerbating factors: nothing Context: Reports other (STEMI on 03/09) Associated symptoms: Reports dyspnea Treatments prior to arrival chest pain: Reports oxygen Related Data Home Medications Medication Instructions Recorded Confirmed calcium carbonate-vitamin D3 1 tab PO DAILY 03/02/18 03/28/18 [Calcium 600 + D(3)] megestrol 40 mg PO DAILY 03/02/18 03/28/18 omeprazole 40 mg PO DAILY 03/02/18 03/28/18 potassium chloride 20 meq PO DAILY 03/02/18 03/28/18 prednisone 10 mg PO DAILY 03/02/18 03/28/18 Previous Rx's Medication Instructions Recorded amlodipine 10 mg PO DAILY #90 tab 03/05/18 aspirin 81 mg PO DAILY #90 tab 03/05/18 atorvastatin [Lipitor] 40 mg PO HS #90 tab 03/05/18 clopidogrel [Plavix] 75 mg PO DAILY #90 tab 03/05/18 enalapril maleate 20 mg PO DAILY #90 tab 03/05/18 metoprolol tartrate 12.5 mg PO BID@0600,1800 #60 tab 03/05/18 Allergies Allergy/AdvReac Type Severity Reaction Status Date / Time penicillin G AdvReac Mild HIVES Verified 03/09/18 14:44 ITCHING SWELLING Review of Systems ROS: all other systems reviewed are negative [facility] Medical History Medical History Hypertension (Acute) COPD (chronic obstructive pulmonary disease) (Acute) Prostate cancer (Acute) C. difficile diarrhea (Acute) Social History Social History Substance History: No History of Abuse Second Hand Smoke Exposure: No Smoking Status: Light tobacco smoker Tobacco Type: Cigarettes Packs Per Day: 1 Cigarettes Per Day: 20.0 Years Smoked: 20 Pack-Years: 20.00 How Often Do You Have a Drink Containing Alcohol: Never Immunization History Tetanus Immunization: >5 Years Exam Const General: cooperative, healthy appearing, comfortable and other (Tremulous) Nutritional Appearance: cachectic Orientation: alert, awake and oriented x3 HENMT Head: normal to inspection, normocephalic and atraumatic Eyes General: appearance normal, both eyes and all related structures Conjunctivae: conjunctivae normal Sclera: sclerae normal EOM: EOM intact bilaterally Neck Neck: normal visual inspection and full ROM Chest Chest: normal inspection of the chest Resp Effort & Inspection: normal respiratory effort and able to speak in complete sentences Auscultation: clear to auscultation bilaterally Cardio Rate: tachycardic Rhythm: abnormal rhythm (Underlying sinus rhythm with multiple multifocal PVCs.) Heart Sounds: S1 normal and S2 normal GI Inspection: normal to inspection Palpation: soft Back/Spine/Pelvis Cervical Spine: cervical ROM normal Thoracic/Lumbar Spine: thoraco-lumbar ROM normal Skin General: no rashes or lesions noted, turgor normal and dry skin Neuro General: alert, awake, oriented x3, moves all extremities and CN's II-XI intact bilaterally Extrem General: normal to inspection, full ROM and no pedal edema Psych Appearance: grossly normal Mental Status: mental status grossly normal Speech and Movement: speech and movement normal Mood: congruent mood Affect: normal affect Attitude: cooperative Thought Process: normal Thought Content: normal Judgment: judgment good Course Reevaluation(s) Reevaluation #1: Patient reports that he is pain-free. His heart rate is now in the 80s and sinus. His potassium was 5.6. He is on exogenous potassium. He has an elevated troponin at 0.15. I have ordered a repeat BMP and a repeat troponin for about midnight. Time: 22:16 Reevaluation #2: The patient continues to be asymptomatic. He is still in a sinus rhythm with a rate in the 70s. His repeat troponin is less than his initial troponin. His lactic acid has returned to normal. His repeat potassium is 3.3. Time: 01:31 Consultations Consultation #1: Dr. Fischer Time: :31 Initial Documented Vital Signs Temperature 98.9 F 03/28/18 20:36 Pulse Rate 120 H 03/28/18 20:36 Respiratory Rate 36 H 03/28/18 20:36 Blood Pressure 140/74 03/28/18 20:36 Pulse Oximetry 96 03/28/18 20:36 Last Documented Vital Signs Temperature 98.9 F 03/28/18 20:36 Pulse Rate 88 03/28/18 23:54 Respiratory Rate 16 03/28/18 23:54 Blood Pressure 128/69 03/28/18 23:54 Pulse Oximetry 98 03/28/18 23:54 Critical Care Time Critical Care Time: Yes Total Critical Care Time: 45 Attestation: Time to perform other separately billable procedures was not included in the critical care time. My time did not include minutes spent treating any other patients simultaneously or on activities that did not directly contribute to the patient's treatment. The services I provided to this patient were to treat and/or prevent clinically significant deterioration due to tachycardia with frequent multifocal PVCs I provided critical care services requiring my management, as noted below: Chart data review, documentation time, medication orders and management, vital sign assessments/reviewing monitor data, ordering and reviewing lab tests, ordering and interpreting/reviewing x-rays and diagnostic studies, care of the patient and discussion of the patient with the admitting physicians Medical Decision Making MDM Narrative Medical decision making narrative: Patient presents to us by [facility] with chief complaint of chest pain shortness of 5 PM. Of note, the patient is having multiple multifocal PVCs. An amiodarone bolus of 150 mg was ordered. An amiodarone drip has also been ordered. Routine chest pain labs have been ordered. I will do a CTA of his chest to look for a PE. I have also ordered a septic workup because of the tremors. Medical Screen Exam Complete: Yes Emergency Medical Condition: Yes Differential Diagnosis Differential Diagnosis: Differential diagnosis of chest pain includes but is not limited to musculoskeletal pain, pulmonary embolism, acute coronary syndrome , pneumonia, pleurisy Medical Records Medical records reviewed: Yes I reviewed the patient's medical records. Patient's medical history is significant for prostate cancer with bone metastases. He also has COPD and had a recent myocardial infarction status post 2 stents. Lab Data Lab results reviewed: Yes I reviewed the patient's lab results. Result diagrams: 03/28/18 20:55 03/29/18 00:15 Lab Results 03/28/18 03/28/18 03/28/18 Range/Units 20:55 20:55 20:55 WBC 9.1 (4.0-11.0) th/mm3 RBC 4.12 L (4.50-5.90) mil/mm3 Hgb 13.5 (13.0-17.0) gm/dL Hct 39.7 (39.0-51.0) % MCV 96.3 (80.0-100.0) fL MCH 32.7 (27.0-34.0) pg MCHC 34.0 (32.0-36.0) % RDW 17.5 H (11.6-17.2) % Plt Count 194 D (150-450) th/mm3 MPV 9.7 (7.0-11.0) fL Neut % (Auto) 72.0 H (16.0-70.0) % Lymph % (Auto) 18.8 (9.0-44.0) % [place] % (Auto) 7.6 (0.0-8.0) % Eos % (Auto) 0.9 (0.0-4.0) % Baso % (Auto) 0.7 (0.0-2.0) % Neut # (Auto) 6.5 (1.8-7.7) th/mm3 Lymph # (Auto) 1.7 (1.0-4.8) th/mm3 [place] # (Auto) 0.7 (0.0-0.9) th/mm3 Eos # (Auto) 0.1 (0.0-0.4) th/mm3 Baso # (Auto) 0.1 (0.0-0.2) th/mm3 WBC Differential . Differential Comment Auto diff final PT 10.8 (9.8-11.6) sec INR 1.1 Ratio APTT 26.8 (24.3-30.1) sec Sodium 140 (136-145) meq/L Potassium 5.6 H (3.5-5.1) meq/L Chloride 107 (98-107) meq/L Carbon Dioxide 23.2 (21.0-32.0) meq/L Anion Gap 10 (5-15) meq/L BUN 15 (7-18) mg/dL Creatinine 1.17 (0.60-1.30) mg/dL Estimated GFR 74 L (>89) mL/min Random Glucose 105 (74-106) mg/dL Lactic Acid (0.4-2.0) mmol/L Calcium 8.9 (8.5-10.1) mg/dL Prot Corrected Calcium (8.5-10.1) mg/dL Total Bilirubin 0.7 (0.2-1.0) mg/dL AST 38 H (15-37) U/L ALT 33 (12-78) U/L Alkaline Phosphatase 95 (45-117) U/L Troponin I 0.15 H (0.02-0.05) ng/mL Total Protein 8.2 (6.4-8.2) g/dL Albumin 3.5 (3.4-5.0) g/dL Urine Color (Yellw/Straw) Urine Clarity (Clear) Urine pH (5.0-8.5) Ur Specific [place] (1.002-1.035) Urine Protein (Neg-Trace) mg/dL Urine Glucose (UA) (Negative) mg/dL Urine Ketones (Negative) mg/dL Urine Occult Blood (Negative) Urine Nitrate (Negative) Urine Bilirubin (Negative) Urine Urobilinogen (Less than 2) mg/dL Ur Leukocyte Esterase (Negative) Urine RBC (0-3) /hpf Urine WBC (0-5) /hpf Micro UA Comment Ur Microscopic Review Urine Culture Comments 03/28/18 03/28/18 03/29/18 Range/Units 21:00 21:02 00:15 WBC (4.0-11.0) th/mm3 RBC (4.50-5.90) mil/mm3 Hgb (13.0-17.0) gm/dL Hct (39.0-51.0) % MCV (80.0-100.0) fL MCH (27.0-34.0) pg MCHC (32.0-36.0) % RDW (11.6-17.2) % Plt Count (150-450) th/mm3 MPV (7.0-11.0) fL Neut % (Auto) (16.0-70.0) % Lymph % (Auto) (9.0-44.0) % [place] % (Auto) (0.0-8.0) % Eos % (Auto) (0.0-4.0) % Baso % (Auto) (0.0-2.0) % Neut # (Auto) (1.8-7.7) th/mm3 Lymph # (Auto) (1.0-4.8) th/mm3 [place] # (Auto) (0.0-0.9) th/mm3 Eos # (Auto) (0.0-0.4) th/mm3 Baso # (Auto) (0.0-0.2) th/mm3 WBC Differential Differential Comment PT (9.8-11.6) sec INR Ratio APTT (24.3-30.1) sec Sodium 135 L (136-145) meq/L Potassium 3.3 L D (3.5-5.1) meq/L Chloride 103 (98-107) meq/L Carbon Dioxide 22.4 (21.0-32.0) meq/L Anion Gap 10 (5-15) meq/L BUN 12 (7-18) mg/dL Creatinine 0.97 (0.60-1.30) mg/dL Estimated GFR Greater than 89 (>89) mL/min Random Glucose 370 H D (74-106) mg/dL Lactic Acid 5.7 H* (0.4-2.0) mmol/L Calcium 7.4 L* D (8.5-10.1) mg/dL Prot Corrected Calcium 7.8 L (8.5-10.1) mg/dL Total Bilirubin (0.2-1.0) mg/dL AST (15-37) U/L ALT (12-78) U/L Alkaline Phosphatase (45-117) U/L Troponin I 0.13 H (0.02-0.05) ng/mL Total Protein 6.3 L D (6.4-8.2) g/dL Albumin (3.4-5.0) g/dL Urine Color Yellow (Yellw/Straw) Urine Clarity Clear (Clear) Urine pH 6.0 (5.0-8.5) Ur Specific [place] 1.010 (1.002-1.035) Urine Protein Negative (Neg-Trace) mg/dL Urine Glucose (UA) Negative (Negative) mg/dL Urine Ketones Negative (Negative) mg/dL Urine Occult Blood Negative (Negative) Urine Nitrate Negative (Negative) Urine Bilirubin Negative (Negative) Urine Urobilinogen Less than 2 (Less than 2) mg/dL Ur Leukocyte Esterase Negative (Negative) Urine RBC Less than 1 (0-3) /hpf Urine WBC 1 (0-5) /hpf Micro UA Comment Culture not ind Ur Microscopic Review Not Reportable Urine Culture Comments Culture not ind 03/29/18 Range/Units 00:15 WBC (4.0-11.0) th/mm3 RBC (4.50-5.90) mil/mm3 Hgb (13.0-17.0) gm/dL Hct (39.0-51.0) % MCV (80.0-100.0) fL MCH (27.0-34.0) pg MCHC (32.0-36.0) % RDW (11.6-17.2) % Plt Count (150-450) th/mm3 MPV (7.0-11.0) fL Neut % (Auto) (16.0-70.0) % Lymph % (Auto) (9.0-44.0) % [place] % (Auto) (0.0-8.0) % Eos % (Auto) (0.0-4.0) % Baso % (Auto) (0.0-2.0) % Neut # (Auto) (1.8-7.7) th/mm3 Lymph # (Auto) (1.0-4.8) th/mm3 [place] # (Auto) (0.0-0.9) th/mm3 Eos # (Auto) (0.0-0.4) th/mm3 Baso # (Auto) (0.0-0.2) th/mm3 WBC Differential Differential Comment PT (9.8-11.6) sec INR Ratio APTT (24.3-30.1) sec Sodium (136-145) meq/L Potassium (3.5-5.1) meq/L Chloride (98-107) meq/L Carbon Dioxide (21.0-32.0) meq/L Anion Gap (5-15) meq/L BUN (7-18) mg/dL Creatinine (0.60-1.30) mg/dL Estimated GFR (>89) mL/min Random Glucose (74-106) mg/dL Lactic Acid 1.4 (0.4-2.0) mmol/L Calcium (8.5-10.1) mg/dL Prot Corrected Calcium (8.5-10.1) mg/dL Total Bilirubin (0.2-1.0) mg/dL AST (15-37) U/L ALT (12-78) U/L Alkaline Phosphatase (45-117) U/L Troponin I (0.02-0.05) ng/mL Total Protein (6.4-8.2) g/dL Albumin (3.4-5.0) g/dL Urine Color (Yellw/Straw) Urine Clarity (Clear) Urine pH (5.0-8.5) Ur Specific [place] (1.002-1.035) Urine Protein (Neg-Trace) mg/dL Urine Glucose (UA) (Negative) mg/dL Urine Ketones (Negative) mg/dL Urine Occult Blood (Negative) Urine Nitrate (Negative) Urine Bilirubin (Negative) Urine Urobilinogen (Less than 2) mg/dL Ur Leukocyte Esterase (Negative) Urine RBC (0-3) /hpf Urine WBC (0-5) /hpf Micro UA Comment Ur Microscopic Review Urine Culture Comments Imaging Data Attestation: I personally reviewed and interpreted this imaging study as follows : Radiologist's impression: Chest X-Ray 03/28/18 20:43 CONCLUSION: 1. Stable appearance with no evidence of pneumonia. 2. A large bleb is again noted in the left upper lobe. Chest CTA 03/28/18 21:07 CONCLUSION: 1. No evidence of pulmonary embolism. 2. Sclerotic osseous metastasis. 3. Underlying emphysema and bullous change. 4. Area again noted in the biliary tree with stent catheter in place. ECG Data EKG Prior to Arrival: Yes Attestation: I personally reviewed and interpreted this ECG as follows: ( Underlying sinus rhythm. Rate 122. Multiple multifocal PVCs. No obvious acute ischemic changes.) Discharge Plan Discharge Disposition Patient Disposition: 30 Still Patient Discharge Details Diagnosis: Multifocal PVCs, Ventricular tachycardia, Chest pain, Acidosis, lactic, Elevated troponin Physicians Team ED Provider: Tiera Cleveland Primary Care Provider: Gretel Sotelo Attending Provider: Fidel Goldstein Rxs /Orders / Referrals /Forms Prescriptions: No Action prednisone 10 mg Tablet 10 mg PO DAILY RF: 0 omeprazole 40 mg Capsule,Delayed Release(Dr/Ec) 40 mg PO DAILY RF: 0 megestrol 40 mg Tablet 40 mg PO DAILY RF: 0 calcium carbonate-vitamin D3 [Calcium 600 + D(3)] 600 mg calcium- 200 unit Capsule 1 tab PO DAILY RF: 0 potassium chloride 20 mEq Tablet Extended Release 20 meq PO DAILY RF: 0 clopidogrel [Plavix] 75 mg Tablet 75 mg PO DAILY Qty: 90 RF: 0 aspirin 81 mg Tablet,Chewable 81 mg PO DAILY Qty: 90 RF: 0 metoprolol tartrate 25 mg Tablet 12.5 mg PO BID@0600,1800 Qty: 60 RF: 0 enalapril maleate 20 mg Tablet 20 mg PO DAILY Qty: 90 RF: 0 amlodipine 10 mg Tablet 10 mg PO DAILY Qty: 90 RF: 0 atorvastatin [Lipitor] 10 mg Tablet 40 mg PO HS Qty: 90 RF: 0 Discharge Instructions Patient Printed Instructions: Chest Pain (ED) Discharge Interventions Interventions: Vital Signs Last Done: 03/28/18 23:54 Status ED Status: With Doctor
[2018-03-28 21:37] LABS: Activated Partial Thrombo Time 26.8 sec (24.3-30.1); INR 1.1 Ratio; Prothrombin Time 10.8 sec (9.8-11.6)
[2018-03-28 21:46] LABS: Alanine Aminotransferase 33 U/L (12-78)
[2018-03-28 21:50] LABS: Alkaline Phosphatase 95 U/L (45-117); Total Protein 8.2 g/dL (6.4-8.2); Troponin I 0.15 ng/mL (0.02-0.05)
[2018-03-28 21:59] LABS: Albumin 3.5 g/dL (3.4-5.0); Anion Gap 10 meq/L (5-15); Aspartate Aminotransferase 38 U/L (15-37); Blood Urea Nitrogen 15 mg/dL (7-18); Calcium 8.9 mg/dL (8.5-10.1); Carbon Dioxide 23.2 meq/L (21.0-32.0); Chloride 107 meq/L (98-107); Glomerular Filtration Rate 74 mL/min (>89); Glucose,Random 105 mg/dL (74-106); Sodium 140 meq/L (136-145)
[2018-03-28 22:00] LABS: Potassium 5.6 meq/L (3.5-5.1)
[2018-03-28] MEDS: Sod Chloride 0.9% Inj 1,000 ML IV.SIG SCH ×2 (22:30→23:32)
--- NOTE | 2018-03-28 22:38 | CT ---
EXAM DATE: 03/28/2018 10:22 PM EDT AGE/SEX: 72 years / Male INDICATIONS: Left sided chest pain; rule out pulmonary embolus. Metastatic cancer. CLINICAL DATA: This is the patient's initial encounter. Patient reports that signs and symptoms have been present for 1 day and indicates a pain score of 7/10. MEDICAL/SURGICAL HISTORY: Carcinoma, prostatic. Chronic obstructive pulmonary disease. Cardiovasc ular disease. Hypertension, C-diff Prostatectomy. Appendectomy. Coronary stents RADIATION DOSE: 5.71 CTDI (mGy) COMPARISON: [facility] [place] ABDOMEN & PELVIS W CONTRAST, 03/02/2018. . TECHNIQUE: Volumetric scanning was performed using a multi-row detector CT scanner during bolus infu bimal of 80 ml Omnipaque 350 (iohexol) nonionic water-soluble contrast as a single exam dose. The cornelius a was post processed with a variety of visualization algorithms including full volume maximum intensi ty projection and sliding thin slab reformation. Using automated exposure control and adjustment of t he mA and/or kV according to patient size, radiation dose was kept as low as reasonably achievable to obtain optimal diagnostic quality images. DICOM format image data is available electronically for r eview and comparison. FINDINGS: Pulmonary Arteries: No filling defects are seen in the pulmonary arteries out to the subsegmental ve ssels. The left and right pulmonary arteries are normal in diameter. Lung: There is underlying emphysema. There is a large bleb in the left upper lobe as well as multipl e smaller blebs along both sides of the mediastinum. There are no consolidative infiltrates, masses o r distinct nodules. Effusion: None. Mediastinum: No evidence of mediastinal or hilar adenopathy. Coronary artery calcifications are pres ent. Other: The axilla is unremarkable. There is again noted in the biliary tree and there is a stent cat heter present. Scattered sclerotic osseous metastasis are present. CONCLUSION: 1. No evidence of pulmonary embolism. 2. Sclerotic osseous metastasis. 3. Underlying emphysema and bullous change. 4. Area again noted in the biliary tree with stent catheter in place. Electronically signed by: Fidel Rea MD 03/28/2018 10:37 PM EDT
[2018-03-29 00:56] LABS: Anion Gap 10 meq/L (5-15); Blood Urea Nitrogen 12 mg/dL (7-18); Calcium 7.4 mg/dL (8.5-10.1); Carbon Dioxide 22.4 meq/L (21.0-32.0); Chloride 103 meq/L (98-107); Glomerular Filtration Rate Greater Than 89 mL/min (>89); Glucose,Random 370 mg/dL (74-106); Potassium 3.3 meq/L (3.5-5.1); Sodium 135 meq/L (136-145); Troponin I 0.13 ng/mL (0.02-0.05)
[2018-03-29 01:09] LABS: Total Protein 6.3 g/dL (6.4-8.2)
--- NOTE | 2018-03-29 02:03 | P.HPFP ---
History of Present Illness Primary Care Physician: Gretel Sotelo MD, R2 <Fidel Goldstein - 03/29/18 09:26> Gretel Sotelo MD, R2 <Marcellus Javier - 03/29/18 02:03> History of Present Illness: This patient is a 72-year-old -[place] male with a past medical history of prostate cancer, COPD, essential hypertension, and is 1 month status post STEMI treated with bare metal RCA stent X2 who is being admitted for chest pain and ACS rule out. Patient reports that late this evening he was coming inside from the patio area at his [place] [facility] and upon reaching the hallway he reports feeling what he described as a punch in his chest. He then went to inform the nurse because the sensation was very similar to his last VT. At the time he also experienced shaking, changes in vision and shortness of breath. The [place] [facility] physician, Dr. Mendoza was contacted and the patient was brought in by [facility]. The patient reports that his pain was constant, nonradiating and lasted 35-45 until the patient arrived at the hospital. He reports that his pain was alleviated only by the medication given to him in the ED and there were no additional exacerbating factors. Patient did not report his pain being related to position, activity, or food. Of note patient had appointment scheduled with his heating and ventilation engineer Dr. Martínez, last week but had to reschedule. PMHx: Prostate Cancer treated with chemotherapy every 3 weeks but has not been treated in 2 months due to C Diff, COPD, PAD, VT s/p 2 cardiac stents. Surgical Hx: Prostatectomy, 2 small bowel resection, ERCP, Inguinal hernia repair, appendectomy, 2 bare-metal stents placed in his RCA FHx: unknown to patient Social Hx: Lives in [facility] nursing/ rehab facility, patient has a 58 pack year history now only smokes with his coffee in the morning, denies alcohol and illicit/ recreational drugs Allergies: Penicillin produces hives Code Status: Full Code <Marcellus Javier - 03/29/18 07:30> - Diagnosis (1) Chest pain (2) Multifocal PVCs (3) Hypertension (4) CAD (coronary artery disease) (5) PAD (peripheral artery disease) (6) Prostate cancer (7) Nutrition, metabolism, and development symptoms <Fidel Goldstein 03/29/18 09:26> (1) Chest pain (2) Multifocal PVCs (3) Hypertension (4) CAD (coronary artery disease) (5) PAD (peripheral artery disease) (6) Prostate cancer (7) Nutrition, metabolism, and development symptoms <Marcellus Javier 03/29/18 08:43> Inpatient Certification: I certify that the inpatient services were ordered in accordance with Medicare regulations governing the order. This includes certification that hospital inpatient services are reasonable and necessary and in the case of services not specified as inpatient-only under 42 CFR 419.22(n), that they are appropriately provided as inpatient services in accordance to with the 2-midnight benchmark under 43 CFR 412.3(e) <Fidel Goldstein - 03/29/18 09:26> I certify that the inpatient services were ordered in accordance with Medicare regulations governing the order. This includes certification that hospital inpatient services are reasonable and necessary and in the case of services not specified as inpatient-only under 42 CFR 419.22(n), that they are appropriately provided as inpatient services in accordance to with the 2-midnight benchmark under 43 CFR 412.3(e) <Marcellus Javier - 03/29/18 02:03> Estimated Total Length of Stay (Days): 2 <Marcellus Javier 03/29/18 02:03> Plans for Post Hospital Care: Not yet determined <Marcellus Javier 03/29/18 02: 03> Review of Systems Constitutional: Denies chills, Denies fever(s), Denies headache(s), Denies dizziness Eyes: Endorses changes in vision at the time of the chest pain that he reported as "I could not see well", he denies double vision, Denies loss of vision Cardiovascular: Denies chest pain at time of interview, Denies fast heart rate , Denies rapid, pounding, or irregular heartbeat Respiratory: Endorses shortness of breath at the time of the chest pain but denies any now, endorses a nonproductive chronic cough due to COPD Gastrointestinal: Denies abdominal pain, Denies constipation, Denies loose stools, Denies nausea, Denies vomiting Genitourinary: Denies difficulty urinating, Denies painful urination, Denies urinary frequency, Denies blood in urine <Marcellus Javier 03/29/18 07:30> PMFSH - History History Provided By: Patient <Marcellus Javier 03/29/18 02:03> - Medical History Medical History: Medical History (Last Reviewed 03/28/18 @ 21:37 by Tiera Cleveland) Hypertension (Acute) COPD (chronic obstructive pulmonary disease) (Acute) Prostate cancer (Acute) C. difficile diarrhea (Acute) <Fidel Goldstein 03/29/18 09:26> Medical History (Last Reviewed 03/28/18 @ 21:37 by Tiera Cleveland) Hypertension (Acute) COPD (chronic obstructive pulmonary disease) (Acute) Prostate cancer (Acute) C. difficile diarrhea (Acute) <Marcellus Javier 03/29/18 02:03> - Surgical History Surgical History: Surgical History (Last Reviewed 03/28/18 @ 20:40 by Magda Macdonald) History of ERCP (Acute) History of appendectomy (Acute) H/O prostatectomy (Acute) H/O abdominal surgery (Acute) <Fidel Goldstein 03/29/18 09:26> Surgical History (Last Reviewed 03/28/18 @ 20:40 by Magda Macdonald) History of ERCP (Acute) History of appendectomy (Acute) H/O prostatectomy (Acute) H/O abdominal surgery (Acute) <Marcellus Javier 03/29/18 02:03> - Tobacco History Second Hand Smoke Exposure: No <Marcellus Javier 03/29/18 02:03> Tobacco Use In Past 30 Days: Yes <Marcellus Javier 03/29/18 02:03> Smoking Status: Light tobacco smoker <Marcellus Javier 03/29/18 02:03> Tobacco Type: Cigarettes <Marcellus Javier 03/29/18 02:03> Packs Per Day: 1 <Marcellus Javier 03/29/18 02:03> Years Smoked: 20 <Marcellus Javier 03/29/18 02:03> - Alcohol History How Often Do You Have a Drink Containing Alcohol: Never <Marcellus Javier 03/29 02:03> - Substance Use History Substance History: No History of Abuse <Marcellus Javier - 03/29/18 02:03> - Immunization History Tetanus Immunization: >5 Years <Marcellus Javier Lucy - 03/29/18 02:03> Medications and Allergies Allergies Allergy/AdvReac Type Severity Reaction Status Date / Time penicillin G AdvReac Mild HIVES Verified 03/09/18 14:44 ITCHING SWELLING <Fidel Goldstein Sadia - 03/29/18 09:26> Home Medications Medication Instructions Recorded Confirmed Type calcium carbonate-vitamin D3 1 tab PO DAILY 03/02/18 03/28/18 History [Calcium 600 + D(3)] megestrol 40 mg PO DAILY 03/02/18 03/28/18 History omeprazole 40 mg PO DAILY 03/02/18 03/28/18 History potassium chloride 20 meq PO DAILY 03/02/18 03/28/18 History prednisone 10 mg PO DAILY 03/02/18 03/28/18 History <AngelitaFidel K - 03/29/18 09:26> Active Medications: Active Medications Al Hydroxide/Mg Hydroxide (Milk Of Nanoogotequila Rose) 30 ml PO Q12H PRN PRN Reason: Mild Constipation Amlodipine Besylate (Norvasc) 10 mg PO DAILY MAKAYLA Atorvastatin Calcium (Lipitor) 40 mg PO HS MAKAYLA Bisacodyl (Dulcolax Supp) 10 mg RECTAL DAILY PRN PRN Reason: SEVERE CONSITIPATION Calcium/Vitamin D (Oscal With D 250/125 Mg) 2 tab PO DAILY MAKAYLA Enalapril Maleate (Vasotec) 20 mg PO DAILY MAKAYLA Heparin Sodium (Porcine) (Heparin Inj) 5,000 units IV.PUSH UNSCH PRN PRN Reason: aPTT < 25 Heparin Sodium (Porcine) (Heparin Inj) 2,500 units IV.PUSH UNSCH PRN PRN Reason: aPTT 25-39 Amiodarone HCl 450 mg/ (Dextrose) 250 mls @ 33.33 mls/hr IV.CONT TITRATE PRN; Protocol PRN Reason: Per Protocol Last Admin: 03/29/18 07:22 Dose: 0.5 mg/min, 16.66 mls/hr Sodium Chloride (Ns Inj) 1,000 mls @ 90 mls/hr IV.CONT .Q11H7M MAKAYLA Heparin Sodium/Dextrose (Heparin/D5w 25,000 U/250 Ml) 25,000 unit in 250 mls @ 6 mls/hr IV.CONT TITRATE PRN; Protocol PRN Reason: Per Protocol Lactulose (Lactulose Liq) 30 ml PO DAILY PRN PRN Reason: SEVERE CONSITIPATION Megestrol Acetate (Megace) 40 mg PO DAILY [facility] Metoprolol Tartrate (Lopressor) 12.5 mg PO BID@0600,1800 MAKAYLA Pantoprazole Sodium (Protonix) 40 mg PO DAILY MAKAYLA Potassium Chloride (K-Dur) 20 meq PO DAILY MAKAYLA Prednisone (Deltasone) 10 mg PO DAILY MAKAYLA Senna/Docusate Sodium (Rolanda-Colace) 1 tab PO BID MAKAYLA Sennosides (Senokot) 17.2 mg PO Q12H PRN PRN Reason: Moderate Constipation Sodium Chloride (Ns Flush) 2 ml IV.FLUSH BID MAKAYLA Sodium Chloride (Ns Flush) 2 ml IV.FLUSH PRN PRN PRN Reason: FLUSH AFTER USING IV ACCESS <Fidel Goldstein K - 03/29/18 09:26> Active Medications Amiodarone HCl 450 mg/ (Dextrose) 250 mls @ 33.33 mls/hr IV.CONT TITRATE PRN; Protocol PRN Reason: Per Protocol Last Admin: 03/28/18 23:19 Dose: 1 mg/min, 33.33 mls/hr Sodium Chloride (Ns Inj) 1,000 mls @ 0 mls/hr IV.SIG BOLUS MAKAYLA Stop: 03/29/18 22:01 Last Admin: 03/28/18 22:30 Dose: 1,000 mls/hr <Marcellus Javier O - 03/29/18 02:03> Exam Vital signs: Vital Signs 03/28/18 20:36 03/28/18 20:43 03/28/18 21:00 Temperature 98.9 F Pulse Rate 120 H 116 H Respiratory Rate 36 H 28 H Blood Pressure 140/74 165/72 H Pulse Oximetry 96 99 100 03/28/18 21:30 03/28/18 22:00 03/28/18 22:30 Temperature Pulse Rate 115 H 88 90 Respiratory Rate 23 Blood Pressure 135/75 143/68 H 155/74 H Pulse Oximetry 100 100 98 03/28/18 23:54 03/29/18 01:29 03/29/18 04:18 Temperature 98.3 F Pulse Rate 88 75 74 Respiratory Rate 16 18 20 Blood Pressure 128/69 129/85 132/66 Pulse Oximetry 98 98 03/29/18 04:37 03/29/18 05:00 03/29/18 06:00 Temperature Pulse Rate 70 99 H Respiratory Rate Blood Pressure Pulse Oximetry 100 03/29/18 07:00 03/29/18 08:55 Temperature Pulse Rate 65 Respiratory Rate Blood Pressure Pulse Oximetry 96 Intake & Output 03/28/18 03/29/18 03/29/18 18:59 06:59 18:59 Intake Total 2350 / 2350 Balance 2350 / 2350 Weight 49.5 kg Intake: IV 2350 / 2350 Cordarone Inj 450 MG In D5W Inj 250 / 250 241 ML @ 1 MG/MIN 33.33 mls/hr IV.CONT TITRATE PRN Rx#: [id number] NS Inj 1,000 ML @ Wide Open IV. 1999 SIG BOLUS MAKAYLA Rx#:[id number] Other: Weight On Admission 49.8 kg <Fidel Goldstein K - 03/29/18 09:26> Vital Signs 03/28/18 20:36 03/28/18 20:43 03/28/18 21:00 Temperature 98.9 F Pulse Rate 120 H 116 H Respiratory Rate 36 H 28 H Blood Pressure 140/74 165/72 H Pulse Oximetry 96 99 100 03/28/18 21:30 03/28/18 22:00 03/28/18 22:30 Temperature Pulse Rate 115 H 88 90 Respiratory Rate 23 Blood Pressure 135/75 143/68 H 155/74 H Pulse Oximetry 100 100 98 03/28/18 23:54 03/29/18 01:29 Temperature Pulse Rate 88 75 Respiratory Rate 16 18 Blood Pressure 128/69 129/85 Pulse Oximetry 98 98 <Marcellus Javier O - 03/29/18 04:03> Narrative: GENERAL: Frail appearing elderly gentleman. No acute distress. SKIN: Warm and dry. No rash. Multiple surgical scars on abdomen from previous surgeries. Patient had venous stasis on lower extremeties bilaterally as well as onychomycosis in all nail beds of the lower extremities. EYES: No scleral icterus. No injection or drainage. PERRLA. EOMI. HENT: Normocephalic. Atraumatic. NECK: Supple, trachea midline. No JVD or lymphadenopathy. CARDIOVASCULAR: Irregular rate rate and rhythm without obvious murmurs, gallops , or rubs. RESPIRATORY: Breath sounds equal bilaterally. No accessory muscle use. CTAB. GASTROINTESTINAL: Abdomen soft, non-tender, nondistended. BS WNL. EXTREMITIES: Progressive venous stasis in both legs bilaterally with skin changes. DP pulses difficult to palpate. Extremities were cool but not cold to the touch. BACK: Nontender without obvious deformity. No CVA tenderness. No ulcerations or breaks in skin. NEURO/PSYCH: Afocal. Awake, alert, and oriented x3. <Marcellus Javier O - 03/29/18 07:30> Results - Labs Result diagrams: 03/29/18 06:08 03/29/18 06:08 <Fidel Goldstein K - 03/29/18 09:26> Abnormal lab results 03/28/18 03/28/18 03/28/18 Range/Units 20:55 20:55 21:00 RBC 4.12 L (4.50-5.90) mil/mm3 Hgb (13.0-17.0) gm/dL Hct (39.0-51.0) % RDW 17.5 H (11.6-17.2) % Plt Count (150-450) th/mm3 Neut % (Auto) 72.0 H (16.0-70.0) % Sodium (136-145) meq/L Potassium 5.6 H (3.5-5.1) meq/L Chloride (98-107) meq/L Estimated GFR 74 L (>89) mL/min Random Glucose (74-106) mg/dL Lactic Acid 5.7 H* (0.4-2.0) mmol/L Calcium (8.5-10.1) mg/dL Prot Corrected Calcium (8.5-10.1) mg/dL AST 38 H (15-37) U/L Troponin I 0.15 H (0.02-0.05) ng/mL Total Protein (6.4-8.2) g/dL 03/29/18 03/29/18 03/29/18 Range/Units 00:15 06:08 06:08 RBC 3.39 L (4.50-5.90) mil/mm3 Hgb 11.2 L D (13.0-17.0) gm/dL Hct 32.0 L (39.0-51.0) % RDW (11.6-17.2) % Plt Count 147 L (150-450) th/mm3 Neut % (Auto) (16.0-70.0) % Sodium 135 L (136-145) meq/L Potassium 3.3 L D (3.5-5.1) meq/L Chloride 108 H (98-107) meq/L Estimated GFR (>89) mL/min Random Glucose 370 H D (74-106) mg/dL Lactic Acid (0.4-2.0) mmol/L Calcium 7.4 L* D 7.6 L (8.5-10.1) mg/dL Prot Corrected Calcium 7.8 L (8.5-10.1) mg/dL AST (15-37) U/L Troponin I 0.13 H 0.17 H (0.02-0.05) ng/mL Total Protein 6.3 L D (6.4-8.2) g/dL Short CBC 03/28/18 03/29/18 Range/Units 20:55 06:08 WBC 9.1 8.3 (4.0-11.0) th/mm3 Hgb 13.5 11.2 L D (13.0-17.0) gm/dL Hct 39.7 32.0 L (39.0-51.0) % Plt Count 194 D 147 L (150-450) th/mm3 BMP 03/28/18 03/29/18 03/29/18 20:55 00:15 06:08 Sodium 140 135 L 143 Potassium 5.6 H 3.3 L D 3.7 Chloride 107 103 108 H Carbon Dioxide 23.2 22.4 25.1 BUN 15 12 11 Creatinine 1.17 0.97 0.79 Calcium 8.9 7.4 L* D 7.6 L Cardiac Enzymes 03/28/18 03/29/18 03/29/18 Range/Units 20:55 00:15 06:08 Troponin I 0.15 H 0.13 H 0.17 H (0.02-0.05) ng/mL Liver Function 03/28/18 Range/Units 20:55 Total Bilirubin 0.7 (0.2-1.0) mg/dL AST 38 H (15-37) U/L ALT 33 (12-78) U/L Alkaline Phosphatase 95 (45-117) U/L Albumin 3.5 (3.4-5.0) g/dL Urine 03/28/18 Range/Units 21:02 Urine Color Yellow (Yellw/Straw) Urine Clarity Clear (Clear) Urine pH 6.0 (5.0-8.5) Ur Specific [place] 1.010 (1.002-1.035) Urine Protein Negative (Neg-Trace) mg/dL Urine Glucose (UA) Negative (Negative) mg/dL <Fidel Goldstein - 03/29/18 09:26> Abnormal lab results 03/28/18 03/28/18 03/28/18 Range/Units 20:55 20:55 21:00 RBC 4.12 L (4.50-5.90) mil/mm3 RDW 17.5 H (11.6-17.2) % Neut % (Auto) 72.0 H (16.0-70.0) % Sodium (136-145) meq/L Potassium 5.6 H (3.5-5.1) meq/L Estimated GFR 74 L (>89) mL/min Random Glucose (74-106) mg/dL Lactic Acid 5.7 H* (0.4-2.0) mmol/L Calcium (8.5-10.1) mg/dL Prot Corrected Calcium (8.5-10.1) mg/dL AST 38 H (15-37) U/L Troponin I 0.15 H (0.02-0.05) ng/mL Total Protein (6.4-8.2) g/dL 03/29/18 Range/Units 00:15 RBC (4.50-5.90) mil/mm3 RDW (11.6-17.2) % Neut % (Auto) (16.0-70.0) % Sodium 135 L (136-145) meq/L Potassium 3.3 L D (3.5-5.1) meq/L Estimated GFR (>89) mL/min Random Glucose 370 H D (74-106) mg/dL Lactic Acid (0.4-2.0) mmol/L Calcium 7.4 L* D (8.5-10.1) mg/dL Prot Corrected Calcium 7.8 L (8.5-10.1) mg/dL AST (15-37) U/L Troponin I 0.13 H (0.02-0.05) ng/mL Total Protein 6.3 L D (6.4-8.2) g/dL Short CBC 03/28/18 Range/Units 20:55 WBC 9.1 (4.0-11.0) th/mm3 Hgb 13.5 (13.0-17.0) gm/dL Hct 39.7 (39.0-51.0) % Plt Count 194 D (150-450) th/mm3 BMP 03/28/18 03/29/18 20:55 00:15 Sodium 140 135 L Potassium 5.6 H 3.3 L D Chloride 107 103 Carbon Dioxide 23.2 22.4 BUN 15 12 Creatinine 1.17 0.97 Calcium 8.9 7.4 L* D Cardiac Enzymes 03/28/18 03/29/18 Range/Units 20:55 00:15 Troponin I 0.15 H 0.13 H (0.02-0.05) ng/mL Liver Function 03/28/18 Range/Units 20:55 Total Bilirubin 0.7 (0.2-1.0) mg/dL AST 38 H (15-37) U/L ALT 33 (12-78) U/L Alkaline Phosphatase 95 (45-117) U/L Albumin 3.5 (3.4-5.0) g/dL Urine 03/28/18 Range/Units 21:02 Urine Color Yellow (Yellw/Straw) Urine Clarity Clear (Clear) Urine pH 6.0 (5.0-8.5) Ur Specific [place] 1.010 (1.002-1.035) Urine Protein Negative (Neg-Trace) mg/dL Urine Glucose (UA) Negative (Negative) mg/dL <Marcellus Javier O - 03/29/18 02:03> - Imaging Impressions Chest X-Ray 03/28/18 20:43 CONCLUSION: 1. Stable appearance with no evidence of pneumonia. 2. A large bleb is again noted in the left upper lobe. Chest CTA 03/28/18 21:07 CONCLUSION: 1. No evidence of pulmonary embolism. 2. Sclerotic osseous metastasis. 3. Underlying emphysema and bullous change. 4. Area again noted in the biliary tree with stent catheter in place. <Fidel Goldstein - 03/29/18 09:26> Impressions Chest X-Ray 03/28/18 20:43 CONCLUSION: 1. Stable appearance with no evidence of pneumonia. 2. A large bleb is again noted in the left upper lobe. Chest CTA 03/28/18 21:07 CONCLUSION: 1. No evidence of pulmonary embolism. 2. Sclerotic osseous metastasis. 3. Underlying emphysema and bullous change. 4. Area again noted in the biliary tree with stent catheter in place. <Marcellus Javier - 03/29/18 02:03> Caprini VTE Risk Assessment Caprini VTE Risk Assessment: No/Low Risk (score <= 1) <Marcellus Javier - 08:43> Caprini Risk Assessment Model: Point Value = 1 Point Value = 2 Point Value = 3 Point Value = 5 Age 41-60 Minor surgery BMI > 25 kg/m2 Swollen legs Varicose veins or History of unexplained or recurrent spontaneous Oral contraceptives or hormone replacement Sepsis (< 1 month) Serious lung disease, including pneumonia (< 1 month) Abnormal pulmonary function Acute myocardial infarction Congestive heart failure (< 1 month) History of inflammatory bowel disease Medical patient at bed rest Age 61-74 Arthroscopic surgery Major open surgery (> 45 min) Laparoscopic surgery (> 45 min) Malignancy Confined to bed (> 72 hours) Immobilizing plaster cast Central venous access Age >= 75 History of VTE Family history of VTE Factor V Leiden Prothrombin [id number] Lupus anticoagulant Anticardiolipin antibodies Elevated serum homocysteine Heparin-induced thrombocytopenia Other congenital or acquired thrombophilia Stroke (< 1 month) Elective arthroplasty Hip, pelvis, or leg fracture Acute spinal cord injury (< 1 month) <Fidel Goldstein - 03/29/18 09:26> Point Value = 1 Point Value = 2 Point Value = 3 Point Value = 5 Age 41-60 Minor surgery BMI > 25 kg/m2 Swollen legs Varicose veins or History of unexplained or recurrent spontaneous Oral contraceptives or hormone replacement Sepsis (< 1 month) Serious lung disease, including pneumonia (< 1 month) Abnormal pulmonary function Acute myocardial infarction Congestive heart failure (< 1 month) History of inflammatory bowel disease Medical patient at bed rest Age 61-74 Arthroscopic surgery Major open surgery (> 45 min) Laparoscopic surgery (> 45 min) Malignancy Confined to bed (> 72 hours) Immobilizing plaster cast Central venous access Age >= 75 History of VTE Family history of VTE Factor V Leiden Prothrombin [id number] Lupus anticoagulant Anticardiolipin antibodies Elevated serum homocysteine Heparin-induced thrombocytopenia Other congenital or acquired thrombophilia Stroke (< 1 month) Elective arthroplasty Hip, pelvis, or leg fracture Acute spinal cord injury (< 1 month) <Marcellus Javier O - 03/29/18 08:43> Prophylaxis Regimen: Total Risk Factor Score Risk Level Prophylaxis Regimen 0-1 Low Early ambulation 2 Moderate Order ONE of the following: *Sequential Compression Device (SCD) *Heparin 5000 units SQ BID 3-4 Higher Order ONE of the following medications: *Heparin 5000 units SQ TID *Enoxaparin/Lovenox 40 mg SQ daily (WT < 150 kg, CrCl > 30 mL/min) *Enoxaparin/Lovenox 30 mg SQ daily (WT < 150 kg, CrCl > 10-29 mL/min) *Enoxaparin/Lovenox 30 mg SQ BID (WT < 150 kg, CrCl > 30 mL/min) AND/OR *Sequential Compression Device (SCD) 5 or more Highest Order ONE of the following medications: *Heparin 5000 units SQ TID (Preferred with Epidurals) *Enoxaparin/Lovenox 40 mg SQ daily (WT < 150 kg, CrCl > 30 mL/min) *Enoxaparin/Lovenox 30 mg SQ daily (WT < 150 kg, CrCl > 10-29 mL/min) *Enoxaparin/Lovenox 30 mg SQ BID (WT < 150 kg, CrCl > 30 mL/min) AND *Sequential Compression Device (SCD) <Fidel Goldstein K - 03/29/18 09:26> Total Risk Factor Score Risk Level Prophylaxis Regimen 0-1 Low Early ambulation 2 Moderate Order ONE of the following: *Sequential Compression Device (SCD) *Heparin 5000 units SQ BID 3-4 Higher Order ONE of the following medications: *Heparin 5000 units SQ TID *Enoxaparin/Lovenox 40 mg SQ daily (WT < 150 kg, CrCl > 30 mL/min) *Enoxaparin/Lovenox 30 mg SQ daily (WT < 150 kg, CrCl > 10-29 mL/min) *Enoxaparin/Lovenox 30 mg SQ BID (WT < 150 kg, CrCl > 30 mL/min) AND/OR *Sequential Compression Device (SCD) 5 or more Highest Order ONE of the following medications: *Heparin 5000 units SQ TID (Preferred with Epidurals) *Enoxaparin/Lovenox 40 mg SQ daily (WT < 150 kg, CrCl > 30 mL/min) *Enoxaparin/Lovenox 30 mg SQ daily (WT < 150 kg, CrCl > 10-29 mL/min) *Enoxaparin/Lovenox 30 mg SQ BID (WT < 150 kg, CrCl > 30 mL/min) AND *Sequential Compression Device (SCD) <Marcellus Javier O - 03/29/18 08:43> Assessment and Plan - Assessment (1) Chest pain Code(s): R07.9 - Chest pain, unspecified Status: Acute (2) Multifocal PVCs Code(s): I49.3 - Ventricular premature depolarization Status: Acute (3) Hypertension Code(s): I10 - Essential (primary) hypertension Status: Acute (4) CAD (coronary artery disease) Code(s): I25.10 - Atherosclerotic heart disease of [place] coronary artery without angina pectoris Status: Acute (5) PAD (peripheral artery disease) Code(s): I73.9 - Peripheral vascular disease, unspecified Status: Acute (6) Prostate cancer Code(s): C61 - Malignant neoplasm of prostate Status: Acute (7) Nutrition, metabolism, and development symptoms Code(s): R63.8 - Other symptoms and signs concerning food and fluid intake Status: Acute <AngelitaFidel Sadia - 03/29/18 09:26> (1) Chest pain Code(s): R07.9 - Chest pain, unspecified Status: Acute Plan: Patient is a 72-year-old male with a history of COPD, prostate cancer, hypertension as well as previous RCA VT status post 2 bare-metal stents who presented to the ED with chest pain. Initial EKG showed questionable ST elevation in leads II and III, repeat EKG did not demonstrate any ST elevation but did show several PACs. Initial troponins was .15 with repeat at .13. In the ED patient received a chest x-ray that showed no evidence of pneumonia but did show a large bleb that was noted in the left upper lobe. Chest CTA showed no evidence of pulmonary embolism but did show bullous and emphysematous changes as well as sclerotic osseous metastasis. In the ED patient was placed on Amiodarone for rhythm control. -Admit to the cardiac unit -Monitor on telemetry -Continue amiodarone for rhythm control -Follow-up with cardiology consult -Continue atorvastatin, amlodipine, metoprolol, enalapril -Follow-up with serial troponin -Patient may request nicotine patch as he has an almost 60 pack year history and is an everyday smoker (2) Multifocal PVCs Code(s): I49.3 - Ventricular premature depolarization Status: Acute Plan: Please see plan above for chest pain. (3) Hypertension Code(s): I10 - Essential (primary) hypertension Status: Acute Plan: This patient has a past medical history of hypertension and treated outpatient with elanapril, amlodipine, and metoprolol. Since arriving to the ED patient's blood pressure has ranged from 160s systolic to 120 systolic. Last blood pressure reading was 129/85. At this time patient appears to be well controlled and increase in bp on admission likely due to pain. - Continue home medications metoprolol, enalapril, and amlodipine - Continue to monitor vitals (4) CAD (coronary artery disease) Code(s): I25.10 - Atherosclerotic heart disease of [place] coronary artery without angina pectoris Status: Acute Plan: Patient has a history of coronary artery disease with RCA VT treated with 2 bare -metal stents in February of 2018. Patient currently on atorvastatin, aspirin , clopidogrel, enalapril, metoprolol, amlodipine. Follow up EKG showed no ST elevations or depressions and initial and repeat Trops WNL. -Hold aspirin and clopidogrel temporarily in the event the patient requires and invasive procedure -Patient to continue outpatient medications -Continue to monitor on telemetry. -Follow-up with cardiology referral -Trend Troponin (5) PAD (peripheral artery disease) Code(s): I73.9 - Peripheral vascular disease, unspecified Status: Acute Plan: This patient suffers from peripheral artery disease and has progressive venous stasis in both legs bilaterally with skin changes. Patients baseline activity tolerance is unknown at this time. Patient currently has sensation in both lower extremities with weak but palpable DP pulses bilaterally. -Stable -Patient to follow-up to be managed outpatient (6) Prostate cancer Code(s): C61 - Malignant neoplasm of prostate Status: Acute Plan: Patient suffers from prostate cancer with sclerotic osseous metastasis see on chest CTA during admission. Patient is status post prostatectomy and reports receiving chemotherapy every 3 weeks but has not received chemotherapy in over 2 months due to a previous C. difficile infection. Patient currently being followed by oncology outpatient. - Follow up with oncologist outpatient for further management and options (7) Nutrition, metabolism, and development symptoms Code(s): R63.8 - Other symptoms and signs concerning food and fluid intake Status: Acute Plan: FEN: - IV NS @90 ml/hr - Monitor replace electrolytes as needed -N.p.o. PPX: - Bilateral lower extremity SCDs <Marcellus Javier - 03/29/18 08:43> - Attending Attestation documentation reviewed, Adding heparin gtt, see my H&P from today for further details <Fidel Goldstein - 03/29/18 09:26> <Marcellus Javier O - Last Filed: 03/29/18 08:43> (1) Chest pain Qualifiers: Chest pain type: unspecified Qualified Code(s): R07.9 - Chest pain, unspecified (3) Hypertension Qualifiers: Hypertension type: secondary to other renal disorders Qualified Code(s): I15.1 - Hypertension secondary to other renal disorders; N28.89 - Other specified disorders of kidney and ureter <Fidel Goldstein - Last Filed: 03/29/18 09:26> (1) Chest pain Qualifiers: Chest pain type: unspecified Qualified Code(s): R07.9 - Chest pain, unspecified (3) Hypertension Qualifiers: Hypertension type: secondary to other renal disorders Qualified Code(s): I15.1 - Hypertension secondary to other renal disorders; N28.89 - Other specified disorders of kidney and ureter <Marcellus Javier O - Last Filed: 03/29/18 08:43> (1) Chest pain Qualifiers: Chest pain type: unspecified Qualified Code(s): R07.9 - Chest pain, unspecified (3) Hypertension Qualifiers: Hypertension type: secondary to other renal disorders Qualified Code(s): I15.1 - Hypertension secondary to other renal disorders; N28.89 - Other specified disorders of kidney and ureter <Fidel Goldstein K - Last Filed: 03/29/18 09:26> (1) Chest pain Qualifiers: Chest pain type: unspecified Qualified Code(s): R07.9 - Chest pain, unspecified (3) Hypertension Qualifiers: Hypertension type: secondary to other renal disorders Qualified Code(s): I15.1 - Hypertension secondary to other renal disorders; N28.89 - Other specified disorders of kidney and ureter
[2018-03-29] MEDS ORDERED: Bisacodyl 10 MG Supp RECTAL PRN (03:35)
[2018-03-29] MEDS ORDERED: Sodium Chloride 0.9% 2 ML Flush PRN IV.FLUSH (03:43)
[2018-03-29 07:10] LABS: Hemoglobin 11.2 gm/dL (13.0-17.0); Mean Corpuscular HGB Conc 34.9 % (32.0-36.0); Mean Corpuscular Hemoglobin 32.9 pg (27.0-34.0); Mean Corpuscular Volume 94.3 fL (80.0-100.0); Mean Platelet Volume 9.4 fL (7.0-11.0); Platelet Count 147 th/mm3 (150-450); Red Blood Count 3.39 mil/mm3 (4.50-5.90); Red Cell Distribution Width 17.2 % (11.6-17.2); White Blood Count 8.3 th/mm3 (4.0-11.0)
[2018-03-29 07:40] LABS: Anion Gap 10 meq/L (5-15); Blood Urea Nitrogen 11 mg/dL (7-18); Calcium 7.6 mg/dL (8.5-10.1); Carbon Dioxide 25.1 meq/L (21.0-32.0); Chloride 108 meq/L (98-107); Glomerular Filtration Rate Greater Than 89 mL/min (>89); Glucose,Random 85 mg/dL (74-106); Potassium 3.7 meq/L (3.5-5.1); Sodium 143 meq/L (136-145); Troponin I 0.17 ng/mL (0.02-0.05)
[2018-03-29] MEDS ORDERED: Heparin 10,000 UNITS/10 ML Vial (for IV use) IV.PUSH STA (08:21)
[2018-03-29] MEDS ORDERED: Heparin Drip 25,000 UNIT/250 ML BAG IV.CONT PRN (08:30)
--- NOTE | 2018-03-29 09:50 | ECG ---
Date Performed: 03/29/2018 Time Performed: 05:52:18 PTAGE: 72 years EKG: Atrial fibrillation with rapid ventricular response with frequent multifocal PVCs or aberra nt ventricular conduction Left axis deviation Inferior infarct - age undetermined Abnormal ECG PREVIOUS TRACING : 03/29/2018 02.12 DOCTOR: Thien Solis Interpretating Date/Time 03/29/2018 09:48:55
--- NOTE | 2018-03-29 09:52 | ECG ---
Date Performed: 03/29/2018 Time Performed: 02:12:57 PTAGE: 72 years EKG: Sinus rhythm WITH FREQUENT VENTRICULAR PREMATURE COMPLEXES WITH OCCASIONAL SUPRAVENTRICULAR PREMATURE COMPLEXES I NFERIOR MYOCARDIAL INFARCTION ABNORMAL ECG PREVIOUS TRACING : 03/28/2018 21.00 DOCTOR: Thien Solis Interpretating Date/Time 03/29/2018 09:49:57
--- NOTE | 2018-03-29 09:56 | ECG ---
Date Performed: 03/28/2018 Time Performed: 21:00:37 PTAGE: 72 years EKG: SINUS TACHYCARDIA WITH SHORT NC INTERVAL WITH FREQUENT VENTRICULAR PREMATURE COMPLEXES INFE RIOR MYOCARDIAL INFARCTION ABNORMAL ECG PREVIOUS TRACING : 03/28/2018 20.43 DOCTOR: Thien Solis Interpretating Date/Time 03/29/2018 09:53:53
--- NOTE | 2018-03-29 09:57 | ECG ---
Date Performed: 03/28/2018 Time Performed: 20:43:25 PTAGE: 72 years EKG: ECTOPIC ATRIAL TACHYCARDIA WITH SHORT CA INTERVAL WITH MULTIPLE ECTOPIC PREMATURE COMPLEXES , POSSIBLE ATRIAL FLUTTER MARKED LEFT AXIS DEVIATION POSSIBLE RIGHT VENTRICULAR CONDUCTION DELAY ST E LEVATION, CONSIDER INFERIOR INJURY * NO PREVIOUS TRACING DOCTOR: Thien Solis Interpretating Date/Time 03/29/2018 09:54:32
[2018-03-29] MEDS: Calcium/Vitamin D 250/125 MG Tablet PO SCH (10:25)
[2018-03-29] MEDS: amLODIPine 10 MG Tablet PO SCH (10:26)
[2018-03-29] MEDS: predniSONE 10 MG Tablet PO SCH (10:26)
[2018-03-29] MEDS: Senna/Docusate Sodium 8.6/50 MG Tablet PO SCH ×2 (10:26→22:43)
[2018-03-29] MEDS: Metoprolol Tartrate 25 MG Tablet PO SCH ×2 (10:29→18:40)
[2018-03-29] MEDS: Sodium Chloride 0.9% 2 ML Flush BID IV.FLUSH SCH ×2 (10:30→22:42)
--- NOTE | 2018-03-29 11:15 | P.HPFP ---
History of Present Illness Primary Care Physician: Gretel Sotelo MD, R2 History of Present Illness: Recalled from resident admission note "This patient is a 72-year-old - [place] male with a past medical history of prostate cancer, COPD, essential hypertension, and is 1 month status post STEMI treated with bare metal RCA stent X2 who is being admitted for chest pain and ACS rule out. Patient reports that late this evening [facility] and upon reaching the hallway he reports feeling what he described as a punch in his chest. He then went to inform the nurse because the sensation was very similar to his last OH. At the time he also experienced shaking, changes in vision and shortness of breath. The longterm physician, Dr. Mendoza was contacted and the patient was brought in by [facility]. The patient reports that his pain was constant, nonradiating and lasted 35-45 until the patient arrived at the hospital. He reports that his pain was alleviated only by the medication given to him in the ED and there were no additional exacerbating factors. Patient did not report his pain being related to position, activity, or food. Of note patient had appointment scheduled with his pulp roller Dr. Martínez, last week but had to reschedule." Discussed this history with patient and resident, will add that he knows he is on chemo for his prostate cancer but is not sure how advanced it is and that he wants to go home, not back to [facility]. He says that his chest pain and dyspnea are now completely gone and he has no complaints this AM. He states that he wants go home and he would like to leave AMA. I was present for discussion with resident Dr Ching where patient agreed to stay at least for a cardiology evaluation and risks of leaving including sudden from ACS. RN called again and said that he was going to leave again if he was not allowed a diet. Dr Mccullough explained to him on the phone again that this would be against medical advice as he needs an evaluation from the pulp roller first. He made a concession to give him a liquid diet if he would stay but that this was against medical advice. Reviewed resident histories below and agree: PMHx: Prostate Cancer treated with chemotherapy every 3 weeks but has not been treated in 2 months due to C Diff, COPD, PAD, OH s/p 2 cardiac stents. Surgical Hx: Prostatectomy, 2 small bowel resection, ERCP, Inguinal hernia repair, appendectomy, 2 bare-metal stents placed in his RCA FHx: unknown to patient Social Hx: Lives in [facility] nursing/ rehab facility, he wants to go home , not back to his rehab. patient has a 58 pack year history now only smokes with his coffee in the morning, denies alcohol and illicit/ recreational drugs Allergies: Penicillin produces hives Code Status: Full Code - Diagnosis (1) Chest pain (2) Multifocal PVCs (3) Hypertension (4) PAD (peripheral artery disease) (5) Prostate cancer (6) Nutrition, metabolism, and development symptoms (7) Tobacco use (8) Hyperglycemia (9) Normocytic anemia Inpatient Certification: I certify that the inpatient services were ordered in accordance with Medicare regulations governing the order. This includes certification that hospital inpatient services are reasonable and necessary and in the case of services not specified as inpatient-only under 42 CFR 419.22(n), that they are appropriately provided as inpatient services in accordance to with the 2-midnight benchmark under 43 CFR 412.3(e) Estimated Total Length of Stay (Days): 2 Plans for Post Hospital Care: Not yet determined PMFSH - History History Provided By: Patient - Medical History Medical History: Medical History (Last Reviewed 03/28/18 @ 21:37 by Tiera Cleveland) Hypertension (Acute) COPD (chronic obstructive pulmonary disease) (Acute) Prostate cancer (Acute) C. difficile diarrhea (Acute) - Surgical History Surgical History: Surgical History (Last Reviewed 03/28/18 @ 20:40 by Magda Macdonald) History of ERCP (Acute) History of appendectomy (Acute) H/O prostatectomy (Acute) H/O abdominal surgery (Acute) - Tobacco History Second Hand Smoke Exposure: No Tobacco Use In Past 30 Days: Yes Smoking Status: Light tobacco smoker Tobacco Type: Cigarettes Packs Per Day: 1 Years Smoked: 20 - Alcohol History How Often Do You Have a Drink Containing Alcohol: Never - Substance Use History Substance History: No History of Abuse - Travel History Recent Travel in the [place] Within the Last 8 Weeks: No Recent Travel Out of the Country Within the Last 8 Weeks: No - Immunization History Tetanus Immunization: >5 Years Hx Influenza Vaccine This Season: No Medications and Allergies Active Medications: Active Medications Al Hydroxide/Mg Hydroxide (Milk Of Magnesia Liq) 30 ml PO Q12H PRN PRN Reason: Mild Constipation Amlodipine Besylate (Norvasc) 10 mg PO DAILY [facility] Last Admin: 03/29/18 10:26 Dose: 10 mg Atorvastatin Calcium (Lipitor) 40 mg PO HS [facility] Bisacodyl (Dulcolax Supp) 10 mg RECTAL DAILY PRN PRN Reason: SEVERE CONSITIPATION Calcium/Vitamin D (Oscal With D 250/125 Mg) 2 tab PO DAILY [facility] Last Admin: 03/29/18 10:25 Dose: 2 tab Enalapril Maleate (Vasotec) 20 mg PO DAILY [facility] Last Admin: 03/29/18 10:26 Dose: 20 mg Heparin Sodium (Porcine) (Heparin Inj) 5,000 units IV.PUSH UNSCH PRN PRN Reason: aPTT < 25 Heparin Sodium (Porcine) (Heparin Inj) 2,500 units IV.PUSH UNSCH PRN PRN Reason: aPTT 25-39 Amiodarone HCl 450 mg/ (Dextrose) 250 mls @ 33.33 mls/hr IV.CONT TITRATE PRN; Protocol PRN Reason: Per Protocol Last Admin: 03/29/18 10:30 Dose: 0.5 mg/min, 16.66 mls/hr Sodium Chloride (Ns Inj) 1,000 mls @ 90 mls/hr IV.CONT .[id number] [facility] Heparin Sodium/Dextrose (Heparin/D5w 25,000 U/250 Ml) 25,000 unit in 250 mls @ 6 mls/hr IV.CONT TITRATE PRN; Protocol PRN Reason: Per Protocol Lactulose (Lactulose Liq) 30 ml PO DAILY PRN PRN Reason: SEVERE CONSITIPATION Megestrol Acetate (Megace) 40 mg PO DAILY [facility] Metoprolol Tartrate (Lopressor) 12.5 mg PO BID@0600,1800 [facility] Last Admin: 03/29/18 10:29 Dose: 12.5 mg Pantoprazole Sodium (Protonix) 40 mg PO DAILY [facility] Last Admin: 03/29/18 10:26 Dose: 40 mg Potassium Chloride (K-Dur) 20 meq PO DAILY [facility] Last Admin: 03/29/18 10:25 Dose: 20 meq Prednisone (Deltasone) 10 mg PO DAILY [facility] Last Admin: 03/29/18 10:26 Dose: 10 mg Senna/Docusate Sodium (Rolanda-Colace) 1 tab PO BID [facility] Last Admin: 03/29/18 10:26 Dose: 1 tab Sennosides (Senokot) 17.2 mg PO Q12H PRN PRN Reason: Moderate Constipation Sodium Chloride (Ns Flush) 2 ml IV.FLUSH BID [facility] Last Admin: 03/29/18 10:30 Dose: 2 ml Sodium Chloride (Ns Flush) 2 ml IV.FLUSH PRN PRN PRN Reason: FLUSH AFTER USING IV ACCESS Allergies Allergy/AdvReac Type Severity Reaction Status Date / Time penicillin G AdvReac Mild HIVES Verified 03/09/18 14:44 ITCHING SWELLING Home Medications Medication Instructions Recorded Confirmed Type calcium carbonate-vitamin D3 1 tab PO DAILY 03/02/18 03/28/18 History [Calcium 600 + D(3)] megestrol 40 mg PO DAILY 03/02/18 03/28/18 History omeprazole 40 mg PO DAILY 03/02/18 03/28/18 History potassium chloride 20 meq PO DAILY 03/02/18 03/28/18 History prednisone 10 mg PO DAILY 03/02/18 03/28/18 History Exam Vital signs: Vital Signs 03/28/18 20:36 03/28/18 20:43 03/28/18 21:00 Temperature 98.9 F Pulse Rate 120 H 116 H Respiratory Rate 36 H 28 H Blood Pressure 140/74 165/72 H Pulse Oximetry 96 99 100 03/28/18 21:30 03/28/18 22:00 03/28/18 22:30 Temperature Pulse Rate 115 H 88 90 Respiratory Rate 23 Blood Pressure 135/75 143/68 H 155/74 H Pulse Oximetry 100 100 98 03/28/18 23:54 03/29/18 01:29 03/29/18 04:18 Temperature 98.3 F Pulse Rate 88 75 74 Respiratory Rate 16 18 20 Blood Pressure 128/69 129/85 132/66 Pulse Oximetry 98 98 03/29/18 04:37 03/29/18 05:00 03/29/18 06:00 Temperature Pulse Rate 70 99 H Respiratory Rate Blood Pressure Pulse Oximetry 100 03/29/18 07:00 03/29/18 08:55 Temperature Pulse Rate 65 Respiratory Rate Blood Pressure Pulse Oximetry 96 Intake & Output 03/28/18 03/29/18 03/29/18 18:59 06:59 18:59 Intake Total 2350 / 2350 250 / 250 Balance 2350 / 2350 250 / 250 Weight 49.5 kg Intake: IV 2350 / 2350 250 / 250 Cordarone Inj 450 MG In D5W Inj 250 / 250 250 / 250 241 ML @ 1 MG/MIN 33.33 mls/hr IV.CONT TITRATE PRN Rx#: [id number] NS Inj 1,000 ML @ Wide Open IV. 1999 SIG BOLUS MAKAYLA Rx#:[id number] Other: Date of Last Bowel Movement 03/28/18 Weight On Admission 49.8 kg - Constitutional no acute distress - Routine HEENT Exam Head: Present: normocephalic, atraumatic Eye: Present: EOMI, PERRL ENT: Present: mucous membranes moist - Routine Neck Exam Present: supple - Routine Chest/Breast/Axilla Exam Chest wall: Absent: tenderness - Routine Respiratory Exam Present: CTA bilaterally, distant breath sounds. Absent: accessory muscle use, respiratory distress, wheezes, crackles - Routine Cardiovascular Exam Present: irregularly irregular. Absent: murmur - Routine Abdominal Exam Present: soft, normoactive bowel sounds, surgical scars. Absent: tenderness, distended, rebound, guarding - Routine Skin Exam Present: intact, dry, warm. Absent: cyanosis, erythema - Routine Neurological Exam Present: alert, oriented X3, normal speech. Absent: facial asymmetry Results - Labs Result diagrams: 03/29/18 06:08 03/29/18 06:08 Abnormal lab results 03/28/18 03/28/18 03/28/18 Range/Units 20:55 20:55 21:00 RBC 4.12 L (4.50-5.90) mil/mm3 Hgb (13.0-17.0) gm/dL Hct (39.0-51.0) % RDW 17.5 H (11.6-17.2) % Plt Count (150-450) th/mm3 Neut % (Auto) 72.0 H (16.0-70.0) % Sodium (136-145) meq/L Potassium 5.6 H (3.5-5.1) meq/L Chloride (98-107) meq/L Estimated GFR 74 L (>89) mL/min Random Glucose (74-106) mg/dL Lactic Acid 5.7 H* (0.4-2.0) mmol/L Calcium (8.5-10.1) mg/dL Prot Corrected Calcium (8.5-10.1) mg/dL AST 38 H (15-37) U/L Troponin I 0.15 H (0.02-0.05) ng/mL Total Protein (6.4-8.2) g/dL 03/29/18 03/29/18 03/29/18 Range/Units 00:15 06:08 06:08 RBC 3.39 L (4.50-5.90) mil/mm3 Hgb 11.2 L D (13.0-17.0) gm/dL Hct 32.0 L (39.0-51.0) % RDW (11.6-17.2) % Plt Count 147 L (150-450) th/mm3 Neut % (Auto) (16.0-70.0) % Sodium 135 L (136-145) meq/L Potassium 3.3 L D (3.5-5.1) meq/L Chloride 108 H (98-107) meq/L Estimated GFR (>89) mL/min Random Glucose 370 H D (74-106) mg/dL Lactic Acid (0.4-2.0) mmol/L Calcium 7.4 L* D 7.6 L (8.5-10.1) mg/dL Prot Corrected Calcium 7.8 L (8.5-10.1) mg/dL AST (15-37) U/L Troponin I 0.13 H 0.17 H (0.02-0.05) ng/mL Total Protein 6.3 L D (6.4-8.2) g/dL Short CBC 03/28/18 03/29/18 Range/Units 20:55 06:08 WBC 9.1 8.3 (4.0-11.0) th/mm3 Hgb 13.5 11.2 L D (13.0-17.0) gm/dL Hct 39.7 32.0 L (39.0-51.0) % Plt Count 194 D 147 L (150-450) th/mm3 BMP 03/28/18 03/29/18 03/29/18 20:55 00:15 06:08 Sodium 140 135 L 143 Potassium 5.6 H 3.3 L D 3.7 Chloride 107 103 108 H Carbon Dioxide 23.2 22.4 25.1 BUN 15 12 11 Creatinine 1.17 0.97 0.79 Calcium 8.9 7.4 L* D 7.6 L Cardiac Enzymes 03/28/18 03/29/18 03/29/18 Range/Units 20:55 00:15 06:08 Troponin I 0.15 H 0.13 H 0.17 H (0.02-0.05) ng/mL Liver Function 03/28/18 Range/Units 20:55 Total Bilirubin 0.7 (0.2-1.0) mg/dL AST 38 H (15-37) U/L ALT 33 (12-78) U/L Alkaline Phosphatase 95 (45-117) U/L Albumin 3.5 (3.4-5.0) g/dL Urine 03/28/18 Range/Units 21:02 Urine Color Yellow (Yellw/Straw) Urine Clarity Clear (Clear) Urine pH 6.0 (5.0-8.5) Ur Specific [place] 1.010 (1.002-1.035) Urine Protein Negative (Neg-Trace) mg/dL Urine Glucose (UA) Negative (Negative) mg/dL - Imaging Impressions Chest X-Ray 03/28/18 20:43 CONCLUSION: 1. Stable appearance with no evidence of pneumonia. 2. A large bleb is again noted in the left upper lobe. Chest CTA 03/28/18 21:07 CONCLUSION: 1. No evidence of pulmonary embolism. 2. Sclerotic osseous metastasis. 3. Underlying emphysema and bullous change. 4. Area again noted in the biliary tree with stent catheter in place. Caprini VTE Risk Assessment Caprini VTE Risk Assessment: No/Low Risk (score <= 1) Caprini Risk Assessment Model: Point Value = 1 Point Value = 2 Point Value = 3 Point Value = 5 Age 41-60 Minor surgery BMI > 25 kg/m2 Swollen legs Varicose veins or History of unexplained or recurrent spontaneous Oral contraceptives or hormone replacement Sepsis (< 1 month) Serious lung disease, including pneumonia (< 1 month) Abnormal pulmonary function Acute myocardial infarction Congestive heart failure (< 1 month) History of inflammatory bowel disease Medical patient at bed rest Age 61-74 Arthroscopic surgery Major open surgery (> 45 min) Laparoscopic surgery (> 45 min) Malignancy Confined to bed (> 72 hours) Immobilizing plaster cast Central venous access Age >= 75 History of VTE Family history of VTE Factor V Leiden Prothrombin [id number] Lupus anticoagulant Anticardiolipin antibodies Elevated serum homocysteine Heparin-induced thrombocytopenia Other congenital or acquired thrombophilia Stroke (< 1 month) Elective arthroplasty Hip, pelvis, or leg fracture Acute spinal cord injury (< 1 month) Prophylaxis Regimen: Total Risk Factor Score Risk Level Prophylaxis Regimen 0-1 Low Early ambulation 2 Moderate Order ONE of the following: *Sequential Compression Device (SCD) *Heparin 5000 units SQ BID 3-4 Higher Order ONE of the following medications: *Heparin 5000 units SQ TID *Enoxaparin/Lovenox 40 mg SQ daily (WT < 150 kg, CrCl > 30 mL/min) *Enoxaparin/Lovenox 30 mg SQ daily (WT < 150 kg, CrCl > 10-29 mL/min) *Enoxaparin/Lovenox 30 mg SQ BID (WT < 150 kg, CrCl > 30 mL/min) AND/OR *Sequential Compression Device (SCD) 5 or more Highest Order ONE of the following medications: *Heparin 5000 units SQ TID (Preferred with Epidurals) *Enoxaparin/Lovenox 40 mg SQ daily (WT < 150 kg, CrCl > 30 mL/min) *Enoxaparin/Lovenox 30 mg SQ daily (WT < 150 kg, CrCl > 10-29 mL/min) *Enoxaparin/Lovenox 30 mg SQ BID (WT < 150 kg, CrCl > 30 mL/min) AND *Sequential Compression Device (SCD) Assessment and Plan - Assessment (1) Chest pain Code(s): R07.9 - Chest pain, unspecified Status: Acute Plan: Patient is a 72-year-old male with a history of COPD, prostate cancer, hypertension as well as previous RCA OH status post 2 bare-metal stents who presented to the ED with chest pain. ACS r/o no STEMI Received ASA Start heparin GTT, cont amio drip for frequent multifocal PVCs from ED Nitro PRN Consult cardiology, concern with recent PCI Cont to trend troponins Cont BB, Statin Hope patient will stay for cardiology evaluation, explained importance of this. If he does leave, it will be AMA and he has already verbalized understanding of risk of . (2) Multifocal PVCs Code(s): I49.3 - Ventricular premature depolarization Status: Acute Plan: Cont tele and amio gtt until cardiology eval. (3) Hypertension Code(s): I10 - Essential (primary) hypertension Status: Acute Plan: Cont home meds as BP tolerates, will permit some HTN in this setting. (4) PAD (peripheral artery disease) Code(s): I73.9 - Peripheral vascular disease, unspecified Status: Acute Plan: no acute event, follow-up to be managed outpatient (5) Prostate cancer Code(s): C61 - Malignant neoplasm of prostate Status: Acute Plan: Patient suffers from prostate cancer with sclerotic osseous metastasis see on chest CTA during admission. Patient is status post prostatectomy and reports receiving chemotherapy every 3 weeks but has not received chemotherapy in over 2 months due to a previous C. difficile infection. Patient currently being followed by oncology outpatient. - Follow up with oncologist outpatient for further management and options (6) Nutrition, metabolism, and development symptoms Code(s): R63.8 - Other symptoms and signs concerning food and fluid intake Status: Acute Plan: FEN: - IV NS @90 ml/hr - Monitor replace electrolytes as needed - N.p.o recommendations, may allow patient to have clears to this AM to stay for eval. Explained he will need to follow recommendations on this strictly if any intervention is planned. PPX: - on heparin gtt (7) Tobacco use Code(s): Z72.0 - Tobacco use Status: Acute Plan: encourage cessation nicotine patch prn (8) Hyperglycemia Code(s): R73.9 - Hyperglycemia, unspecified Status: Acute Plan: may be reactive to OH. Will monitor and may check A1c. SSI (9) Normocytic anemia Code(s): D64.9 - Anemia, unspecified Status: Acute Plan: mild, ACD? can work up outpt H&P: Quality - VTE Deep Vein Thrombosis/Pulmonary Embolism Present on Admission: No (1) Chest pain Qualifiers: Chest pain type: unspecified Qualified Code(s): R07.9 - Chest pain, unspecified (3) Hypertension Qualifiers: Hypertension type: secondary to other renal disorders Qualified Code(s): I15.1 - Hypertension secondary to other renal disorders; N28.89 - Other specified disorders of kidney and ureter
[2018-03-29] MEDS: Sod Chloride 0.9% Inj 1,000 ML IV.CONT SCH ×2 (11:23→18:39)
[2018-03-29 12:57] LABS: INR 1.1 Ratio; Prothrombin Time 11.1 sec (9.8-11.6)
[2018-03-29] MEDS ORDERED: Heparin 10,000 UNITS/10 ML Vial (for IV use) IV.PUSH PRN ×2 (14:35)
[2018-03-29] MEDS: Metoprolol Tartrate 50 MG Tablet PO SCH (22:42)
[2018-03-30] MEDS: Sod Chloride 0.9% Inj 1,000 ML IV.CONT SCH (06:22)
[2018-03-30] MEDS: Metoprolol Tartrate 25 MG Tablet PO SCH (07:30)
--- NOTE | 2018-03-30 07:44 | MB ---
cc: Thien Solis MD DATE: 03/29/2018 REASON FOR CONSULT: Chest pain. Mr. Yoder is a 72-year-old gentleman with history of coronary artery disease. He was admitted in the mid February due to chest pain. He was catheterized by Dr. Martínez. PTCA plus stent to RCA was placed. This gentleman was discharged home. Yesterday, he was at home and began with like somebody punched him in his chest. He decided to come to the emergency room. There was some irregularity in his EKGs, and troponin was 1.16. The gentleman was admitted. The chart was reviewed. The patient was evaluated. ALLERGIES: PENICILLIN. SOCIAL HISTORY: Negative for drinking. The patient smoked, however. He still smokes a couple of cigarettes in the morning with his coffee. FAMILY HISTORY: Noncontributory to his current medical condition. MEDICATIONS IN THE HOSPITAL: Amiodarone was added as well as heparin IV. He is on Lipitor 40 mg a day. He is on amlodipine 10 mg a day. He is on magnesium and morphine. REVIEW OF SYSTEMS: Currently, the patient referred no chest pain, no chest discomfort, no palpitation. No fever. PHYSICAL EXAMINATION: GENERAL: Alert, fully oriented. VITAL SIGNS: Blood pressure 116/64, pulse 72, respiratory rate 18. LUNGS: Ventilated. CARDIOVASCULAR: S1, S2. No gallop. No murmur. ABDOMEN: Soft. No masses or bruit. EXTREMITIES: No edema. LABORATORY DATA: Electrocardiogram on hospitalization: Atrial fibrillation with a rate of around 122 beats per minute. Currently, the patient is back into sinus rhythm. LABORATORY DATA: Hemoglobin is 11.2, white blood cell 8.3. INR 1.1. Potassium 3.7, creatinine 0.79. Troponin 0.17. ASSESSMENT AND RECOMMENDATIONS: Mr. Yoder currently is stable. No chest pain, no chest discomfort. He was having atrial fibrillation with fast ventricular response. Troponin is slightly elevated, not significant. There are no acute ST changes in the EKG. Also, the patient felt like somebody punched him in his chest. This is not the typical chest pain. He referred no chest pain on activity. At this point, I am going to discontinue the IV amiodarone. I am going to use a beta saurav. Also heparin will be discontinued. The patient will be put on Lovenox while in the hospital. He has bare-metal stent. Apparently, the gentleman is compliant to his management. I will monitor him until morning. Further decision by Dr. Martínez. Case discussed with him and his family. They were at bedside. MD JEFF Montano/yudy , 01:28 PM , 01:36 PM
[2018-03-30] MEDS: Calcium/Vitamin D 250/125 MG Tablet PO SCH (08:32)
[2018-03-30] MEDS: Metoprolol Tartrate 50 MG Tablet PO SCH (08:33)
[2018-03-30] MEDS: amLODIPine 10 MG Tablet PO SCH (08:33)
[2018-03-30] MEDS: predniSONE 10 MG Tablet PO SCH (08:33)
--- NOTE | 2018-03-30 08:38 | P.PNFP ---
Subjective Interval history: Patient had wide complex tachycardia for 7 beats. Patient resting in bed comfortably this AM. IV amiodarone and IV heparin discontinued yesterday. Patient's metoprolol dose increased and patient started on Lovenox yesterday. Pending cardiology clearance. Patient able to go back to [facility]. Denies CP, SOB, N/V, and abdominal pain. <Marsha Fischer T - 03/30/18 10:24> Results - Labs Result diagrams: 03/29/18 06:08 03/29/18 06:08 <Fidel Goldstein - 03/30/18 13:23> Abnormal lab results 03/29/18 Range/Units 20:29 Troponin I 0.10 H (0.02-0.05) ng/mL Cardiac Enzymes 03/29/18 Range/Units 20:29 Troponin I 0.10 H (0.02-0.05) ng/mL <Fidel Goldstein - 03/30/18 13:23> Abnormal lab results 03/29/18 03/29/18 Range/Units 11:37 20:29 APTT 23.0 L (24.3-30.1) sec Troponin I 0.10 H (0.02-0.05) ng/mL Cardiac Enzymes 03/29/18 Range/Units 20:29 Troponin I 0.10 H (0.02-0.05) ng/mL <AmadoMarsha Marte T - 03/30/18 08:38> Physical Exam Vital signs: Vital Signs 03/29/18 14:00 03/29/18 15:00 03/29/18 16:00 Temperature 98 F Pulse Rate 68 82 68 Respiratory Rate 18 Blood Pressure 106/58 L Pulse Oximetry 100 03/29/18 17:00 03/29/18 18:00 03/29/18 20:00 Temperature 98.8 F Pulse Rate 82 69 67 Respiratory Rate 18 Blood Pressure 101/54 L Pulse Oximetry 100 03/30/18 00:00 03/30/18 04:00 03/30/18 07:00 Temperature 98.8 F 98.7 F Pulse Rate 67 70 63 Respiratory Rate 16 16 Blood Pressure 108/57 L 120/62 Pulse Oximetry 99 96 03/30/18 08:00 03/30/18 09:00 03/30/18 10:00 Temperature 98.1 F Pulse Rate 76 68 64 Respiratory Rate 18 Blood Pressure 135/77 Pulse Oximetry 100 03/30/18 11:00 03/30/18 12:00 Temperature 98.3 F Pulse Rate 71 74 Respiratory Rate 18 Blood Pressure 100/54 L Pulse Oximetry 100 Intake & Output 03/29/18 03/30/18 03/30/18 18:59 06:59 18:59 Intake Total 750 / 750 480 / 480 Output Total 900 / 900 Balance 750 / 750 -420 / -420 Weight 50.8 kg Intake: IV 750 / 750 Cordarone Inj 450 MG In D5W Inj 500 / 500 241 ML @ 1 MG/MIN 33.33 mls/hr IV.CONT TITRATE PRN Rx#: [id number] Heparin/D5W 25,000 U/250 mL 25, 250 / 250 000 unit In 250 ml @ 600 UNITS/ HR 6 mls/hr IV.CONT TITRATE PRN Rx#:[id number] Oral 480 / 480 Output: Urine 900 / 900 Other: Date of Last Bowel Movement 03/29/18 03/29/18 03/30/18 <Fidel Goldstein - 03/30/18 13:23> Vital Signs 03/29/18 08:55 03/29/18 09:00 03/29/18 10:00 Temperature Pulse Rate 106 H 76 Respiratory Rate Blood Pressure Pulse Oximetry 96 03/29/18 11:00 03/29/18 12:00 03/29/18 13:00 Temperature 98.2 F Pulse Rate 115 H 92 H 92 H Respiratory Rate 18 Blood Pressure 116/64 Pulse Oximetry 100 03/29/18 14:00 03/29/18 15:00 03/29/18 16:00 Temperature 98 F Pulse Rate 68 82 68 Respiratory Rate 18 Blood Pressure 106/58 L Pulse Oximetry 100 03/29/18 17:00 03/29/18 18:00 03/29/18 20:00 Temperature 98.8 F Pulse Rate 82 69 67 Respiratory Rate 18 Blood Pressure 101/54 L Pulse Oximetry 100 03/30/18 00:00 03/30/18 04:00 03/30/18 07:00 Temperature 98.8 F 98.7 F Pulse Rate 67 70 63 Respiratory Rate 16 16 Blood Pressure 108/57 L 120/62 Pulse Oximetry 99 96 Intake & Output 03/29/18 03/30/1803/30/18 18:59 06:59 18:59 Intake Total 750 / 750 480 / 480 Output Total 900 / 900 Balance 750 / 750 -420 / -420 Weight 50.8 kg Intake: IV 750 / 750 Cordarone Inj 450 MG In D5W Inj 500 / 500 241 ML @ 1 MG/MIN 33.33 mls/hr IV.CONT TITRATE PRN Rx#: [id number] Heparin/D5W 25,000 U/250 mL 25, 250 / 250 000 unit In 250 ml @ 600 UNITS/ HR 6 mls/hr IV.CONT TITRATE PRN Rx#:[id number] Oral 480 / 480 Output: Urine 900 / 900 Other: Date of Last Bowel Movement 03/29/18 03/29/18 03/29/18 <Marsha Fischer T - 03/30/18 08:38> Narrative: GENERAL: Frail appearing elderly gentleman. No acute distress. CARDIOVASCULAR: Irregular rate rate and rhythm without obvious murmurs, gallops , or rubs. RESPIRATORY: Breath sounds equal bilaterally. No accessory muscle use. CTAB. GASTROINTESTINAL: Abdomen soft, non-tender, nondistended. BS WNL. EXTREMITIES: Progressive venous stasis in both legs bilaterally with skin changes. BACK: Nontender without obvious deformity. No CVA tenderness. No ulcerations or breaks in skin. NEURO/PSYCH: Afocal. Awake, alert, and oriented x3. <Marsha Fischer T - 03/30/18 10:24> Assessment and Plan - Assessment (1) Chest pain Code(s): R07.9 - Chest pain, unspecified Status: Acute (2) Hypertension Code(s): I10 - Essential (primary) hypertension Status: Acute (3) PAD (peripheral artery disease) Code(s): I73.9 - Peripheral vascular disease, unspecified Status: Acute (4) Prostate cancer Code(s): C61 - Malignant neoplasm of prostate Status: Acute (5) Normocytic anemia Code(s): D64.9 - Anemia, unspecified Status: Acute (6) Nutrition, metabolism, and development symptoms Code(s): R63.8 - Other symptoms and signs concerning food and fluid intake Status: Acute <Fidel Goldstein - 03/30/18 13:23> (1) Chest pain Code(s): R07.9 - Chest pain, unspecified Status: Acute Plan: Patient is a 72-year-old male with a history of COPD, prostate cancer, hypertension as well as previous RCA OK status post 2 bare-metal stents who presented to the ED with chest pain. Appears to be A. fib with aberrancy per cardiology. Cardiology consulted, appreciated recommendations -Discontinued heparin and amiodarone drip. -Continue aspirin and Plavix -Beta-saurav increased to 50 mg twice daily -Patient stable for discharge. Patient will follow up with Dr. Martínez in 1-2 weeks (2) Hypertension Code(s): I10 - Essential (primary) hypertension Status: Acute Plan: Cont home meds, amlodipine and Vasotec (3) PAD (peripheral artery disease) Code(s): I73.9 - Peripheral vascular disease, unspecified Status: Acute Plan: no acute event, follow-up to be managed outpatient (4) Prostate cancer Code(s): C61 - Malignant neoplasm of prostate Status: Acute Plan: - Follow up with oncologist outpatient for further management and options (5) Normocytic anemia Code(s): D64.9 - Anemia, unspecified Status: Acute Plan: mild, ACD? can work up outpt (6) Nutrition, metabolism, and development symptoms Code(s): R63.8 - Other symptoms and signs concerning food and fluid intake Status: Acute Plan: FEN: - Diet: Cardiac -Fluids: PO hydration - Monitor replace electrolytes as needed DVT PPX: SCDs <Marsha Fischer - 03/30/18 10:15> - Attending Attestation The exam, history, and the medical decision-making described in the above note were completed with the assistance of the resident physician. I reviewed and agree with the findings presented. I attest that I had a [id number] encounter with the patient on the same day, and personally performed and documented my assessment and findings in the medical record. Patient happy to be leaving today. he has no cp/dyspnea/palpitations. irregularly regular heart ryhthm and appears well on exam. Chest pain determined atypical, trop elevation from his afib. For his Afib and PVCs, beta saurav dose increased, no AC, patient d/w his classifying machine operator Will leave to follow up with his classifying machine operator in 2 wks. <Fidel Goldstein - 03/30/18 13:23> <Marsha Fischer T - Last Filed: 03/30/18 10:15> (1) Chest pain Qualifiers: Chest pain type: unspecified Qualified Code(s): R07.9 - Chest pain, unspecified (2) Hypertension Qualifiers: Hypertension type: secondary to other renal disorders Qualified Code(s): I15.1 - Hypertension secondary to other renal disorders; N28.89 - Other specified disorders of kidney and ureter <Fidel Goldstein K - Last Filed: 03/30/18 13:23> (1) Chest pain Qualifiers: Chest pain type: unspecified Qualified Code(s): R07.9 - Chest pain, unspecified (2) Hypertension Qualifiers: Hypertension type: secondary to other renal disorders Qualified Code(s): I15.1 - Hypertension secondary to other renal disorders; N28.89 - Other specified disorders of kidney and ureter <Marsha Fischer T - Last Filed: 03/30/18 10:15> (1) Chest pain Qualifiers: Chest pain type: unspecified Qualified Code(s): R07.9 - Chest pain, unspecified (2) Hypertension Qualifiers: Hypertension type: secondary to other renal disorders Qualified Code(s): I15.1 - Hypertension secondary to other renal disorders; N28.89 - Other specified disorders of kidney and ureter <Fidel Goldstein - Last Filed: 03/30/18 13:23> (1) Chest pain Qualifiers: Chest pain type: unspecified Qualified Code(s): R07.9 - Chest pain, unspecified (2) Hypertension Qualifiers: Hypertension type: secondary to other renal disorders Qualified Code(s): I15.1 - Hypertension secondary to other renal disorders; N28.89 - Other specified disorders of kidney and ureter
[2018-03-30 09:20] VITALS: RESP 18; O2SAT 100
[2018-03-30] MEDS: Senna/Docusate Sodium 8.6/50 MG Tablet PO SCH (09:37)
[2018-03-30] MEDS: Sodium Chloride 0.9% 2 ML Flush BID IV.FLUSH SCH (09:38)
--- NOTE | 2018-03-30 09:45 | P.PNCA ---
Subjective Interval history: No events overnight No chest pain/SOB Telemetry showing mostly AFib with CVR Wide complex tachycardia for 7 beats with R-R variability appears to be AFib with aberrancy Medications and Allergies Active Medications: Active Medications Al Hydroxide/Mg Hydroxide (Milk Of Magnesia Liq) 30 ml PO Q12H PRN PRN Reason: Mild Constipation Amlodipine Besylate (Norvasc) 10 mg PO DAILY [facility] Last Admin: 03/30/18 08:33 Dose: 10 mg Aspirin (Aspirin Chew) 81 mg PO DAILY [facility] Last Admin: 03/30/18 08:33 Dose: 81 mg Atorvastatin Calcium (Lipitor) 40 mg PO HS [facility] Last Admin: 03/29/18 22:42 Dose: 40 mg Bisacodyl (Dulcolax Supp) 10 mg RECTAL DAILY PRN PRN Reason: SEVERE CONSITIPATION Calcium/Vitamin D (Oscal With D 250/125 Mg) 2 tab PO DAILY [facility] Last Admin: 03/30/18 08:32 Dose: 2 tab Clopidogrel Bisulfate (Plavix) 75 mg PO DAILY [facility] Last Admin: 03/30/18 08:33 Dose: 75 mg Enalapril Maleate (Vasotec) 20 mg PO DAILY [facility] Last Admin: 03/30/18 08:32 Dose: 20 mg Heparin Sodium (Porcine) (Heparin Inj) 5,000 units IV.PUSH UNSCH PRN PRN Reason: aPTT < 25 Heparin Sodium (Porcine) (Heparin Inj) 2,500 units IV.PUSH UNSCH PRN PRN Reason: aPTT 25-39 Lactulose (Lactulose Liq) 30 ml PO DAILY PRN PRN Reason: SEVERE CONSITIPATION Megestrol Acetate (Megace) 40 mg PO DAILY [facility] Last Admin: 03/30/18 08:33 Dose: 40 mg Metoprolol Tartrate (Lopressor) 12.5 mg PO BID@0600,1800 [facility] Last Admin: 03/30/18 07:30 Dose: 12.5 mg Metoprolol Tartrate (Lopressor) 50 mg PO BID [facility] Last Admin: 03/30/18 08:33 Dose: 50 mg Pantoprazole Sodium (Protonix) 40 mg PO DAILY [facility] Last Admin: 03/30/18 08:33 Dose: 40 mg Potassium Chloride (K-Dur) 20 meq PO DAILY [facility] Last Admin: 03/30/18 08:33 Dose: 20 meq Prednisone (Deltasone) 10 mg PO DAILY [facility] Last Admin: 03/30/18 08:33 Dose: 10 mg Senna/Docusate Sodium (Rolanda-Colace) 1 tab PO BID [facility] Last Admin: 03/30/18 09:37 Dose: Not Given Sennosides (Senokot) 17.2 mg PO Q12H PRN PRN Reason: Moderate Constipation Sodium Chloride (Ns Flush) 2 ml IV.FLUSH BID [facility] Last Admin: 03/30/18 09:38 Dose: 2 ml Sodium Chloride (Ns Flush) 2 ml IV.FLUSH PRN PRN PRN Reason: FLUSH AFTER USING IV ACCESS Allergies Allergy/AdvReac Type Severity Reaction Status Date / Time penicillin G AdvReac Mild HIVES Verified 03/09/18 14:44 ITCHING SWELLING Home Medications Medication Instructions Recorded Confirmed Type calcium carbonate-vitamin D3 1 tab PO DAILY 03/02/18 03/28/18 History [Calcium 600 + D(3)] megestrol 40 mg PO DAILY 03/02/18 03/28/18 History omeprazole 40 mg PO DAILY 03/02/18 03/28/18 History potassium chloride 20 meq PO DAILY 03/02/18 03/28/18 History prednisone 10 mg PO DAILY 03/02/18 03/28/18 History Physical Exam Vital signs: Vital Signs 03/29/18 10:00 03/29/18 11:00 03/29/18 12:00 Temperature 98.2 F Pulse Rate 76 115 H 92 H Respiratory Rate 18 Blood Pressure 116/64 Pulse Oximetry 100 03/29/18 13:00 03/29/18 14:00 03/29/18 15:00 Temperature Pulse Rate 92 H 68 82 Respiratory Rate Blood Pressure Pulse Oximetry 03/29/18 16:00 03/29/18 17:00 03/29/18 18:00 Temperature 98 F Pulse Rate 68 82 69 Respiratory Rate 18 Blood Pressure 106/58 L Pulse Oximetry 100 03/29/18 20:00 03/30/18 00:00 03/30/18 04:00 Temperature 98.8 F 98.8 F 98.7 F Pulse Rate 67 67 70 Respiratory Rate 18 16 16 Blood Pressure 101/54 L 108/57 L 120/62 Pulse Oximetry 100 99 96 03/30/18 07:00 03/30/18 08:00 03/30/18 09:00 Temperature 98.1 F Pulse Rate 63 76 68 Respiratory Rate 18 Blood Pressure 135/77 Pulse Oximetry 100 Intake & Output 03/29/18 03/30/18 03/30/18 18:59 06:59 18:59 Intake Total 750 / 750 480 / 480 Output Total 900 / 900 Balance 750 / 750 -420 / -420 Weight 50.8 kg Intake: IV 750 / 750 Cordarone Inj 450 MG In D5W Inj 500 / 500 241 ML @ 1 MG/MIN 33.33 mls/hr IV.CONT TITRATE PRN Rx#: [id number] Heparin/D5W 25,000 U/250 mL 25, 250 / 250 000 unit In 250 ml @ 600 UNITS/ HR 6 mls/hr IV.CONT TITRATE PRN Rx#:[id number] Oral 480 / 480 Output: Urine 900 / 900 Other: Date of Last Bowel Movement 03/29/18 03/29/18 03/29/18 Narrative: GENERAL: Frail appearing elderly gentleman. No acute distress. SKIN: Warm and dry. No rash. Multiple surgical scars on abdomen from previous surgeries. Patient had venous stasis on lower extremeties bilaterally as well as onychomycosis in all nail beds of the lower extremities. EYES: No scleral icterus. No injection or drainage. PERRLA. EOMI. HENT: Normocephalic. Atraumatic. NECK: Supple, trachea midline. No JVD or lymphadenopathy. CARDIOVASCULAR: Irregular rate rate and rhythm without obvious murmurs, gallops , or rubs. RESPIRATORY: Breath sounds equal bilaterally. No accessory muscle use. CTAB. GASTROINTESTINAL: Abdomen soft, non-tender, nondistended. BS WNL. EXTREMITIES: Progressive venous stasis in both legs bilaterally with skin changes. DP pulses difficult to palpate. BACK: Nontender without obvious deformity. No CVA tenderness. No ulcerations or breaks in skin. NEURO/PSYCH: Afocal. Awake, alert, and oriented x3. Results 03/29/18 06:08 03/29/18 06:08 Cardiac Enzymes 03/28/18 03/29/18 03/29/18 Range/Units 20:55 00:15 06:08 AST 38 H (15-37) U/L Troponin I 0.15 H 0.13 H 0.17 H (0.02-0.05) ng/mL 03/29/18 Range/Units 20:29 AST (15-37) U/L Troponin I 0.10 H (0.02-0.05) ng/mL Coagulation 03/28/18 03/29/18 03/29/18 Range/Units 20:55 11:37 11:37 PT 10.8 11.1 (9.8-11.6) sec APTT 26.8 23.0 L Cancelled (24.3-30.1) sec CBC 03/28/18 03/29/18 Range/Units 20:55 06:08 WBC 9.1 8.3 (4.0-11.0) th/mm3 RBC 4.12 L 3.39 L (4.50-5.90) mil/mm3 Hgb 13.5 11.2 L D (13.0-17.0) gm/dL Hct 39.7 32.0 L (39.0-51.0) % Plt Count 194 D 147 L (150-450) th/mm3 Neut # (Auto) 6.5 (1.8-7.7) th/mm3 Lymph # (Auto) 1.7 (1.0-4.8) th/mm3 [place] # (Auto) 0.7 (0.0-0.9) th/mm3 Eos # (Auto) 0.1 (0.0-0.4) th/mm3 Baso # (Auto) 0.1 (0.0-0.2) th/mm3 Comprehensive Metabolic Panel 03/28/18 03/29/18 03/29/18 Range/Units 20:55 00:15 06:08 Sodium 140 135 L 143 (136-145) meq/L Potassium 5.6 H 3.3 L D 3.7 (3.5-5.1) meq/L Chloride 107 103 108 H (98-107) meq/L Carbon Dioxide 23.2 22.4 25.1 (21.0-32.0) meq/L BUN 15 12 11 (7-18) mg/dL Creatinine 1.17 0.97 0.79 (0.60-1.30) mg/dL Calcium 8.9 7.4 L* D 7.6 L (8.5-10.1) mg/dL AST 38 H (15-37) U/L ALT 33 (12-78) U/L Alkaline Phosphatase 95 (45-117) U/L Total Protein 8.2 6.3 L D (6.4-8.2) g/dL Albumin 3.5 (3.4-5.0) g/dL Intake and Output 03/29/18 03/30/18 03/30/18 22:59 06:59 14:59 Intake Total 480 / 480 Output Total 900 / 900 Balance -420 / -420 Intake: Oral 480 / 480 Output: Urine 900 / 900 Other: Date of Last Bowel Movement 03/29/18 03/29/18 03/29/18 Weight 50.8 kg - Imaging and Cardiology Imaging: Impressions Chest X-Ray 03/28/18 20:43 CONCLUSION: 1. Stable appearance with no evidence of pneumonia. 2. A large bleb is again noted in the left upper lobe. Chest CTA 03/28/18 21:07 CONCLUSION: 1. No evidence of pulmonary embolism. 2. Sclerotic osseous metastasis. 3. Underlying emphysema and bullous change. 4. Area again noted in the biliary tree with stent catheter in place. Assessment and Plan - Assessment (1) Afib Code(s): I48.91 - Unspecified atrial fibrillation Status: Acute (2) Hypertension Code(s): I10 - Essential (primary) hypertension Status: Acute (3) CAD (coronary artery disease) Code(s): I25.10 - Atherosclerotic heart disease of [place] coronary artery without angina pectoris Status: Acute (4) PAD (peripheral artery disease) Code(s): I73.9 - Peripheral vascular disease, unspecified Status: Acute (5) Multifocal PVCs Code(s): I49.3 - Ventricular premature depolarization Status: Acute (6) Chest pain Code(s): R07.9 - Chest pain, unspecified Status: Acute (7) Elevated troponin Code(s): R74.8 - Abnormal levels of other serum enzymes Status: Acute - Plan 1) Elevated troponin Minimally elevated Most likely type 2 due to AFib with RVR 2) CAD Previous PCI Con't ASA/Plavix Residual complex LCx lesion, con't medical management 3) Afib with RVR Beta saurav increased Heart rates better controlled Not an anti-coagulation candidate, patient agrees 4) PVC/Wide complex tachycardia Appears to be AFib with aberrancy 5) Cardiovascularly stable for discharge Has follow up with me in the office in 1-2 weeks already (2) Hypertension Qualifiers: Hypertension type: secondary to other renal disorders Qualified Code(s): I15.1 - Hypertension secondary to other renal disorders; N28.89 - Other specified disorders of kidney and ureter (6) Chest pain Qualifiers: Chest pain type: unspecified Qualified Code(s): R07.9 - Chest pain, unspecified
[2018-03-30] MEDS ORDERED: Influenza (Quadrivalent) Vaccine 0.5 ML Syringe IM ONE (10:00)
[2018-03-30 12:14] VITALS: BP 100/54; TEMP 98.3
[2018-03-30 14:04] VITALS: PULSE 76
--- NOTE | 2018-04-03 09:41 | P.DS ---
Date of admission: 03/29/18 01:31 Primary care physician: Gretel Sotelo MD, R2 Brief History from admission: Recalled from resident admission note "This patient is a 72-year-old - Citizen Of [place] male with a past medical history of prostate cancer, COPD, essential hypertension, and is 1 month status post STEMI treated with bare metal RCA stent X2 who is being admitted for chest pain and ACS rule out. Patient reports that late this evening he was [facility] and upon reaching the hallway he reports feeling what he described as a punch in his chest. He then went to inform the nurse because the sensation was very similar to his last ME. At the time he also experienced shaking, changes in vision and shortness of breath. The detention physician, Dr. Mendoza was contacted and the patient was brought in by [facility]. The patient reports that his pain was constant, nonradiating and lasted 35-45 until the patient arrived at the hospital. He reports that his pain was alleviated only by the medication given to him in the ED and there were no additional exacerbating factors. Patient did not report his pain being related to position, activity, or food. Of note patient had appointment scheduled with his media associate Dr. Martínez, last week but had to reschedule." Discussed this history with patient and resident, will add that he knows he is on chemo for his prostate cancer but is not sure how advanced it is and that he wants to go home, not back to [facility]. He says that his chest pain and dyspnea are now completely gone and he has no complaints this AM. He states that he wants go home and he would like to leave AMA. I was present for discussion with resident Dr Ching where patient agreed to stay at least for a cardiology evaluation and risks of leaving including sudden from ACS. RN called again and said that he was going to leave again if he was not allowed a diet. Dr Mccullough explained to him on the phone again that this would be against medical advice as he needs an evaluation from the media associate first. He made a concession to give him a liquid diet if he would stay but that this was against medical advice. Reviewed resident histories below and agree: PMHx: Prostate Cancer treated with chemotherapy every 3 weeks but has not been treated in 2 months due to C Diff, COPD, PAD, ME s/p 2 cardiac stents. Surgical Hx: Prostatectomy, 2 small bowel resection, ERCP, Inguinal hernia repair, appendectomy, 2 bare-metal stents placed in his RCA FHx: unknown to patient Social Hx: Lives in [facility] nursing/ rehab facility, he wants to go home , not back to his rehab. patient has a 58 pack year history now only smokes with his coffee in the morning, denies alcohol and illicit/ recreational drugs Allergies: Penicillin produces hives Code Status: Full Code DS: Diagnosis - Discharge Diagnosis (1) Chest pain Status: Acute (2) Hypertension Status: Acute (3) PAD (peripheral artery disease) Status: Acute (4) Prostate cancer Status: Acute (5) Normocytic anemia Status: Acute (6) Nutrition, metabolism, and development symptoms Status: Acute DS: Medications - Discharge Medications Prescriptions: metoprolol tartrate 50 mg PO BID #90 tab DS: Summary Hospital Course: 72-year-old male with history of COPD, prostate cancer currently on chemotherapy , hypertension, previous RCA ME status post 2 bare-metal stents who was admitted on 03/29 for chest pain. Patient initially started on heparin and amiodarone drip for multifocal PVCs. Cardiology consulted. Patient found to have A. fib with aberrancy. Patient told to continue aspirin and Plavix. Beta- saurav increased to 50 mg twice daily. Patient was cleared from a cardiology standpoint and to follow with Dr. Martínez in 1-2 weeks. 03/28 Chest CTA demonstrates sclerotic osseous metastasis. Patient unaware about metastasis. Spoke with patient's PCP about speaking with patient's oncologist. Patient was stable for discharge back to [facility] on 03/30. - Time Spent with Patient Total time spent providing and/or coordinating discharge services: Less than 30 minutes - Quality: VTE Deep Vein Thrombosis/Pulmonary Embolism Present on Admission: No Results Procedures completed during hospitalization: none - Impressions ITS Impressions Chest X-Ray 03/28/18 20:43 CONCLUSION: 1. Stable appearance with no evidence of pneumonia. 2. A large bleb is again noted in the left upper lobe. Chest CTA 03/28/18 21:07 CONCLUSION: 1. No evidence of pulmonary embolism. 2. Sclerotic osseous metastasis. 3. Underlying emphysema and bullous change. 4. Area again noted in the biliary tree with stent catheter in place. Discharge Plan - Discharge Disposition Patient Disposition: 03 Discharge to SNF - Discharge Condition Condition: Stable - Discharge Order Discharge Orders: Discharge Order (Routine); Ordered 03/30/18 Ordered By: Marsha Fischer - Physicians Team Primary Care Provider: Gretel Sotelo Attending Provider: Fidel Goldstein Other Providers: Thien Solis MD ; [place]
== END 2018-03-30 14:53 ==
LOC: NEPE 20:33 → NEDA 03-29 01:31 → HCIS 03-29 04:05
PROVIDERS: ADMIT Family Medicine; ATTEND Family Medicine